=== PATIENT | male | born 1955 | race Caucasian/White ===

== ENCOUNTER → 2017-08-10 12:50 | Outpatient (CLI) | payer MEDICAID, SELFPAY ==
[2017-08-10 13:20] LABS: Basophils % 0.7 % (0.1-2.0); Eosinophils # 0.3 K/mm3 (0.0-0.4); Eosinophils % 3.9 % (0.1-12.0); Hematocrit 47.3 % (42.0-52.0); Hemoglobin 15.1 g/dL (14.1-18.0); Lymphocytes # 2.4 K/mm3 (0.7-4.5); Lymphocytes % 35.7 K/mm3 (10-50); Mean Corpuscular HGB Conc 31.9 g/dL (31.8-35.4); Mean Corpuscular Volume 84.5 fl (80-94); Mean Platelet Volume 8.6 fl (7.4-10.4); Monocytes # 0.4 K/mm3 (0.1-1.0); Monocytes % 5.3 % (1.7-9.3); Neutrophils # 3.6 K/mm3 (1.8-7.8); Neutrophils % 54.6 % (37.0-80.0); Platelet Count 122 K/mm3 (142-424); Red Cell Distribution Width 15.6 % (11.5-17.5); White Blood Count 6.6 K/mm3 (4.8-10.8)
[2017-08-10 13:24] LABS: INR 0.97 (0.9-1.1); Prothrombin Time 10.5 seconds (9.4-11.8)
[2017-08-10 13:58] LABS: Alanine Aminotransferase 33 U/L (12-78); Albumin Level 3.8 gm/dL (3.4-5.0); Albumin/Globulin Ratio 1.3 (1.1-1.8); Alkaline Phosphatase 86 U/L (46-116); Anion Gap 10.8 mEq/L (5-15); Aspartate Amino Transferase 32 U/L (15-37); Bilirubin,Total 0.4 mg/dL (0.2-1.0); Blood Urea Nitrogen 14 mg/dL (7-18); Calcium 9.4 mg/dL (8.5-10.1); Carbon Dioxide 31 mmol/L (21.0-32.0); Chloride 103 mmol/L (98-107); Creatinine,Serum 1.51 mg/dL (0.70-1.30); Estimated Glomerular Filt Rate 47 ml/min (>60); GFR (African American) 57 ML/MIN (>60); Glucose 159 mg/dL (74-106); Potassium 4.8 mmoL/L (3.5-5.1); Sodium 140 mmol/L (136-145); Total Protein,Serum 6.8 gm/dL (6.4-8.2)
== END ==
PROVIDERS: PCP Internal Medicine; Visit Provider Internal Medicine
DX: R07.9 Chest pain, unspecified (principal)
CPT/HCPCS: 36415; 80053; 85025; 85610

== ENCOUNTER → 2017-08-19 10:25 | Outpatient (CLI) | payer MEDICAID, SELFPAY ==
--- NOTE | 2017-08-19 10:34 | CA_ITS ---
PROCEDURE: 2-D M-mode and color Doppler study INDICATIONS FOR THE TEST: Chest pain+ COPD Heart Murmur Tobacco Smoking Palpitations+ Fatigue Syncope Edema+ Hypertension+Diabetes Mellitus+ Rheumatic Fever+ SOB+BAH+Obesity+Hyperlipidemia+ Family History HD Additional History CAD, near syncope PATIENT INFORMATION HEIGHT: 64 WEIGHT: 195 GENDER: Male B/P: 169/80 2-D/M-MODE INTERPRETATION: 2-D MEASUREMENTS OBSERVED VALUES IN CMS Right Ventricular Dimension (RVDd) 1.9 Interventricular Septum (Thickness)(IVsd) 1.0 Left Ventricular Internal Dimensions(LVIDd) 4.5 Left Ventricular Posterior Wall (Thickness)(LVPWd) 1.0 Aortic Root 3.3 Aortic Cusp Separation 2.3 Left Atrial Dimensions (LAD) 4.1 2D 1. Left atrium is mildly enlarged, left ventricle is normal size, there is mild qualitative concentric left ventricular hypertrophy, visually estimated ejection fraction 55% with no obvious regional wall motion abnormality. 2. The right atrium and right ventricle are normal size and contractility. 3. The aortic valve is minimally thickened and fibrosed. 4. The mitral and tricuspid valve are structurally normal. 5. The pulmonic valve is poorly visualized. 6. No significant pericardial effusion noted. DOPPLER INTERROGATION: Doppler interrogation of the aortic, mitral and tricuspid valvular presence of mild mitral and tricuspid regurgitation, tricuspid and jet velocity insufficient for calculation of the right ventricular systolic pressure, grade 1 diastolic dysfunction seen with tissue Doppler evidence of raised left atrial pressure. CONCLUSION: 1. Mildly enlarged left atrium, normal left ventricular size, mild qualitative concentric left ventricular hypertrophy, visually estimated ejection fraction 55% with no obvious abnormality, grade 1 diastolic dysfunction seen with tissue Doppler evidence of raised left atrial pressure. 2. Mild mitral and tricuspid regurgitation 3. No significant pericardial effusion noted.
== END ==
PROVIDERS: Family Provider Nurse Practitioner Family; PCP Emergency Medicine; Visit Provider Internal Medicine
DX: I25.10 Atherosclerotic heart disease of native coronary artery without angina pectoris (principal); R94.31 Abnormal electrocardiogram [ECG] [EKG]; E11.9 Type 2 diabetes mellitus without complications; I10 Essential (primary) hypertension; E78.5 Hyperlipidemia, unspecified; Z95.5 Presence of coronary angioplasty implant and graft
CPT/HCPCS: 93306

== ENCOUNTER → 2017-08-27 08:10 | Outpatient (CLI) | payer MEDICAID, SELFPAY ==
[2017-08-27 11:06] LABS: Albumin Level 3.6 gm/dL (3.4-5.0); Anion Gap 10.2 mEq/L (5-15); Blood Urea Nitrogen 15 mg/dL (7-18); Calcium 8.6 mg/dL (8.5-10.1); Carbon Dioxide 30 mmol/L (21.0-32.0); Chloride 104 mmol/L (98-107); Creatinine,Serum 1.46 mg/dL (0.70-1.30); Estimated Glomerular Filt Rate 49 ml/min (>60); GFR (African American) 59 ML/MIN (>60); Glucose 147 mg/dL (74-106); Phosphorous 3.2 mg/dL (2.4-4.9); Potassium 4.2 mmoL/L (3.5-5.1); Sodium 140 mmol/L (136-145)
== END ==
PROVIDERS: PCP Emergency Medicine; Visit Provider Internal Medicine Nephrology
DX: N18.3 Chronic kidney disease, stage 3 (moderate) (principal)
CPT/HCPCS: 36415; 80069

== ENCOUNTER → 2017-09-07 13:12 | Outpatient (POV) | payer MEDICAID, SELFPAY | PROVIDERS: Family Provider Nurse Practitioner Family; PCP Emergency Medicine; Visit Provider Internal Medicine Nephrology | DX: Z00.00 Encounter for general adult medical examination without abnormal findings (principal) ==

== ENCOUNTER → 2017-09-08 06:37 | Day surgery (SDC) | payer MEDICAID, SELFPAY ==
[2017-09-08] VITALS (13 sets, daily range): BP systolic 103–144; BP diastolic 64–107; PULSE 73–97; RESP 12–18; TEMP 36.8; O2SAT 91–96; BMI 34.9
--- NOTE | 2017-09-08 | IR_ITS ---
CARDIAC CATHETERIZATION DATE OF CATHETERIZATION:09/08/2017 12:53 PM PROCEDURES: 1. Left heart catheterization 2. Left ventriculogram 3. Selective coronary angiogram 4. Drug-eluting stent deployment to the ostial proximal mid distal left anterior descending artery INDICATION FOR TEST: 1. Angina pectoris class III and IV 2. Known coronary artery disease Informed consent was obtained prior to the procedure. COMPLICATIONS: None ESTIMATED BLOOD LOSS: Less than 10 ml. TECHNIQUE: One percent lidocaine used to anesthetize the right anterior aspect of the wrist. The right radial artery was accessed via the Seldinger technique. A 6 [place] sheath was placed in the right radial artery. 2.5 mg of verapamil, 800 mcg of nitroglycerin and 5000 U Heparin were given through the arterial sheath. The trap catheter was also used to perform left heart catheterization left ventriculogram and selective coronary angiogram. At the end of the diagnostic angiogram and additional 4000 units of heparin was administered intravenously giving an ACT out of range. An Ibotta[place] left guide catheter was used intubate the left main artery and a choice PT extra-support wire was placed distally. A 3 mm x 38 mm resolute Leobardo stent was placed ostially and proximally followed by a 2.75 mm x 30 mm resolute [place] stent placed in the mid segment overlapping the first stent followed by an additional 2.5 x 26 mm resolute Leobardo stent overlapping the second stent and placed distally. All stents were deployed at 22 lashay. 3 mm x 12 mm noncompliant balloon was deployed at 24 lashay throughout the mid proximal LAD. A 3.5 x 8 mm noncompliant balloon was then deployed in the proximal to mid segment and a focal area of under expansion. Excellent angiographic results were obtained. At the end the procedure the ACT remain out of range. The apparatus was removed good hemostasis was achieved using TR banding patient transferred to the postop holding area in stable condition ANGIOGRAPHIC RESULTS: 1. The left main artery normal 2. The left anterior descending artery has an ostial 80% stenosis followed by an additional proximal 90% stenosis followed by an additional 80% concentric stenosis followed by an additional 90% mid vessel stenosis followed by an additional 80% stenosis distal to the stents. 3. The circumflex artery is a dominant vessel and has a proximal 40% concentric stenosis followed by 20% mid vessel stenoses 4. The right coronary artery is a small nondominant vestigial vessel and normal 5. The FARLEY ventriculogram reveals normal 65-70% 6. The left ventricular end-diastolic pressure 20 mmHg IMPRESSION: 1. Severe to critical in-stent restenosis throughout the entire LAD as described above 2. Successful stenting of the ostial proximal mid distal LAD severe critical disease reduced to 10% with 3 drug-eluting stents 3. Normal slightly hyperdynamic left ventricle consistent with hypertensive heart disease 4. Mildly elevated LVEDP PLAN: 1. Dual antiplatelet therapy 2. LDL less than 55 3. Avoidance of tobacco products 4. Risk factor modification 5. Cardiac rehabilitation
[2017-09-08 07:15] LABS: Basophils % 0.7 % (0.1-2.0); Eosinophils # 0.5 K/mm3 (0.0-0.4); Eosinophils % 7.3 % (0.1-12.0); Hemoglobin 14.8 g/dL (14.1-18.0); Lymphocytes # 2.1 K/mm3 (0.7-4.5); Lymphocytes % 31.7 K/mm3 (10-50); Mean Corpuscular HGB Conc 32.9 g/dL (31.8-35.4); Mean Corpuscular Hemoglobin 27.2 pg (27.0-31.2); Mean Corpuscular Volume 82.7 fl (80-94); Mean Platelet Volume 9.2 fl (7.4-10.4); Monocytes # 0.5 K/mm3 (0.1-1.0); Monocytes % 8.2 % (1.7-9.3); Neutrophils # 3.4 K/mm3 (1.8-7.8); Neutrophils % 52.1 % (37.0-80.0); Platelet Count 131 K/mm3 (142-424); Red Blood Count 5.44 M/mm3 (4.60-6.20); Red Cell Distribution Width 15.4 % (11.5-17.5); White Blood Count 6.5 K/mm3 (4.8-10.8)
[2017-09-08 07:22] LABS: Anion Gap 10.8 mEq/L (5-15); Blood Urea Nitrogen 17 mg/dL (7-18); Carbon Dioxide 29 mmol/L (21.0-32.0); Chloride 104 mmol/L (98-107); Creatinine Clearance Estimated 60 mL/min (0-300); Creatinine,Serum 1.64 mg/dL (0.70-1.30); Estimated Glomerular Filt Rate 43 ml/min (>60); GFR (African American) 52 ML/MIN (>60); Glucose 146 mg/dL (74-106); Potassium 3.8 mmoL/L (3.5-5.1); Sodium 140 mmol/L (136-145)
[2017-09-08 13:23] LABS: CATHL Activated Clotting Time > 400 SEC (74-125)
[2017-09-08 13:24] LABS: CATHL Activated Clotting Time > 400 SEC (74-125)
== END ==
PROVIDERS: Family Provider Nurse Practitioner Family; PCP Emergency Medicine; Visit Provider Internal Medicine
DX: I25.119 Atherosclerotic heart disease of native coronary artery with unspecified angina pectoris (principal); R55 Syncope and collapse; I10 Essential (primary) hypertension; E11.9 Type 2 diabetes mellitus without complications; R06.09 Other forms of dyspnea; I48.2 Chronic atrial fibrillation
CPT/HCPCS: 80048; 85025; 85347; 92928; 93458; 99152; 99153; C1725; C1769; C1876; C1894; C9600; J1644; Q9967

== ENCOUNTER → 2017-09-09 09:08 | Outpatient (CLI) | payer MEDICAID, SELFPAY ==
[2017-09-09 10:29] LABS: Anion Gap 14.2 mEq/L (5-15); Blood Urea Nitrogen 17 mg/dL (7-18); Carbon Dioxide 26 mmol/L (21.0-32.0); Chloride 103 mmol/L (98-107); Creatinine,Serum 1.89 mg/dL (0.70-1.30); Estimated Glomerular Filt Rate 36 ml/min (>60); GFR (African American) 44 ML/MIN (>60); Glucose 245 mg/dL (74-106); Potassium 4.2 mmoL/L (3.5-5.1); Sodium 139 mmol/L (136-145)
== END ==
PROVIDERS: PCP Emergency Medicine; Visit Provider Internal Medicine
DX: Z95.5 Presence of coronary angioplasty implant and graft (principal)
CPT/HCPCS: 36415; 80048

== ENCOUNTER → 2017-10-14 11:40 | Outpatient (CLI) | payer MEDICAID, SELFPAY ==
[2017-10-14 12:08] LABS: Alanine Aminotransferase 36 U/L (12-78); Albumin Level 3.8 gm/dL (3.4-5.0); Alkaline Phosphatase 74 U/L (46-116); Aspartate Amino Transferase 29 U/L (15-37); Bilirubin,Direct 0.2 mg/dL (0.0-0.2); Bilirubin,Total 0.5 mg/dL (0.2-1.0); Blood Urea Nitrogen 17 mg/dL (7-18); Carbon Dioxide 29 mmol/L (21.0-32.0); Cholesterol 151 mg/dL (140-200); Creatinine,Serum 1.66 mg/dL (0.70-1.30); Estimated Glomerular Filt Rate 42 ml/min (>60); GFR (African American) 51 ML/MIN (>60); Glucose 125 mg/dL (74-106); HDL Cholesterol 30 mg/dL (27-67); LDL Cholesterol 63 mg/dL (0-130); Total Protein,Serum 7.4 gm/dL (6.4-8.2); Triglycerides 289 mg/dL (30-200); VLDL Cholesterol 58 mg/dL (0-40)
[2017-10-14 12:25] LABS: Anion Gap 9.4 mEq/L (5-15); Chloride 103 mmol/L (98-107); Potassium 4.4 mmoL/L (3.5-5.1); Sodium 137 mmol/L (136-145)
== END ==
PROVIDERS: Visit Provider Internal Medicine Cardiovascular Disease
DX: Z95.5 Presence of coronary angioplasty implant and graft (principal); I27.20 Pulmonary hypertension, unspecified; R94.31 Abnormal electrocardiogram [ECG] [EKG]; I48.91 Unspecified atrial fibrillation; I25.119 Atherosclerotic heart disease of native coronary artery with unspecified angina pectoris; I10 Essential (primary) hypertension; E78.4 Other hyperlipidemia; E11.9 Type 2 diabetes mellitus without complications; M79.601 Pain in right arm
CPT/HCPCS: 36415; 80048; 80061; 80076

== ENCOUNTER → 2017-11-11 10:49 | Outpatient (REF) | payer MEDICAID, SELFPAY ==
[2017-11-11 14:08] LABS: Basophils % 0.6 % (0.1-2.0); Eosinophils # 0.3 K/mm3 (0.0-0.4); Eosinophils % 3.4 % (0.1-12.0); Hematocrit 46.7 % (42.0-52.0); Lymphocytes # 2.4 K/mm3 (0.7-4.5); Mean Corpuscular Hemoglobin 28.5 pg (27.0-31.2); Mean Corpuscular Volume 89.1 fl (80-94); Mean Platelet Volume 8.4 fl (7.4-10.4); Monocytes # 0.5 K/mm3 (0.1-1.0); Monocytes % 6.7 % (1.7-9.3); Neutrophils # 4.3 K/mm3 (1.8-7.8); Neutrophils % 57.3 % (37.0-80.0); Platelet Count 149 K/mm3 (142-424); Red Blood Count 5.25 M/mm3 (4.60-6.20); White Blood Count 7.6 K/mm3 (4.8-10.8)
[2017-11-11 14:53] LABS: Anion Gap 12.8 mEq/L (5-15); Blood Urea Nitrogen 11 mg/dL (7-18); Carbon Dioxide 28 mmol/L (21.0-32.0); Chloride 107 mmol/L (98-107); Creatinine,Serum 1.51 mg/dL (0.70-1.30); Estimated Glomerular Filt Rate 47 ml/min (>60); GFR (African American) 57 ML/MIN (>60); Glucose 175 mg/dL (74-106); Potassium 4.8 mmoL/L (3.5-5.1); Sodium 143 mmol/L (136-145)
== END ==
LOC: LAB 10:49
PROVIDERS: Visit Provider Emergency Medicine
DX: E78.5 Hyperlipidemia, unspecified (principal)
CPT/HCPCS: 80048; 85025

== ENCOUNTER → 2018-02-22 12:58 | Outpatient (CLI) | payer MEDICAID, SELFPAY ==
[2018-02-22 13:06] LABS: Microscopic, Urine URINE MICROSCOPIC (MICROSCOPIC)
[2018-02-22 14:04] LABS: Basophils % 0.7 % (0.1-2.0); Eosinophils # 0.3 K/mm3 (0.0-0.4); Eosinophils % 4.2 % (0.1-12.0); Hematocrit 46.1 % (42.0-52.0); Lymphocytes # 2.4 K/mm3 (0.7-4.5); Lymphocytes % 40.7 K/mm3 (10-50); Mean Corpuscular HGB Conc 32.5 g/dL (31.8-35.4); Mean Corpuscular Hemoglobin 27.8 pg (27.0-31.2); Mean Corpuscular Volume 85.6 fl (80-94); Mean Platelet Volume 8.4 fl (7.4-10.4); Monocytes # 0.4 K/mm3 (0.1-1.0); Monocytes % 5.9 % (1.7-9.3); Neutrophils # 2.9 K/mm3 (1.8-7.8); Neutrophils % 48.5 % (37.0-80.0); Platelet Count 120 K/mm3 (142-424); Red Blood Count 5.39 M/mm3 (4.60-6.20); Red Cell Distribution Width 15.1 % (11.5-17.5); White Blood Count 5.9 K/mm3 (4.8-10.8)
[2018-02-22 14:48] LABS: Anion Gap 12.1 mEq/L (5-15); Blood Urea Nitrogen 15 mg/dL (7-18); Calcium 9.1 mg/dL (8.5-10.1); Carbon Dioxide 28 mmol/L (21.0-32.0); Chloride 107 mmol/L (98-107); Creatinine,Serum 1.75 mg/dL (0.70-1.30); Estimated Glomerular Filt Rate 39 ml/min (>60); GFR (African American) 48 ML/MIN (>60); Glucose 171 mg/dL (74-106); Potassium 4.1 mmoL/L (3.5-5.1); Sodium 143 mmol/L (136-145)
[2018-02-22 15:07] LABS: Appearance,Urine CLEAR (Clear); Bilirubin,Urine Negative (Negative); Blood, Urine 1+ (Negative); Color,Urine YELLOW (Yellow); Glucose,Urine (UA) Negative (Negative); Ketones,Urine Negative (Negative); Leukocyte Esterase,Urine Negative (Negative); Nitrate,Urine Negative (Negative); PH,Urine 5.5 (5.0-8.5); Protein,Urine 1+ (Negative); Specific Gravity, Urine >= 1.030 (1.005-1.030)
[2018-02-22 15:09] LABS: Creatinine,Urine Random 177 mg/dL (20-320)
[2018-02-22 15:23] LABS: Mucus,Urine 2+ /lpf
[2018-02-22 15:24] LABS: Bacteria,Urine 1+ /lpf; RBC,Urine Occasional #/hpf (0-3)
== END ==
PROVIDERS: Visit Provider Internal Medicine Nephrology
DX: N18.3 Chronic kidney disease, stage 3 (moderate) (principal)
CPT/HCPCS: 36415; 80069; 81001; 82570; 84155; 85025

== ENCOUNTER → 2018-03-13 13:46 | Outpatient (POV) | payer MEDICAID, SELFPAY | PROVIDERS: Family Provider Nurse Practitioner Family; PCP Emergency Medicine; Visit Provider Internal Medicine Nephrology | DX: Z00.00 Encounter for general adult medical examination without abnormal findings (principal) ==

== ENCOUNTER → 2018-06-27 18:18 | Outpatient (CLI) | payer MEDICAID, SELFPAY ==
[2018-06-27 18:32] LABS: Basophils # 0.1 K/mm3 (0-0.2); Basophils % 0.8 % (0.1-2.0); Eosinophils # 0.2 K/mm3 (0.0-0.4); Eosinophils % 2.8 % (0.1-12.0); Hematocrit 49.7 % (42.0-52.0); Hemoglobin 15.8 g/dL (14.1-18.0); Lymphocytes # 2.8 K/mm3 (0.7-4.5); Lymphocytes % 36.1 % (10-50); Mean Corpuscular HGB Conc 31.8 g/dL (31.8-35.4); Mean Corpuscular Hemoglobin 27.5 pg (27.0-31.2); Mean Corpuscular Volume 86.4 fl (80-94); Mean Platelet Volume 8.5 fl (7.4-10.4); Monocytes # 0.4 K/mm3 (0.1-1.0); Monocytes % 5.8 % (1.7-9.3); Neutrophils # 4.2 K/mm3 (1.8-7.8); Neutrophils % 54.6 % (37.0-80.0); Platelet Count 133 K/mm3 (142-424); Red Blood Count 5.75 M/mm3 (4.60-6.20); Red Cell Distribution Width 15.6 % (11.5-17.5); White Blood Count 7.6 K/mm3 (4.8-10.8)
[2018-06-27 19:15] LABS: Hemoglobin A1C 6.9 % (0.0-7.0)
[2018-06-27 19:29] LABS: Alanine Aminotransferase 28 U/L (12-78); Albumin/Globulin Ratio 1.4 (1.1-1.8); Alkaline Phosphatase 78 U/L (46-116); Anion Gap 12.9 mEq/L (5-15); Aspartate Amino Transferase 18 U/L (15-37); Bilirubin,Total 0.4 mg/dL (0.2-1.0); Blood Urea Nitrogen 11 mg/dL (7-18); Calcium 8.7 mg/dL (8.5-10.1); Carbon Dioxide 28 mmol/L (21.0-32.0); Chloride 104 mmol/L (98-107); Chol/HDL Ratio 6.6 (1-3.5); Cholesterol 172 mg/dL (140-200); Estimated Glomerular Filt Rate 51 ml/min (>60); Free T4 (Free Thyroxine) 0.97 ng/dl (0.76-1.46); GFR (African American) 62 ML/MIN (>60); Globulin 2.9 gm/dl (1.3-3.2); Glucose 138 mg/dL (74-106); HDL Cholesterol 26 mg/dL (27-67); Potassium 3.9 mmoL/L (3.5-5.1); Sodium 141 mmol/L (136-145); Thyroid Stimulating Hormone 9.52 uIU/ml (0.358-3.740); Total Protein,Serum 6.9 gm/dL (6.4-8.2)
[2018-06-27 19:30] LABS: Triglycerides 416 mg/dL (30-200)
== END ==
PROVIDERS: Visit Provider Emergency Medicine
DX: E11.9 Type 2 diabetes mellitus without complications (principal)
CPT/HCPCS: 80053; 80061; 83036; 84439; 84443; 85025

== ENCOUNTER → 2018-11-03 10:53 | Outpatient (CLI) | payer MEDICAID, SELFPAY ==
[2018-11-03 10:55] LABS: Microscopic, Urine URINE MICROSCOPIC (MICROSCOPIC)
[2018-11-03 11:09] LABS: Basophils % 0.6 % (0.1-2.0); Eosinophils # 0.3 K/mm3 (0.0-0.4); Eosinophils % 5.3 % (0.1-12.0); Hematocrit 42.9 % (42.0-52.0); Hemoglobin 14.2 g/dL (14.1-18.0); Lymphocytes # 2.3 K/mm3 (0.7-4.5); Lymphocytes % 43.9 % (10-50); Mean Corpuscular HGB Conc 33.2 g/dL (31.8-35.4); Mean Corpuscular Volume 87.3 fl (80-94); Mean Platelet Volume 8.4 fl (7.4-10.4); Monocytes # 0.3 K/mm3 (0.1-1.0); Monocytes % 5.5 % (1.7-9.3); Neutrophils # 2.3 K/mm3 (1.8-7.8); Neutrophils % 44.7 % (37.0-80.0); Platelet Count 131 K/mm3 (142-424); Red Blood Count 4.92 M/mm3 (4.60-6.20); Red Cell Distribution Width 15.7 % (11.5-17.5); White Blood Count 5.2 K/mm3 (4.8-10.8)
[2018-11-03 11:52] LABS: Appearance,Urine CLEAR (Clear); Bilirubin,Urine Negative (Negative); Blood, Urine 1+ (Negative); Color,Urine YELLOW (Yellow); Glucose,Urine (UA) 3+ (Negative); Ketones,Urine Negative (Negative); Leukocyte Esterase,Urine Negative (Negative); Nitrate,Urine Negative (Negative); PH,Urine 5.5 (5.0-8.5); Protein,Urine 1+ (Negative); Specific Gravity, Urine >= 1.030 (1.005-1.030); Urobilinogen,Urine 0.2 EU/dl (0.2)
[2018-11-03 12:02] LABS: Creatinine,Urine Random 129 mg/dL (20-320); Total Protein,Urine Random 86.9 mg/dL (0.0-11.9)
[2018-11-03 12:11] LABS: Albumin Level 3.5 gm/dL (3.4-5.0); Anion Gap 13.9 mEq/L (5-15); Blood Urea Nitrogen 11 mg/dL (7-18); Calcium 9.3 mg/dL (8.5-10.1); Carbon Dioxide 27 mmol/L (21.0-32.0); Chloride 106 mmol/L (98-107); Creatinine,Serum 1.61 mg/dL (0.70-1.30); Estimated Glomerular Filt Rate 43 ml/min (>60); GFR (African American) 53 ML/MIN (>60); Glucose 199 mg/dL (74-106); Phosphorous 3.2 mg/dL (2.4-4.9); Potassium 3.9 mmoL/L (3.5-5.1); Sodium 143 mmol/L (136-145)
[2018-11-03 12:20] LABS: Bacteria,Urine 1+ /lpf; Mucus,Urine Trace /lpf; Squamous Epithelial Cell,Urine Occasional #/hpf (0-5); WBC,Urine Occasional #/hpf (0-3)
== END ==
PROVIDERS: Visit Provider Internal Medicine Nephrology
DX: N18.3 Chronic kidney disease, stage 3 (moderate) (principal)
CPT/HCPCS: 36415; 80069; 81001; 82570; 84155; 85025

== ENCOUNTER → 2018-11-06 15:37 | Outpatient (POV) | payer MEDICAID, SELFPAY | PROVIDERS: Visit Provider Internal Medicine Nephrology | DX: Z00.00 Encounter for general adult medical examination without abnormal findings (principal) ==

== ENCOUNTER → 2019-02-02 07:35 | Outpatient (CLI) | payer MEDICARE, MEDICAID, SELFPAY ==
[2019-02-02 09:24] LABS: Anion Gap 12.8 mEq/L (5-15); Blood Urea Nitrogen 25 mg/dL (7-18); Calcium 9.1 mg/dL (8.5-10.1); Carbon Dioxide 25 mmol/L (21.0-32.0); Chloride 105 mmol/L (98-107); Creatinine,Serum 2.26 mg/dL (0.70-1.30); Estimated Glomerular Filt Rate 29 ml/min (>60); GFR (African American) 35 ML/MIN (>60); Glucose 161 mg/dL (74-106); Potassium 3.8 mmoL/L (3.5-5.1); Sodium 139 mmol/L (136-145)
== END ==
PROVIDERS: Visit Provider Internal Medicine Nephrology
DX: N18.3 Chronic kidney disease, stage 3 (moderate) (principal)
CPT/HCPCS: 36415; 80048

== ENCOUNTER → 2019-02-19 07:46 | Outpatient (CLI) | payer MEDICARE, MEDICAID, SELFPAY ==
[2019-02-19 09:18] LABS: Albumin Level 3.6 gm/dL (3.4-5.0); Blood Urea Nitrogen 27 mg/dL (7-18); Carbon Dioxide 25 mmol/L (21.0-32.0); Chloride 106 mmol/L (98-107); Creatinine,Serum 2.37 mg/dL (0.70-1.30); Estimated Glomerular Filt Rate 28 ml/min (>60); GFR (African American) 34 ML/MIN (>60); Glucose 189 mg/dL (74-106); Phosphorous 4.4 mg/dL (2.4-4.9); Sodium 141 mmol/L (136-145)
== END ==
PROVIDERS: Visit Provider Internal Medicine Nephrology
DX: N18.3 Chronic kidney disease, stage 3 (moderate) (principal)
CPT/HCPCS: 36415; 80069

== ENCOUNTER → 2019-03-23 08:19 | Outpatient (CLI) | payer MEDICARE, MEDICAID, SELFPAY ==
[2019-03-23 09:54] LABS: Albumin Level 3.9 gm/dL (3.4-5.0); Anion Gap 12.7 mEq/L (5-15); Blood Urea Nitrogen 20 mg/dL (7-18); Calcium 9.3 mg/dL (8.5-10.1); Carbon Dioxide 28 mmol/L (21.0-32.0); Chloride 104 mmol/L (98-107); Creatinine,Serum 1.82 mg/dL (0.70-1.30); Estimated Glomerular Filt Rate 38 ml/min (>60); GFR (African American) 45 ML/MIN (>60); Glucose 155 mg/dL (74-106); Phosphorous 3.5 mg/dL (2.4-4.9); Potassium 3.7 mmoL/L (3.5-5.1); Sodium 141 mmol/L (136-145)
== END ==
PROVIDERS: Visit Provider Internal Medicine Nephrology
DX: N18.3 Chronic kidney disease, stage 3 (moderate) (principal)
CPT/HCPCS: 36415; 80069

== ENCOUNTER → 2019-10-29 08:22 | Outpatient (CLI) | payer MEDICARE, MEDICAID, SELFPAY ==
[2019-10-29 09:31] LABS: Basophils % 0.7 % (0.1-2.0); Eosinophils # 0.2 K/mm3 (0.0-0.4); Eosinophils % 3.9 % (0.1-12.0); Hematocrit 44.7 % (42.0-52.0); Hemoglobin 15.2 g/dL (14.1-18.0); Lymphocytes # 2.4 K/mm3 (0.7-4.5); Mean Corpuscular HGB Conc 33.9 g/dL (31.8-35.4); Mean Corpuscular Hemoglobin 28.9 pg (27.0-31.2); Mean Corpuscular Volume 85.2 fl (80-94); Mean Platelet Volume 8.9 fl (7.4-10.4); Monocytes # 0.3 K/mm3 (0.1-1.0); Monocytes % 5.6 % (1.7-9.3); Neutrophils # 3.1 K/mm3 (1.8-7.8); Neutrophils % 50.8 % (37.0-80.0); Platelet Count 139 K/mm3 (142-424); Red Blood Count 5.25 M/mm3 (4.60-6.20); Red Cell Distribution Width 15.8 % (11.5-17.5); White Blood Count 6.1 K/mm3 (4.8-10.8)
[2019-10-29 10:23] LABS: Chloride 103 mmol/L (98-107)
[2019-10-29 10:24] LABS: Albumin Level 3.7 g/dl (3.5-5.0); Potassium 3.8 mmoL/L (3.5-5.1); Sodium 137 mmol/L (136-145)
[2019-10-29 10:26] LABS: Anion Gap 11.8 mEq/L (5-15); Blood Urea Nitrogen 13 mg/dl (9-20); Carbon Dioxide 26 mmol/L (22.0-30.0); Estimated Glomerular Filt Rate 47 ml/min (>60); GFR (African American) 57 ML/MIN (>60)
[2019-10-29 10:27] LABS: Calcium 9.5 mg/dl (8.4-10.2); Glucose 216 mg/dl (74-100); Phosphorous 3.5 mg/dl (2.5-4.5)
[2019-10-29 11:39] LABS: Creatinine,Urine Random 65 mg/dL (Not Estab.)
[2019-10-30 08:03] LABS: Vitamin D 25 Hydroxy 23.4 ng/mL (30.0-100.0)
== END ==
PROVIDERS: Visit Provider Internal Medicine Nephrology
DX: N18.3 Chronic kidney disease, stage 3 (moderate) (principal)
CPT/HCPCS: 36415; 80069; 82570; 82652; 84155; 85025

== ENCOUNTER → 2020-02-04 07:51 | Outpatient (CLI) | payer MEDICARE, MEDICAID, SELFPAY ==
--- NOTE | 2020-02-04 07:55 | US_ITS ---
PROCEDURE: US THYROID CLINICAL INDICATION: GOITER hypothyroidism, choking COMPARISON: No exams were available for comparison FINDINGS: Right lobe: Right lobe is 3.7 x 1.8 x 1.8 cm. There are 2 cyst in the lower pole at 2 mm each. Left lobe: 3.6 x 1.4 x 1.5 cm. Small area of calcification is present in the lower pole at 2 mm. Isthmus: 5 mm in thickness Additional findings: IMPRESSION: Two small cyst on the right and a small focus of calcification on the left. No dominant suspicious nodules evident Dictated by: Michael Burnett MD 02/04/2020 19:12 Electronically signed by Michael Burnett MD in [place] 02/04/2020 19:12
== END ==
PROVIDERS: PCP Emergency Medicine; Visit Provider Internal Medicine Cardiovascular Disease
DX: E03.9 Hypothyroidism, unspecified (principal); E04.9 Nontoxic goiter, unspecified
CPT/HCPCS: 76536

== ENCOUNTER → 2020-08-19 19:16 | Outpatient (CLI) | payer MEDICARE, MEDICAID, SELFPAY ==
[2020-08-19 19:42] LABS: Basophils # 0.1 K/mm3 (0-0.2); Basophils % 0.8 % (0.1-2.0); Eosinophils # 0.3 K/mm3 (0.0-0.4); Eosinophils % 3.7 % (0.1-12.0); Hematocrit 52.5 % (42.0-52.0); Hemoglobin 17.5 g/dL (14.1-18.0); Lymphocytes % 34.7 % (10-50); Mean Corpuscular HGB Conc 33.4 g/dL (31.8-35.4); Mean Corpuscular Hemoglobin 29.1 pg (27.0-31.2); Mean Corpuscular Volume 87.2 fl (80-94); Mean Platelet Volume 9.6 fl (7.4-10.4); Monocytes # 0.5 K/mm3 (0.1-1.0); Neutrophils # 4.7 K/mm3 (1.8-7.8); Neutrophils % 54.7 % (37.0-80.0); Platelet Count 150 K/mm3 (142-424); Red Blood Count 6.02 M/mm3 (4.60-6.20); Red Cell Distribution Width 14.9 % (11.5-17.5); White Blood Count 8.5 K/mm3 (4.8-10.8)
[2020-08-19 19:45] LABS: Alanine Aminotransferase 34 U/L (12-78); Albumin Level 4.6 g/dl (3.5-5.0); Albumin/Globulin Ratio 1.4 (1.1-1.8); Alkaline Phosphatase 110 U/L (38-126); Anion Gap 17.5 mEq/L (5-15); Aspartate Amino Transferase 44 U/L (17-59); Bilirubin,Total 0.9 mg/dl (0.2-1.3); Blood Urea Nitrogen 21 mg/dl (9-20); Calcium 10.3 mg/dl (8.4-10.2); Carbon Dioxide 26 mmol/L (22.0-30.0); Chloride 97 mmol/L (98-107); Chol/HDL Ratio 7.6 (1-3.5); Cholesterol 229 mg/dl (140-200); Estimated Glomerular Filt Rate 43 ml/min (>60); GFR (African American) 53 ML/MIN (>60); Globulin 3.2 g/dL (1.3-3.2); Glucose 233 mg/dl (74-100); HDL Cholesterol 30 mg/dl (40-60); Potassium 4.5 mmoL/L (3.5-5.1); Sodium 136 mmol/L (136-145); Total Protein,Serum 7.8 g/dl (6.3-8.2)
[2020-08-19 19:56] LABS: Triglycerides 693 mg/dl (30-150)
[2020-08-19 20:02] LABS: T4 (Thyroxine) 10.1 ug/dl (5.53-11.0)
[2020-08-19 20:13] LABS: Direct LDL Cholesterol 61.42 mg/dL (100-129)
[2020-08-19 20:16] LABS: Thyroid Stimulating Hormone 8.92 uIU/mL (0.465-4.68)
[2020-08-21 13:47] LABS: Prostate Specific Ag 0.4 ng/mL (0.0-4.0)
== END ==
PROVIDERS: Visit Provider Nurse Practitioner Family
DX: E55.9 Vitamin D deficiency, unspecified (principal); K85.90 Acute pancreatitis without necrosis or infection, unspecified; Z00.00 Encounter for general adult medical examination without abnormal findings; R20.2 Paresthesia of skin; R94.8 Abnormal results of function studies of other organs and systems
CPT/HCPCS: 80053; 80061; 82306; 84153; 84154; 84436; 84443; 85025

== ENCOUNTER → 2020-11-03 08:17 | Outpatient (CLI) | payer MEDICARE, MEDICAID, SELFPAY ==
[2020-11-03 09:08] LABS: Creatinine,Urine Random 72 mg/dL (Not Estab.)
[2020-11-03 09:21] LABS: Albumin Level 4.6 g/dl (3.5-5.0); Anion Gap 15.3 mEq/L (5-15); Blood Urea Nitrogen 20 mg/dl (9-20); Calcium 10.3 mg/dl (8.4-10.2); Carbon Dioxide 28 mmol/L (22.0-30.0); Chloride 100 mmol/L (98-107); Estimated Glomerular Filt Rate 36 ml/min (>60); GFR (African American) 43 ML/MIN (>60); Glucose 176 mg/dl (74-100); Phosphorous 3.8 mg/dl (2.5-4.5); Potassium 4.3 mmoL/L (3.5-5.1); Sodium 139 mmol/L (136-145); Uric Acid 5.3 mg/dl (3.5-8.5)
[2020-11-03 09:39] LABS: 25-OH Vitamin D, Total 34.4 ng/mL (30-100)
== END ==
PROVIDERS: Visit Provider Internal Medicine Nephrology
DX: N18.30 Chronic kidney disease, stage 3 unspecified (principal); Z68.32 Body mass index [BMI] 32.0-32.9, adult
CPT/HCPCS: 36415; 80069; 82043; 82306; 82570; 84550

== ENCOUNTER → 2020-11-10 09:40 | Outpatient (POV) | payer MEDICARE, MEDICAID, SELFPAY | PROVIDERS: Visit Provider Internal Medicine Nephrology | DX: Z00.00 Encounter for general adult medical examination without abnormal findings (principal) ==

== ENCOUNTER 2020-11-21 15:38 | Emergency (ER) | payer MEDICARE, MEDICAID, SELFPAY ==
[2020-11-21 15:41] VITALS: BP 146/94; PULSE 82; RESP 16; TEMP 36.8; O2SAT 100; BMI 32.3
--- NOTE | 2020-11-21 16:31 | HMH.EDUTC ---
[facility] [place] Clinical Impression: Herpes zoster Qualifiers: Herpes zoster complications: without complications Qualified Code(s): B02.9 - Zoster without complications Disposition: Home, Self-Care Condition on Discharge: Good Instructions: Shingles, DI for Shingles Additional Instructions: Follow up with your primary care doctor. Take the medications as directed. GO TO THE ER FOR ANY WORSENING SYMPTOMS OR CONCERNS Prescriptions: Acyclovir 400 mg PO BID 7 Days #14 tab Transmission Status: Received by [facility] predniSONE [Deltasone 10mg tablet] 10 mg PO DAILY 9 Days #21 tab Transmission Status: Received by [facility] Referrals: Don Pierson MD [Primary Care Provider] - Time of Disposition: 16:35 Medical Decision Making - Medical Records Medical records reviewed: No: I reviewed the patient's medical records. - Mando Inquiry Pt receiving controlled substance: No Vital Signs: 11/21/20 15:41 11/21/20 16:37 Temperature 98.2 F 98 F Temperature Source Tympanic Pulse Rate 86 Pulse Rate [Right] 82 Respiratory Rate 16 15 Blood Pressure 132/89 Blood Pressure [Right Arm] 146/94 H Blood Pressure Mean [Right Arm] 111 Blood Pressure Source [Right Arm] Automatic Cuff Blood Pressure Position [Right Arm] Sitting 02 Sat by Pulse Oximetry 100 Oxygen Delivery Method Room Air [facility] [place] HPI - General Stated complaint: sores on Left leg Time Seen by Provider: 11/21/20 16:31 Mode of Arrival: Ambulatory Source of Information: Patient Limitations: No Limitations Description of Symptoms (Recalled from Triage Doc. by RN): a few days ago pt devoped a rash from his knee up to his hip on his L leg. rash presents as small circles in clusters that are raised and fluid filled from a red to purple. pt complains they are itching and he has tried benedryl cream without any relief. HEENT Symptoms (Recalled from RN notes): No Resp Symptoms (Recalled from RN notes): No Skin Symptoms (Recalled from RN notes): Yes (rash on L leg from knee to hip.) MS Symptoms (Recalled from RN notes): No Functional Status (Recalled from RN notes): na - History of Present Illness Provider Complaint: He states that for the past 1 week he has had sores on his right buttock that stretch down the back of his right leg. He states that the places were painful and itchy at first, but now they feel some better. - Related Data Home Medications Medication Instructions Recorded Confirmed clonidine HCl 0.2 mg tablet 0.2 mg PO Q12H 08/10/17 10/14/20 amlodipine 5 mg tablet 5 mg PO BID tab 01/31/20 10/14/20 blood sugar diagnostic See Rx Instructions .ROUTE 01/31/20 10/14/20 .MEDSUPPLY #10 each chlorthalidone 25 mg tablet 12.5 mg PO DAILY tab 03/26/20 10/14/20 levothyroxine 75 mcg capsule 75 mcg PO DAILY 08/19/20 10/14/20 gabapentin 100 mg capsule 100 mg PO DAILY 08/22/20 10/14/20 metoprolol succinate 100 mg 100 mg PO DAILY 08/22/20 10/14/20 tablet,extended release 24 hr sitagliptin 50 mg tablet 50 mg PO DAILY 08/22/20 10/14/20 Previous Rx's Medication Instructions Recorded clopidogrel 75 mg tablet 75 mg PO DAILY #90 tab 10/19/18 cilostazol 100 mg tablet 100 mg PO BID #180 tab 12/31/19 aspirin 81 mg tablet,delayed See Rx Instructions .ROUTE 07/11/20 release .COMPLEX #90 tab polyethylene glycol 3350 17 See Rx Instructions .ROUTE 09/15/20 gram/dose oral powder .COMPLEX #510 g allopurinol 300 mg tablet See Rx Instructions .ROUTE 10/29/20 .COMPLEX #90 tab Acyclovir 400 mg PO BID 7 Days #14 tab 11/21/20 predniSONE [Deltasone 10mg tablet] 10 mg PO DAILY 9 Days #21 tab 11/21/20 Allergies Allergy/AdvReac Type Severity Reaction Status Date / Time atorvastatin [From Lipitor] Allergy Mild Hallucinati Verified 11/21/20 15:48 ng - Worker's Comp Is this a Worker's Comp case?: No [facility] History - Hepatitis A Screen Drug use history?: No High risk sexual behaviors?: No History of sexually transmi
[2020-11-21 16:37] VITALS: BP 132/89; PULSE 86; RESP 15; TEMP 36.6
== END 2020-11-21 16:42 | disposition home or self-care (01) ==
PROVIDERS: Emergency Provider Nurse Practitioner Family; PCP Emergency Medicine
DX: B02.9 Zoster without complications (principal); I25.10 Atherosclerotic heart disease of native coronary artery without angina pectoris; I25.2 Old myocardial infarction; Z79.899 Other long term (current) drug therapy
CPT/HCPCS: G0463; 99202

== ENCOUNTER → 2022-08-13 08:50 | Outpatient (CLI) | payer MEDICARE, MEDICAID, SELFPAY ==
[2022-08-13 09:22] LABS: Microscopic, Urine URINE MICROSCOPIC (MICROSCOPIC)
[2022-08-13 09:44] LABS: Appearance,Urine CLEAR (Clear); Bilirubin,Urine Negative (Negative); Blood, Urine 1+ (Negative); Color,Urine YELLOW (Yellow); Glucose,Urine (UA) 3+ (Negative); Ketones,Urine Negative (Negative); Leukocyte Esterase,Urine Negative (Negative); Nitrate,Urine Negative (Negative); PH,Urine 5.5 (5.0-8.5); Protein,Urine 1+ (Negative); Urobilinogen,Urine 0.2 EU/dl (0.2)
[2022-08-13 09:52] LABS: Creatinine,Urine Random 65 mg/dL (Not Estab.)
[2022-08-13 09:53] LABS: Basophils # 0.2 K/mm3 (0-0.2); Basophils % 1.6 % (0.1-2.0); Eosinophils # 0.3 K/mm3 (0.0-0.4); Eosinophils % 2.8 % (0.1-12.0); Hematocrit 55.5 % (42.0-52.0); Lymphocytes % 32.8 % (10-50); Mean Corpuscular HGB Conc 32.9 g/dL (31.8-35.4); Mean Corpuscular Hemoglobin 30.1 pg (27.0-31.2); Mean Corpuscular Volume 91.3 fl (80-94); Monocytes # 0.6 K/mm3 (0.1-1.0); Monocytes % 6.4 % (1.7-9.3); Neutrophils # 5.1 K/mm3 (1.8-7.8); Neutrophils % 56.3 % (37.0-80.0); Platelet Count 143 K/mm3 (142-424); Red Blood Count 6.08 M/mm3 (4.60-6.20)
[2022-08-13 10:04] LABS: Bacteria,Urine Trace /lpf; RBC,Urine Occasional #/hpf (0-3); Squamous Epithelial Cell,Urine Occasional #/hpf (0-5)
[2022-08-13 10:24] LABS: Anion Gap 7.5 mEq/L (5-15); Blood Urea Nitrogen 20 mg/dl (9-20); Calcium 9.3 mg/dl (8.4-10.2); Carbon Dioxide 28 mmol/L (22.0-30.0); Chloride 105 mmol/L (98-107); Estimated Glomerular Filt Rate 55 ml/min (>60); GFR (African American) 66 ML/MIN (>60); Glucose 164 mg/dl (74-100); Phosphorous 3.7 mg/dl (2.5-4.5); Potassium 4.5 mmoL/L (3.5-5.1); Sodium 136 mmol/L (136-145)
[2022-08-13 10:27] LABS: Hemoglobin 18.2 g/dL (14.1-18.0)
[2022-08-13 10:34] LABS: Intact Parathyroid Hormone 85.5 pg/mL (7.5-53.5)
[2022-08-13 11:18] LABS: 25-OH Vitamin D, Total 37.6 ng/mL (30-100)
== END ==
PROVIDERS: PCP Emergency Medicine; Visit Provider Internal Medicine Nephrology
DX: N18.30 Chronic kidney disease, stage 3 unspecified (principal); E55.9 Vitamin D deficiency, unspecified
CPT/HCPCS: 36415; 80069; 81001; 82306; 82570; 83970; 84155; 85025

== ENCOUNTER → 2023-03-14 09:36 | Outpatient (CLI) | payer MEDICARE, MEDICAID, SELFPAY ==
[2023-03-14 09:46] LABS: Microscopic, Urine URINE MICROSCOPIC (MICROSCOPIC)
[2023-03-14 10:13] LABS: Appearance,Urine CLEAR (Clear); Bilirubin,Urine Negative (Negative); Blood, Urine 1+ (Negative); Color,Urine YELLOW (Yellow); Glucose,Urine (UA) 3+ (Negative); Ketones,Urine Negative (Negative); Leukocyte Esterase,Urine Negative (Negative); Nitrate,Urine Negative (Negative); Protein,Urine 2+ (Negative); Specific Gravity, Urine 1.025 (1.005-1.030); Urobilinogen,Urine 0.2 EU/dl (0.2)
[2023-03-14 10:14] LABS: Hematocrit 56.8 % (42.0-52.0); Mean Corpuscular HGB Conc 32.5 g/dL (31.8-35.4); Mean Corpuscular Hemoglobin 29.7 pg (27.0-31.2); Mean Corpuscular Volume 91.3 fl (80-94); Platelet Count 121 K/mm3 (142-424); Red Blood Count 6.22 M/mm3 (4.60-6.20); Red Cell Distribution Width 14.9 % (11.5-17.5); White Blood Count 7.7 K/mm3 (4.8-10.8)
[2023-03-14 10:27] LABS: Bacteria,Urine Trace /lpf; RBC,Urine Occasional #/hpf (0-3); Squamous Epithelial Cell,Urine Occasional #/hpf (0-5)
[2023-03-14 10:49] LABS: Chloride 106 mmol/L (98-107); Sodium 141 mmol/L (136-145)
[2023-03-14 10:50] LABS: Albumin Level 3.6 g/dl (3.5-5.0); Potassium 4.1 mmoL/L (3.5-5.1)
[2023-03-14 10:52] LABS: Blood Urea Nitrogen 18 mg/dl (9-20); Estimated Glomerular Filt Rate 46 ml/min (>60); GFR (African American) 56 ML/MIN (>60)
[2023-03-14 10:53] LABS: Anion Gap 16.1 mEq/L (5-15); Calcium 9.4 mg/dl (8.4-10.2); Carbon Dioxide 23 mmol/L (22.0-30.0); Glucose 237 mg/dl (74-100); Phosphorous 3.9 mg/dl (2.5-4.5)
[2023-03-14 11:05] LABS: Creatinine,Urine Random 62 mg/dL (Not Estab.)
[2023-03-14 12:27] LABS: 25-OH Vitamin D, Total 36.9 ng/mL (30-100); Hemoglobin 18.5 g/dL (14.1-18.0)
[2023-03-14 13:12] LABS: Intact Parathyroid Hormone 108.2 pg/mL (7.5-53.5)
== END ==
PROVIDERS: PCP Emergency Medicine; Visit Provider Nurse Practitioner
DX: N18.30 Chronic kidney disease, stage 3 unspecified (principal); R79.1 Abnormal coagulation profile
CPT/HCPCS: 36415; 80069; 81001; 82043; 82306; 82570; 83970; 84155; 85014; 85018; 85048; 85049

== ENCOUNTER → 2023-03-14 11:33 | Outpatient (POV) | payer MEDICARE, MEDICAID, SELFPAY | PROVIDERS: Visit Provider Internal Medicine Nephrology | DX: Z00.00 Encounter for general adult medical examination without abnormal findings (principal) ==

== ENCOUNTER → 2023-07-01 10:52 | Outpatient (CLI) | payer MEDICARE, MEDICAID, SELFPAY ==
--- NOTE | 2023-07-01 11:02 | XR_ITS ---
FINAL REPORT CLINICAL HISTORY: pain in knee FINDINGS: 2 views of the left knee were obtained. There is no acute fracture or dislocation. The joint spaces are intact. There is no acute soft tissue abnormality. IMPRESSION: No acute process. Reviewed, Interpreted and Dictated by Vaibhav Raines MD Transcribed by Pedro Barcenas Authenticated and [facility]
[2023-07-01 19:08] LABS: Basophils # 0.1 K/mm3 (0-0.2); Basophils % 0.6 % (0.1-2.0); Eosinophils # 0.3 K/mm3 (0.0-0.4); Eosinophils % 2.9 % (0.1-12.0); Hematocrit 58.5 % (42.0-52.0); Lymphocytes % 31.3 % (10-50); Mean Corpuscular HGB Conc 32.4 g/dL (31.8-35.4); Mean Corpuscular Hemoglobin 30.2 pg (27.0-31.2); Mean Corpuscular Volume 93.2 fl (80-94); Mean Platelet Volume 10.4 fl (7.4-10.4); Monocytes # 0.5 K/mm3 (0.1-1.0); Monocytes % 5.6 % (1.7-9.3); Neutrophils # 5.7 K/mm3 (1.8-7.8); Neutrophils % 59.6 % (37.0-80.0); Platelet Count 111 K/mm3 (142-424); Red Blood Count 6.27 M/mm3 (4.60-6.20); Red Cell Distribution Width 14.7 % (11.5-17.5); White Blood Count 9.5 K/mm3 (4.8-10.8)
[2023-07-01 19:27] LABS: Hemoglobin 19.1 g/dL (14.1-18.0)
[2023-07-01 19:36] LABS: Alanine Aminotransferase 47 U/L (12-78); Albumin Level 4.1 g/dl (3.5-5.0); Albumin/Globulin Ratio 1.7 (1.1-1.8); Alkaline Phosphatase 72 U/L (38-126); Anion Gap 11.9 mEq/L (5-15); Aspartate Amino Transferase 52 U/L (17-59); Bilirubin,Total 0.7 mg/dl (0.2-1.3); Blood Urea Nitrogen 16 mg/dl (9-20); Carbon Dioxide 24 mmol/L (22.0-30.0); Chloride 105 mmol/L (98-107); Chol/HDL Ratio 5.9 (1-3.5); Cholesterol 136 mg/dl (140-200); Estimated Glomerular Filt Rate 60 ml/min (>60); GFR (African American) 73 ML/MIN (>60); Globulin 2.4 g/dL (1.3-3.2); Glucose 179 mg/dl (74-100); HDL Cholesterol 23 mg/dl (40-60); Potassium 3.9 mmoL/L (3.5-5.1); Sodium 137 mmol/L (136-145); Total Protein,Serum 6.5 g/dl (6.3-8.2); Triglycerides 331 mg/dl (30-150); VLDL Cholesterol 66 mg/dL (0-40)
[2023-07-01 19:48] LABS: Direct LDL Cholesterol 67.23 mg/dL (100-129)
[2023-07-01 20:08] LABS: Prostate Specific Ag Screen 0.4 ng/ml (0.0-4.0); Thyroid Stimulating Hormone 3.84 uIU/mL (0.465-4.68)
[2023-07-01 21:20] LABS: Creatinine,Urine Random 42 mg/dL (Not Estab.)
== END ==
PROVIDERS: PCP Internal Medicine; Visit Provider Internal Medicine
DX: M17.12 Unilateral primary osteoarthritis, left knee (principal); E78.5 Hyperlipidemia, unspecified; E11.42 Type 2 diabetes mellitus with diabetic polyneuropathy; Z79.84 Long term (current) use of oral hypoglycemic drugs; Z12.5 Encounter for screening for malignant neoplasm of prostate
CPT/HCPCS: 73560; 80053; 80061; 82043; 82570; 84443; 85025; G0103

== ENCOUNTER 2023-08-18 12:46 | Outpatient (CLI) | payer MEDICARE, MEDICAID, SELFPAY ==
--- NOTE | 2023-08-18 13:01 | US_ITS ---
FINAL REPORT CLINICAL HISTORY: Decreased petal pulses,CLAUDICATION,REST PAIN,HTN,DM,HLD,REDNESS BILATERAL FEET FINDINGS: LOWER EXTREMITY SEGMENTAL PRESSURE MEASUREMENTS FINDINGS: Pressure indices are as follows: RIGHT LOWER EXTREMITY: Upper thigh: 0.94 Calf: 1.23 Ankle, posterior tibial artery: 1.06 Ankle, dorsalis pedis: 0.96 Toe: 0.61 Comments: Right leg ankle-brachial index is 1.06, which is within normal limits. LEFT LOWER EXTREMITY: Upper thigh: 1.13 Calf: Not obtained Ankle, posterior tibial artery: 0.93 Ankle, dorsalis pedis: 1.13 Toe: 0.6 Comments: Left leg ankle-brachial index is 1.13, within normal limits. IMPRESSION: Unremarkable ankle-brachial indices bilateral lower extremities. Reviewed, Interpreted and Dictated by Vaibhav Raines MD Transcribed by Radha Merchant Authenticated and [facility]
== END 2023-08-18 23:59 ==
PROVIDERS: PCP Internal Medicine; Visit Provider Podiatrist
DX: R09.89 Other specified symptoms and signs involving the circulatory and respiratory systems (principal)
CPT/HCPCS: 93923

== ENCOUNTER 2023-09-26 11:04 | Outpatient (CLI) | payer MEDICARE, MEDICAID, SELFPAY ==
[2023-09-26 11:11] LABS: Microscopic, Urine URINE MICROSCOPIC (MICROSCOPIC)
[2023-09-26 11:42] LABS: Appearance,Urine CLEAR (Clear); Bilirubin,Urine Negative (Negative); Blood, Urine 1+ (Negative); Color,Urine YELLOW (Yellow); Glucose,Urine (UA) 3+ (Negative); Ketones,Urine Negative (Negative); Leukocyte Esterase,Urine Negative (Negative); Nitrate,Urine Negative (Negative); Protein,Urine 1+ (Negative); Urobilinogen,Urine 0.2 EU/dl (0.2)
[2023-09-26 11:43] LABS: Hematocrit 56.6 % (42.0-52.0); Mean Corpuscular HGB Conc 32.2 g/dL (31.8-35.4); Mean Corpuscular Hemoglobin 30.7 pg (27.0-31.2); Mean Corpuscular Volume 95.2 fl (80-94); Platelet Count 134 K/mm3 (142-424); Red Blood Count 5.95 M/mm3 (4.60-6.20); White Blood Count 8.7 K/mm3 (4.8-10.8)
[2023-09-26 11:58] LABS: Creatinine,Urine Random 66 mg/dL (Not Estab.)
[2023-09-26 12:08] LABS: Hemoglobin 18.4 g/dL (14.1-18.0)
[2023-09-26 12:09] LABS: Bacteria,Urine Trace /lpf; RBC,Urine Occasional #/hpf (0-3); Squamous Epithelial Cell,Urine Occasional #/hpf (0-5)
[2023-09-26 12:22] LABS: Albumin Level 3.8 g/dl (3.5-5.0); Anion Gap 8.4 mEq/L (5-15); Blood Urea Nitrogen 19 mg/dl (9-20); Calcium 9.2 mg/dl (8.4-10.2); Carbon Dioxide 31 mmol/L (22.0-30.0); Chloride 104 mmol/L (98-107); Estimated Glomerular Filt Rate 55 ml/min (>60); GFR (African American) 66 ML/MIN (>60); Glucose 181 mg/dl (74-100); Phosphorous 3.7 mg/dl (2.5-4.5); Potassium 4.4 mmoL/L (3.5-5.1); Sodium 139 mmol/L (136-145)
[2023-09-26 12:36] LABS: 25-OH Vitamin D, Total 27.8 ng/mL (30-100)
[2023-09-26 14:07] LABS: Microalbumin/Creatinine Ratio 769.3
== END 2023-09-26 23:59 ==
PROVIDERS: PCP Internal Medicine; Visit Provider Nurse Practitioner
DX: N18.30 Chronic kidney disease, stage 3 unspecified (principal); E55.9 Vitamin D deficiency, unspecified; R71.8 Other abnormality of red blood cells; R80.9 Proteinuria, unspecified
CPT/HCPCS: 36415; 80069; 81001; 82043; 82306; 82570; 84155; 85014; 85018; 85048; 85049

== ENCOUNTER 2023-10-06 20:19 | Outpatient (CLI) | payer MEDICARE, MEDICAID, SELFPAY ==
[2023-10-06 19:47] LABS: Basophils # 0.1 K/mm3 (0-0.2); Basophils % 1.1 % (0.1-2.0); Eosinophils # 0.3 K/mm3 (0.0-0.4); Eosinophils % 3.5 % (0.1-12.0); Lymphocytes # 3.2 K/mm3 (0.7-4.5); Lymphocytes % 37.7 % (10-50); Mean Corpuscular HGB Conc 31.7 g/dL (31.8-35.4); Mean Corpuscular Hemoglobin 30.9 pg (27.0-31.2); Mean Corpuscular Volume 97.5 fl (80-94); Mean Platelet Volume 10.6 fl (7.4-10.4); Monocytes # 0.5 K/mm3 (0.1-1.0); Monocytes % 6.1 % (1.7-9.3); Neutrophils # 4.4 K/mm3 (1.8-7.8); Neutrophils % 51.5 % (37.0-80.0); Platelet Count 115 K/mm3 (142-424); Red Blood Count 5.92 M/mm3 (4.60-6.20); Red Cell Distribution Width 14.9 % (11.5-17.5); White Blood Count 8.5 K/mm3 (4.8-10.8)
[2023-10-06 19:50] LABS: Hemoglobin A1C 7.3 % (4.0-6.0)
[2023-10-06 19:52] LABS: Hematocrit 57.8 % (42.0-52.0); Hemoglobin 18.3 g/dL (14.1-18.0)
[2023-10-06 20:49] LABS: Vitamin B12 297 pg/mL (239-931)
[2023-10-06 21:14] LABS: Ferritin 55.4 ng/ml (17.9-464)
== END 2023-10-06 23:59 | disposition home or self-care (01) ==
LOC: LAB.DROPOF 20:20
PROVIDERS: PCP Internal Medicine; Visit Provider Internal Medicine
DX: E11.42 Type 2 diabetes mellitus with diabetic polyneuropathy (principal); Z79.899 Other long term (current) drug therapy; I10 Essential (primary) hypertension; R53.83 Other fatigue; Z79.84 Long term (current) use of oral hypoglycemic drugs
CPT/HCPCS: 82607; 82728; 83036; 85025

== ENCOUNTER 2024-01-16 15:54 | Outpatient (CLI) | payer MEDICARE, SELFPAY ==
--- NOTE | 2024-01-16 16:04 | MR_ITS ---
FINAL REPORT TECHNIQUE: Multiplanar MR without contrast CLINICAL HISTORY: pain in left knee. KNEE DOESN'T BEND COMPARISON: None FINDINGS: Articular cartilage: Mild diffuse thinning. Marrow signal: Unremarkable Joint fluid: Physiologic Menisci: Normal morphology without tear Ligaments: Collateral and cruciate ligaments intact IMPRESSION: Mild degenerative changes without meniscal or ligamentous injury. Reviewed, Interpreted and Dictated by Shawn Garcia MD Transcribed by Marcy Bello Authenticated and [facility]
== END 2024-01-16 23:59 | disposition home or self-care (01) ==
LOC: RAD 15:56
PROVIDERS: PCP Internal Medicine; Visit Provider Internal Medicine
DX: M25.562 Pain in left knee (principal)
CPT/HCPCS: 73721

== ENCOUNTER 2024-02-01 18:54 | Outpatient (CLI) | payer MEDICARE, MEDICAID, SELFPAY ==
[2024-02-01 20:03] LABS: Basophils # 0.1 K/mm3 (0-0.2); Eosinophils # 0.3 K/mm3 (0.0-0.4); Eosinophils % 3.2 % (0.1-12.0); Hematocrit 54.9 % (42.0-52.0); Hemoglobin 17.8 g/dL (14.1-18.0); Lymphocytes # 3.4 K/mm3 (0.7-4.5); Lymphocytes % 38.1 % (10-50); Mean Corpuscular HGB Conc 32.3 g/dL (31.8-35.4); Mean Corpuscular Hemoglobin 30.9 pg (27.0-31.2); Mean Corpuscular Volume 95.5 fl (80-94); Mean Platelet Volume 10.7 fl (7.4-10.4); Monocytes # 0.4 K/mm3 (0.1-1.0); Monocytes % 4.4 % (1.7-9.3); Neutrophils # 4.8 K/mm3 (1.8-7.8); Neutrophils % 53.4 % (37.0-80.0); Platelet Count 126 K/mm3 (142-424); Red Blood Count 5.75 M/mm3 (4.60-6.20); Red Cell Distribution Width 16.1 % (11.5-17.5)
[2024-02-01 20:31] LABS: Alanine Aminotransferase 40 U/L (12-78); Albumin/Globulin Ratio 1.8 (1.1-1.8); Alkaline Phosphatase 69 U/L (38-126); Anion Gap 12.5 mEq/L (5-15); Aspartate Amino Transferase 43 U/L (17-59); Bilirubin,Total 0.9 mg/dl (0.2-1.3); Blood Urea Nitrogen 21 mg/dl (9-20); Calcium 9.7 mg/dl (8.4-10.2); Carbon Dioxide 24 mmol/L (22.0-30.0); Chloride 108 mmol/L (98-107); Chol/HDL Ratio 5.1 (1-3.5); Cholesterol 132 mg/dl (140-200); Estimated Glomerular Filt Rate 55 ml/min (>60); GFR (African American) 66 ML/MIN (>60); Globulin 2.2 g/dL (1.3-3.2); Glucose 159 mg/dl (74-100); HDL Cholesterol 26 mg/dl (40-60); Potassium 4.5 mmoL/L (3.5-5.1); Sodium 140 mmol/L (136-145); Total Protein,Serum 6.2 g/dl (6.3-8.2); Triglycerides 285 mg/dl (30-150); VLDL Cholesterol 57 mg/dL (0-40)
[2024-02-01 20:43] LABS: Direct LDL Cholesterol 59.64 mg/dL (100-129)
== END 2024-02-01 23:59 | disposition home or self-care (01) ==
LOC: LAB.DROPOF 18:56
PROVIDERS: PCP Internal Medicine; Visit Provider Internal Medicine
DX: I10 Essential (primary) hypertension (principal); E11.51 Type 2 diabetes mellitus with diabetic peripheral angiopathy without gangrene; D69.6 Thrombocytopenia, unspecified; E78.5 Hyperlipidemia, unspecified; Z79.84 Long term (current) use of oral hypoglycemic drugs
CPT/HCPCS: 80053; 80061; 85025

== ENCOUNTER 2024-02-28 12:42 | Outpatient (CLI) | payer MEDICARE, MEDICAID, SELFPAY ==
--- NOTE | 2024-02-28 12:43 | US_ITS ---
FINAL REPORT TECHNIQUE: Limited sonographic images of the thyroid were obtained. CLINICAL HISTORY: Hypothyroidism -- nodules COMPARISON: 02/04/2020 FINDINGS: The right lobe of the thyroid measures 4.5 cm. There are 2 small cystic nodules measuring 3 mm each consistent with TI-RADS category 2. The left lobe of the thyroid measures 3.9 cm. There is a solid, hypoechoic nodule with macro calcification measuring 5 x 3 x 3 mm consistent with TI-RADS category 4. The isthmus measures 5 mm. IMPRESSION: Thyroid nodules as above, similar to previous. No follow-up is recommended as per TI-RADS criteria. Reviewed, Interpreted and Dictated by Filemon May III, MD Transcribed by Otilia Shaw Authenticated and [facility]
== END 2024-02-28 23:59 | disposition home or self-care (01) ==
LOC: RAD 12:43
PROVIDERS: PCP Internal Medicine; Visit Provider Nurse Practitioner
DX: E03.9 Hypothyroidism, unspecified (principal)
CPT/HCPCS: 76536

== ENCOUNTER 2024-03-10 10:01 | Emergency (ER) | payer MEDICARE, SELFPAY ==
[2024-03-10 10:15] VITALS: BP 179/104; PULSE 83; RESP 21; TEMP 36.8; O2SAT 95; BMI 28.5
--- NOTE | 2024-03-10 10:46 | ED_ITS ---
Discharge Plan Disposition Patient Disposition: Home, Self-Care Condition: Good Prescriptions Prescriptions: New ondansetron 4 mg tablet,disintegrating 4 mg PO Q8H PRN (Reason: nausea and vomiting) 2 Days Qty: 7 0RF No Action (DME) blood-glucose meter [Blood Glucose Monitoring] Kit See Rx Instructions .ROUTE .MEDSUPPLY Qty: 1 0RF Rx Instructions: Twice Daily (DME) lancets [FreeStyle Lancets] 28 gauge misc See Rx Instructions .Route Qty: 100 0RF Rx Instructions: As directed or bid benzonatate 200 mg capsule 200 mg PO DAILY Patient Comments: TAKE 1 CAPSULE BY MOUTH THREE TIMES DAILY NEEDED FOR COUGH metoprolol succinate 100 mg tablet extended release 24 hr 100 mg PO DAILY Patient Comments: TAKE 2 TABLETS BY MOUTH DAILY (DME) FreeStyle Lite Strips Strip MISCELLANEOUS Patient Comments: USE DIRECTED THREE TIMES DAILY aspirin 81 mg tablet,delayed release (DR/EC) 81 mg PO DAILY Patient Comments: TAKE 1 TABLET BY MOUTH DAILY clonidine HCl 0.2 mg tablet 0.2 mg PO DAILY Patient Comments: TAKE 1 TABLET BY MOUTH TWICE DAILY glipizide 2.5 mg tablet extended release 24hr 2.5 mg PO DAILY Patient Comments: TAKE 3 TABLETS BY MOUTH 1 TIME DAILY levothyroxine 50 mcg tablet 50 mcg PO DAILY Patient Comments: TAKE 1 TABLET BY MOUTH DAILY simvastatin 20 mg tablet 20 mg PO DAILY Patient Comments: TAKE 1 TABLET BY MOUTH EVERY EVENING allopurinol 300 mg tablet 300 mg PO DAILY Patient Comments: TAKE 1 TABLET BY MOUTH EVERY DAY Januvia 100 mg tablet 100 mg PO DAILY Patient Comments: TAKE 1 TABLET BY MOUTH DAILY Invokana 100 mg tablet 100 mg PO DAILY Patient Comments: TAKE 1 TABLET BY MOUTH DAILY Invokana 300 mg tablet 300 mg PO DAILY Patient Comments: TAKE 1 TABLET BY MOUTH DAILY dapagliflozin propanediol [Farxiga] 10 mg tablet 10 mg PO DAILY Patient Comments: TAKE 1 TABLET BY MOUTH DAILY Referrals Follow up/Referrals: Adriel Brandt DO [Primary Care Provider] - See instructions Activity Restrictions/Add. Instructions Additional Instructions/Restrictions: Monitor temperature. Seek treatment if fever develops. Follow-up immediately if new or worse symptoms worsen or no noticeable improvement over 48 hours. Increase fluids such as water, Gatorade, Powerade, juice or Pedialyte No food is okay as long as you are drinking. Once ready to eat start bland such as bananas, rice, applesauce, toast. Contagious until no diarrhea, vomiting, fever times 48 hours without medication Avoid antidiarrheals unless told otherwise. Best to let the virus run its course. Follow-up immediately for new or worsening symptoms or no noticeable improvement over the next 48 hours. Clinical Impressions Clinical Impression: Upper respiratory infection, viral Instructions Patient Instructions: DI for Viral Upper Respiratory Infection -- Adult Print Language Print Language: Burmese Discharge ED Provider: Lizzy ([facility])Mackenzie [facility] [place] HPI General Stated complaint: cough, vomiting, diarrhea Mode of Arrival: Ambulatory Source of Information: Patient Limitations: No Limitations Time Seen by Provider: 03/10/24 10:46 Description of Symptoms (Recalled from Triage Doc. by RN): PATIENT C/O COUGH, VOMITING AND DIARRHEA X 2 DAYS HEENT Symptoms (Recalled from RN notes): No Resp Symptoms (Recalled from RN notes): Yes Skin Symptoms (Recalled from RN notes): No MS Symptoms (Recalled from RN notes): No Functional Status (Recalled from RN notes): WNL History of Present Illness Provider Complaint: 68 yr old male presents for c/o cough, congestion, vomiting, diarrhea for 2 days Related Data Home Medications ?Medication ?Instructions ?Recorded ?Confirmed allopurinol 300 mg tablet 300 mg PO DAILY 03/10/24 03/10/24 aspirin 81 mg tablet,delayed 81 mg PO DAILY 03/10/24 03/10/24 release benzonatate 200 mg capsule 200 mg PO DAILY 03/10/24 03/10/24 blood sugar diagnostic (FreeStyle 03/10/24 03/10/24 Lite Strips) canagliflozin 100 mg tablet 100 mg PO DAILY 03/10/24 03/10/24 (Invokana) canagliflozin 300 mg tablet 300 mg PO DAILY 03/10/24 03/10/24 (Invokana) clonidine HCl 0.2 mg tablet 0.2 mg PO DAILY 03/10/24 03/10/24 dapagliflozin propanediol 10 mg 10 mg PO DAILY 03/10/24 03/10/24 tablet (Farxiga) glipizide 2.5 mg tablet, extended 2.5 mg PO DAILY 03/10/24 03/10/24 release 24 hr levothyroxine 50 mcg tablet 50 mcg PO DAILY 03/10/24 03/10/24 metoprolol succinate 100 mg 100 mg PO DAILY 03/10/24 03/10/24 tablet,extended release 24 hr simvastatin 20 mg tablet 20 mg PO DAILY 03/10/24 03/10/24 sitagliptin phosphate 100 mg 100 mg PO DAILY 03/10/24 03/10/24 tablet (Januvia) Previous Rx's ?Medication ?Instructions ?Recorded blood-glucose meter (Blood Glucose #1 ea 05/21/22 Monitoring kit) lancets 28 gauge (FreeStyle #100 ea 02/21/24 Lancets) ondansetron 4 mg disintegrating 4 mg PO Q8H PRN nausea and 03/10/24 tablet vomiting 2 days #7 tabs Allergies Allergy/AdvReac Type Severity Reaction Status Date / Time atorvastatin [From Lipitor] Allergy Mild Hallucinati Verified 03/06/24 11:12 Worker's Comp Is this a Worker's Comp case?: No [facility] Disclaimer: The information contained in this section may have been updated after the patient was seen, as this information can be updated by other users. Medical History , [employer]) Multiple thyroid nodules Impacted cerumen of right ear Hypothyroidism Repeated falls Pulmonary HTN HLD (hyperlipidemia) HTN (hypertension) Surgical History , [employer]ARG[employer]) Stented coronary artery Social History , [employer]ARG[employer]) Smoking Status: Never smoker alcohol intake: never counseling provided: none substance use type: denies use current occupational status: unemployed Travel in the last 8 weeks: None household members: none housing: apartment current occupation: retired caffeine: No ROS Obtained: Yes All systems reviewed & no additional complaints except as documented Constitutional Constitutional: Reports system reviewed and no additional complaints, except as documented, Reports as per HPI and Reports body ache Eyes Eyes: Reports system reviewed and no additional complaints, except as documented ENT Ears, Nose, Mouth, and Throat: Reports system reviewed and no additional complaints, except as documented, Reports as per HPI, Reports nasal congestion, Reports nasal discharge and Reports sore throat Cardiovascular Cardiovascular: Reports system reviewed and no additional complaints, except as documented Respiratory Respiratory: Reports system reviewed and no additional complaints, except as documented, Reports as per HPI and Reports cough Gastrointestinal Gastrointestingal: Reports system reviewed and no additional complaints, except as documented, as per HPI, cramping, diarrhea, nausea and vomiting Integumentary/Breasts Skin/Breast: Reports system reviewed and no additional complaints, except as documented Neurologic Neurologic: Reports system reviewed and no additional complaints, except as documented Endocrine Endocrine: Reports system reviewed and no additional complaints, except as documented Allergic/Immunologic Allergic/Immunologic: Reports system reviewed and no additional complaints, except as documented Physical Exam General General appearance: alert and in no apparent distress Head Head exam: atraumatic Eye Eye exam: Present normal appearance and PERRL ENT ENT exam: Present mucous membranes moist and TM's normal bilaterally Expanded ENT Exam Throat exam: Present tonsillar erythema Respiratory Respiratory exam: Present normal lung sounds bilaterally Cardiovascular Cardiovascular exam: Present regular rate and normal rhythm Abdominal Exam Abdominal exam: Present soft and normal bowel sounds; Absent distention, tenderness, guarding or diminished bowel sounds Abdominal tenderness: Present epigastrium and mild Neurological Exam Neurological exam: Present alert and oriented X3 Skin Skin exam: Present warm and intact Medical Decision Making Medical Records Medical records reviewed: Yes I reviewed the patient's medical records. Mando Inquiry Pt receiving controlled substance: No Mando was queried for this patient: No Vital Signs: 03/10/24 10:15 Temperature 98.3 F Temperature Source Oral Pulse Rate [Left Brachial] 83 Respiratory Rate 21 Blood Pressure [Left Arm] 179/104 H Blood Pressure Mean [Left Arm] 129 Blood Pressure Source [Left Arm] Automatic Cuff Blood Pressure Position [Left Arm] Sitting 02 Sat by Pulse Oximetry 95 Oxygen Delivery Method Room Air Lab Data Lab results reviewed: Yes I reviewed the patient's lab results.
[2024-03-10 11:23] VITALS: BP 179/104; PULSE 83; RESP 21; TEMP 36.8; O2SAT 95
[2024-03-10 11:23] LABS: UTC Strep Screen (Rapid) Negative (Negative)
== END 2024-03-10 11:31 | disposition home or self-care (01) ==
PROVIDERS: Emergency Provider Nurse Practitioner Family; PCP Internal Medicine
DX: R05.9 Cough, unspecified (principal); R11.2 Nausea with vomiting, unspecified; R19.7 Diarrhea, unspecified; J06.9 Acute upper respiratory infection, unspecified; R09.81 Nasal congestion; B34.9 Viral infection, unspecified; E03.9 Hypothyroidism, unspecified; I10 Essential (primary) hypertension; E78.5 Hyperlipidemia, unspecified; I27.20 Pulmonary hypertension, unspecified
CPT/HCPCS: 87635; 87880; 99204; 99212; G0463

== ENCOUNTER 2024-03-19 10:00 | Outpatient (CLI) | payer MEDICARE, MEDICAID, SELFPAY ==
[2024-03-19 20:33] LABS: Chol/HDL Ratio 6.3 (1-3.5); Cholesterol 157 mg/dl (140-200); HDL Cholesterol 25 mg/dl (40-60)
[2024-03-19 20:44] LABS: Triglycerides 430 mg/dl (30-150)
== END 2024-03-19 23:59 | disposition home or self-care (01) ==
LOC: LAB.DROPOF 03-20 12:32
PROVIDERS: PCP Internal Medicine; Visit Provider Internal Medicine
DX: E78.5 Hyperlipidemia, unspecified (principal)
CPT/HCPCS: 80061

== ENCOUNTER 2024-04-16 14:36 | Outpatient (CLI) | payer MEDICARE, MEDICAID, SELFPAY ==
[2024-04-16 21:14] LABS: Thyroid Stimulating Hormone 1.05 uIU/mL (0.465-4.68)
[2024-04-16 22:54] LABS: Hemoglobin A1C 6.5 % (4.0-6.0)
== END 2024-04-16 23:59 | disposition home or self-care (01) ==
LOC: LAB.DROPOF 04-17 10:26
PROVIDERS: PCP Internal Medicine; Visit Provider Internal Medicine
DX: E03.9 Hypothyroidism, unspecified (principal); E11.9 Type 2 diabetes mellitus without complications
CPT/HCPCS: 83036; 84443

== ENCOUNTER 2024-06-27 07:45 | Outpatient (CLI) | payer MEDICARE, MEDICAID, SELFPAY ==
--- NOTE | 2024-06-27 07:49 | XR_ITS ---
FINAL REPORT CLINICAL HISTORY: Left hand injury. PATIENT WAS UNABLE TO STRAIGHTEN 5TH DIGIT FINDINGS: Left hand Four views were obtained. There is no fracture or dislocation. There is flexion deformity of the fifth digit. There are mild and moderate degenerative changes of the first carpometacarpal joint. No soft tissue abnormality is identified. IMPRESSION: Flexion deformity of the fifth digit. Reviewed, Interpreted and Dictated by Filemon May III, MD Transcribed by Otilia Shaw Authenticated and [facility]
== END 2024-06-27 23:59 | disposition home or self-care (01) ==
LOC: RAD 07:46
PROVIDERS: PCP Internal Medicine; Visit Provider Physician Assistant
DX: M79.642 Pain in left hand (principal)
CPT/HCPCS: 73130

== ENCOUNTER 2024-08-17 11:13 | Outpatient (CLI) | payer MEDICARE, MEDICAID, SELFPAY ==
--- NOTE | 2024-08-17 11:17 | US_ITS ---
FINAL REPORT CLINICAL HISTORY: Decreased Pedal Pulses, DM, cold feet COMPARISON: None FINDINGS: ANKLE-BRACHIAL PRESSURE INDICES Pressure indices are as follows: RIGHT LOWER EXTREMITY: Ankle-brachial pressure index: 1.04 Comments: Normal LEFT LOWER EXTREMITY: Ankle-brachial pressure index: Comments: 1.15 CONCLUSION: No evidence of significant obstructive peripheral vascular disease of the lower extremities Reviewed, Interpreted and Dictated by Vaibhav Raines MD Transcribed by Radha Merchant Authenticated and [facility]
== END 2024-08-17 23:59 | disposition home or self-care (01) ==
LOC: RT 11:14
PROVIDERS: PCP Internal Medicine; Visit Provider Nurse Practitioner
DX: R09.89 Other specified symptoms and signs involving the circulatory and respiratory systems (principal)
CPT/HCPCS: 93923

== ENCOUNTER 2024-09-06 11:01 | Outpatient (CLI) | payer MEDICARE, MEDICAID, SELFPAY ==
--- NOTE | 2024-09-06 11:10 | XR_ITS ---
FINAL REPORT CLINICAL HISTORY: trauma, fell on Tuesday (09/03) and has had right foot pain since fall COMPARISON: None FINDINGS: RIGHT FOOT: Three views show no evidence of acute displaced fracture or dislocation of the visualized bony architecture. Mild degenerative change is present at the first MTP joint. There are mild erosions along the first medial metatarsal head, that can be seen with gout. There is moderate degenerative change of the midfoot. IMPRESSION: Chronic appearing changes in the right foot without acute bony abnormality. If symptoms persist, consider CT or MRI for further evaluation. Reviewed, Interpreted and Dictated by Shawn Garcia MD Transcribed by Radha Merchant Authenticated and [facility]
[2024-09-06 18:55] LABS: Basophils % 0.4 % (0.1-2.0); Eosinophils # 0.3 K/mm3 (0.0-0.4); Eosinophils % 2.9 % (0.1-12.0); Hematocrit 56.6 % (42.0-52.0); Lymphocytes # 3.8 K/mm3 (0.7-4.5); Lymphocytes % 38.8 % (10-50); Mean Corpuscular HGB Conc 32.9 g/dL (31.8-35.4); Mean Corpuscular Hemoglobin 30.2 pg (27.0-31.2); Mean Corpuscular Volume 91.9 fl (80-94); Mean Platelet Volume 11.5 fl (7.4-10.4); Monocytes # 0.7 K/mm3 (0.1-1.0); Monocytes % 6.7 % (1.7-9.3); Neutrophils # 4.9 K/mm3 (1.8-7.8); Neutrophils % 50.6 % (37.0-80.0); Platelet Count 161 K/mm3 (142-424); Red Blood Count 6.16 M/mm3 (4.60-6.20); Red Cell Distribution Width 15.8 % (11.5-17.5); White Blood Count 9.7 K/mm3 (4.8-10.8)
[2024-09-06 19:04] LABS: Hemoglobin 18.3 g/dL (14.1-18.0)
[2024-09-06 20:01] LABS: Chol/HDL Ratio 5.7 (1-3.5); Cholesterol 153 mg/dl (140-200); HDL Cholesterol 27 mg/dl (40-60)
[2024-09-06 20:08] LABS: Triglycerides 436 mg/dl (30-150)
[2024-09-06 20:20] LABS: Direct LDL Cholesterol 67.44 mg/dL (100-129)
== END 2024-09-06 23:59 | disposition home or self-care (01) ==
LOC: RAD 11:05
PROVIDERS: PCP Family Medicine; Visit Provider Family Medicine
DX: M79.671 Pain in right foot (principal); E78.5 Hyperlipidemia, unspecified; D75.1 Secondary polycythemia
CPT/HCPCS: 73630; 80061; 85025

== ENCOUNTER 2024-10-11 14:07 | Outpatient (CLI) | payer MEDICARE, MEDICAID, SELFPAY ==
[2024-10-11 19:59] LABS: Basophils % 0.4 % (0.1-2.0); Eosinophils # 0.3 K/mm3 (0.0-0.4); Eosinophils % 3.5 % (0.1-12.0); Lymphocytes # 3.7 K/mm3 (0.7-4.5); Lymphocytes % 39.3 % (10-50); Mean Corpuscular HGB Conc 33.3 g/dL (31.8-35.4); Mean Corpuscular Hemoglobin 29.9 pg (27.0-31.2); Mean Corpuscular Volume 89.6 fl (80-94); Mean Platelet Volume 11.7 fl (7.4-10.4); Monocytes # 0.6 K/mm3 (0.1-1.0); Monocytes % 5.9 % (1.7-9.3); Neutrophils # 4.8 K/mm3 (1.8-7.8); Neutrophils % 50.5 % (37.0-80.0); Platelet Count 150 K/mm3 (142-424); Red Blood Count 6.23 M/mm3 (4.60-6.20); Red Cell Distribution Width 14.6 % (11.5-17.5); White Blood Count 9.5 K/mm3 (4.8-10.8)
[2024-10-11 20:02] LABS: Alanine Aminotransferase 49 U/L (12-78); Albumin Level 4.3 g/dl (3.5-5.0); Alkaline Phosphatase 72 U/L (38-126); Anion Gap 11.7 mEq/L (5-15); Aspartate Amino Transferase 51 U/L (17-59); Bilirubin,Total 0.7 mg/dl (0.2-1.3); Blood Urea Nitrogen 27 mg/dl (9-20); Calcium 9.5 mg/dl (8.4-10.2); Carbon Dioxide 24 mmol/L (22.0-30.0); Chloride 107 mmol/L (98-107); Estimated Glomerular Filt Rate 50 ml/min (>60); GFR (African American) 61 ML/MIN (>60); Globulin 2.1 g/dL (1.3-3.2); Glucose 139 mg/dl (74-100); Potassium 4.7 mmoL/L (3.5-5.1); Sodium 138 mmol/L (136-145); Total Protein,Serum 6.4 g/dl (6.3-8.2)
[2024-10-11 20:07] LABS: Hematocrit 55.8 % (42.0-52.0); Hemoglobin 18.6 g/dL (14.1-18.0)
[2024-10-11 20:16] LABS: Free T4 (Free Thyroxine) 2.08 ng/dl (0.78-2.19)
[2024-10-11 20:29] LABS: Thyroid Stimulating Hormone 4.43 uIU/mL (0.465-4.68)
[2024-10-11 21:15] LABS: Hemoglobin A1C 6.7 % (4.0-6.0)
== END 2024-10-11 23:59 | disposition home or self-care (01) ==
LOC: LAB.DROPOF 10-12 12:51
PROVIDERS: PCP Family Medicine; Visit Provider Family Medicine
DX: E03.9 Hypothyroidism, unspecified (principal); E11.9 Type 2 diabetes mellitus without complications
CPT/HCPCS: 80053; 83036; 84439; 84443; 85025

== ENCOUNTER 2024-11-02 10:19 | Outpatient (CLI) | payer MEDICARE, MEDICAID, SELFPAY ==
[2024-11-02 19:14] LABS: Free T4 (Free Thyroxine) 1.42 ng/dl (0.78-2.19)
[2024-11-02 19:29] LABS: Thyroid Stimulating Hormone 8.87 uIU/mL (0.465-4.68)
--- OUTSIDE RECORDS SUMMARY | 2024-11-05 10:21 | XMS_ITS ---
Care Plan - [facility] Created on: November 05, 2024 Kamara Jonelle : 1955 Sex: Male Author Organization [facility] Address [address] [place] [address] Phone Care Team Providers Care Cigarette Book Maker Name Role Phone Kevin APONTE, Bijan Pickard Unavailable [phone]
--- OUTSIDE RECORDS SUMMARY | 2024-11-05 10:21 | XMS_ITS ---
Author Organization [facility] Address [address] [place] [address] Phone Care Team Providers Care Manager Plumbing Name Role Phone Kevin APONTE, Bijan Pickard Unavailable [phone] Plan of Treatment No Plan of Treatment Recorded Assessments Includes: Assessments for all patient encounters No Assessments Recorded Medical Equipment - Implanted Devices Includes: Current and historical Devices No Medical Equipment Recorded Medications Administered Includes: Administered Medications in patient's chart No Administered Medications Recorded Results Includes: Results from 11/06/2023 through 11/05/2024 No Results Recorded For Specified Dates History of Present Illness History of Present Illness not supported for this document type No History of Present Illness Recorded Social History No Social History Recorded - Smoking Status Unknown Medical History Includes: Medical History in patient's chart No Medical History Recorded Family History Includes: Family History in patient's chart No Family History Recorded Review of Systems Review of Systems not supported for this document type No Review of Systems Recorded Mental Status No Mental Status Recorded Functional Status No Functional Status Recorded Physical Exam Physical Exam not supported for this document type No Physical Exam Recorded Insurance Includes: Active Insurance Policies Plan Name Member ID Group # Subscriber Relationship Effect verito Dates 1 - Medicare Part B [facility] [id number] Jonelle Kamara Self Clinical Notes Includes: Signed Clinical Notes starting from 07/08/2022 No Clinical Notes Recorded
== END 2024-11-02 23:59 | disposition home or self-care (01) ==
LOC: LAB.DROPOF 11-05 10:20
PROVIDERS: PCP Family Medicine; Visit Provider Family Medicine
DX: E03.9 Hypothyroidism, unspecified (principal)
CPT/HCPCS: 84439; 84443

== ENCOUNTER 2024-12-13 09:39 | Outpatient (CLI) | payer MEDICARE, MEDICAID, SELFPAY ==
[2024-12-13 19:35] LABS: Free T4 (Free Thyroxine) 1.22 ng/dl (0.78-2.19)
[2024-12-13 19:45] LABS: Thyroid Stimulating Hormone 7.55 uIU/mL (0.465-4.68)
== END 2024-12-13 23:59 | disposition home or self-care (01) ==
LOC: LAB.DROPOF 22:59
PROVIDERS: PCP Family Medicine; Visit Provider Family Medicine
DX: E03.9 Hypothyroidism, unspecified (principal)
CPT/HCPCS: 84439; 84443

== ENCOUNTER 2024-12-28 13:24 | Outpatient (CLI) | payer MEDICARE, MEDICAID, SELFPAY ==
--- OUTSIDE RECORDS SUMMARY | 2024-12-28 13:28 | XMS_ITS | Clinical Summary ---
Author Organization Healthcare Address [address] [place] [address] Care Team Providers Care Criminal Court Judge Name Role Phone Don Pierson MD Primary Care Provider [phone] Allergies Active Allergy Reactions Criticality Noted Date Comments Amlodipine Swelling High 12/22/2017 Atorvastatin Hallucinations Medium 05/21/2022 Levothyroxine Hallucinations Medium 12/22/2017 Only 75mcg Medications amLODIPine (Norvasc) 5 MG tablet TAKE ONE TABLET BY MOUTH TWICE A DAY 180 tablet 3 1 Active Additional Information Patient not taking.Reported on 03/14/2023 allopurinol (Zyloprim) 300 MG tablet Take 1 tablet (300 mg) by mouth 1 (one) time each day. 1 Active Aspirin Low Dose 81 MG EC tablet Take 1 tablet (81 mg) by mouth 1 (one) time each day. 1 Active cilostazol (Pletal) 100 MG tablet Take 100 mg by mouth 2 (two) times a day. 1 Active cloNIDine (Catapres) 0.2 MG tablet Take 1 tablet (0.2 mg) by mouth 2 (two) times a day. 1 Active clopidogrel (Plavix) 75 MG tablet Take 75 mg by mouth 1 (one) time each day. 1 Active furosemide (Lasix) 20 MG tablet 1 Active gabapentin (Neurontin) 100 MG capsule TAKE 1 CAPSULE BY MOUTH EVERY NIGHT 1 Active metoprolol succinate XL (Toprol-XL) 100 MG 24 hr tablet Take 2 tablets (200 mg) by mouth 1 (one) time each day. 1 Active polyethylene glycol (Miralax) 17 GM/SCOOP powder DISSOLVE 17GRAM IN WATER AND DRINK EVERY DAY 1 Active simvastatin (Zocor) 20 MG tablet Take 1 tablet (20 mg) by mouth 1 (one) time each day in the evening. 1 Active SITagliptin (Januvia) 50 MG tablet Take 1 tablet (50 mg) by mouth 1 (one) time each day. 1 Active chlorthalidone (Hygroton) 25 MG tablet Take 0.5 tablets (12.5 mg total) by mouth 1 (one) time each day. 15 tablet 2 3 Active Additional Information Patient not taking.Reported on 03/14/2023 canagliflozin (Invokana) 100 MG Take 1 tablet (100 mg) by mouth 1 (one) time each day before breakfast. Active glipiZIDE XL 5 MG 24 hr tablet Take 1 tablet (5 mg) by mouth 1 (one) time each day. Do not crush, chew, or split. Active rOPINIRole (Requip) 0.5 MG tablet Take 1 tablet (0.5 mg) by mouth every night. Active dapagliflozin (Farxiga) 10 MG tablet Take 1 tablet (10 mg) by mouth 1 (one) time each day. Active levothyroxine (Synthroid, Levoxyl) 50 MCG tablet Take 1 tablet (50 mcg) by mouth 1 (one) time each day. 4 Active omega-3 (Fish Oil) 1000 MG capsule Take 1 capsule (1,000 mg) by mouth 1 (one) time each day with breakfast. 4 Active Active Problems Problem Noted Date Diagnosed Date Microscopic hematuria 12/27/2016 Gout 02/28/2014 Hypertension 02/28/2014 Renal osteodystrophy 02/28/2014 Stage III chronic kidney disease 02/28/2014 Type 2 diabetes mellitus, uncontrolled 4 Immunizations Immunization Administration Dates Next Due Hep A, Adult 07/11/2018 Influenza Vaccine, Quadrivalent, Adjuvanted 02/23 Influenza, high-dose, quadrivalent 03/13/2021,,03/12/2020 Influenza, injectable, quadr ivalent, preservative free 04/16/2017,04/15/2016 Influenza, seasonal, injectable 04/24/2017 Influenza, seasonal, injecta ble, preservative free 04/03/2018 TD (adult), 2 Lf tetanus tox oid, preservative free, adsorbed 09/26/1996 Family History Medical History Relation Name Comments Diabetes Father Arthritis Other 1 Depression Other 2 Diabetes Other 3 Hyperlipidemia Other 4 Hypertension Other 5 Relation Name Status Comments Father Other 1 Other 2 Other 3 Other 4 Other 5 Social History Tobacco Use Types Packs/Day Years Used Date Smoking Tobacco: Never Passive Smoke Exposure: Never Smokeless Tobacco: Never Tobacco Cessation:Counseling Given: Not Answered Alcohol Use Standard Drinks/Week Comments Not Currently 0 (1 standard drink = 0.6 oz pure alcohol) Alcoholic Drinks/day: Remotely quit alcohol use PHQ-2 Answer Date Recorded Patient Health Questionnaire-2 Score 0 09/26/2023 Sex and Gender Information Value Date Recorded Sex Assigned at Not on file Legal Sex Male 6:13 PM EDT Gender Identity Not on file Sexual Orientation Not on file Last Filed Vital Signs Vital Sign Reading Time Taken Comments Blood Pressure 137/78 09/26/2023 10:41 AM EST Pulse 70 09/26/2023 10:41 AM EST Temperature - - Respiratory Rate 18 09/26/2023 10:18 AM EST Oxygen Saturation 97% 09/26/2023 10:18 AM EST Inhaled Oxygen Concentration - - Weight 84.6 kg (186 lb 8 oz) 09/26/2023 10:18 AM EST Height 162.6 cm (5' 4 ) 05/26/2016 12:51 PM EDT Body Mass Index 32.01 05/26/2016 12:51 PM EDT Plan of Treatment Health Maintenance Due Date Last Done Comments [facility]: Hemoglobin A1C 1955 [facility]Hepatitis C Screening 1955 [facility]ic[facility] Annual Wellness (AWV) 1955 [facility]-Infant/Child/Adol SDOH Screenings 1955 Diabetes: Dental Exam 12/21/1963 [facility]- SDOH Screenings 12/21/1971 [facility]Adult SDOH Screenings 12/21/1971 [facility]-Pneumococcal Vaccine: 50+ Years (1 of 2 - PCV) 1972 [facility]-DTaP,Tdap,and Td Vaccines (1 - Tdap) 09/27/1996 09/26/1996 CT Colonography 1998 Colonoscopy 1998 [facility]-DNA 1998 FIT 1998 FOBT 1998 Sigmoidoscopy 1998 [facility]-Colorectal Cancer Screening 1998 [facility]-Zoster Vaccines (1 of 2) 12/21/2003 [facility]-RSV Vaccine: 60+ Years or (1 - Risk 60-74 years 1-dose series) 2013 [id number] Vaccine ( season) 2024 05/20/2023, 03/11/2023, 02/10/2022, Additional history exists [facility]-Depression Screening 09/25/2024 09/26/2023 [facility]-Influenza Vaccine (Season Ended) 2025 03/29/2023, 03/15/2022, 03/13/2021, Additional history exists [facility]-Hepatitis A Vaccines Aged Out 07/11/2018 No longer eligible based on patient's age to complete this topic [facility]-Obesity Intervention Completed 09/26/2023 HPV Vaccines Aged Out No longer eligi ble based on patient's age to complete this topic [facility]-HIB Vaccines Aged Out No longer e ligible based on patient's age to complete this topic [facility]-IPV Vaccines Aged Out No longer e ligible based on patient's age to complete this topic [facility]-Rotavirus Vaccines Aged Out No lo nger eligible based on patient's age to complete this topic Insurance MEDICARE [employer] Care Teams Criminal Court Judge Relationship Specialty Start Date End Date Don Pierson MD [address] [place] [address] PCP - General 12/05/20
--- OUTSIDE RECORDS SUMMARY | 2024-12-28 13:28 | XMS_ITS | Data Portability ---
Author Organization [facility] Address [address] [place] [id number] Assessment No assessment recorded. Plan of Treatment Reminders Order Date Submit Date Provider Last Modified By Organization Details Last Modified Time Details Appointments FOLLOW UP 30 2024 03:00P Amadou Quinteros PA-C Not available Not available Not available Lab HbA1c (hemoglob in A1c), blood [address], [address] [place], [address], 12/27/2024 14:28:14 microalbu min/creat inine, mass ratio, urine [address], [address] [place], [address], 12/27/2024 14:28:15 Referral hand surgeon referral 2024 025 VICKI Morrow, [address], [address], [place], [address], 12/27/2024 16:50:35 Procedures None recorded. Surgeries None recorded. Imaging US, duplex, venous, lower extremity [address], [place], [address], 12/27/2024 16:26:10 Medication Orders pentoxify lline ER 400 mg tablet,ex tended release 2024 025 [facility] #[id number], [address], [id number], 12/27/2024 14:28:29 doxycycli ne hyclate 100 mg tablet 2024 025 [facility] #[id number], [address], [id number], 12/27/2024 14:28:33 glipizide ER 10 mg tablet, extended release 24 hr 2024 025 [facility] #[id number], [address], [id number], 12/27/2024 14:29:37 Patient TargetsNo targets recorded. Patient InstructionsNo instructions recorded. Reason for Referral Hand Surgeon Referral for Tr iggering of digit Referring Physician: Damaris Quinteros, Family Medicine, Encounter Date: 12/27/2024 Results Created Date Observation Date Name Description Value Unit Range Abnormal Flag Note LastModifiedBy Organization Detail LastModifiedTime 12/28/1912/27/2024 micro album in/cr eatin ine, mass ratio , urine Microalbumin 150 mg/L Not Available [address], [address], 12/27/2024 14:02:15 12/28/19 25 12/27/2024 micro album in/cr eatin ine, mass ratio , urine Creatinine 50 mg/dL Not Available [address], [address], 12/27/2024 14:02:15 12/28/19 25 12/27/2024 micro album in/cr eatin ine, mass ratio , urine Ratio >300 mg/g Not Available [facility] [address] [place] [address], [phone], 12/27/2024 14:02:15 12/28/19 25 12/27/2024 HbA1c (hemo globi n A1c), blood HbA1c 8.4 % Not Available [facility] [address] [facility], [place], [address], 12/27/2024 14:02:09 Result Notes None recorded. Problems Name Problem SNOMED Code Status Onset Date Resolution Date Notes Provider Name and Address Organization Details Recorded Time Edema of left lower limb 375594149 Active 2024 LIZBETH Camacho [address] [place] [address], [phone], [facility] [employer] 14:35:53 Hyperglycem ia due to type 2 diabetes mellitus 0611430933728 09 Active 2024 LIZBETH Camacho [address] [place] [address], [phone], [facility] [employer] 14:35:50 Triggering of digit 313831359 Active 2024 LIZBETH Camacho [address] [place] [address], [phone], [employer] 14:35:35 Problem Notes None recorded. Procedures Surgical History Date Name Laterality Status Provider Name and Address Organization Details Recorded Time Unna boot - LE [facility] 12/27/2024 14:35:21 [facility] on testis [facility] 12/27/2024 13:55:57 Stent completed [facility] [employer] 12/27/2024 13:56:05 Imaging Results None recorded. Procedure Notes None recorded. Medical Equipment None Reported. Medications Name Sig Start Date Stop Date Status Note LastModified by Organization Details LastModified Time benzonatate 200 mg capsule TAKE 1 CAPSULE BY MOUTH THREE TIMES DAILY NEEDED FOR COUGH 12/27 completed Not Available Not Available Not Available glipizide ER 10 mg tablet, extended release 24 hr Take 1 tablet every day by oral route for 90 days. 2024 active Not Available Not Available Not Avai lable metoprolol succinate ER 100 mg tablet,exte nded release 24 hr TAKE 2 TABLETS BY MOUTH DAILY active Not Available Not Available No t Available aspirin 81 mg tablet,kyleigh yed release TAKE 1 TABLET BY MOUTH DAILY active Not Available Not Available No t Available pentoxifyll ine ER 400 mg tablet,exte nded release TAKE 1 TABLET BY MOUTH TWICE DAILY 2024 active Not Available Not Available Not Avai lable levothyroxi ne 88 mcg tablet TAKE 1 TABLET BY MOUTH ONCE DAILY active Not Available Not Available No t Available clonidine HCl 0.2 mg tablet TAKE 1 TABLET BY MOUTH TWICE DAILY active Not Available Not Available No t Available glipizide ER 2.5 mg tablet, extended release 24 hr TAKE 3 TABLETS BY MOUTH 1 TIME DAILY 12/27 completed Not Available Not Available Not Available cephalexin 500 mg capsule TAKE 1 CAPSULE BY MOUTH TWICE DAILY FOR 7 DAYS 12/27 completed Not Available Not Available Not Available simvastatin 20 mg tablet TAKE 1 TABLET BY MOUTH DAILY active Not Available Not Available No t Available lisinopril 10 mg tablet TAKE 1 TABLET BY MOUTH DAILY 12/27 completed Not Available Not Available Not Available allopurinol 300 mg tablet TAKE 1 TABLET BY MOUTH DAILY active Not Available Not Available No t Available mupirocin 2 % topical ointment APPLY TOPICALLY TO THE AFFECTED AREA TWICE DAILY FOR 14 DAYS FOR INFECTION active Not Available Not Available No t Available ketoconazol e 2 % topical cream APPLY TOPICALLY TO THE AFFECTED AREA TWICE DAILY FOR FUNGAL INFECTION 2024 active Not Available Not Available Not Avai lable doxycycline hyclate 100 mg tablet Take 1 tablet twice a day by oral route for 10 days. 2024 active Not Available Not Available Not Avai lable Januvia 100 mg tablet TAKE 1 TABLET BY MOUTH DAILY active Not Available Not Available No t Available FreeStyle Lite Strips USE DIRECTED THREE TIMES DAILY active Not Available Not Available No t Available Invokana 100 mg tablet TAKE 1 TABLET BY MOUTH DAILY 12/27 completed Not Available Not Available Not Available Invokana 300 mg tablet TAKE 1 TABLET BY MOUTH DAILY active Not Available Not Available No t Available Farxiga 10 mg tablet TAKE 1 TABLET BY MOUTH DAILY 12/27 completed Not Available Not Available Not Available Vitals Date Recorded Body weight Body mass index (BMI) Body height Oxygen saturation Oxygen saturation in Arterial blood by Pulse oximetry Heart rate Body temperature Systolic blood pressure Diastolic blood pressure Provider Name and Address Organization Details Last Updated DateTime 15825.1 7 g 29.5 kg/m2 162.56 cm 96 % 96 % 72 /min 98 [degF] 116 mm[Hg] 76 mm[Hg] Colleen Gonzalez [employer] 13:58:10 Social History Question Answer Notes LastModified by Organizat ion Details LastModified Time Tobacco Smoking Status Never Smoker Colleen Gonzalez [employer] 12/27/2024 13:46:04 Do You Have An Advance Directive? No Information not available 12/27/2024 Is Your Home Air Conditioned? Yes Information not available 12/27/2024 Are You Blind Or Do You Have Difficulty Seeing? No Information not available 12/27/2024 What Is Your Level Of Caffeine Consumption? Occasional Information not available 12/27/2024 What Type Of Rural Electrification Engineer Do You Use? None Information not available 12/27/2024 Have You Been To An Area Known To Be High Risk For COVID-19? No Information not available 12/27/2024 Are You Deaf Or Do You Have Serious Difficulty Hearing? No Information not available 12/27/2024 What Type Of Diet Are You Following? DIABETIC Information not available 12/27/2024 What Is The Highest Grade Or Level Of School You Have Completed Or The Highest Degree You Have Received? [id number] Information not available 12/27/2024 How Many Days Of Moderate To Strenuous Exercise, Like A Brisk Walk, Did You Do In The Last 7 Days? 7 Information not available 12/27/2024 Have There Been Any Changes To Your Family Or Social Situation? No Information no t available 12/27/2024 Are There Any Guns Present In Your Home? No Information not available 12/27/2024 Which Of Your Hands Is Dominant? Right Information not available 12/27/2024 Do You Have A Medical Power Of Security Controls Assessor? No Information not available 12/27/2024 What Was The Date Of Your Most Recent Tobacco Screening? 12/27/2024 Information not available 12/27/2024 Do You Have Any Pets? No Information not available 12/27/2024 What Is Your Relationship Status? Single Information not available 12/27/2024 Have You Repeated Any Grades? No Information not available 12/27/2024 Do You Use Your Seat Belt Or Car Seat Routinely? Yes Information not available 12/27/2024 Are You Sexually Active? Yes Information not available 12/27/2024 Do You Have Any Siblings? Yes Information not available 12/27/2024 Do You Have Smoke And Carbon Monoxide Detectors In Your Home? Yes Information not available 12/27/2024 Are You Passively Exposed To Smoke? No Information no t available 12/27/2024 Are There Any Smokers In Your House? No Information not available 12/27/2024 Do You Participate In Social Media? No Information not available 12/27/2024 Do You Use Sunscreen Routinely? No Information not available 12/27/2024 Has Tobacco Cessation Counseling Been Provided? No Information not available 12/27/2024 Have You Recently Traveled Abroad? No Information not available 12/27/2024 Do You Have Difficulty Walking Or Climbing Stairs? Yes Information not available 12/27/2024 Are You Currently In School? No Information not available 12/27/2024 Do You Have Any Dietary Restrictions? Yes Information not available 12/27/2024 Sex: Unknown Functional Status Question Answer Note LastModified by [employer] ion Details LastModified Time Do you use any illicit or recreational drugs? No Information not available 12/27/2024 Do you or have you ever used any other forms of tobacco or nicotine? No Information not available 12/27/2024 What is your level of alcohol consumption? None Information not available 12/27/2024 Are you currently employed? No Information not available 12/27/2024 Do you have transportation difficulties? No Information not available 12/27/2024 Are you able to walk? YESLIMIT Information not available 12/27/2024 Do you have difficulty doing errands alone? No Information not available 12/27/2024 Are you able to care for yourself? Yes Information n ot available 12/27/2024 Do you have difficulty dressing or bathing? No Information not available 12/27/2024 What is your exercise level? Occasional Information not available 12/27/2024 Mental Status Question Answer Note LastModified by Organizat ion Details LastModified Time Do you feel stressed (tense, restless, nervous, or anxious, or unable to sleep at night)? [id number] Information not available 12/27/2024 Do you have difficulty concentrating, remembering or making decisions? No Information no t available 12/27/2024 Are you or have you been involved with bullying? No Information not available 12/27/2024 Family History Relationship Description Onset Age of this Age Resolved Age Notes LastModified by Organization Details LastModified Time Father Alzheimer's disease Not available 2024 13:54:20 Medical History Condition Response Coronary Artery Disease N Other N Gout N Kidney Stones N Blood Diseases N Hyperthyroidism N Blood Transfusion N Breast Cancer N Emergency room visit since last appointm ent. N COPD N Depression N Dermatologic Disorders N Hypothyroidism N Lung Disease N Developmental or Behavioral Disorders N Defects or Inherited Disease N Breast Problem N Difficulty Swallowing N Anesthesia Complications N History of STI N Meniere's disease N Anxiety Disorder N Muscle, Joint, or Bone Problems N Autoimmune disease N Vision or Eye Problems N Arthritis N Polyps N Infertility N Mental Disorder N Congenital Anomalies N Acid Reflux (GERD) N Cancer N Stroke N Neurologic/Epilepsy N Endometriosis N Bladder or Kidney Problems N High Cholesterol Y Liver Disease N Organ Transplant N Psychiatric/Mental Health Condition N Fibromyalgia N Dialysis N Schizophrenia N Headaches N Kidney Disease N Allergies/Hayfever N Heart Problems N Ear or Hearing Problems N Hospitalizations N Learning Disorder N Artificial Joints N Thyroid Problems N GI Problems N Acne N ADD/ADHD N Eating Disorder N Anemia N Constipation N Mental Illness N Ovarian Cancer N Diabetes Y Bedwetting N Hepatitis/Liver Disease N Tuberculosis N Eczema N Diverticulitis N Abuse/Domestic Violence N Asthma N Trauma/Violence N Substance Abuse N Reflux/GERD N Depression/ depression N Hepatitis N Heart Disease N Pulmonary Embolism N Tourette Syndrome N Chronic Ear Infections N Pre-Eclampsia N Hypertension Y Chicken Pox N Autism Spectrum Disorder (ASD) N Osteoporosis N Thrombophilias N Immunizations Vaccine Type Date Status Note Provider Nam e and Address Organization Details Recorded Time Td (adult), 2 Lf tetanus toxoid, preservative free, adsorbed 7 completed Not Available [facility] 12/27/2024 13:44:00 Influenza, split virus, quadrivalent, PF 6 completed Not Available [facility] 12/27/2024 13:44:00 Influenza, split virus, quadrivalent, PF 7 completed Not Available [facility] 12/27/2024 13:44:00 Influenza, split virus, quadrivalent, PF 8 completed Not Available [facility] 12/27/2024 13:44:00 Hep A, adult 8 completed Not Available [facility] 12/27/2024 13:44:00 Influenza, high-dose, quadrivalent, PF 0 completed Not Available [facility] 12/27/2024 13:44:00 COVID-19 vaccine, vector-nr, rS-Ad26, PF, 0.5 mL 1 completed Not Available [facility] 12/27/2024 13:44:00 Influenza, high-dose, quadrivalent, PF 1 completed Not Available [facility] 12/27/2024 13:44:00 COVID-19, mRNA, LNP-S, PF, 100 mcg/0.5mL dose or 50 mcg/0.25mL dose 1 completed Not Available [facility] 12/27/2024 13:44:00 COVID-19, mRNA, LNP-S, PF, 100 mcg/0.5mL dose or 50 mcg/0.25mL dose 2 completed Not Available [facility] 12/27/2024 13:44:00 Influenza, adjuvanted, quadrivalent, PF 2 completed Not Available [facility] 12/27/2024 13:44:00 COVID-19, mRNA, LNP-S, bivalent, PF, 50 mcg/0.5 mL or 25mcg/0.25 mL dose 3 completed Not Available [facility] 12/27/2024 13:44:00 Influenza, adjuvanted, quadrivalent, PF 3 completed Not Available [facility] 12/27/2024 13:44:00 COVID-19, mRNA, LNP-S, PF, 50 mcg/0.5 mL 3 completed Not Available [facility] 12/27/2024 13:44:00 Influenza, high-dose, trivalent, PF 4 completed Not Available [facility] 12/27/2024 13:44:00 COVID-19, mRNA, LNP-S, PF, tatyana-sucrose, 30 mcg/0.3 mL 4 completed Not Available [facility] 12/27/2024 13:44:00 zoster recombinant 5 completed Not Available [facility] 12/27/2024 13:44:00 Pneumococcal conjugate PCV20, polysaccharide [id number] conjugate, adjuvant, PF 5 completed Not Available [facility] 12/27/2024 13:44:00 RSV, bivalent, protein subunit RSVpreF, diluent reconstituted, 0.5 mL, PF 5 completed Not Available [facility] 12/27/2024 13:44:00 Past Encounters Encounter ID Performer Location Encounter Start Date Encounter Closed Date Diagnosis/Indication Diagnosis SNOMED-CT Code Diagnosis ICD10 Code Diagnosis Note [id number] LIZBETH Camacho [facility] [address] [place] [address] 12/27/2024 13:07:14 12/27/2024 14:42:37 Edema of left lower limb 620074671 R60.0 R/O DVTUnna boot to help with edemaDoxcy short for infectionP entoxifyll ine to improve blood flowMay need wound therapy Hyperglyce jovanny due to type 2 diabetes mellitus 0219235752 26422 E11.65 Increase Glipizide 10 mg ER daily for ease of taking meds Triggering of digit 7049 09002 M65.352 Health Concerns Section Related Observation LastModified by Organization Detai ls LastModified Time None Recorded Concern Status LastModified by Organization Details LastModified Time None Recorded Advance Directives Directive N: Payers Insurance Date Sequence Insurance Name Policy Number Policy [place] Covered Member ID Hatfield Member ID Guarantor Name 12/28/2024 [place] [id number] evidanza [facility] Jonelle Kamara [id number] Jonelle Kamara 12/27/2024 1 [place] Jonelle Kamara [id number] Jonelle Kamara 12/27/2024 2 [facility] [place] [facility] Jonelle Kamara [id number] Jonelle Kamara Notes Date Note Type Note Provider Name and Address Organization Details Recorded Time 12/27/2024 text/html Patient presents to establish care at [facility] has a history of DM, HTN, gout, hypothyroidism.[place] s an ulceration on his left anterior pabon. Has been there for several months. He does not recall any trauma to the leg. It will not heal. He has been on Keflex. Currently using mupirocin. No improvement. His leg is red, swollen. It is painful and sometimes feels like it will give out. LIZBETH Camacho [address] [place] [address], [place], [address], [employer] 12/27/2024 15:57:19
--- OUTSIDE RECORDS SUMMARY | 2024-12-28 13:28 | XMS_ITS | Continuity of Care Document ---
Author Organization [place] - [employer] [facility] Address [address] [place] [address] Assessment No assessment recorded. Plan of Treatment Reminders Order Date Submit Date Provider Last Modified By Organization Details Last Modified Time Details Appointments FOLLOW UP 30 2024 03:00P Amadou Quinteros PA-C Not available Not available Not available Lab HbA1c (hemoglob in A1c), blood [address], [address] [facility], [place], [address], 12/27/2024 14:28:14 microalbu min/creat inine, mass ratio, urine [address], [address] [facility], [place], [address], 12/27/2024 14:28:15 Referral hand surgeon referral 2024 025 VICKI Morrow, [address] [facility], [place], [address], 12/27/2024 16:50:35 Procedures None recorded. Surgeries None recorded. Imaging US, duplex, venous, lower extremity [address], [place], [address], 12/27/2024 16:26:10 Medication Orders pentoxify lline ER 400 mg tablet,ex tended release 2024 [facility] #[id number], [address], [phone], 12/27/2024 14:28:29 doxycycli ne hyclate 100 mg tablet 2024 025 [facility] #[id number], [address], [id number], 12/27/2024 14:28:33 glipizide ER 10 mg tablet, extended release 24 hr 2024 025 [facility] #[id number], [address], [phone], 12/27/2024 14:29:37 Patient TargetsNo targets recorded. Patient InstructionsNo instructions recorded. Reason for Referral Hand Surgeon Referral for Tr iggering of digit Referring Physician: Damaris Quinteros, Family Medicine, Encounter Date: 12/27/2024 Results Created Date Observation Date Name Description Value Unit Range Abnormal Flag Note LastModifiedBy Organization Detail LastModifiedTime 12/28/1912/27/2024 micro album in/cr eatin ine, mass ratio , urine Microalbumin 150 mg/L Not Available [facility] [address] [place] [address], [phone], 12/27/2024 14:02:15 12/28/19 25 12/27/2024 micro album in/cr eatin ine, mass ratio , urine Creatinine 50 mg/dL Not Available [facility] [address] [place] [address], [phone], 12/27/2024 14:02:15 12/28/19 25 12/27/2024 micro album in/cr eatin ine, mass ratio , urine Ratio >300 mg/g Not Available [facility] [address] [place] [address], [phone], 12/27/2024 14:02:15 12/28/19 25 12/27/2024 HbA1c (hemo globi n A1c), blood HbA1c 8.4 % Not Available [facility] [address] [facility], [place], [address], 12/27/2024 14:02:09 Result Notes None recorded. Problems Name Problem SNOMED Code Status Onset Date Resolution Date Notes Provider Name and Address Organization Details Recorded Time Edema of left lower limb 374035417 Active 2024 LIZBETH Camacho [address] [place] [address], [phone], [facility] [place] [employer] 14:35:53 Hyperglycem ia due to type 2 diabetes mellitus 6658322353417 09 Active 2024 LIZBETH Camacho [address] [place] [address], [phone], [employer] [facility] 14:35:50 Triggering of digit 102865242 Active 2024 LIZBETH Camacho [address] [place] [address], [phone], [facility] [place] [employer] 14:35:35 Problem Notes None recorded. Procedures Surgical History Date Name Laterality Status Provider Name and Address Organization Details Recorded Time Unna boot - LE edema [facility] 12/27/2024 14:35:21 operation on testis [facility] 12/27/2024 13:55:57 Stent completed [facility] [employer] 12/27/2024 13:56:05 Imaging Results None recorded. [...] and Address Organization Details Last Updated DateTime 05889.1 7 g 29.5 kg/m2 162.56 cm 96 % 96 % 72 /min 98 [degF] 116 mm[Hg] 76 mm[Hg] Colleen [employer] 13:58:10 Social History Question Answer Notes LastModified by [employer] Details LastModified Time Tobacco Smoking Status Never Smoker Colleen [employer] 12/27/2024 13:46:04 Do You Have An Advance Directive? No Information not available 12/27/2024 Is Your Home Air Conditioned? Yes Information not available 12/27/2024 Are You Blind Or Do You Have Difficulty Seeing? No Information not available 12/27/2024 What Is Your Level Of Caffeine Consumption? Occasional Information not available 12/27/2024 What Type Of Driver/Guide Do You Use? None Information not available [...] Or The Highest Degree You Have Received? [id number] Information not available 12/27/2024 How Many Days [...] Do You Have A Medical Power Of Truck Driver Heavy? No Information not available 12/27/2024 What Was [...] Functional Status Question Answer Note LastModified by Organizat ion Details LastModified Time Do you use [...] anxious, or unable to sleep at night)? [id number] Information not available 12/27/2024 Do you have [...] History Condition Response Coronary Artery Disease N Gout N Other N Kidney Stones N Blood Diseases N Hyperthyroidism N Breast Cancer N Blood Transfusion N Emergency room visit since last appointm ent. N Lung Disease N COPD N Depression N Hypothyroidism N Dermatologic Disorders N Defects or Inherited Disease N Developmental or Behavioral Disorders N Breast Problem N Difficulty Swallowing N Anesthesia Complications N History of STI N Anxiety Disorder N Meniere's disease N Autoimmune disease N Muscle, Joint, or Bone Problems N Vision or Eye Problems N Arthritis N Infertility N Polyps N Mental Disorder N Congenital Anomalies N Acid Reflux (GERD) N Cancer N Stroke N Neurologic/Epilepsy N Endometriosis N Bladder or Kidney Problems N High Cholesterol Y Liver Disease N Organ Transplant N Psychiatric/Mental Health Condition N Dialysis N Headaches N Fibromyalgia N Schizophrenia N Kidney Disease N Allergies/Hayfever N Heart Problems N Ear or Hearing Problems N Hospitalizations N Learning Disorder N Artificial Joints N Thyroid Problems N GI Problems N Acne N ADD/ADHD N Eating Disorder N Anemia N Constipation N Mental Illness N Diabetes Y Ovarian Cancer N Bedwetting N Hepatitis/Liver Disease N Tuberculosis N Eczema N Abuse/Domestic Violence N Diverticulitis N Asthma N Trauma/Violence N Substance Abuse [...] preservative free, adsorbed 7 completed Not Available [facility] 12/27/2024 13:44:00 Influenza, split virus, quadrivalent, PF 6 completed Not Available [facility] 12/27/2024 13:44:00 Influenza, split virus, quadrivalent, PF 7 completed Not Available [facility] 12/27/2024 13:44:00 Influenza, split virus, quadrivalent, PF 8 completed Not Available [facility] 12/27/2024 13:44:00 Hep A, adult 8 completed Not Available [facility] 12/27/2024 13:44:00 Influenza, high-dose, quadrivalent, PF 0 completed Not Available [facility] 12/27/2024 13:44:00 COVID-19 vaccine, vector-nr, rS-Ad26, PF, 0.5 mL 1 completed Not Available [facility] 12/27/2024 13:44:00 Influenza, high-dose, quadrivalent, PF 1 completed Not Available [facility] 12/27/2024 13:44:00 COVID-19, mRNA, LNP-S, PF, 100 mcg/0.5mL dose or 50 mcg/0.25mL dose 1 completed Not Available [facility] 12/27/2024 13:44:00 COVID-19, mRNA, LNP-S, PF, 100 mcg/0.5mL dose or 50 mcg/0.25mL dose 2 completed Not Available [facility] 12/27/2024 13:44:00 Influenza, adjuvanted, quadrivalent, PF 2 completed Not Available [facility] 12/27/2024 13:44:00 COVID-19, mRNA, LNP-S, bivalent, PF, 50 mcg/0.5 mL or 25mcg/0.25 mL dose 3 completed Not Available [facility] 12/27/2024 13:44:00 Influenza, adjuvanted, quadrivalent, PF 3 completed Not Available [facility] 12/27/2024 13:44:00 COVID-19, mRNA, LNP-S, PF, 50 mcg/0.5 mL 3 completed Not Available [facility] 12/27/2024 13:44:00 Influenza, high-dose, trivalent, PF 4 completed Not Available [facility] 12/27/2024 13:44:00 COVID-19, mRNA, LNP-S, PF, tatyana-sucrose, 30 mcg/0.3 mL 4 completed Not Available [facility] 12/27/2024 13:44:00 zoster recombinant 5 completed Not Available [facility] 12/27/2024 13:44:00 Pneumococcal conjugate PCV20, polysaccharide CFS330 conjugate, adjuvant, PF 5 completed Not Available [facility] 12/27/2024 13:44:00 RSV, bivalent, protein subunit RSVpreF, diluent reconstituted, 0.5 mL, PF 5 completed Not Available [facility] 12/27/2024 13:44:00 Past Encounters Encounter ID Performer Location Encounter Start Date Encounter Closed Date Diagnosis/Indication Diagnosis SNOMED-CT Code Diagnosis ICD10 Code Diagnosis Note [id number] LIZBETH Camacho [address] [address] 12/27/2024 13:07:14 12/27/2024 14:42:37 Edema of left lower limb 016646001 R60.0 R/O DVTUnna boot to help with edemaDoxcy short for infectionP entoxifyll ine to improve blood flowMay need wound therapy Hyperglyce jovanny due to type 2 diabetes mellitus 0621420641 20458 E11.65 Increase Glipizide 10 mg ER daily for ease of taking meds Triggering of digit 2099 90721 M65.352 Health Concerns Section Related Observation LastModified by Organization Carolee thorne LastModified Time None Recorded Concern Status LastModified by Organization Details LastModified Time None Recorded Payers Encounter Date Sequence Insurance Name Policy Number Policy [place] Covered Member ID [place] Member ID Guarantor Name 12/27/2024 1 [place] Jonelle Kamara [id number] Jonelle Kamara 12/27/2024 2 [employer] [place] ([place]ICA[place] HMO[place] Jonelle Kamara [id number] Jonelle Kamara Notes Date Note Type Note Provider Name and Address Organization Details Recorded Time 12/27/2024 text/html Patient presents to establish care at [facility] has a history of DM, HTN, gout, hypothyroidism.[place] s an ulceration on his left anterior pabon. Has been there for several months. He does not recall any trauma to the leg. It will not heal. He has been on Keflex. Currently using mupirocin. No improvement. His leg is red, swollen. It is painful and sometimes feels like it will give out. LIZBETH Camacho [address] [place] [address], [phone], [facility] [employer] 12/27/2024 15:57:19
--- NOTE | 2024-12-28 13:35 | CA_ITS ---
FINAL REPORT CLINICAL HISTORY: EDEMA LLE,WOUND MID LEFT RODRIGUEZ X SEVERAL MONTHS COMPARISON: None FINDINGS: DUPLEX VENOUS SONOGRAPHY OF THE LEFT LOWER EXTREMITY Multiple transverse and longitudinal scans were performed of the femoropopliteal deep venous system, with augmentation and compression maneuvers. HISTORY: Pain edema FINDINGS: Normal phasic flow was noted in the visualized deep venous system. No intraluminal increased echogenicity is noted to suggest thrombus. There is normal compression and augmentation of the venous structures. No abnormal venous collaterals are seen. IMPRESSION: No evidence of deep venous thrombosis of the left lower extremity. Reviewed, Interpreted and Dictated by Layne Hedrick MD Transcribed by Radha Merchant Authenticated and [facility]
== END 2024-12-28 23:59 | disposition home or self-care (01) ==
LOC: RT 13:25
PROVIDERS: PCP Physician Assistant; Visit Provider Physician Assistant
DX: R60.1 Generalized edema (principal); R60.0 Localized edema
CPT/HCPCS: 93971

== ENCOUNTER 2025-01-31 10:31 | Outpatient (CLI) | payer MEDICARE, MEDICAID, SELFPAY ==
--- NOTE | 2025-01-31 10:35 | XR_ITS ---
FINAL REPORT CLINICAL HISTORY: knee pain COMPARISON: None FINDINGS: Three views of the right knee were obtained. There is no acute fracture or dislocation. The joint spaces are well preserved. There is no acute soft tissue abnormality. IMPRESSION: No acute abnormality identified. Reviewed, Interpreted and Dictated by Vaibhav Raines MD Transcribed by Marcy Bello Authenticated and . [facility]
--- NOTE | 2025-01-31 10:35 | XR_ITS ---
FINAL REPORT CLINICAL HISTORY: knee pain COMPARISON: None FINDINGS: LEFT KNEE 3 views of the left knee were obtained. There is no acute fracture or dislocation. There is sharpening of the tibial spines. Mild vascular calcifications are noted in the distal SFA. Soft tissues are otherwise unremarkable. IMPRESSION: Degenerative changes without acute bony abnormality. Reviewed, Interpreted and Dictated by Vaibhav Raines MD Transcribed by Marcy Bello Authenticated and [facility]
--- OUTSIDE RECORDS SUMMARY | 2025-01-31 10:35 | XMS_ITS | Clinical Summary ---
Author Organization Healthcare Address [address] [place] [address] Care Team Providers Care [employer] Name Role Phone Don Pierson MD Primary Care Provider [phone] Allergies Active Allergy Reactions Criticality Noted Date [...] Health Maintenance Due Date Last Done Comments [facility]-Diabetes: Hemoglobin A1C 1955 [facility]-Hepatitis C Screening 1955 [facility]-Medicare Annual Wellness (AWV) 1955 [facility]/Child/Adol SDOH Screenings 1955 Diabetes: Dental Exam 12/21/1963 [facility]- SDOH Screenings 12/21/1971 [facility]-Adult SDOH Screenings 12/21/1971 [facility]-Pneumococcal Vaccine: 50+ Years (1 of 2 - PCV) 1972 [facility]-DTaP,Tdap,and Td Vaccines (1 - Tdap) 09/27/1996 09/26/1996 CT Colonography 1998 Colonoscopy 1998 [facility]-DNA 1998 FIT 1998 FOBT 1998 Sigmoidoscopy 1998 [facility]-Colorectal Cancer Screening 1998 [facility]-Zoster Vaccines (1 of 2) 12/21/2003 [facility]-RSV Vaccine: 60+ Years or (1 - Risk 60-74 years 1-dose series) 2013 [facility]-[id number]-70 Vaccine (2023- season) 2024 05/20/2023, 03/11/2023, 02/10/2022, Additional history exists [facility]-Depression Screening 09/25/2024 09/26/2023 [facility]-Influenza Vaccine (#1) 03/25/202503/29, 03/15/2022, 03/13/2021, Additional history exists [facility]-Hepatitis A [...] topic Insurance MEDICARE [employer]ICAID Care Teams [employer] Relationship Specialty Start Date End Date Don Pierson MD [address] [place] [address] PCP - General 12/05/20
--- OUTSIDE RECORDS SUMMARY | 2025-01-31 10:35 | XMS_ITS | Continuity of Care Document ---
Author Organization [facility] Address [address] [place] [address] Assessment No assessment recorded. Plan of Treatment Reminders Order Date Submit Date Provider Last Modified By Organization Details Last Modified Time Details Appointments FOLLOW UP 2024 03:00P Amadou Quinteros PA-C Not available Not available Not available Lab HbA1c (hemoglob in A1c), blood [address], [address] [facility], [place], [address], 12/27/2024 14:28:14 microalbu min/creat inine, mass ratio, urine [address], [address] [facility], [place], [address], 12/27/2024 14:28:15 Referral hand surgeon referral 2024 025 yovana Morrow, [address], [address], [place], [address], 01/30/2025 07:45:41 Procedures None recorded. Surgeries None recorded. Imaging US, duplex, venous, lower extremity 2024 025 [place] [address], [place], [address], 12/31/2024 14:26:06 Medication Orders pentoxify lline ER 400 mg tablet,ex tended release 2024 025 [facility][id number], [address], [id number], 12/27/2024 14:28:29 doxycycli ne hyclate 100 mg tablet 2024 025 [facility] #[id number], [address], [id number], 01/10/2025 15:00:49 glipizide ER 10 mg tablet, extended release 24 hr 2024 025 [facility] #[id number], [address], [id number], 12/27/2024 14:29:37 Patient TargetsNo targets recorded. Patient InstructionsNo instructions recorded. Reason for Referral Hand Surgeon Referral for Tr iggering of digit Referring Physician: Damaris Quinteros, Family Medicine, Encounter Date: 12/27/2024 Results Created Date Observation Date Name Description Value Unit Range Abnormal Flag Note LastModifiedBy Organization Detail LastModifiedTime 12/28/1912/27/2024 micro album in/cr eatin ine, mass ratio , urine Microalbumin 150 mg/L Not Available [facility] [address] [place] [address], [address], 12/27/2024 14:02:15 12/28/19 25 12/27/2024 micro album in/cr eatin ine, mass ratio , urine Creatinine 50 mg/dL Not Available [facility] [address] [place], [address], 12/27/2024 14:02:15 12/28/19 25 12/27/2024 micro album in/cr eatin ine, mass ratio , urine Ratio >300 mg/g Not Available [facility] [address] [facility], [place], [address], 12/27/2024 14:02:15 12/28/19 25 12/27/2024 HbA1c (hemo globi n A1c), blood HbA1c 8.4 % Not Available [facility] [address] [facility], [place], [address], 12/27/2024 14:02:09 01/01/20 25 12/28/2024 US, honey x, tiffanie s, lower extre mity No observ ation record ed. [facility] (Med Record) [address], [place], [place], [address], 12/31/2024 14:53:28 Result Notes None recorded. Problems Name Problem SNOMED Code Status Onset Date Resolution Date Notes Provider Name and Address Organization Details Recorded Time Edema of left lower limb 921735766 Active 2024 LIZBETH Camacho [address] [place] [address], [address], [employer] 14:35:53 Hyperglycem ia due to type 2 diabetes mellitus 4510530236013 09 Active 2024 LIZBETH Camacho [address] [place] [address], [address], [place] [employer] 14:35:50 Triggering of digit 063512880 Active 2024 LIZBETH Camacho [address] [place] [address], [address] 8, [place] [employer] 14:35:35 Ulcer of skin of lower extremity 957444389 Active 2024 LIZBETH Camacho [address] [place] [address], [address]67[address] 8, [employer] 15:55:57 Candidiasis of skin 44077555 Active 2024 LIZBETH Camacho [address] [place] [address], [address] 8, [employer] 5 10:19:18 Essential hypertensio n 45812408 Active 2024 LIZBETH Camacho [address] [place] [address], [address]162 8, [employer] 5 15:12:27 Gouty arthritis of multiple sites 941264220 Active 2024 LIZBETH Camacho [address] [place] [address], 218[address] 8, [employer] 5 11:31:33 Edema of lower extremity 892946462 Active 2024 LIZBETH Camacho [address] [place] [address], [address]78[address] 8, [employer] 14:19:20 Problem Notes None recorded. Procedures Surgical History Date Name Laterality Status Provider Name and Address Organization Details Recorded Time Unna boot - LE edema completed [employer] 01/03/2025 13:37:46 Unna boot - LE edema completed [employer] 12/27/2024 14:35:21 operation on testis completed [employer] 12/27/2024 13:55:57 Stent completed [employer] 12/27/2024 13:56:05 Imaging Results None recorded. Procedure Notes None recorded. Medical Equipment None Reported. Allergies Allergen ID Allergen Name Allergen Category Reaction Reaction Severity Criticality Documentation Date Start Date Code Code System Note Provider Name and Address Organization Details Recorded Time 80788 diltiazem medicatio n Not available Not available Not available 12/28/2024 3443 RxNorm HAUL, [employer] 17:28:41 21416 Product containin g 3-hydroxy -3-methyl glutaryl- coenzyme A reductase inhibitor (product) medicatio n Not available Not available Not available 12/28/2024 00317 009 SNOMED ColleenChewse, [employer] 17:28:49 10583 parathyro id hormone medicatio n Not available Not available Not available 12/28/2024 70649 22 RxNorm Colleen Vice duran, [facility]. 17:29:03 Medications Name Sig Start Date Stop Date Status Note LastModified by Organization Details LastModified Time clonidine HCl 0.1 mg tablet Take 2 tablets by oral route. 2024 active Not Available Not Available Not Avai lable fluconazole 150 mg tablet TAKE 1 TABLET BY MOUTH ONCE DAILY FOR 7 DAYS 01/10 completed Not Available Not Available Not Available benzonatate 200 mg capsule TAKE 1 CAPSULE BY MOUTH THREE TIMES DAILY NEEDED FOR COUGH 12/27 completed Not Available Not Available Not Available glipizide ER 10 mg tablet, extended release 24 hr TAKE 1 TABLET BY MOUTH EVERY DAY active Not Available Not Available No t Available metoprolol succinate ER 100 mg tablet,exte nded release 24 hr TAKE 2 TABLETS BY MOUTH DAILY active Not Available Not Available No t Available aspirin 81 mg tablet,kyleigh yed release TAKE 1 TABLET BY MOUTH DAILY active Not Available Not Available No t Available doxycycline monohydrate 100 mg tablet TAKE 1 TABLET BY MOUTH TWICE DAILY FOR 10 DAYS 01/10 completed Not Available Not Available Not Available pentoxifyll ine ER 400 mg tablet,exte nded release TAKE 1 TABLET BY MOUTH TWICE DAILY active Not Available Not Available No t Available levothyroxi ne 25 mcg tablet Take 1 tablet every day by oral route. active Not Available Not Available No t Available levothyroxi ne 88 mcg tablet TAKE 1 TABLET BY MOUTH ONCE DAILY 01/10 completed Not Available Not Available Not Available clonidine HCl 0.2 mg tablet TAKE 1 TABLET BY MOUTH TWICE DAILY 01/24 completed Not Available Not Available Not Available glipizide ER 2.5 mg tablet, extended [...] mg tablet TAKE 1 TABLET BY MOUTH EVERY DAY active Not Available Not Available No t Available hydrochloro thiazide 25 mg tablet TAKE 1 TABLET BY MOUTH EVERY DAY active Not Available Not Available No t [...] day by oral route for 10 days. 01/10 completed Not Available Not Available Not Available Januvia 100 mg tablet TAKE 1 TABLET [...] Pulse oximetry Heart rate Body temperature Systolic And Diastolic Provider Name and Address Organization Details Last Updated DateTime 5 74517.1 7 g 29.5 kg/m2 162.56 cm 96 % 96 % 72 /min 98 [degF] 116/76 mm[Hg] Colleen Gonzalez [email or web address] 13:58:10 Social History Question Answer Notes LastModified by Organizat ion Details LastModified Time Tobacco Smoking Status Never Smoker Colleen Gonzalez [facility] [employer] 12/27/2024 13:46:04 Do You Have An Advance Directive? No Information not available 12/27/2024 Is Your Home Air Conditioned? Yes Information not available 12/27/2024 Are You Blind Or Do You Have Difficulty Seeing? No Information not available 12/27/2024 What Is Your Level Of Caffeine Consumption? Occasional Information not available 12/27/2024 What Type Of Can Reconditioner Do You Use? None Information not available [...] Or The Highest Degree You Have Received? [id number] Information not available 12/27/2024 How Many Days [...] Do You Have A Medical Power Of [employer] Machine [employer]? No Information not available 12/27/2024 What Was The Date Of Your Most Recent Tobacco Screening? 01/24/2025 Information not available 01/24/2025 Do You Have Any Pets? No Information [...] anxious, or unable to sleep at night)? [id number] Information not available 12/27/2024 Do you have [...] COPD N Depression N Dermatologic Disorders N Lung Disease N Hypothyroidism N Developmental or Behavioral Disorders N Defects [...] N High Cholesterol Y Liver Disease N Psychiatric/Mental Health Condition N Organ Transplant N Fibromyalgia N Headaches N Schizophrenia N Dialysis N Kidney Disease N Allergies/Hayfever N Heart [...] preservative free, adsorbed 7 completed Not Available [facility] 01/24/2025 13:55:38 Influenza, split virus, quadrivalent, PF 6 completed Not Available [facility] 01/24/2025 13:55:38 Influenza, split virus, quadrivalent, PF 7 completed Not Available [facility] 01/24/2025 13:55:38 Influenza, split virus, quadrivalent, PF 8 completed Not Available [facility] 01/24/2025 13:55:38 Hep A, adult 8 completed Not Available [facility] 01/24/2025 13:55:38 Influenza, high-dose, quadrivalent, PF 0 completed Not Available [facility] 01/24/2025 13:55:38 COVID-19 vaccine, vector-nr, rS-Ad26, PF, 0.5 mL 1 completed Not Available [facility] 01/24/2025 13:55:38 Influenza, high-dose, quadrivalent, PF 1 completed Not Available [facility] 01/24/2025 13:55:38 COVID-19, mRNA, LNP-S, PF, 100 mcg/0.5mL dose or 50 mcg/0.25mL dose 1 completed Not Available [facility] 01/24/2025 13:55:38 COVID-19, mRNA, LNP-S, PF, 100 mcg/0.5mL dose or 50 mcg/0.25mL dose 2 completed Not Available [facility] 01/24/2025 13:55:38 Influenza, adjuvanted, quadrivalent, PF 2 completed Not Available [facility] 01/24/2025 13:55:38 COVID-19, mRNA, LNP-S, bivalent, PF, 50 mcg/0.5 mL or 25mcg/0.25 mL dose 3 completed Not Available [facility] 01/24/2025 13:55:38 Influenza, adjuvanted, quadrivalent, PF 3 completed Not Available [facility] 01/24/2025 13:55:38 COVID-19, mRNA, LNP-S, PF, 50 mcg/0.5 mL 3 completed Not Available [facility] 01/24/2025 13:55:38 Influenza, high-dose, trivalent, PF 4 completed Not Available [facility] 01/24/2025 13:55:38 COVID-19, mRNA, LNP-S, PF, tatyana-sucrose, 30 mcg/0.3 mL 4 completed Not Available [facility] 01/24/2025 13:55:38 zoster recombinant 5 completed Not Available [facility] 01/24/2025 13:55:38 Pneumococcal conjugate PCV20, polysaccharide [id number] conjugate, adjuvant, PF 5 completed Not Available [facility] 01/24/2025 13:55:38 RSV, bivalent, protein subunit RSVpreF, diluent reconstituted, 0.5 mL, PF completed Not Available [facility] 01/24/2025 13:55:38 Past Encounters Encounter ID Performer Location Encounter Start Date Encounter Closed Date Diagnosis/Indication Diagnosis SNOMED-CT Code Diagnosis ICD10 Code Diagnosis Note [id number] LIZBETH Camacho [facility] [address] [place] [address] 12/27/2024 13:07:14 12/27/2024 14:42:37 Edema of left lower limb 662992500 R60.0 R/O DVTUnna boot to help with edemaDoxcy short for infectionP entoxifyll ine to improve blood flowMay need wound therapy Hyperglyce jovanny due to type 2 diabetes mellitus 4970567836 46643 E11.65 Increase Glipizide 10 mg ER daily for ease of taking meds Triggering of digit 2399 38845 M65.352 Health Concerns Section Related Observation LastModified by Organization Detai ls LastModified Time None Recorded Concern Status LastModified by Organization Details LastModified Time None Recorded Payers Encounter Date Sequence Insurance Name Policy Number Policy [place] Covered Member ID [place] Member ID Guarantor Name 12/27/2024 1 [place] Jonelle Asad [id number] Jonellelisseth Kamara 12/27/2024 2 [facility] (MEDICAID HMO) Jonelle Asad [id number] Jonelle Asad Notes Date Note Type Note Provider Name and Address Organization Details Recorded Time 12/27/2024 text/html Patient presents to establish care at [facility] has a history of DM, HTN, gout, hypothyroidism.[place] s an ulceration on his left anterior paobn. Has been there for several months. He does not recall any trauma to the leg. It will not heal. He has been on Keflex. Currently using mupirocin. No improvement. His leg is red, swollen. It is painful and sometimes feels like it will give out. LIZBETH Camacho [address] [place] [address], [address], [place] [facility] [employer] 12/27/2024 15:57:19
== END 2025-01-31 23:59 | disposition home or self-care (01) ==
LOC: RAD 10:32
PROVIDERS: PCP Physician Assistant; Visit Provider Physician Assistant Surgical
DX: M17.12 Unilateral primary osteoarthritis, left knee (principal); M25.561 Pain in right knee
CPT/HCPCS: 73562

== ENCOUNTER 2025-05-22 11:02 | Inpatient (IN) | payer MEDICARE, MEDICAID, SELFPAY ==
--- OUTSIDE RECORDS SUMMARY | 2025-04-05 10:45 | XMS_ITS | Encounter Summary ---
Author Organization [facility] Address [address] [place] [id number] Care Team Providers Care Transport Driver Name Role Phone Damaris Quinteros Primary Care Provider [phone] Reason for Visit * Reason Comments Diabetes 3 sores on left pabon Encounter Details Date Type Department Care Team (Late st Contact Info) Description 04/05/2025 10:45 AM EDT Office Visit [facility] ENDOCRINOLOGY [address] [place] [phone] Helena Feliz MD [address] [place], [place] [id number] Type 2 diabetes mellitus with hyperglycemia, without long-term current use of insulin (Primary Dx); Acquired hypothyroidism; CKD stage 3 due to type 2 diabetes mellitus Social History Tobacco Use Types Packs/Day Years Used Date Smoking Tobacco: Never Passive Smoke Exposure: Past Smokeless Tobacco: Current Chew Alcohol Use Standard Drinks/Week Comments No 0 (1 standard drink = 0.6 oz pur e alcohol) PHQ-2 Answer Date Recorded PHQ-2 Score 0 05/30/2019 Sex and Gender Information Value Date Recorded Sex Assigned at Not on file Legal Sex Male 12:28 PM EDT Gender Identity Not on file Sexual Orientation Not on file documented as of this encounter Last Filed Vital Signs Vital Sign Reading Time Taken Comments Blood Pressure 132/66 04/05/2025 10:41 AM EDT Pulse 70 04/05/2025 10:41 AM EDT Temperature - - Respiratory Rate - - Oxygen Saturation 96% 04/05/2025 10:41 AM EDT Inhaled Oxygen Concentration - - Weight 74.4 kg (164 lb) 04/05/2025 10:41 AM EDT Height 165.1 cm (5' 5 ) 04/05/2025 10:41 AM EDT Body Mass Index 27.29 04/05/2025 10:41 AM EDT documented in this encounter Progress Notes * Helena Feliz MD - 04/05/2025 10:45 AM EDT Chief complaint Diabetes (3 sores on left pabon) Subjective Jonelle Kamara is a 69 y.o. male is here today for follow-up. Follow-up for type 2 diabetes mellitus diagnosed December 2012 He has a symptoms of peripheral neuropathy with bilateral burning and numbness of the feet, has a known coronary artery disease and hyperlipidemia. CKD Stage 3 He reported no hypoglycemia. C/o numbness and pain in the feet. Eye care: no retinopathy. Meds Invokana. Glipizide 5 mg He stopped Januvia and not taking it. Hypothyroidism on levothyroxine 50 mcg. He is compliant with his medication. Reported having left pabon ulcer, slowly healing, he thinks it is related to the spider bite. Medications Current Outpatient Medications: allopurinol (ZYLOPRIM) 300 MG tablet, Take 1 tablet by mouth Daily., Disp: , Rfl: aspirin 81 MG EC tablet, Take 1 tablet by mouth Daily., Disp: , Rfl: benzonatate (TESSALON) 200 MG capsule, Take 1 capsule by mouth 3 (Three) Times a Day As Needed for Cough., Disp: , Rfl: Canagliflozin (Invokana) 300 MG tablet tablet, Take 1 tablet by mouth Daily., Disp: 30 tablet, Rfl:11 chlorthalidone (HYGROTON) 25 MG tablet, Take 0.5 tablets by mouth Daily., Disp: , Rfl: cloNIDine (CATAPRES) 0.2 MG tablet, Take 1 tablet by mouth 2 (Two) Times a Day., Disp: 180 tablet, Rfl: 0 doxazosin (CARDURA) 4 MG tablet, Take 1 tablet by mouth Daily., Disp: , Rfl: 1 glipizide (GLUCOTROL XL) 2.5 MG 24 hr tablet, TAKE 3 TABLETS BY MOUTH 1 TIME DAILY, Disp: 270 tablet, Rfl: 1 glucose blood (FREESTYLE LITE) test strip, Test three times daily, Disp: 100 each, Rfl: 12 levothyroxine (SYNTHROID, LEVOTHROID) 50 MCG tablet, Take 1 tablet by mouth Daily., Disp: 90 tablet, Rfl: 3 metoprolol succinate XL (TOPROL-XL) 100 MG 24 hr tablet, Take 2 tablets by mouth Daily., Disp: 180 tablet, Rfl: 0 [place]-3 Fatty Acids (fish oil) 1000 MG capsule capsule, Take 1 capsule by mouth Daily With Breakfast., Disp: , Rfl: ondansetron ODT (ZOFRAN-ODT) 4 MG disintegrating tablet, , Disp: , Rfl: pentoxifylline (TRENtal) 400 MG CR tablet, Take 1 tablet by mouth 2 (Two) Times a Day., Disp: , Rfl: raNITIdine (ZANTAC) 150 MG tablet, Take 1 tablet by mouth 2 (Two) Times a Day., Disp: , Rfl: rOPINIRole (REQUIP) 0.5 MG tablet, Take 1 tablet by mouth Every Evening., Disp: , Rfl: simvastatin (ZOCOR) 20 MG tablet, TAKE 1 TABLET BY MOUTH EVERY EVENING, Disp: 90 tablet, Rfl: 1 SITagliptin (Januvia) 100 MG tablet, Take 1 tablet by mouth Daily., Disp: 90 tablet, Rfl: 0 SITagliptin (Januvia) 50 MG tablet, Take 1 tablet by mouth Daily., Disp: 30 tablet, Rfl: 11 Current Facility-Administered Medications: meclizine (ANTIVERT) tablet 25 mg, 25 mg, Oral, TID PRN, Vitaliy Perez MD Review of systems Review of Systems Constitutional: Positive for fatigue and unexpected weight change (weight gain). HENT: Negative for trouble swallowing. Cardiovascular: Positive for leg swelling. Neurological: Positive for numbness. Physical exam Objective Blood pressure 132/66, pulse 70, height 165.1 cm (65 ), weight 74.4 kg (164 lb), SpO2 96%. Body mass index is 27.29 kg/m??. Physical Exam Vitals reviewed. Constitutional: Appearance: Normal appearance. Cardiovascular: Rate and Rhythm: Normal rate and regular rhythm. Pulses: Normal pulses. Heart sounds: Normal heart sounds. Pulmonary: Effort: Pulmonary effort is normal. Breath sounds: Normal breath sounds. Musculoskeletal: General: No swelling. Neurological: Mental Status: He is alert and oriented to person, place, and time. Psychiatric: Mood and Affect: Mood normal. Thought Content: Thought content normal. LABS AND IMAGING Office Visit on 04/05/2025 Component Date Value Ref Range Status Hemoglobin A1C 04/05/2025 7.4 (A) 4.5 - 5.7 % Final Lot Number 04/05/2025 [id number] Final Expiration Date 04/05/2025 10/25/26 Final Glucose 04/05/2025 150 (A) 70 - 130 mg/dL Final Lot Number 04/05/2025 [id number] Final Expiration Date 04/05/2025 09/14/25 Final Assessment Assessment & Plan Problems Addressed this Visit Endocrine and Metabolic Diabetes - Primary Relevant Orders POC Glycosylated Hemoglobin (Hb A1C) (Completed) POC Glucose, Blood (Completed) Hypothyroidism Genitourinary and Reproductive CKD stage 3 due to type 2 diabetes mellitus Diagnoses Codes Comments Type 2 diabetes mellitus with hyperglycemia, without long-term current use of insulin - Primary ICD-10-CM: E11.65 ICD-9-CM: 250.00, 790.29 Acquired hypothyroidism ICD-10-CM: E03.9 ICD-9-CM: 244.9 CKD stage 3 due to type 2 diabetes mellitus ICD-10-CM: E11.22, N18.30 ICD-9-CM: 250.40, 585.3 Plan 1 - Invokana 300 mg daily. Januvia - glipizide 2.5 mg 2 tabs daily. He has CKD stage 2. Last labs done in 11/2023. Retinopathy screen was negative Glucose improved and no hypoglycemia is seen. Logbook reviewed and glucose is 90-120 most of the time. 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 2 - levothyroxine 50 mcg. Recheck the levels. Follow-up in 6-8 months. documented in this encounter Plan of Treatment Upcoming Encounters Date Type Department Care Team (Late st Contact Info) Description 12/11/2025 1:00 PM EDT Office Visit [facility] END[facility]CRINOLOGY [address] [facility] [address] [place] [address] Helena Feliz MD [address] [facility] [address] [place] [address] 07/03/2026 1:45 PM EST Office Visit [facility] CARDIOLOGY [address] [place] [address] [address] Vitaliy Perez MD [address] [place] [address] documented as of this encounter Procedures Procedure Name Priority Date/Time Associated Diagnosis Comments MICROALBUMIN / CREATININE URINE RATIO Routine 04/05/2025 11:48 AM EDT Type 2 diabetes mellitus with hyperglycemia, without long-term current use of insulin TSH Routine 04/05/2025 11:48 AM EDT Acquired hypothyroidism T4, FREE Routine 04/05/2025 11:48 AM EDT Acquired hypothyroidism LIPID PANEL Routine 04/05/2025 11:48 AM EDT Type 2 diabetes mellitus with hyperglycemia, without long-term current use of insulin COMPREHENSIVE METABOLIC PANEL Routine 04/05/2025 11:48 AM EDT Type 2 diabetes mellitus with hyperglycemia, without long-term current use of insulin POCT GLUCOSE, BLD (NON STRIP) Routine 04/05/2025 10:56 AM EDT Type 2 diabetes mellitus with hyperglycemia, without long-term current use of insulin POCT GLYCOSYLATED HEMOGLOBIN (HGB A1C) Routine 04/05/2025 10:56 AM EDT Type 2 diabetes mellitus with hyperglycemia, without long-term current use of insulin documented in this encounter Results * (ABNORMAL) Microalbumin / Creatinine Urine Ratio - Urine, Clean Catch (04/05/2025 11:48 AM EDT) Microalbumin/C reatinine Ratio 477.1(H) 0.0 - 29.0 mg/g 04/06/2025 1:55 AM EDT [facility] Creatinine, Urine 61.2 mg/dL 04/06/2025 1:55 AM EDT [facility] Microalbumin, Urine 29.2 mg/dL 04/06/2025 1:55 AM EDT [facility] Urine Urine specimen obtained by clean catch procedure / Unknown Collection / Unknown 04/05/2025 11:48 AM EDT 04/05/2025 11:48 AM EDT Helena Rojo MD URINE ORDERABLES Final Result Performing Organization Address City/[facility]/ZIP Co de Phone Number [facility]
[address] [place] [address], * T4, Free (04/05/2025 11:48 AM EDT) Free T4 1.28 0.92 - 1.68 ng/dL 04/06/2025 1:59 AM EDT [facility] Blood Structure of left upper limb / Unknown Venipuncture / Unknown 04/05/2025 11:48 AM EDT 04/05/2025 11:48 AM EDT Helena Rojo MD LAB BLOOD ORDERABLES Final Res ult Performing Organization Address City/[facility]/ZIP Co de Phone Number [facility]
[address] [place] [address], * (ABNORMAL) TSH (04/05/2025 11:48 AM EDT) TSH 7.300(H) 0.270 - 4.200 uIU/mL 04/06/2025 1:59 AM EDT [facility] Blood Structure of left upper limb / Unknown Venipuncture / Unknown 04/05/2025 11:48 AM EDT 04/05/2025 11:48 AM EDT us Helena Rojo MD LAB BLOOD ORDERABLES Final Res ult [facility]
[address] [place] [address], * (ABNORMAL) Lipid Panel (04/05/2025 11:48 AM EDT) Total Cholesterol 130 0 - 200 mg/dL 04/06/2025 1:53 AM EDT [facility] Triglycerides 215(H) 0 - 150 mg/dL 04/06/2025 1:53 AM EDT [facility] HDL Cholesterol 31(L) 40 - 60 mg/dL 04/06/2025 1:53 AM EDT [facility] LDL Cholesterol 64 0 - 100 mg/dL 04/06/2025 1:53 AM EDT [facility] VLDL Cholesterol 35 5 - 40 mg/dL 04/06/2025 1:53 AM EDT [facility] LDL/HDL Ratio 1.81 04/06/2025 1:53 AM EDT [facility] Blood Structure of left upper limb / Unknown Venipuncture / Unknown 04/05/2025 11:48 AM EDT 04/05/2025 11:48 AM EDT Narrative [facility] - 04/06/2025 1:53 AM EDT Cholesterol Reference Ranges (U.S. Department of Health and Human Services ATP III Classifications) Desirable <200 mg/dL Borderline High 200-239 mg/dL High Risk >240 mg/dL Triglyceride Reference Ranges (U.S. Department of Health and Human Services ATP III Classifications) Normal <150 mg/dL Borderline High 150-199 mg/dL High 200-499 mg/dL Very High >500 mg/dL HDL Reference Ranges (U.S. Department of Health and Human Services ATP III Classifications) Low <40 mg/dl (major risk factor for CHD) High >60 mg/dl ('negative' risk factor for CHD) LDL Reference Ranges (U.S. Department of Health and Human Services ATP III Classifications) Optimal <100 mg/dL Near Optimal 100-129 mg/dL Borderline High 130-159 mg/dL High 160-189 mg/dL Very High >189 mg/dL LDL is calculated using the NIH LDL-C calculation. us Helena Rojo MD LAB BLOOD ORDERABLES Final Res ult [facility]
[address] [place] [address], * (ABNORMAL) Comprehensive Metabolic Panel (04/05/2025 11:48 AM EDT) [facility] Glucose 128(H) 65 - 99 mg/dL 04/06/2025 1:53 AM EDT [facility] BUN 48.0(H) 8.0 - 23.0 mg/dL 04/06/2025 1:53 AM EDT [facility] Creatinine 1.63(H) 0.76 - 1.27 mg/dL 04/06/2025 1:53 AM EDT [facility] Sodium 139 136 - 145 mmol/L 04/06/2025 1:53 AM EDT [facility] Potassium 4.6 3.5 - 5.2 mmol/L 04/06/2025 1:53 AM EDT [facility] Chloride 103 98 - 107 mmol/L 04/06/2025 1:53 AM EDT [facility] CO2 22.7 22.0 - 29.0 mmol/L 04/06/2025 1:53 AM EDT [facility] Calcium 10.2 8.6 - 10.5 mg/dL 04/06/2025 1:53 AM EDT [facility] Total Protein 6.7 6.0 - 8.5 g/dL 04/06/2025 1:53 AM EDT [facility] Albumin 4.0 3.5 - 5.2 g/dL 04/06/2025 1:53 AM EDT [facility] ALT (SGPT) 41 1 - 41 U/L 04/06/2025 1:53 AM EDT [facility] AST (SGOT) 37 1 - 40 U/L 04/06/2025 1:53 AM EDT [facility] Alkaline Phosphatase 62 39 - 117 U/L 04/06/2025 1:53 AM EDT [facility] Total Bilirubin 0.6 0.0 - 1.2 mg/dL 04/06/2025 1:53 AM EDT [facility] Globulin 2.7 gm/dL 04/06/2025 1:53 AM T [facility] A/G Ratio 1.5 g/dL 04/06/2025 1:53 AM EDT [facility] BUN/Creatinine Ratio 29.4(H) 7.0 - 25.0 04/06/2025 1:53 AM EDT [facility] Anion Gap 13.3 5.0 - 15.0 mmol/L 04/06/2025 1:53 AM [facility] eGFR 44.8(L) >60.0 mL/min/1.7 3 04/06/2025 1:53 AM [facility] Blood Structure of left upper limb / Unknown Venipuncture / Unknown 04/05/2025 11:48 AM EDT 04/05/2025 11:48 AM EDT [facility] - 04/06/2025 1:53 AM EDT GFR Categories in Chronic Kidney Disease (CKD) GFR Category GFR (mL/min/1.73) Interpretation G1 90 or greater Normal or high (1) G2 60-89 Mild decrease (1) G3a 45-59 Mild to moderate decrease G3b 30-44 Moderate to severe decrease G4 15-29 Severe decrease G5 14 or less Kidney failure (1)In the absence of evidence of kidney disease, neither GFR category G1 or G2 fulfill the criteria for CKD. eGFR calculation 2020 CKD-EPI creatinine equation, which does not include race as a factor us Helena Rojo MD LAB BLOOD ORDERABLES Final Res ult [facility]
[address] [place] [address], * (ABNORMAL) POC Glucose, Blood (04/05/2025 10:56 AM EDT) Glucose 150(A) 70 - 130 mg/dL Lot Number [id number] Expiration Date 09/14/25 Blood 04/05/2025 10:5 6 AM EDT Helena Rojo MD POINT OF CARE TEST ORDERABLES Final Result * (ABNORMAL) POC Glycosylated Hemoglobin (Hb A1C) (04/05/2025 10:56 AM EDT) Hemoglobin A1C 7.4(A) 4.5 - 5.7 % [facility] Lot Number [id number] [facility] Expiration Date 10/25/26 [facility] Blood 04/05/2025 10:5 6 AM EDT Helena Rojo MD POINT OF CARE TEST ORDERABLES Final Result [facility]
[address] [place] [address], documented in this encounter Visit Diagnoses Diagnosis Type 2 diabetes mellitus with hyperglycemia, without long-term current use of insulin- Primary Acquired hypothyroidism Unspecified hypothyroidism CKD stage 3 due to type 2 diabetes mellitus documented in this encounter Care Teams Transport Driver Relationship Specialty Start Date End Date Damaris Quinteros PA [address] [place] [address] PCP - General Physician Airborne Operations Manager 02/14/25 documented as of this encounter
--- OUTSIDE RECORDS SUMMARY | 2025-04-05 10:45 | XMS_ITS | Encounter Summary ---
Author Organization [facility] [place] [facility] Address [address] [place] [id number] Care Team Providers Care Band Aid Machine Operator Name Role Phone Damaris Quinteros Primary Care Provider [phone] Reason for Visit * Reason Comments Diabetes 3 sores on left pabon Encounter Details Date Type Department Care Team (Late st Contact Info) Description 04/05/2025 10:45 AM EDT Office Visit [facility] ENDOCRINOLOGY [address] [place] [phone] Helena Feliz MD [address] [place], [place] [id number] Type 2 diabetes mellitus with hyperglycemia, without [...] mouth Daily., Disp: 180 tablet, Rfl: 0 [place]-3 Fatty Acids (fish oil) 1000 MG capsule [...] time. 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 Recheck the levels. Follow-up in 6-8 months. documented in this encounter Plan of Treatment Upcoming Encounters Date Type Department Care Team (Late st Contact Info) Description 12/11/2025 1:00 PM EDT Office Visit [facility] [address] [facility] [address] [place] [address] Helena Feliz MD [address] [facility] [address] [place] [address] 07/03/2026 1:45 PM EST Office Visit [facility] CARDIOLOGY [address] [place] [address] [place] [address] Vitaliy Perez MD [address] [place] [address] documented as of this encounter [...] - 29.0 mg/g 04/06/2025 1:55 AM EDT [facility] Creatinine, Urine 61.2 mg/dL 04/06/2025 1:55 AM EDT [facility] Microalbumin, Urine 29.2 mg/dL 04/06/2025 1:55 AM EDT [facility] Urine Urine specimen obtained by clean catch procedure / Unknown Collection / Unknown 04/05/2025 11:48 AM EDT 04/05/2025 11:48 AM EDT Helena Rojo MD URINE ORDERABLES Final Result Performing Organization Address City/[facility]/ZIP Co de Phone Number [facility]
[address] [place] [address], * T4, Free (04/05/2025 11:48 AM EDT) Free T4 1.28 0.92 - 1.68 ng/dL 04/06/2025 1:59 AM EDT [facility] Blood Structure of left upper limb / Unknown Venipuncture / Unknown 04/05/2025 11:48 AM EDT 04/05/2025 11:48 AM EDT Helena Rojo MD LAB BLOOD ORDERABLES Final Res ult Performing Organization Address City/[facility]/ZIP Co de Phone Number [facility]
[address] [place] [address], * (ABNORMAL) TSH (04/05/2025 11:48 AM EDT) TSH 7.300(H) 0.270 - 4.200 uIU/mL 04/06/2025 1:59 AM EDT [facility] Blood Structure of left upper limb / Unknown Venipuncture / Unknown 04/05/2025 11:48 AM EDT 04/05/2025 11:48 AM EDT us Helena Rojo MD LAB BLOOD ORDERABLES Final Res ult [facility]
[address] [place] [address], * (ABNORMAL) Lipid Panel (04/05/2025 11:48 AM EDT) Total Cholesterol 130 0 - 200 mg/dL 04/06/2025 1:53 AM EDT [facility] Triglycerides 215(H) 0 - 150 mg/dL 04/06/2025 1:53 AM EDT [facility] HDL Cholesterol 31(L) 40 - 60 mg/dL 04/06/2025 1:53 AM EDT [facility] LDL Cholesterol 64 0 - 100 mg/dL 04/06/2025 1:53 AM EDT [facility] VLDL Cholesterol 35 5 - 40 mg/dL 04/06/2025 1:53 AM EDT [facility] LDL/HDL Ratio 1.81 04/06/2025 1:53 AM EDT [facility] Blood Structure of left upper limb / Unknown Venipuncture / Unknown 04/05/2025 11:48 AM EDT 04/05/2025 11:48 AM EDT Narrative [facility] - 04/06/2025 1:53 AM [...] MD LAB BLOOD ORDERABLES Final Res ult [facility]
[address] [place] [address], * (ABNORMAL) Comprehensive Metabolic Panel (04/05/2025 11:48 AM EDT) [facility] Glucose 128(H) 65 - 99 mg/dL 04/06/2025 1:53 AM EDT [facility] BUN 48.0(H) 8.0 - 23.0 mg/dL 04/06/2025 1:53 AM EDT [facility] Creatinine 1.63(H) 0.76 - 1.27 mg/dL 04/06/2025 1:53 AM EDT [facility] Sodium 139 136 - 145 mmol/L 04/06/2025 1:53 AM EDT [facility] Potassium 4.6 3.5 - 5.2 mmol/L 04/06/2025 1:53 AM EDT [facility] Chloride 103 98 - 107 mmol/L 04/06/2025 1:53 AM EDT [facility] CO2 22.7 22.0 - 29.0 mmol/L 04/06/2025 1:53 AM EDT [facility] Calcium 10.2 8.6 - 10.5 mg/dL 04/06/2025 1:53 AM EDT [facility] Total Protein 6.7 6.0 - 8.5 g/dL 04/06/2025 1:53 AM EDT [facility] Albumin 4.0 3.5 - 5.2 g/dL 04/06/2025 1:53 AM EDT [facility] ALT (SGPT) 41 1 - 41 U/L 04/06/2025 1:53 AM EDT [facility] AST (SGOT) 37 1 - 40 U/L 04/06/2025 1:53 AM EDT [facility] Alkaline Phosphatase 62 39 - 117 U/L 04/06/2025 1:53 AM EDT [facility] Total Bilirubin 0.6 0.0 - 1.2 mg/dL 04/06/2025 1:53 AM EDT [facility] Globulin 2.7 gm/dL 04/06/2025 1:53 AM T [facility] A/G Ratio 1.5 g/dL 04/06/2025 1:53 AM EDT [facility] BUN/Creatinine Ratio 29.4(H) 7.0 - 25.0 04/06/2025 1:53 AM EDT [facility] Anion Gap 13.3 5.0 - 15.0 mmol/L 04/06/2025 1:53 AM [facility] eGFR 44.8(L) >60.0 mL/min/1.7 3 04/06/2025 1:53 AM [facility] Blood Structure of left upper limb / Unknown Venipuncture / Unknown 04/05/2025 11:48 AM EDT 04/05/2025 11:48 AM EDT [facility] - 04/06/2025 1:53 AM EDT GFR [...] MD LAB BLOOD ORDERABLES Final Res ult [facility]
[address] [place] [address], * (ABNORMAL) POC Glucose, Blood (04/05/2025 10:56 AM EDT) Glucose 150(A) 70 - 130 mg/dL Lot Number [id number] Expiration Date 09/14/25 Blood 04/05/2025 10:5 6 AM EDT Helena Rojo MD POINT OF CARE TEST ORDERABLES Final Result * (ABNORMAL) POC Glycosylated Hemoglobin (Hb A1C) (04/05/2025 10:56 AM EDT) Hemoglobin A1C 7.4(A) 4.5 - 5.7 % [facility] Lot Number [id number] [facility] Expiration Date 10/25/26 [facility] Blood 04/05/2025 10:5 6 AM EDT Helena Rojo MD POINT OF CARE TEST ORDERABLES Final Result [facility]
[address] [place] [address], documented in this encounter Visit Diagnoses Diagnosis Type 2 diabetes mellitus with hyperglycemia, without long-term current use of insulin- Primary Acquired hypothyroidism Unspecified hypothyroidism CKD stage 3 due to type 2 diabetes mellitus documented in this encounter Care Teams Band Aid Machine Operator Relationship Specialty Start Date End Date Damaris Quinteros PA [address] [place] [address] PCP - General Physician Soil Specialist 02/14/25 documented as of this encounter
[2025-05-22] VITALS (19 sets, daily range): BP systolic 103–192; BP diastolic 58–121; PULSE 55–114; RESP 16–29; TEMP 36.6; O2SAT 80–98; BMI 25.8
--- NOTE | 2025-05-22 11:07 | CT_ITS ---
FINAL REPORT TECHNIQUE: Post contrast axial imaging of the aorta and bilateral lower extremity was obtained and reviewed. This study was performed with techniques to keep radiation doses as low as reasonably achievable (ALARA). Individualized dose reduction techniques using automated exposure control or adjustment of mA and/or kV according to the patient''s size were employed. CLINICAL HISTORY: AMS, LLE cool blue FINDINGS: There is a noncalcified nodule at the right base measuring 6 mm. Finding is best seen on image 4 of series 10. There is bibasilar atelectasis. There is moderate fatty infiltration of the liver. The gallbladder is present. There are calcified granulomas in the spleen. There is a small sliding-type hiatal hernia. There is mild mucosal thickening of the distal esophagus. The pancreas and adrenals are unremarkable. Benign-appearing cysts are seen in both kidneys. Cyst measures up to 5.7 cm in the left kidney. The appendix is normal. The celiac axis, SMA, and MONIQUE are patent. There is dense vascular calcification of the proximal right renal artery. Stenosis measures about 90%. There is 50% stenosis at the origin of the left renal artery. The common iliac and external iliac arteries are patent. Right: There are scattered vascular calcifications throughout. There is poor opacification of the right lower extremity vasculature from the level of the tibial plateau distally. Left: There appears to be an abrupt occlusion of the distal left SFA. The occlusion appears to extend through the popliteal artery. Occluded segment measures about 20 cm in length. There is poor opacification of the tibial vessels. IMPRESSION: Abrupt occlusion of the distal left SFA and popliteal, may be due to an embolic event. Vascular surgical evaluation is recommended. Significant right renal artery stenosis. 50% stenosis of the left renal artery. Reviewed, Interpreted and Dictated by Vaibhav Raines MD Transcribed by Otilia Shaw Authenticated and [facility]
--- NOTE | 2025-05-22 11:07 | CT_ITS ---
FINAL REPORT TECHNIQUE: The patient was injected with IV contrast. Axial images were obtained through the chest in a PE protocol. 3-D reconstruction images were also performed. Individualized dose reduction techniques using automated exposure control or adjustment of the MA and/or KV according to patient's size were employed. CLINICAL HISTORY: AMS, HTN COMPARISON: None FINDINGS: Mediastinal vasculature is adequately opacified. No pulmonary artery filling defects are identified to suggest PE. There is no aortic dissection. There is no mediastinal mass or adenopathy. A coronary stent is present. The heart size is normal. There is no pericardial or pleural effusion. There is a 6 mm nodule along the right major fissure well seen on image 43 of series 8. There is a 5 mm nodule in the left upper lobe on image 41 of series 8. Scattered calcified granulomas are present. IMPRESSION: No pulmonary embolus or dissection. Bilateral noncalcified nodules are indeterminate. Follow-up in 1 year per Fleischner criteria. Reviewed, Interpreted and Dictated by Vaibhav Raines MD Transcribed by Marcy Bello Authenticated and [facility]
--- NOTE | 2025-05-22 11:07 | CT_ITS ---
FINAL REPORT TECHNIQUE: Axial CT images were performed through the head. Coronal reformatted images were submitted. This study was performed with techniques to keep radiation doses as low as reasonably achievable (ALARA). Individualized dose reduction techniques using automated exposure control or adjustment of mA and/or kV according to the patient's size were employed. CLINICAL HISTORY: AMS, hypertensive COMPARISON: 05/18/2019 FINDINGS: There are mild scattered foci of abnormal signal in the white matter, probably due to chronic microvascular ischemia. The ventricles are normal in size. There is no evidence of hemorrhage. There is no mass or edema identified. There is no abnormal extra-axial fluid seen. There is dense vascular calcification throughout the basilar artery. There are no air-fluid levels in the paranasal sinuses. IMPRESSION: Mild chronic changes of microvascular ischemia. Reviewed, Interpreted and Dictated by Vaibhav Raines MD Transcribed by Otilia Shaw Authenticated and [facility]
--- NOTE | 2025-05-22 11:07 | CT_ITS ---
FINAL REPORT TECHNIQUE: NASCET technique utilized for stenosis evaluation. This study was performed with techniques to keep radiation doses as low as reasonably achievable, (ALARA). Individualized dose reduction techniques using automated exposure control or adjustment of mA and/or kV according to the patient's size were employed. CLINICAL HISTORY: AMS, hypertensive FINDINGS: RIGHT CAROTID: There is moderate vascular calcification at the carotid bifurcation. Stenosis measures less than 50%. LEFT CAROTID: There is mild vascular calcification at the carotid bifurcation. Stenosis measures less than 50%. VERTEBRALS: There is a dominant right vertebral artery. No significant stenosis is present. IMPRESSION: Less than 50% stenosis bilaterally. Reviewed, Interpreted and Dictated by Vaibhav Raines MD Transcribed by Otilia Shaw Authenticated and . [facility]
--- NOTE | 2025-05-22 11:07 | CT_ITS ---
FINAL REPORT TECHNIQUE: thin section axial CT with and without IV contrast supplemented with multiplanar 3-D reconstruction of the head. This study was performed with techniques to keep radiation doses as low as reasonably achievable, (ALARA)individualized dose reduction techniques using automated exposure control or adjustment of mA and/or kV according to the patient's size were employed. CLINICAL HISTORY: AMS, hypertensive FINDINGS: There is dense vascular calcification in the distal right vertebral artery and in the basilar artery. Stenosis in the distal right vertebral artery measures 50%. Stenosis in the mid basilar artery measures 70%. The middle cerebral arteries are patent without significant stenosis. There is no evidence of aneurysm or occlusion. IMPRESSION: No evidence of aneurysm or major branch occlusion. Reviewed, Interpreted and Dictated by Vaibhav Raines MD Transcribed by Otilia Shaw Authenticated and [facility]
--- NOTE | 2025-05-22 11:12 | ECG_ITS ---
APPROVED REPORT Exam: Resting ECG HR:90 bpm ECG Measurements Heart Rate 90 AXES VA 124 P 40 QRSd 90 QRS 32 QT 365 T 75 QTc 412 Conclusion SINUS RHYTHM WITH OCCASIONAL SUPRAVENTRICULAR PREMATURE COMPLEXES MODERATE ST DEPRESSION [0.05+ mV ST DEPRESSION] ABNORMAL ECG UNCONFIRMED REPORT Normal sinus rhythm. Mild ST depression in aVL, V3 and V4. No reciprocal changes. No STEMI Electronically signed by : DAVE JIMÉNEZ, 05/23/2025 07:43:44
--- NOTE | 2025-05-22 11:12 | HMH.EDGENADL ---
Discharge Plan Disposition Patient Disposition: Admitted Prescriptions Prescriptions: No Action ketoconazole 2 % cream 1 applic topical BID 30 Days Qty: 30 2RF mupirocin 2 % ointment 1 applic topical BID 14 Days Qty: 22 1RF mupirocin 2 % ointment 1 applic topical BID 14 Days Qty: 22 1RF (DME) blood-glucose meter [Blood Glucose Monitoring] Kit See Rx Instructions .ROUTE .MEDSUPPLY Qty: 1 0RF Rx Instructions: Twice Daily metoprolol succinate 100 mg tablet extended release 24 hr 100 mg PO DAILY Qty: 90 4RF aspirin 81 mg tablet,delayed release (DR/EC) 81 mg PO DAILY Qty: 90 4RF Januvia 100 mg tablet 100 mg PO DAILY glipizide 10 mg tablet extended release 24hr 10 mg PO Patient Comments: TAKE 1 TABLET BY MOUTH EVERY DAY pentoxifylline 400 mg tablet extended release PO Patient Comments: TAKE 1 TABLET BY MOUTH TWICE DAILY levothyroxine 88 mcg tablet 88 mcg PO Patient Comments: TAKE 1 TABLET BY MOUTH ONCE DAILY hydrochlorothiazide 25 mg tablet 25 mg PO Patient Comments: TAKE 1 TABLET BY MOUTH EVERY DAY (DME) lancets [FreeStyle Lancets] 28 gauge misc See Rx Instructions .Route Qty: 100 0RF Rx Instructions: As directed or bid allopurinol 300 mg tablet 300 mg PO DAILY Qty: 60 1RF simvastatin 20 mg tablet 20 mg PO DAILY Qty: 90 0RF (DME) FreeStyle Lite Strips Strip MISCELLANEOUS Patient Comments: USE DIRECTED THREE TIMES DAILY clonidine HCl 0.2 mg tablet 0.2 mg PO DAILY Patient Comments: TAKE 1 TABLET BY MOUTH TWICE DAILY glipizide 2.5 mg tablet extended release 24hr 2.5 mg PO DAILY Patient Comments: TAKE 3 TABLETS BY MOUTH 1 TIME DAILY Invokana 300 mg tablet 300 mg PO DAILY Patient Comments: TAKE 1 TABLET BY MOUTH DAILY Clinical Impressions Clinical Impression: Occlusion of left popliteal artery, Superficial femoral artery occlusion, DAYSI (acute kidney injury), Non-ST elevation [place] (NSTEMI), Acute pancreatitis Print Language Print Language: Italian Discharge ED Provider: Benny Trujillo General Adult HPI General Chief complaint: Weakness Stated complaint: Nausea and Vomiting Time Seen by Provider: 05/22/25 11:04 Mode of Arrival: EMS Source of Information: Patient and EMS History of Present Illness HPI narrative: Jonelle Kamara is a 69-year-old male with past medical history of (obtained via chart review) hypertension, hyperlipidemia, coronary artery disease, pancreatitis, CKD, diabetes, osteoarthritis who presents to the emergency department via EMS for complaints of altered mental status and vomiting. Per EMS, family stated that patient had been vomiting over the last several days and vomited this morning. They noted that today he was extremely weak and unable to even lift a glass of water. They said that he is confused but is not sure if that is his baseline. Patient complains of pain all over but denies any specific abdominal pain, chest pain, shortness of breath, dysuria or hematuria. He is alert and oriented to self, place, current president but does not know the month or the year. Stroke scale and route was negative. Patient's fingerstick blood glucose on arrival is 190. Related Data Home Medications ?Medication ?Instructions ?Recorded ?Confirmed blood sugar diagnostic (FreeStyle 03/10/24 02/11/25 Lite Strips) canagliflozin 300 mg tablet 300 mg PO DAILY 03/10/24 02/11/25 (Invokana) clonidine HCl 0.2 mg tablet 0.2 mg PO DAILY 03/10/24 02/11/25 glipizide 2.5 mg tablet, extended 2.5 mg PO DAILY 03/10/24 02/11/25 release 24 hr sitagliptin phosphate 100 mg 100 mg PO DAILY 11/02/24 02/11/25 tablet (Januvia) glipizide 10 mg tablet, extended 10 mg PO 01/31/25 02/11/25 release 24 hr hydrochlorothiazide 25 mg tablet 25 mg PO 01/31/25 02/11/25 levothyroxine 88 mcg tablet 88 mcg PO 01/31/25 02/11/25 pentoxifylline 400 mg mg PO 01/31/25 02/11/25 tablet,extended release Previous Rx's ?Medication ?Instructions ?Recorded blood-glucose meter (Blood Glucose #1 ea 05/21/22 Monitoring kit) lancets 28 gauge (FreeStyle #100 ea 02/21/24 Lancets) metoprolol succinate 100 mg 100 mg PO DAILY #90 tabs 03/19/24 tablet,extended release 24 hr ketoconazole 2 % topical cream 1 applic topical BID fungal 08/13/24 infection 30 days #30 grams allopurinol 300 mg tablet 300 mg PO DAILY #60 tabs 09/17/24 aspirin 81 mg tablet,delayed 81 mg PO DAILY #90 tabs 11/02/24 release mupirocin 2 % topical ointment 1 applic topical BID infection 14 11/12/24 days #22 grams simvastatin 20 mg tablet 20 mg PO DAILY #90 tabs 11/29/24 mupirocin 2 % topical ointment 1 applic topical BID infection 14 02/11/25 days #22 grams Allergies Allergy/AdvReac Type Severity Reaction Status Date / Time atorvastatin (From Lipitor) Allergy Mild Hallucinati Verified 05/22/25 15:39 [facility] Disclaimer: The information contained in this section may have been updated after the patient was seen, as this information can be updated by other users. Medical History Skin lesion of left leg Psychosis Diabetes Traumatic injury of foot Multiple thyroid nodules Impacted cerumen of right ear Hypothyroidism Repeated falls Pulmonary HTN HLD (hyperlipidemia) HTN (hypertension) Surgical History Stented coronary artery Social History Smoking Status: Never smoker alcohol intake: never counseling provided: none substance use type: denies use current occupational status: unemployed Travel in the last 8 weeks?: None household members: none housing: apartment current occupation: retired caffeine: No Have you lived/traveled outside [place] in past 30 days?: No Contact w/someone who lives/traveled outside US past 30 days?: No Exposure to someone with infectious disease in past 14 days?: No Do you have a fever (greater than 100.4 F or 38 C)?: No Have you tested positive for COVID-19?: No Exposed to someone with COVID-19 in past 14 days?: No Do you have a sore throat?: No Do you have a cough?: No Do you have any weakness?: No Do you have any diarrhea?: No Are you experiencing any unusual bleeding?: No Do you have any muscle aches/pain?: No Do you have any abdominal pain?: No Are you experiencing loss of taste or smell?: No Other Medical History Have you received the Flu Vaccine for this season: Yes Have you received the Pneumonia Vaccine: No ROS Obtained: Yes Systems reviewed as appropriate & no additional complaints except as documented Physical Exam General General appearance: alert and in no apparent distress Comment: Alert, confused to year but otherwise oriented Head Head exam: atraumatic Eye Eye exam: Present normal appearance ENT ENT exam: Present normal external ear exam Neck Neck exam: Present full ROM Chest Chest inspection: Present symmetric chest wall rise Respiratory Respiratory exam: Present normal lung sounds bilaterally; Absent respiratory distress, wheezes or stridor Cardiovascular Cardiovascular exam: Present regular rate and normal rhythm Abdominal Exam Abdominal exam: Present soft, tenderness (Generalized) and guarding (Generalized ); Absent distention or rigidity exam: Present deferred Extremities Exam Extremities exam: Present normal inspection Expanded Lower Extremity Exam Left: Comment: Left lower extremity: Chronic appearing ulcers to the anterior pabon. There is purple discoloration to the anterior pabon extending distally to the foot. Patient's foot is cool to the touch with delayed capillary refill. Faint DP pulse is appreciated. Patient does report decrease sensation to the left foot as well. Back Exam Back exam: Present normal inspection Neurological Exam Neurological exam: Present alert; Absent oriented X3 (Oriented to self and place but not month or year.) Psychiatric Psychiatric exam: Present other (Unable to assess secondary to AMS) Skin Skin exam: Present warm and dry Medical Decision Making Medical Records Screening: Per USPSTF and CDC recommendations, given the prevalence of disease in our region, it is our hospital?s policy to screen for HIV and viral Hepatitis for all patients aged 18 and over and those with ongoing risk factors. Mando Inquiry Pt receiving controlled substance: No Vital Signs: 05/22/25 11:13 05/22/25 11:24 05/22/25 12:00 Temperature 97.8 F Temperature Source Oral Pulse Rate 90 68 Pulse Rate [Right Radial] 96 H Respiratory Rate 18 23 22 Blood Pressure 191/116 H 187/112 H Blood Pressure [Right Arm] 189/121 H Blood Pressure Mean [Right Arm] 143 Blood Pressure Source [Right Arm] Automatic Cuff Blood Pressure Position [Right Arm] Supine 02 Sat by Pulse Oximetry 98 96 93 L Oxygen Delivery Method Room Air Room Air 05/22/25 12:11 05/22/25 13:00 05/22/25 14:00 Temperature Temperature Source Pulse Rate 90 83 100 H Pulse Rate [Right Radial] Respiratory Rate 18 21 21 Blood Pressure 187/112 H 184/116 H 171/97 H Blood Pressure [Right Arm] Blood Pressure Mean [Right Arm] Blood Pressure Source [Right Arm] Blood Pressure Position [Right Arm] 02 Sat by Pulse Oximetry 97 97 97 Oxygen Delivery Method Room Air Room Air 05/22/25 14:30 05/22/25 15:00 Temperature Temperature Source Pulse Rate 91 H 92 H Pulse Rate [Right Radial] Respiratory Rate 16 19 Blood Pressure 176/102 H 192/105 H Blood Pressure [Right Arm] Blood Pressure Mean [Right Arm] Blood Pressure Source [Right Arm] Blood Pressure Position [Right Arm] 02 Sat by Pulse Oximetry 98 98 Oxygen Delivery Method Room Air Room Air Lab Data Lab Results 05/22/25 11:05: WBC 24.3 H*, RBC 6.79 H, Hgb 20.3 H, Hct 61.0 H*, MCV 89.8, MCH 29.9, MCHC 33.3, RDW 16.1, Plt Count 191, MPV 11.7 H, Neut % (Auto) 60.2, Lymph % (Auto) 33.6, [place] % (Auto) 5.0, Eos % (Auto) 0.0 L, Baso % (Auto) 0.5, Neut # (Auto) 14.6 H, Lymph # (Auto) 8.2 H, [place] # (Auto) 1.2 H, Eos # (Auto) 0.0, Baso # (Auto) 0.1, Total Counted 100, Neutrophils % (Manual) 62, Lymphocytes % (Manual) 29, Monocytes % (Manual) 9, Platelet Estimate Normal, RBC Morphology Normal, VBG pH 7.31, VBG pCO2 41.8, VBG pO2 44.8 H, VBG HCO3 20.3 L, VBG Total CO2 21.6 L, VBG O2 Saturation 79.3 H, VBG Base Excess -6.0 L, VBG Lactic Acid 2.3 H, Sodium 136, Potassium 4.5, Chloride 98, Carbon Dioxide 22, Anion Gap 20.5 H, BUN 72 H, Creatinine 1.80 H, Estimated Creat Clear 39, Estimated GFR 37 L, Est GFR ( Amer) 45 L, Glucose 224 H, Calcium 11.1 H, Phosphorus 4.8 H, Magnesium 2.4 H, Total Bilirubin 2.1 H, AST 46, ALT 37, Alkaline Phosphatase 90, Total Creatine Kinase 107, Troponin I 1.50 H, C-Reactive Protein 8.3 H, NT-Pro-B Natriuret Pep 9420 H, Total Protein 8.0, Albumin 3.9, Globulin 4.1 H, Albumin/Globulin Ratio 1.0 L, Lipase 469 H, Acetone Level None detected, HCV Ab JAIRO w/Rflx PCR Qn Negative, HIV Ag/Ab Combo Qual Negative 05/22/25 11:17: SARS-CoV-2 (PCR) Not detected, Influenza A Untype (PCR) Not detected, Influenza Type B (PCR) Not detected 05/22/25 13:54: Urine Color Yellow, Urine Appearance Clear, Urine pH 5.5, Ur Specific [place] 1.015, Urine Protein 2+ A, Urine Glucose (UA) 3+, Urine Ketones Trace, Urine Blood Trace-i, Urine Nitrate Negative, Urine Bilirubin Negative, Urine Urobilinogen 0.2, Ur Leukocyte Esterase Negative, Urine RBC Occasional, Urine WBC Occasional, Ur Squamous Epith Cells Occasional, Urine Bacteria Trace, Urine Opiates Screen Negative, Urine Methadone Screen Negative, Ur Barbituates Screen Negative, Ur Phencyclidine Scrn Negative, Ur Amphetamines Screen Negative, U Benzodiazepines Scrn Negative, Urine Cocaine Screen Negative, U Marijuana (THC) Screen Negative 05/22/25 14:00: Troponin I 1.47 H 05/22/25 11:05 05/22/25 11:05 Orders (Tests/Meds): ED MEDICATIONS Generic Name Dose Route Start Last Admin Trade Name Freq PRN Reason Stop Dose Admin Heparin Sodium/Dextrose 500 mls @ 26 mls/hr 05/22/25 15:30 Heparin 25,000 Units In D5w 500ml Premix IV 06/21/25 15:29 .[id number] VENITA 1,300 UNITS/HR Discontinued Medications Generic Name Dose Route Start Last Admin Trade Name Freq PRN Reason Stop Dose Admin Aspirin 325 mg 05/22/25 12:18 05/22/25 12:22 Aspirin 325mg Tablet PO 05/22/25 12:19 325 mg ONCE ONE Administration Heparin Sodium (Porcine) 5,800 unit 05/22/25 15:30 05/22/25 15:35 Heparin Sodium 5,000 Unit/Ml Vial IV 05/22/25 15:31 5,800 unit ONCE ONE Administration Hydralazine HCl 10 mg 05/22/25 13:13 05/22/25 13:30 Hydralazine 20mg/Ml Vial IV 05/22/25 13:14 10 mg ONCE ONE Administration Hydralazine HCl 10 mg 05/22/25 15:25 05/22/25 15:27 Hydralazine 20mg/Ml Vial IV 05/22/25 15:26 10 mg ONCE ONE Administration Lactated Ringer's 1,000 mls @ 999 mls/hr 05/22/25 11:07 05/22/25 13:36 Lactated Ringer's 1000 Ml Bag IV 05/22/25 12:07 Infused .Q1H1M ONE Infusion Piperacillin Sod/Tazobactam 100 mls @ 200 mls/hr 05/22/25 11:49 05/22/25 13:36 Sod 4.5 gm/ Sodium Chloride IV 05/22/25 12:18 Infused ONCE ONE Infusion Lactated Ringer's 1,910 mls @ 955 mls/hr 05/22/25 11:49 05/22/25 13:52 Lactated Ringer's 1000 Ml Bag 30 ml/kg infuse over 2 hr (1910 ml) 05/22/25 13:48 955 mls/hr IV Administration .Q2H ONE Vancomycin/PEG/NADA/Lysine/Water 1.25 gm in 250 mls @ 125 mls/hr 05/22/25 12:00 05/22/25 14:39 Vancomycin 1.25gm/250ml (Peg) Premix IV 05/22/25 13:59 Infused ONCE ONE Infusion Iopamidol 200 ml 05/22/25 12:53 05/22/25 12:55 Iopamidol-370 (76%);100ml Bottle IV 05/22/25 12:54 200 ml ONCE ONE Administration Miscellaneous 1 each 05/22/25 12:00 Vancomycin Consult Request NOTAPPLIC 06/21/25 11:59 [facility] Miscellaneous 1 each 05/22/25 15:15 Heparin Drip Consult NOTAPPLIC 06/21/25 15:14 [facility] Sodium Chloride 100 ml 05/22/25 12:53 05/22/25 12:54 0.9 % Sodium Chloride 50 Ml Vial IV 05/22/25 12:54 100 ml ONCE ONE Administration Sodium Chloride 10 ml 05/22/25 12:53 10/29/25 12:55 Sodium Chloride 0.9% 10ml Syr (Rad Only) IV 05/22/25 12:54 10 ml ONCE ONE Administration ORDERS Category Date Time Status CT angio abdomen/femoral Stat Cat Scan 05/22/25 11:[address] angio chest - dissection Stat Cat Scan 05/22/25 11:[address] angio head Stat Cat Scan 05/22/25 11:[address] angio neck Stat Cat Scan 05/22/25 11:[address] head/brain wo con Stat Cat Scan 05/22/25 11:07 Completed US RUQ [US abdomen limited] Stat Exams 05/22/25 15:30 Ordered Acetone, Serum (Rapid) Stat Lab 05/22/25 11:05 Completed BNP [NT Pro Brain Natriuretic Pep.] Stat Lab 05/22/25 11:05 Completed CBC w/Auto Diff [Complete Blood Count Auto Diff] Stat Lab 05/22/25 11:05 Completed CBC w/Auto Diff [Complete Blood Count Auto Diff] Stat Lab 05/22/25 17:00 Ordered CK [Creatine Kinase] Stat Lab 05/22/25 11:05 Completed CMP [Comprehensive Metabolic Panel] Stat Lab 05/22/25 11:05 Completed CMP [Comprehensive Metabolic Panel] Stat Lab 05/22/25 17:00 Ordered CRP [C-Reactive Protein] Stat Lab 05/22/25 11:05 Completed HIV Combo Stat Lab 05/22/25 11:05 Completed Hepatitis C Ab Qual. W/ RFX Stat Lab 05/22/25 11:05 Completed Lactic Acid Follow Up (RFLX 1) Stat Lab 05/22/25 15:23 Ordered Lipase Stat Lab 05/22/25 11:05 Completed Magnesium Stat Lab 05/22/25 11:05 Completed PHOS [Phosphorous] Stat Lab 05/22/25 11:05 Completed PTT Heparin (inpatient only) Stat Lab 05/22/25 11:05 Received Rapid PCR Covid and Flu A/B Stat Lab 05/22/25 11:17 Completed Troponin I Q3H Lab 05/22/25 14:00 Completed Troponin I Q3H Lab 05/22/25 17:15 Ordered Troponin I Stat Lab 05/22/25 11:05 Completed UA [Urinalysis and Microscopic] Stat Lab 05/22/25 13:54 Completed UDS [Drug Screen,Urine] Stat Lab 05/22/25 13:54 Completed Blood Culture Stat Micro 05/22/25 11:30 Received VBG [Venous Blood Gas] Stat RT 05/22/25 11:05 Completed ECG Data Tracing #1: I reviewed this ECG and interpreted as documented below: Normal sinus rhythm. No ST elevation or depression. QTc normal at 412 Medical Decision Narrative: Jonelle Kamara is a 69-year-old male with past medical history of (obtained via chart review) hypertension, hyperlipidemia, coronary artery disease, pancreatitis, CKD, diabetes, osteoarthritis who presents to the emergency department via EMS for complaints of altered mental status and vomiting. Per EMS, family stated that patient had been vomiting over the last several days and vomited this morning. They noted that today he was extremely weak and unable to even lift a glass of water. They said that he is confused but is not sure if that is his baseline. Patient complains of pain all over but denies any specific abdominal pain, chest pain, shortness of breath, dysuria or hematuria. He is alert and oriented to self, place, current president but does not know the month or the year. Stroke scale and route was negative. Patient's fingerstick blood glucose on arrival is 190. On arrival, patient is hypertensive, heart rate borderline tachycardic, oxygen saturation borderline low. Afebrile. Physical exam, stated above, revealed ill male who is alert and answering most questions appropriately following commands. He has no wheezing, rales or rhonchi. No cardiac murmurs are appreciated. Abdomen is diffusely tender without peritonitis. NIH of 0. Pupils equal round and reactive to light. He is moving all extremities and following commands. He has purple discoloration to the distal left lower extremity and 1+ DP pulses. He does have what appear to be chronic ulcerations to the anterior pabon. He appears very dry with dry mucous membranes. Patient's son arrived and I spoke with him at approximately 12:15 PM. He states that he does not stay with him and that his stepmom lives with him but he knows that over the past 3 days he has had nausea, vomiting and diarrhea. He states that he does not feel that he is more confused than normal at this time. He does state that he was weak this morning and that is when he convinced them to call 911. He does state the patient has had multiple cardiac stents in the past. He does not know what his blood pressure normally runs. He send states that ever since he developed these ulcers to his left lower extremity he appears weaker than normal and nobody knows what is going on with the leg. Per family, he has also not taken his medications in 2 days. Differential diagnosis includes, but is not limited to: Sepsis, stroke, metabolic encephalopathy, electrolyte derangement, dehydration, DKA/HHS, acute pancreatitis, hypertensive emergency, intra-abdominal infection, viral gastroenteritis, acute cholecystitis, among others. The most morbid conditions were considered and workup was based on these. Patient's lab work shows elevated white blood cell count of 24.3 On arrival, and hemoconcentration with hematocrit of 61.0, hemoglobin of 20.3. Platelets normal at 191. ABG showed a normal pH of 7.31, pCO2 normal at 41.8, lactate elevated at 2.3. Bicarb mildly low at 21.6. DAYSI with creatinine of 1.8, BUN of 72 but electrolytes otherwise within normal limits. Patient does have an elevated anion gap 20.5, likely related to his lactic acid level. Magnesium mildly elevated at 2.4. Phosphorus mildly elevated at 4.8. Patient's bilirubin is elevated at 2.1 but liver enzymes within normal limits. Initial troponin is elevated at 1.5, will give 325 mg of aspirin, however I do suspect that this is a type II NSTEMI given patient's EKG that does not demonstrate any ischemic changes and he is severely volume depleted. CRP is elevated at 8.3. NT proBNP elevated 9420. Lipase is mildly elevated at 469. Patient is receiving sepsis bolus fluids as well as IV vancomycin and Zosyn for empiric sepsis coverage as he appears very volume down in the setting of N/V/D for 3 days. Repeat troponin is improved slightly to 1.47. Urine shows 2+ protein, 3+ glucose, trace ketones, likely secondary to starvation ketosis. No evidence of UTI. CT imaging was interpreted by me personally. There is an abrupt occlusion to the distal left SFA and popliteal. Per radiology, this could be due to an embolic event. Significant right renal artery stenosis. 50% stenosis of the left renal artery. No pulmonary embolism or aortic dissection. Patient has pulmonary nodules. No intracranial hemorrhage, mass or midline shift. No large vessel occlusion, aneurysm or severe stenosis. See radiology reports for details. I discussed patient's case with Dr. Davis for his NSTEMI as well as occlusion of the left lower extremity. Dr. Davis would like patient admitted for echocardiogram in the morning, heparin and possible intervention of the left lower extremity tomorrow. I do feel that patient's DAYSI, NSTEMI and hemoconcentration are likely secondary to dehydration. There is possibly a small element of acute pancreatitis given mildly elevated lipase. I discussed patient's case with Dr. Anderosn for admission and he agreed to admit the patient and recommended right upper quadrant ultrasound for possible gallbladder etiology. Right upper quadrant ultrasound ordered and patient was subsequently admitted for further management. Critical Care Critical Care Time Critical Care Time: Yes Attestation: On 05/22/25, the high probability of a clinically significant, sudden or life threatening deterioration of the following system(s) required my full and direct attention, intervention and personal management. The time I documented below is in addition to time spent performing reported procedures but includes the following listed in this critical care notation. Total Time Total Critical Care Time: 35
[2025-05-22 11:19] LABS: VBG HCO3 20.3 mmol/L (23-30); VBG PCO2 41.8 mmol/L (35-51); VBG PH 7.31 mmol/L (7.31-7.41); VBG PO2 44.8 mmol/L (28-40)
[2025-05-22 11:23] LABS: Immature Granulocytes % 0.7 %; Lactate Venous 2.3 mmol/L (0.4-2.0); Mean Corpuscular HGB Conc 33.3 g/dL (31.8-35.4); Mean Corpuscular Hemoglobin 29.9 pg (27.0-31.2); Mean Corpuscular Volume 89.8 fl (80-94); Nucleated Red Blood Cells % 0 %; Platelet Count 191 K/mm3 (142-424); Red Blood Count 6.79 M/mm3 (4.60-6.20); Red Cell Distribution Width-SD 47.3 fL; White Blood Count 24.3 K/mm3 (4.8-10.8)
[2025-05-22] MEDS: LACTATED RINGERS 1000ML 1,000 ML 999 ML IV (11:28)
--- OUTSIDE RECORDS SUMMARY | 2025-05-22 11:29 | XMS_ITS | Clinical Summary ---
Author Organization [facility] Address [address] [place] [address] Care Team Providers Care Radio Equipment Installer Name Role Phone Damaris Quinteros Primary Care Provider [phone] Allergies Active Allergy Reactions Criticality Noted Date Comments Amlodipine Swelling 12/22/2017 Atorvastatin Hallucinations Low 05/21/2022 Diltiazem Other (See Comments) 04/05/2025 Other Other (See Comments) 04/05/2025 Parathyroid Hormone (Recomb) Other (See Comments) 04/05/2025 Levothyroxine Sodium Hallucinations 12/22/2017 Only 75mcg Medications allopurinol (ZYLOPRIM) 300 MG tablet Take 1 tablet by mouth Daily. 4 Active doxazosin (CARDURA) 4 MG tablet Take 1 tablet by mouth Daily. 1 7 Active raNITIdine (ZANTAC) 150 MG tablet Take 1 tablet by mouth 2 (Two) Times a Day. Active chlorthalidone (HYGROTON) 25 MG tablet Take 0.5 tablets by mouth Daily. 1 Active simvastatin (ZOCOR) 20 MG tablet TAKE 1 TABLET BY MOUTH EVERY EVENING 90 tablet 1 4 Active Nineveh-3 Fatty Acids (fish oil) 1000 MG capsule capsule Take 1 capsule by mouth Daily With Breakfast. 4 Active rOPINIRole (REQUIP) 0.5 MG tablet Take 1 tablet by mouth Every Evening. Active glucose blood (FREESTYLE LITE) test strip Test three times daily 100 each 12 4 Active benzonatate (TESSALON) 200 MG capsule Take 1 capsule by mouth 3 (Three) Times a Day As Needed for Cough. 4 Active ondansetron ODT (ZOFRAN-ODT) 4 MG disintegrating tablet 4 Active cloNIDine (CATAPRES) 0.2 MG tabletIndications:H ealth care maintenance Take 1 tablet by mouth 2 (Two) Times a Day. 180 tablet 5 Active metoprolol succinate XL (TOPROL-XL) 100 MG 24 hr tablet Take 2 tablets by mouth Daily. 180 tablet 5 Active pentoxifylline (TRENtal) 400 MG CR tablet Take 1 tablet by mouth 2 (Two) Times a Day. Active aspirin 81 MG EC tablet Take 1 tablet by mouth Daily. 90 tablet 3 5 Active Canagliflozin (Invokana) 300 MG tablet tablet Take 1 tablet by mouth Daily. 90 tablet 3 5 Active glipizide (GLUCOTROL XL) 2.5 MG 24 hr tablet Take 2 tablets by mouth Daily. 180 tablet 3 5 Active SITagliptin (Januvia) 100 MG tablet Take 1 tablet by mouth Daily. 90 tablet 3 5 Active Lancets (freestyle) lancets PRN 60 each 5 5 Active levothyroxine (SYNTHROID, LEVOTHROID) 75 MCG tabletIndications:A cquired hypothyroidism Take 1 tablet by mouth Daily. 90 tablet 3 5 Active levothyroxine (Synthroid) 50 MCG tablet Take 1 tablet by mouth Daily. 90 tablet 1 5 05/09/20 26 Active Hospital, Clinic, or Other Facility Administered Medication Ordered Dose Route Frequency Start Date End Date Status meclizine (ANTIVERT) tablet 25 mgIndications:Dizzine ss 25 mg PO 3 Times Daily PRN 12/15/2023 Active Active Problems Problem Noted Date Diagnosed Date Dyslipidemia 02/14/2017 Overview (02/14/2017): in statin therapy-eptember 2014, Total cholesterol 194, triglycerides 638, HDL 31, LDL 105. CKD stage 3 due to type 2 diabetes mellitus 02/23 Carpal tunnel syndrome 03/22/2016 Diabetes 03/22/2016 Hypothyroidism 03/22/2016 Peripheral neuropathy 03/22/2016 Coronary artery disease Overview (12/23/2015): October 2005 3.5 and overlapping stents to prox LAD,Ef 40%, Cath December 2005- patent stents, LVEF 60%- MPS November 2012 no rev defects, EF 40% Hypertension Hyperlipidemia Encounters Date Type Department Care Team Description 04/30/2025 Refill [facility] [address] [place] [address] Helena Feliz MD 04/09/2025 Results Follow-Up [facility] [address] [place] [address] Helena Feliz MD 04/05/2025 10:45 AM EDT Office Visit [facility] [address] [place] [address] Helena Feliz MD Type 2 diabetes mellitus with hyperglycemia, without long-term current use of insulin (Primary Dx); Acquired hypothyroidism; CKD stage 3 due to type 2 diabetes mellitus 04/05/2025 Travel 03/07/2025 9:30 AM EDT Office Visit [facility] [address] [place] [address] [place] [address] Vitaliy Perez MD Coronary artery disease involving three affiliated coronary artery of three affiliated heart without angina pectoris (Primary Dx); Mixed hyperlipidemia; Type 2 diabetes mellitus without complication, without long-term current use of insulin; Primary hypertension 03/07/2025 Travel from Last 3 Months Family History Medical History Relation Name Comments Diabetes Father No Known Problems Mother Arthritis Other Depression Other Diabetes Other MELLITUS Hyperlipidemia Other Hypertension Other Relation Name Status Comments Father Mother Other Social History Tobacco Use Types Packs/Day Years [...] Pulse 70 04/05/2025 10:41 AM EDT Temperature 36.4 C (97.5 F) 11/06/2020 10:26 AM EDT Respiratory Rate 16 11/18/2022 11:13 AM EDT Oxygen Saturation 96% 04/05/2025 10:41 AM EDT Inhaled Oxygen Concentration - - Weight 74.4 kg (164 lb) 04/05/2025 10:41 AM EDT Height 165.1 cm (5' 5 ) 04/05/2025 10:41 AM EDT Body Mass Index 27.29 04/05/2025 10:41 AM EDT Plan of Treatment Upcoming Encounters Date Type Department Care Team (Late st Contact Info) Description 12/11/2025 1:00 PM EDT Office Visit [facility] [address] [place] [address] Helena Feliz MD [address] [place] [address] 07/03/2026 1:45 PM EST Office Visit [facility] [address] [place] [address] [place] [address] Vitaliy Perez MD [address] [address] [place] [address] Health Maintenance Due Date Last Done Comments DIABETIC FOOT EXAM 12/21/1963 COLOGUARD 1998 COLON CANCER SCREENING 5 YEA R SIGMOIDOSCOPY 1998 COLONOSCOPY 1998 COLORECTAL CANCER SCREENING 1998 CT COLONOGRAPHY 1998 FECAL OCCULT BLOOD TEST 1998 FIT Testing (1 year) 1998 TDAP/TD VACCINES (2 - Tdap) 09/26/2006 09/26/1996 ANNUAL WELLNESS VISIT 04/05/2016 HEPATITIS C SCREENING 04/05/2016 DIABETIC EYE EXAM 05/21/2023 05/21/2022 ZOSTER VACCINE (2 of 2) 12/18/2024 10/23/2024 INFLUENZA VACCINE 02/22/2025 03/28/2024, , 03/29/2023, Additional history exists COVID-19 Vaccine (5 - 2023-2 5 season) 2025 04/12/2024, 05/20/2023, 03/11/2023, Additional history exists HEMOGLOBIN A1C 10/03/2025 04/05/2025, 02/23, 11/25/2023, Additional history exists LIPID PANEL 04/05/2026 04/05/2025, 12/02/2023, 05/25/2023, Additional history exists URINE MICROALBUMIN-CREATININ E RATIO (uACR) 04/05/2026 04/05/2025, 04/03/2015 Pneumococcal Vaccine 50+ Completed 10/23/2024 Procedures Procedure Name Priority Date/Time Associated Diagnosis Comments MICROALBUMIN / CREATININE URINE RATIO Routine 04/05/2025 11:48 AM EDT Type 2 diabetes mellitus with hyperglycemia, without long-term current use of insulin T4, FREE Routine 04/05/2025 11:48 AM EDT Acquired hypothyroidism TSH Routine 04/05/2025 11:48 AM EDT Acquired [...] hyperglycemia, without long-term current use of insulin SCANNED - EYE EXAM 05/21/2022 from Last 3 Months or Most Recently Relevant to Health Maintenance Results * (ABNORMAL) Microalbumin / Creatinine Urine Ratio - Urine, Clean Catch (04/05/2025 11:48 AM EDT) [facility] Microalbumin/C reatinine Ratio 477.1(H) 0.0 - 29.0 mg/g 04/06/2025 1:55 AM EDT [facility] Creatinine, Urine 61.2 mg/dL 04/06/2025 1:55 AM EDT [facility] Microalbumin, Urine 29.2 mg/dL 04/06/2025 1:55 AM EDT [facility] Urine Urine specimen obtained by clean catch procedure / Unknown Collection / Unknown 04/05/2025 11:48 AM EDT 04/05/2025 11:48 AM EDT Helena Rojo MD URINE ORDERABLES Final Result Performing Organization Address City/[facility]/ZIP Co de Phone Number [facility]
[address] [place] [address], * (ABNORMAL) TSH (04/05/2025 11:48 AM EDT) [facility] TSH 7.300(H) 0.270 - 4.200 uIU/mL 04/06/2025 1:59 AM EDT [facility] Blood Structure of left upper limb / Unknown Venipuncture / Unknown 04/05/2025 11:48 AM EDT 04/05/2025 11:48 AM EDT Helena Rojo MD LAB BLOOD ORDERABLES Final Res ult Performing Organization Address City/[facility]/ZIP Co de Phone Number [facility]
[address] [place] [address], [place] [phone] * T4, Free (04/05/2025 11:48 AM EDT) Free T4 1.28 0.92 - 1.68 ng/dL 04/06/2025 1:59 AM EDT [facility] Blood Structure of left upper limb / Unknown Venipuncture / Unknown 04/05/2025 11:48 AM EDT 04/05/2025 11:48 AM EDT us Helena Rojo MD LAB BLOOD ORDERABLES Final Res ult [facility]
[address] [place] [address], * (ABNORMAL) Lipid Panel (04/05/2025 11:48 AM EDT) Total Cholesterol 130 0 - 200 mg/dL 04/06/2025 1:53 AM EDT [facility] Triglycerides 215(H) 0 - 150 mg/dL 04/06/2025 1:53 AM EDT [facility] HDL Cholesterol 31(L) 40 - 60 mg/dL 04/06/2025 1:53 AM EDT [facility] LDL Cholesterol 64 0 - 100 mg/dL 04/06/2025 1:53 AM EDT [facility] VLDL Cholesterol 35 5 - 40 mg/dL 04/06/2025 1:53 AM EDT [facility] LDL/HDL Ratio 1.81 04/06/2025 1:53 AM EDT [facility] Blood Structure of left upper limb / Unknown Venipuncture / Unknown 04/05/2025 11:48 AM EDT 04/05/2025 11:48 AM EDT Narrative [facility] - 04/06/2025 1:53 AM EDT Cholesterol [...] MD LAB BLOOD ORDERABLES Final Res ult [facility]
[address] [place] [address], * (ABNORMAL) Comprehensive Metabolic Panel (04/05/2025 11:48 AM EDT) Glucose 128(H) 65 - 99 mg/dL 04/06/2025 1:53 AM EDT [facility] BUN 48.0(H) 8.0 - 23.0 mg/dL 04/06/2025 1:53 AM EDT [facility] Creatinine 1.63(H) 0.76 - 1.27 mg/dL 04/06/2025 1:53 AM EDT [facility] Sodium 139 136 - 145 mmol/L 04/06/2025 1:53 AM EDT [facility] Potassium 4.6 3.5 - 5.2 mmol/L 04/06/2025 1:53 AM EDT [facility] Chloride 103 98 - 107 mmol/L 04/06/2025 1:53 AM EDT [facility] CO2 22.7 22.0 - 29.0 mmol/L 04/06/2025 1:53 AM EDT [facility] Calcium 10.2 8.6 - 10.5 mg/dL 04/06/2025 1:53 AM EDT [facility] Total Protein 6.7 6.0 - 8.5 g/dL 04/06/2025 1:53 AM [facility] Albumin 4.0 3.5 - 5.2 g/dL 04/06/2025 1:53 AM [facility] ALT (SGPT) 41 1 - 41 U/L 04/06/2025 1:53 AM [facility] AST (SGOT) 37 1 - 40 U/L 04/06/2025 1:53 AM [facility] Alkaline Phosphatase 62 39 - 117 U/L 04/06/2025 1:53 AM [facility] Total Bilirubin 0.6 0.0 - 1.2 mg/dL 04/06/2025 1:53 AM [facility] Globulin 2.7 gm/dL 04/06/2025 1:53 AM [facility] A/G Ratio 1.5 g/dL 04/06/2025 1:53 AM [facility] BUN/Creatinine Ratio 29.4(H) 7.0 - 25.0 04/06/2025 1:53 AM [facility] Anion Gap 13.3 5.0 - 15.0 mmol/L 04/06/2025 1:53 AM [facility] eGFR 44.8(L) >60.0 mL/min/1.7 3 04/06/2025 1:53 AM [facility] Blood Structure of left upper limb / Unknown Venipuncture / Unknown 04/05/2025 11:48 AM EDT 04/05/2025 11:48 AM [facility] - 04/06/2025 1:53 AM T GFR Categories in Chronic Kidney Disease (CKD) [...] does not include race as a factor Helena Rojo MD LAB BLOOD ORDERABLES Final Res ult [facility]
[address] [place] [address], [place] [phone] * (ABNORMAL) POC Glucose, Blood (04/05/2025 10:56 AM EDT) Glucose 150(A) 70 - 130 mg/dL Lot Number [id number] Expiration Date 09/14/25 Blood 04/05/2025 10:5 6 AM EDT Helena Rojo MD POINT OF CARE TEST ORDERABLES Final Result * (ABNORMAL) POC Glycosylated Hemoglobin (Hb A1C) (04/05/2025 10:56 AM EDT) Hemoglobin A1C 7.4(A) 4.5 - 5.7 % [facility] Lot Number [id number] [facility] Expiration Date 10/25/26 [facility] Blood 04/05/2025 10:5 6 AM EDT Helena Rojo MD POINT OF CARE TEST ORDERABLES Final Result Performing Organization Address City/[facility]/ZIP Co de Phone Number [facility]
[address] [place] [address], [place] [phone] * SCANNED - EYE EXAM (05/21/2022) Anatomical Region Laterality Modality Other us Helena Rojo MD CHART REVIEW TABS Final Res ult from Last 3 Months or Most Recently Relevant to Health Maintenance Insurance [facility] MEDICAID MEDICARE B ONLY Care Teams Radio Equipment Installer Relationship Specialty Start Date End Date Damaris Quinteros PA [address] [place] [address] PCP - General Physician Sensitometrist 02/14/25
--- OUTSIDE RECORDS SUMMARY | 2025-05-22 11:29 | XMS_ITS | Data Portability ---
Author Organization [facility] [email or web address] [place] - MSE Address [address] [place] [address] Assessment No assessment recorded. Plan of Treatment Reminders Order Date Submit Date Provider Last Modified By Organization Details Last Modified Time Details Appointments FOLLOW UP 15 2024 10:45A Amadou Quinteros PA-C Not available Not available Not available Lab HbA1c (hemoglob in A1c), blood [address], [facility] [place], [address], 04/12/2025 13:46:57 microalbu min/creat inine, mass ratio, urine [address], [address] [place], [address], 04/12/2025 13:46:57 glucose, fingersti ck, blood [address], [facility]8 [place], [address], 01/10/2025 15:35:13 Referral certified nursing assistant referral 2024 025 [facility], [address] [place] [address], [facility] [address], [place], [address], 01/31/2025 15:32:48 Procedures None recorded. Surgeries None recorded. Imaging None recorded. Medication Orders allopurin ol 300 mg tablet 2024 025 [facility][id number], [address], [place], [place], [id number], 04/12/2025 13:34:24 Kerendia 20 mg tablet 2024 025 [facility] #[id number], [address], [id number], 04/12/2025 13:40:37 Januvia 100 mg tablet 2024 025 [facility] #[id number], [address] [facility] [address] , [place], [place], [id number], 03/08/2025 15:05:09 hydrochlo rothiazid e 25 mg tablet 2024 025 [facility] #[id number], [address], [id number], 01/24/2025 14:19:54 clonidine HCl 0.1 mg tablet [address] [facility] #[id number], 6[address] [facility] 27 [place], [place], [phone], 03/08/2025 15:04:28 Patient TargetsNo targets recorded. Patient Instructions Encounter Date Encounter Id Patient Instructions Last Modified By Organization Details Last Modified Time 01/10/2025 [id number] high blood pressure: care instructions Not available 01/10/2025 15:12:34 learning about high blood pressure [email or web address] Not available 01/10/2025 15:12:34 01/24/2025 [id number] leg and ankle edema: care instructions Not available 01/24/2025 14:19:40 high blood pressure: care instructions [email or web address] Not available 01/24/2025 16:46:55 learning about high blood pressure [email or web address] Not available 01/24/2025 16:46:55 03/08/2025 [id number] high blood pressure: care instructions [email or web address] Not available 03/08/2025 16:31:46 learning about high blood pressure Not available 03/08/2025 16:31:46 04/12/2025 [id number] gout: care instructions [email or web address] Not available 04/12/2025 13:34:06 medicines to avoid with kidney disease: care instructions [email or web address] Not available 04/12/2025 13:39:46 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 Left foot drop Referring Physician: Damaris Quinteros, Family Medicine, Encounter Date: 01/10/2025 Results Created Date Observation Date Name Description Value Unit Range Abnormal Flag Note LastModifiedBy Organization Detail LastModifiedTime 12/28/1912/27/2024 micro album in/cr eatin ine, mass ratio , urine Microalbumin 150 mg/L Not Available [facility] [address] [place] [address], [address], 12/27/2024 14:02:15 12/28/19 25 12/27/2024 micro album in/cr eatin ine, mass ratio , urine Creatinine 50 mg/dL Not Available [address], [address], 12/27/2024 14:02:15 12/28/19 25 12/27/2024 micro album in/cr eatin ine, mass ratio , urine Ratio >300 mg/g Not Available [address], [address], 12/27/2024 14:02:15 12/28/19 25 12/27/2024 HbA1c (hemo globi n A1c), blood HbA1c 8.4 Not Available [address], [address], 12/27/2024 14:02:09 01/04/20 25 01/07/2025 AEROB IC BACTE RIAL CULTU RE aerobic bacterial culture Final report abnormal Not Available [facility] ([facility]) [address] [facility], [place], [address], 01/07/2025 08:07:04 01/04/20 25 01/07/2025 AEROB IC BACTE RIAL CULTU RE result 1 Candid a paraps ilosis abnormal Light growt h Not Available [facility] ([facility]) [address] [facility], [place], [address], 01/07/2025 08:07:04 01/04/20 25 01/07/2025 AEROB IC BACTE RIAL CULTU RE result 2 Mixed skin riaz Moder ate growt h Not Available [facility] ([facility]) [address] [facility], [place], [address], 01/07/2025 08:07:04 01/11/20 25 01/10/2025 gluco se, finge rstic k, blood Blood Glucose: mg/dl 157 Not Available [facility] [place] [address] [place], [address], 01/10/2025 15:32:32 04/12/20 25 04/12/2025 micro album in/cr eatin ine, mass ratio , urine Microalbumin 150 mg/L Not Available [facility] [address] [place] [address], [address], 04/12/2025 13:17:49 04/12/20 25 04/12/2025 micro album in/cr eatin ine, mass ratio , urine Creatinine 50 mg/dL Not Available [facility] [address] [place], [address], 04/12/2025 13:17:49 04/12/20 25 04/12/2025 micro album in/cr eatin ine, mass ratio , urine Ratio >300 mg/g Not Available [facility] [address] [place] [address], [place], [address], 04/12/2025 13:17:49 04/12/20 25 04/12/2025 HbA1c (hemo globi n A1c), blood HbA1c 7.3 % Not Available [facility] [address] [facility], [place], [address], 04/12/2025 13:14:27 01/01/20 25 12/28/2024 US, honey x, tiffanie s, lower extre mity No observ ation record ed. [facility] (Med Record) [address], [place], [place], [address], 12/31/2024 14:53:28 Result Notes None recorded. Problems Name Problem SNOMED Code Status Onset Date Resolution Date Notes Provider Name and Address Organization Details Recorded Time Edema of left lower limb 347345079 Active 2024 LIZBETH Camacho [address] [place] [address], [address], [employer] 11:52:09 Hyperglyc emia due to type 2 diabetes mellitus 858217189867 109 Active 2024 LIZBETH Camacho [address] [place] [address], [address], [place] [employer] 14:35:50 Triggerin g of digit 179813314 Active 2024 LIZBETH Camacho [address] [place] [address], [address], [place] [employer] 14:35:35 Ulcer of skin of lower extremity 645833451 Active 2024 LIZBETH Camacho [address] [place] [address], [address], [employer] 15:55:57 Candidias is of skin 62903959 Completed 202404/12/2025 LIZBETH Camacho [address] [place] [address], [address], [employer] 13:40:06 Essential hypertens ion 50210607 Active 2024 LIZBETH Camacho [address] [place] [address], [address], [employer] 5 15:12:27 Gouty arthritis of multiple sites 629233918 Active 2024 LIZBETH Camacho [address] [place] [address], [address], [employer] 5 11:31:33 Edema of lower extremity 305834582 Active 2024 LIZBETH Camacho [address] [place] [address], [address], [employer] 14:19:20 Gouty arthritis 10147620 Active 2024 LIZBETH Camacho [address] [place] [address], [address], [employer] 13:33:31 Chronic kidney disease stage 3B 641538227 Active 2024 LIZBETH Camacho [address] [place] [address], [address], [employer] 13:39:16 Chronic kidney disease stage 3 145933900 Active 2024 LIZBETH Camacho [address] [place] [address], [address], [employer] 5 13:39:38 Well controlle d type 2 diabetes mellitus 655238665 Active 2024 LIZBETH Camacho [address] [place] [address], [address], [employer] 5 11:52:04 Periphera l vascular disease 241130782 Active 2024 LIZBETH Camacho [address] [place] [address], [address], [employer] 5 11:52:17 Hyperlipi demia 14896657 Active 2024 LIZBETH Camacho [address] [place] [address], [address], [employer] 10:15:01 Problem Notes None recorded. Procedures Surgical History Date Name Laterality Status Provider Name and Address Organization Details Recorded Time 5 Unna boot - LE edema completed [employer] 01/03/2025 13:37:46 5 Unna boot - LE edema completed [employer] 12/27/2024 14:35:21 operation on testis completed [employer] 12/27/2024 13:55:57 Stent completed [employer] 12/27/2024 13:56:05 Imaging Results None recorded. Procedure Notes None recorded. Medical Equipment None Reported. Allergies Allergen ID Allergen Name Allergen Category Reaction Reaction Severity Criticality Documentation Date Start Date Code Code System Note Provider Name and Address Organization Details Recorded Time 91737 diltiazem medicatio n Not available Not available Not available 12/28/2024 3443 RxNorm Drimmi, [employer] 17:28:41 90291 parathyro id hormone medicatio n Not available Not available Not available 12/28/2024 87162 22 RxNorm Drimmi, [employer] 17:29:03 Medications Name Sig Start Date Stop Date Status Note LastModified by Organization Details LastModified Time clonidine HCl 0.1 mg tablet Take 2 tablets by oral route. 03/08 completed Not Available Not Available Not Available fluconazole 150 mg tablet TAKE 1 TABLET BY MOUTH ONCE DAILY FOR 7 DAYS 01/10 completed Not Available Not Available Not Available benzonatate 200 mg capsule TAKE 1 CAPSULE BY MOUTH THREE TIMES DAILY NEEDED FOR COUGH 12/27 completed Not Available Not Available Not Available glipizide ER 10 mg tablet, extended release 24 hr TAKE 1 TABLET BY MOUTH EVERY DAY 03/08 completed Not Available Not Available Not Available [employer] Lancets 28 gauge CHECK BLOOD SUGAR DIRECTED active Not Available Not Available No t [...] nded release TAKE 1 TABLET BY MOUTH EVERY 8 HOURS active Not Available Not Available No t Available levothyroxi ne 25 mcg tablet Take 1 tablet every day by oral route. 04/12 completed Not Available Not Available Not Available levothyroxi ne 75 mcg tablet TAKE 1 TABLET BY MOUTH DAILY 04/12 completed Not Available Not Available Not Available levothyroxi ne 88 mcg tablet TAKE 1 TABLET BY MOUTH ONCE DAILY 01/10 completed Not Available Not Available Not Available clonidine HCl 0.2 mg tablet TAKE 1 TABLET BY MOUTH TWICE DAILY active Not Available Not Available No t Available glipizide ER 2.5 mg tablet, extended release 24 hr TAKE 3 TABLETS BY MOUTH 1 TIME DAILY active Not Available Not Available No t Available levothyroxi ne 50 mcg tablet TAKE 1 TABLET BY MOUTH DAILY active Not Available Not Available No t Available cephalexin 500 mg capsule TAKE 1 CAPSULE BY MOUTH TWICE DAILY FOR 7 DAYS 12/27 completed Not Available Not Available Not Available simvastatin 20 mg tablet TAKE 1 TABLET BY MOUTH EVERY DAY AT BEDTIME active Not Available Not Available No t [...] Not Available Not Available Not Available Januvia 50 mg tablet TAKE 1 TABLET BY MOUTH EVERY DAY active Not Available Not Available No t Available Januvia 100 mg tablet TAKE 1 TABLET BY MOUTH DAILY 03/08 completed Not Available Not Available Not Available Free[employer] Lite Strips USE DIRECTED THREE [...] completed Not Available Not Available Not Available Kerendia 20 mg tablet TAKE 1 TABLET BY MOUTH EVERY DAY active Not Available Not Available No t Available Vitals Date Recorded Body height Body mass index (BMI) Body weight Heart rate Oxygen saturation Oxygen saturation in Arterial blood by Pulse oximetry Systolic And Diastolic Systolic And Diastolic Provider Name and Address Organization Details Last Updated DateTime 5 162.56 cm 29 kg/m2 42111.8 1 g 62 /min 96 % 96 % 199/80 mm[Hg] 200/92 mm[Hg] [facility] [email or web address] 5 14:58:48 Date Recorded Systolic And Diastolic Systolic And Diastolic Provider Name and Address Organization Details Last Updated DateTime 01/10/2025 188/90 mm[Hg] 184/86 mm[Hg] [facility] [employer] 01/10/2025 15:31:46 Date Recorded Body height Body mass index (BMI) Body weight Heart rate Oxygen saturation Oxygen saturation in Arterial blood by Pulse oximetry Body temperature Systolic And Diastolic Systolic And Diastolic Provider Name and Address Organization Details Last Updated DateTime 5 162.56 cm 30 kg/m2 82182.9 5 g 72 /min 98 % 98 % 98.2 [degF] 160/98 mm[Hg] 150/88 mm[Hg] Gewara [employer] 5 14:03:52 Date Recorded Body height Body mass index (BMI) Body weight Heart rate Oxygen saturation Oxygen saturation in Arterial blood by Pulse oximetry Systolic And Diastolic Systolic And Diastolic Provider Name and Address Organization Details Last Updated DateTime 5 162.56 cm 27.9 kg/m2 55878.0 6 g 68 /min 98 % 98 % 182/105 mm[Hg] 150/94 mm[Hg] Taniya [employer] 5 15:02:21 Date Recorded Body height Body mass index (BMI) Body weight Oxygen saturation Oxygen saturation in Arterial blood by Pulse oximetry Heart rate Body temperature Systolic And Diastolic Systolic And Diastolic Provider Name and Address Organization Details Last Updated DateTime 5 162.56 cm 28.7 kg/m2 62611.9 3 g 97 % 97 % 72 /min 98.2 [degF] 148/88 mm[Hg] 122/86 mm[Hg] [employer] 15:04:04 Date Recorded Body height Body mass index (BMI) Body weight Oxygen saturation Oxygen saturation in Arterial blood by Pulse oximetry Heart rate Body temperature Systolic And Diastolic Provider Name and Address Organization Details Last Updated DateTime 5 162.56 cm 29.5 kg/m2 54018.4 5 g 98 % 98 % 72 /min 98 [degF] 136/84 mm[Hg] [employer] 13:09:29 Social History Question Answer Notes LastModified by Organizat ion Details LastModified Time Tobacco Smoking Status Never Smoker [employer] 12/27/2024 13:46:04 Do You Have An Advance Directive? No Information not available 12/27/2024 Is Your Home Air Conditioned? Yes Information not available 12/27/2024 Are You Blind Or Do You Have Difficulty Seeing? No Information not available 12/27/2024 What Is Your Level Of Caffeine Consumption? Occasional Information not available 12/27/2024 What Type Of Exhibitions And Collections Manager Do You Use? None Information not available [...] Or The Highest Degree You Have Received? [id number] Information not available 12/27/2024 How Many Days [...] Do You Have A Medical Power Of Correctional Supervisor Lieutenant? No Information not available 12/27/2024 What Was The Date Of Your Most Recent Tobacco Screening? 04/12/2025 Information not available 04/12/2025 Do You Have Any Pets? No Information [...] Status Question Answer Note LastModified by Organizat [employer] Details LastModified Time Do you use any [...] not available 12/27/2024 Are you able to walk independently without assistance or assistive devices? YESLIMIT Information not available 12/27/2024 Do you have difficulty doing errands alone? No Information not available 12/27/2024 Are you able to care for yourself independently? Yes Information not available 12/27/2024 Do you have difficulty dressing, bathing, grooming, or toileting? No Information not available 12/27/2024 What is your exercise level? Occasional Information not available 12/27/2024 Mental Status Question Answer Note LastModified by [employer] Details LastModified Time Do you feel stressed (tense, restless, nervous, or anxious, or unable to sleep at night)? [id number] Information not available 12/27/2024 Do you have [...] room visit since last appointm ent. N Hypothyroidism N Lung Disease N Dermatologic Disorders N COPD N Depression N Developmental or Behavioral Disorders N Defects [...] Condition N Organ Transplant N Fibromyalgia N Dialysis N Schizophrenia N [...] N Pulmonary Embolism N Tourette Syndrome N Pre-Eclampsia N Hypertension Y Chronic Ear Infections N Osteoporosis N Chicken Pox N Autism Spectrum Disorder (ASD) N Thrombophilias N Immunizations Vaccine Type Date Status Note Provider Nam e and Address Organization Details Recorded Time Td (adult), 2 Lf tetanus toxoid, preservative free, adsorbed 7 completed Not Available [facility] 04/12/2025 13:04:09 Influenza, split virus, quadrivalent, PF 6 completed Not Available [facility] 04/12/2025 13:04:09 Influenza, split virus, quadrivalent, PF 7 completed Not Available [facility] 04/12/2025 13:04:09 Influenza, split virus, quadrivalent, PF 8 completed Not Available [facility] 04/12/2025 13:04:09 Hep A, adult 8 completed Not Available [facility] 04/12/2025 13:04:09 Influenza, high-dose, quadrivalent, PF 0 completed Not Available [facility] 04/12/2025 13:04:09 COVID-19 vaccine, vector-nr, rS-Ad26, PF, 0.5 mL 1 completed Not Available [facility] 04/12/2025 13:04:09 Influenza, high-dose, quadrivalent, PF 1 completed Not Available [facility] 04/12/2025 13:04:09 COVID-19, mRNA, LNP-S, PF, 100 mcg/0.5mL dose or 50 mcg/0.25mL dose 1 completed Not Available [facility] 04/12/2025 13:04:09 COVID-19, mRNA, LNP-S, PF, 100 mcg/0.5mL dose or 50 mcg/0.25mL dose 2 completed Not Available [facility] 04/12/2025 13:04:09 Influenza, adjuvanted, quadrivalent, PF 2 completed Not Available [facility] 04/12/2025 13:04:09 COVID-19, mRNA, LNP-S, bivalent, PF, 50 mcg/0.5 mL or 25mcg/0.25 mL dose 3 completed Not Available [facility] 04/12/2025 13:04:09 Influenza, adjuvanted, quadrivalent, PF 3 completed Not Available [facility] 04/12/2025 13:04:09 COVID-19, mRNA, LNP-S, PF, 50 mcg/0.5 mL 3 completed Not Available [facility] 04/12/2025 13:04:09 Influenza, high-dose, trivalent, PF 4 completed Not Available [facility] 04/12/2025 13:04:09 COVID-19, mRNA, LNP-S, PF, tatyana-sucrose, 30 mcg/0.3 mL 4 completed Not Available [facility] 04/12/2025 13:04:09 zoster recombinant 5 completed Not Available [facility] 04/12/2025 13:04:09 Pneumococcal conjugate PCV20, polysaccharide PDN256 conjugate, adjuvant, PF 5 completed Not Available [facility] 04/12/2025 13:04:09 RSV, bivalent, protein subunit RSVpreF, diluent reconstituted, 0.5 mL, PF 5 completed Not Available [facility] 04/12/2025 13:04:09 Influenza, high-dose, trivalent, PF 5 completed Not Available [facility] 04/12/2025 13:04:09 Past Encounters Encounter ID Performer Location Encounter Start Date Encounter Closed Date Diagnosis/Indication Diagnosis SNOMED-CT Code Diagnosis ICD10 Code Diagnosis IMO Codes Diagnosis Note [id number] LIZBETH Camacho [address] [address] 12/27/2024 13:07:14 12/27/2024 14:42:37 Edema of left lower limb 252035204 R60.0 34690169 R/O DVTUnna boot to help with edemaDoxcy short for infectionP entoxifyll ine to improve blood flowMay need wound therapy Hyperglyce jovanny due to type 2 diabetes mellitus 0023390076 31160 E11.65 24979362 Increase Glipizide 10 mg ER daily for ease of taking meds Triggering of digit 2399 16169 M65.283 2562110 [id number] LIZBETH Camacho [address] [address] 01/03/2025 12:50:33 01/03/2025 14:26:59 Ulcer of skin of lower extremity 719258627 E11.622 L97.909 202987 Left lower extremityI mprovingUn na boot appliedWou nd culture taken today [id number] LIZBETH Camacho [address] [address] 01/10/2025 14:29:45 01/10/2025 15:20:10 Hyperglycemia due to type 2 diabetes mellitus 8206329371 99143 E11.65 84217399 Left foot drop 891882508 1 97294 M21.372 1516853138 Essential hypertension 08317721 I10 13924 Overweight in adulthood with body mass index of 25 or more but less than 30 951982618 Z68.29 104589 [id number] LIZBETH Camacho [address] [address] 01/24/2025 13:52:29 01/24/2025 14:29:21 Edema of lower extremity 866816798 R60.0 05100 Ulcer of s kin of lower extremity 652281355 E11.622 L97.909 927394 Essential hypertension 79026593 I10 59218 [id number] LIZBETH Camacho [facility] [address] [place], [place] [address] [place] [address] 02/08/2025 14:36:38 02/08/2025 15:14:35 Hyperglycemia due to type 2 diabetes mellitus 5779050800 30535 E11.65 32185516 Edema of l eft lower limb 930306104 R60.0 34044538 REsolved Ulcer of s kin of lower extremity 433190767 E11.622 L97.909 852949 improving greatly [id number] LIZBETH Camacho [address] [address] 03/08/2025 14:31:56 03/08/2025 15:16:20 Essential hypertension 83417560 I10 10047 Hyperglyce jovanny due to type 2 diabetes mellitus 7691680846 53919 E11.65 22925414 Ulcer of s kin of lower extremity 937591891 E11.622 L97.909 253593 improving greatly [id number] LIZBETH Camacho [facility] [address] [place], [place] [address] [place] [address] 04/12/2025 13:01:18 04/12/2025 13:33:21 Hyperglycemia due to type 2 diabetes mellitus 8253792833 71160 E11.65 48079461 Gouty arthritis 83315952 M10.9 16617 Chronic ki dney disease stage 3 861320725 E11.22 N18.30 89263880 Health Concerns Section Related Observation LastModified by Organization Detai ls LastModified Time None Recorded Concern Status LastModified by Organization Details LastModified Time None Recorded Advance Directives Directive N: Payers Insurance Date Sequence Insurance Name Policy Number Policy Hatfield Covered Member ID Hatfield Member ID Guarantor Name 04/10/2025 [place]ACOB [employer] [facility] Jonelle Kamara [id number] Jonelle Kamara 04/10/2025 1 [place] Jonelle Kamara [id number] Jonelle Kamara 04/18/2025 2 [facility] [place] (MEDICA[place]MO[place] Jonelle Kamara [id number] Jonelle Kamara Notes Date Note Type Note Provider Name and Address Organization Details Recorded Time 01/10/2025 text/html ROS as noted in the [facility] Patient presents for followup. Wound on left leg is improving. He does complain of foot drop on that side.His blood sugar was around 100.His blood pressure is elevated today. States he has taken his medicine as directed. Denies headache, chest pain, vertigo, dyspnea. LIZBETH Camacho [address] [place], [address], [employer] 01/10/2025 15:42:45 01/24/2025 text/html ROS as noted in the [facility] Patient presents to follow up on wound on left lower leg. It is slowly improving.His legs are swelling. DOes not have a fluid pill.Blood pressure a little elevated today. Denies headache, chest pain, vertigo, dyspnea. LIZBETH Camacho [address] [place], [address], [employer] 01/24/2025 16:46:58 02/08/2025 text/html ROS as noted in the [facility] Patient presents for followup.Left lower leg ulcer is nearly goneHe got LLE PFO - has started wearing it a little at a time at homeSwelling is goneHe has been out of [facility] - sees [facility]ocrinology in [facility] but missed his appointment due to illnessGot steroid injection in left knee a few weeks ago LIZBETH Camacho [address] [place], [address], [employer] 02/08/2025 16:27:37 03/08/2025 text/html ROS as noted in the [facility] Patient presents for followup.Left lower leg ulcer is nearly goneHe got LLE PFO - has started wearing it a little at a time at homeSwelling is gone LIZBETH Camacho [address] [place], [address], [employer] 03/08/2025 16:36:22 04/12/2025 text/html ROS as noted in the [facility] Patient presents for followup.States he is doing well.Still has a scabbed lesion on left anterior pabon but it is much much better. Swelling down. He has gotten a PFO and is able to walk with just a cane now.Diabetes well controlled. LIZBETH Camacho [address] [place] [address], [address], [facility] [employer] 04/12/2025 13:42:29
[2025-05-22 11:30] LABS: Hematocrit 61.0 % (42.0-52.0)
--- NOTE | 2025-05-22 11:30 | PC.NURSE ---
would like to defer blood cultures at this time.
--- OUTSIDE RECORDS SUMMARY | 2025-05-22 11:30 | XMS_ITS | Encounter Summary ---
[facility] Address [address] [place] [id number] Care Team Providers Care Solar Energy Systems Designer Name Role Phone Damaris Quinteros Primary Care Provider [phone] Encounter Details Date Type Department Care Team (Late st Contact Info) Description 04/30/2025 Refill [facility] [address] [place] [id number] Helena Feliz MD [address] [place] [address] Social History Tobacco Use Types Packs/Day Years [...] on file documented as of this encounter Miscellaneous Notes * Telephone Encounter - Taniya Brown MA - 05/09/2025 3:09 PM EDT Called the pt and he is needing refills sent to [facility]. Script is pending. Last office visit with prescribing clinician: 04/05/2025 Next office visit with prescribing clinician: 12/11/2025 { * Telephone Encounter - Taniya Brown MA - 05/09/2025 11:52 AM EDT Not able to leave message has calling restrictions. * Telephone Encounter - Helena Feliz MD - 05/09/2025 11:05 AM EDT He can return to 50 mcg daily and reassess the symptoms. Does he need a new script for 50 mcg dailysent? * Telephone Encounter - Caroline Shukla (Radha) - 05/06/2025 9:53 AM EDT Called again today - still has restrictions. Will mail him the message from Dr Stewart * Telephone Encounter - Caroline Shukla) - 05/03/2025 1:21 PM EDT Called pt -his phone has restrictions that wont allow the call * Telephone Encounter - Pilar Stewart MD - 05/03/2025 12:23 PM EDT I have tried calling the patient multiple time but his phone does not allow me to leave a voice mail. * Telephone Encounter - Caroline Shukla (Radha) - 04/30/2025 11:16 AM EDT Patient call stating he is hallucinating (seeing all kinds of things - cats etc) since his levothyroxine change to 75mcg. Also kerendia has been added by his heart doctor. Those are the only changes.Please advise documented in this encounter Plan of Treatment Upcoming Encounters Date Type Department Care Team (Late st Contact Info) Description 12/11/2025 1:00 PM EDT Office Visit [facility] [address] [facility] [address] [place] [address] Helena Feliz MD [address] [facility] [address] [address] [place], [place] [id number] 07/03/2026 1:45 PM EST Office Visit [facility] C[facility] [address] [place] [address] [place] [address] Vitaliy Perez MD [address] [facility] [address] [place] [address] documented as of this encounter Visit Diagnoses Not on filedocumented in this encounter Care Teams Solar Energy Systems Designer Relationship Specialty Start Date End Date Damaris Quinteros PA [address] [place] [address] PCP - General Physician Automotive Window Tinter 02/14/25 documented as of this encounter
--- OUTSIDE RECORDS SUMMARY | 2025-05-22 11:30 | XMS_ITS | Continuity of Care Document ---
Author Organization [place] - [employer] [facility] Address [address] [place] [address] Assessment No assessment recorded. Plan of Treatment Reminders Order Date Submit Date Provider Last Modified By Organization Details Last Modified Time Details Appointments FOLLOW UP 15 2024 10:45A Amadou Quinteros PA-C Not available Not available Not available Lab HbA1c (hemoglob in A1c), blood [address], [facility] [place], [address], 04/12/2025 13:46:57 microalbu min/creat inine, mass ratio, urine [address], [address] [facility] [place], [address], 04/12/2025 13:46:57 Referral None recorded. Procedures None recorded. Surgeries None recorded. Imaging None recorded. Medication Orders allopurin ol 300 mg tablet 2024 025 [id number], [address], [id number], 04/12/2025 13:34:24 Kerendia 20 mg tablet 2024 025 [place] [id number], [address], [id number], 04/12/2025 13:40:37 Patient TargetsNo targets recorded. Patient Instructions Encounter Date Encounter Id Patient Instructions Last Modified By Organization Details Last Modified Time 04/12/2025 [id number] gout: care instructions [email or web address] Not available 04/12/2025 13:34:06 medicines to avoid with kidney disease: care instructions Not available 04/12/2025 13:39:46 Reason for Referral None Reported. Results Created Date Observation Date Name Description Value Unit Range Abnormal Flag Note LastModifiedBy Organization Detail LastModifiedTime 04/12/2004/12/2025 micro album in/cr eatin ine, mass ratio , urine Microalbumin 150 mg/L Not Available [address], [address], 04/12/2025 13:17:49 04/12/20 25 04/12/2025 micro album in/cr eatin ine, mass ratio , urine Creatinine 50 mg/dL Not Available [address], [address], 04/12/2025 13:17:49 04/12/20 25 04/12/2025 micro album in/cr eatin ine, mass ratio , urine Ratio >300 mg/g Not Available [address], [address], 04/12/2025 13:17:49 04/12/20 25 04/12/2025 HbA1c (hemo globi n A1c), blood HbA1c 7.3 % Not Available [address], [address], 04/12/2025 13:14:27 Result Notes None recorded. Problems Name Problem SNOMED Code Status Onset Date Resolution Date Notes Provider Name and Address Organization Details Recorded Time Edema of left lower limb 019678207 Active 20[address] Camacho [address] [place] [address], [address], [employer] 5 11:52:09 Hyperglyc emia due to type 2 diabetes mellitus 204079218032 109 Active 2024 LIZBETH Camacho [address] [place] [address], [address] 8, [employer] 5 14:35:50 Triggerin g of digit 863444117 Active 2024 LIZBETH Camacho [address] [place] [address], [address] 8, [employer] 5 14:35:35 Ulcer of skin of lower extremity 923951408 Active 2024 LIZBETH Camacho [address] [place] [address], [address] 8, [employer] 15:55:57 Candidias is of skin 94520553 Completed 202404/12/2025 LIZBETH Camacho [address] [place] [address], [address] 8, [employer] 5 13:40:06 Essential hypertens ion 51073941 Active 2024 LIZBETH Camacho [address] [place] [address], [address] 8, [employer] 5 15:12:27 Gouty arthritis of multiple sites 889482390 Active 2024 LIZBETH Camacho [address] [place] [address], [address] 8, [employer] 5 11:31:33 Edema of lower extremity 106645238 Active 2024 LIZBETH Camacho [address] [place] [address], [address] 8, [employer] 5 14:19:20 Gouty arthritis 98875170 Active 2024 LIZBETH Camacho [address] [place] [address], [address] 8, [employer] 5 13:33:31 Chronic kidney disease stage 3B 240197555 Active 2024 LIZBETH Camacho [address] [place] [address], [address] 8, [employer] 13:39:16 Chronic kidney disease stage 3 323454269 Active 2024 LIZBETH Camacho [address] [place] [address], [address] 8, [employer] 13:39:38 Well controlle d type 2 diabetes mellitus 942715973 Active 2024 LIZBETH Camacho [address] [place] [address], [address] 8, [employer] 11:52:04 Periphera l vascular disease 252699508 Active 2024 LIZBETH Camacho [address] [place] [address], [address] 8, [employer] 11:52:17 Hyperlipi demia 86073301 Active 2024 LIZBETH Camacho [address] [place] [address], [address] 8, [employer] 10:15:01 Problem Notes None recorded. Procedures Surgical History Date Name Laterality Status Provider Name and Address Organization Details Recorded Time 5 Unna boot - LE edema completed [employer] 01/03/2025 13:37:46 5 Unna boot - LE edema completed [employer] 12/27/2024 14:35:21 operation on testis completed [employer] 12/27/2024 13:55:57 Stent completed [employer] 12/27/2024 13:56:05 Imaging Results None recorded. Procedure Notes None recorded. Medical Equipment None Reported. Allergies Allergen ID Allergen Name Allergen Category Reaction Reaction Severity Criticality Documentation Date Start Date Code Code System Note Provider Name and Address Organization Details Recorded Time 60499 diltiazem medicatio n Not available Not available Not available 12/28/2024 3443 RxNorm Colleen Vice null, [employer] 17:28:41 17497 parathyro id hormone medicatio n Not available Not available Not available 12/28/2024 83364 22 RxNorm Colleen Vice null, [employer] 17:29:03 Medications Name Sig Start Date [...] Updated DateTime 5 162.56 cm 29.5 kg/m2 01590.4 5 g 98 % 98 % 72 /min 98 [degF] 136/84 mm[Hg] Colleen Vice [employer] 13:09:29 Social History Question Answer Notes LastModified by Organizat ion Details LastModified Time Tobacco Smoking Status Never Smoker Colleen duran, [employer] 12/27/2024 13:46:04 Do You Have An Advance Directive? No Information not available 12/27/2024 Is Your Home Air Conditioned? Yes Information not available 12/27/2024 Are You Blind Or Do You Have Difficulty Seeing? No Information not available 12/27/2024 What Is Your Level Of Caffeine Consumption? Occasional Information not available 12/27/2024 What Type Of Campaign Marketing Manager Do You Use? None Information not [...] Or The Highest Degree You Have Received? [id number] Information not available 12/27/2024 How Many Days [...] Do You Have A Medical Power Of Licensed Marine Engineer? No Information not available 12/27/2024 What Was [...] anxious, or unable to sleep at night)? [id number] Information not available 12/27/2024 Do you have [...] ent. N Hypothyroidism N Lung Disease N COPD N Dermatologic Disorders N Depression N Defects or Inherited Disease N Developmental [...] Psychiatric/Mental Health Condition N Organ Transplant N Dialysis N Fibromyalgia N Schizophrenia N Headaches N Kidney Disease [...] adsorbed 7 completed Not Available [facility] 04/12/2025 13:04:09 Influenza, split virus, quadrivalent, PF 6 completed Not Available [facility] 04/12/2025 13:04:09 Influenza, split virus, quadrivalent, PF 7 completed Not Available [facility] 04/12/2025 13:04:09 Influenza, split virus, quadrivalent, PF 8 completed Not Available [facility] 04/12/2025 13:04:09 Hep A, adult 8 completed Not Available [facility] 04/12/2025 13:04:09 Influenza, high-dose, quadrivalent, PF 0 completed Not Available [facility] 04/12/2025 13:04:09 COVID-19 vaccine, vector-nr, rS-Ad26, PF, 0.5 mL 1 completed Not Available [facility] 04/12/2025 13:04:09 Influenza, high-dose, quadrivalent, PF 1 completed Not Available [facility] 04/12/2025 13:04:09 COVID-19, mRNA, LNP-S, PF, 100 mcg/0.5mL dose or 50 mcg/0.25mL dose 1 completed Not Available [facility] 04/12/2025 13:04:09 COVID-19, mRNA, LNP-S, PF, 100 mcg/0.5mL dose or 50 mcg/0.25mL dose 2 completed Not Available [facility] 04/12/2025 13:04:09 Influenza, adjuvanted, quadrivalent, PF 2 completed Not Available [facility] 04/12/2025 13:04:09 COVID-19, mRNA, LNP-S, bivalent, PF, 50 mcg/0.5 mL or 25mcg/0.25 mL dose 3 completed Not Available [facility] 04/12/2025 13:04:09 Influenza, adjuvanted, quadrivalent, PF 3 completed Not Available [facility] 04/12/2025 13:04:09 COVID-19, mRNA, LNP-S, PF, 50 mcg/0.5 mL 3 completed Not Available [facility] 04/12/2025 13:04:09 Influenza, high-dose, trivalent, PF 4 completed Not Available [facility] 04/12/2025 13:04:09 COVID-19, mRNA, LNP-S, PF, tatyana-sucrose, 30 mcg/0.3 mL 4 completed Not Available [facility] 04/12/2025 13:04:09 zoster recombinant 5 completed Not Available [facility] 04/12/2025 13:04:09 Pneumococcal conjugate PCV20, polysaccharide [id number] conjugate, adjuvant, PF 5 completed Not Available [facility] 04/12/2025 13:04:09 RSV, bivalent, protein subunit RSVpreF, diluent reconstituted, 0.5 mL, PF 5 completed Not Available [facility] 04/12/2025 13:04:09 Influenza, high-dose, trivalent, PF 5 completed Not Available [facility] 04/12/2025 13:04:09 Past Encounters Encounter ID Performer Location Encounter Start Date Encounter Closed Date Diagnosis/Indication Diagnosis SNOMED-CT Code Diagnosis ICD10 Code Diagnosis IMO Codes Diagnosis Note [id number] LIZBETH Camacho [address] [address] 04/12/2025 13:01:18 04/12/2025 13:33:21 Hyperglycemia due to type 2 diabetes mellitus 1192764266 41469 E11.65 64714800 Gouty arthritis 15344825 M10.9 16093 Chronic ki dney disease stage 3 243998153 E11.22 N18.30 20472589 Health Concerns Section Related Observation LastModified by Organization Detai ls LastModified Time None Recorded Concern Status LastModified by Organization Details LastModified Time None Recorded Payers Encounter Date Sequence Insurance Name Policy Number Policy Hat[place] Covered Member ID Hatfield Member ID Guarantor Name 04/12/2025 1 [place] Jonelle Kamara [id number] Jonelle Kamara 04/12/2025 2 [facility] [place] (MEDICA[place] HMO) Jonelle Kamara [id number] Jonelle Kamara Notes Date Note Type Note Provider Name and Address Organization Details Recorded Time 04/12/2025 text/html ROS as noted in the HPI Patient presents for followup.States he is doing well.Still has a scabbed lesion on left anterior pabon but it is much much better. Swelling down. He has gotten a PFO and is able to walk with just a cane now.Diabetes well controlled. LIZBETH Camacho [address] [place] [address], [id number], [facility] [employer] 04/12/2025 13:42:29
--- OUTSIDE RECORDS SUMMARY | 2025-05-22 11:30 | XMS_ITS | Encounter Summary ---
Author Organization [facility] Address [address] [place] [address] Care Team Providers Care Gear Tooth Lapping Machine Operator Name Role Phone Damaris Quinteros Primary Care Provider [phone] Encounter Details Date Type Department Care Team (Late Contact Info) Description 04/09/2025 Results Follow-Up [facility] [address] [place] [address] Helena Feliz MD [address] [place] [address] Social History Tobacco Use Types Packs/Day Years [...] on file documented as of this encounter Plan of Treatment Upcoming Encounters Date Type Department Care Team (Late Contact Info) Description 12/11/2025 1:00 PM EDT Office Visit [facility] [address] [place] [address] Helena Feliz MD [address] [place] [address] 07/03/2026 1:45 PM EST Office Visit [facility] [address] [place] [address] Vitaliy Perez MD [address] [place] [address] Scheduled Orders Name Type Priority Associated Diagnoses Orde r Schedule Basic Metabolic Panel Lab Routine Acquired hypothyroidism Expected: 07/08/2025 (Approximate), Expires: 04/10/2026 T4, Free Lab Routine Acquired hypothyroidism Expected: 07/08/2025 (Approximate), Expires: 04/09/2026 TSH Lab Routine Acquired hypothyroidism Expected: 07/08/2025 (Approximate), Expires: 04/09/2026 documented as of this encounter Visit Diagnoses Diagnosis Acquired hypothyroidism- Primary Unspecified hypothyroidism documented in this encounter Care Teams Gear Tooth Lapping Machine Operator Relationship Specialty Start Date End Date Damaris Quinteros PA [address] [place] [address] PCP - General Physician Dragger 02/14/25 documented as of this encounter
--- OUTSIDE RECORDS SUMMARY | 2025-05-22 11:30 | XMS_ITS | Clinical Summary ---
Author Organization Healthcare Address [address] [place] [address] Care Team Providers Care Cylinder Worker Name Role Phone Don Pierson MD Primary Care Provider [phone] Allergies Active Allergy Reactions Criticality Noted Date [...] Health Maintenance Due Date Last Done Comments [facility]-Hepatitis C Screening 1955 [facility]ic[facility] Annual Wellness (AWV) 1955 [facility]-/Child/Adol SDOH Screenings 1955 Diabetes: Dental Exam 12/21/1963 [facility]- SDOH Screenings 12/21/1971 [facility]-Adult SDOH Screenings 12/21/1971 [facility]-Pneumococcal Vaccine: 50+ Years (1 of 2 - PCV) 1972 [facility]-DTaP,Tdap,and Td Vaccines (1 - Tdap) 09/27/1996 09/26/1996 CT Colonography 1998 Colonoscopy 1998 [facility]-DNA 1998 FIT 1998 FOBT 1998 Sigmoidoscopy 1998 [facility]-Colorectal Cancer Screening 1998 [facility]-Zoster Vaccines (1 of 2) 12/21/2003 [facility]-RSV Vaccine: 60+ Years or (1 - Risk 60-74 years 1-dose series) 2013 [facility]-Diabetes: Hemoglobin A1C 11/22/2023 05/25/2023 [facility]-Depression Screening 09/25/2024 09/26/2023 [id number] Vaccine ( season) 2025 05/20/2023, 03/11/2023, 02/10/2022, Additional history exists [facility]-Influenza Vaccine (#1) 03/25/202503/29, 03/15/2022, 03/13/2021, Additional [...] topic Insurance MEDICARE [employer] Care Teams Cylinder Worker Relationship Specialty Start Date End Date Don Pierson MD [address] [place] [address] PCP - General 12/05/20
--- OUTSIDE RECORDS SUMMARY | 2025-05-22 11:30 | XMS_ITS ---
Author Organization [facility] Address [address] [place] [address] Care Team Providers Care Tamper Operator Name Role Phone Damaris Quinteros Primary Care Provider [phone] Lite Endocrine Disorders Status:Eligible (Enrolling) Start date:05/24/2023 Current support & services provided:Benefits Investigation Linked medications:Canagliflozin (Active), SITagliptin Phosphate (Active) Linked problems:CKD stage 3 due to type 2 diabetes mellitus (Active) Overview [facility] [place] Medicaid Invokana 30/90 Days, $0 Januvia 30/90 Days, $0 Continued Care and Services Coordination
--- OUTSIDE RECORDS SUMMARY | 2025-05-22 11:30 | XMS_ITS | Encounter Summary ---
Author Organization [facility] Address [address] [place] [address] Care Team Providers Care Sole Tier Name Role Phone Damaris Quinteors Primary Care Provider [phone] Reason for Visit * Reason Comments Med Refill Encounter Details Date Type Department Care Team (Late st Contact Info) Description 05/17/2023 Refill [facility] ENDOCR[facility] [address] [place] [address] Helena Feliz MD [address] [place] [address] Social History Tobacco Use Types Packs/Day [...] Description 12/11/2025 1:00 PM EDT Office Visit [facility] [address] [place] [address] Helena Feliz MD [address] [place] [address] 07/03/2026 1:45 PM EST Office Visit [facility] CARDI[facility] [address] [place] [address] [address] [place] [address] Vitaliy Perez MD [address] [facility] [address] [place] [address] documented as of this encounter Visit Diagnoses Not on filedocumented in this encounter Care Teams Sole Tier Relationship Specialty Start Date End Date Damaris Quinteros PA [address] [place] [address] PCP - General Physician Greenhouse Worker 02/14/25 documented as of this encounter
--- OUTSIDE RECORDS SUMMARY | 2025-05-22 11:30 | XMS_ITS | Encounter Summary ---
Author Organization [facility] Address [address] [place] [id number] Care Team Providers Care Stable Attendant Name Role Phone Damaris Quinteros Primary Care Provider [phone] Encounter Details Date Type Department Care Team (Latest Contact Info) Description 04/05/2025 Travel Social History Tobacco Use Types Packs/Day Years [...] Description 12/11/2025 1:00 PM EDT Office Visit [facility] ENDOCRINOLOGY [address] [place] [address] Helena Feliz MD [address] [place] [address] 07/03/2026 1:45 PM EST Office Visit [facility] CARD[facility] [address] [place] [address] [place] [address] Vitaliy Perez MD [address] [facility] [address] [place] [address] documented as of this encounter Visit Diagnoses Not on filedocumented in this encounter Care Teams Stable Attendant Relationship Specialty Start Date End Date Damaris Quinteros PA [address] [place] [address] PCP - General Physician Clerical Secretary 02/14/25 documented as of this encounter
[2025-05-22 11:33] LABS: Coronavirus 19, PCR Not Detected (NotDetected); Influenza A, PCR Not Detected (NotDetected); Influenza B, PCR Not Detected (NotDetected)
[2025-05-22 11:40] LABS: Acetone, Serum (Rapid) None Detected (None Detect)
[2025-05-22 11:45] LABS: Alanine Aminotransferase 37 U/L (12-78); Albumin Level 3.9 g/dl (3.5-5.0); Albumin/Globulin Ratio 1.0 (1.1-1.8); Alkaline Phosphatase 90 U/L (38-126); Anion Gap 20.5 mEq/L (5-15); Aspartate Amino Transferase 46 U/L (17-59); Bilirubin,Total 2.1 mg/dl (0.2-1.3); Blood Urea Nitrogen 72 mg/dl (9-20); Calcium 11.1 mg/dl (8.4-10.2); Carbon Dioxide 22 mmol/L (22.0-30.0); Chloride 98 mmol/L (98-107); Creatine Kinase 107 U/L (55-170); Creatinine Clearance Estimated 39 mL/min (50-200); Creatinine,Serum 1.80 mg/dl (0.66-1.25); Estimated Glomerular Filt Rate 37 ml/min (>60); GFR (African American) 45 ML/MIN (>60); Globulin 4.1 g/dL (1.3-3.2); Glucose 224 mg/dl (74-100); Magnesium 2.4 mg/dl (1.6-2.3); Phosphorous 4.8 mg/dl (2.5-4.5); Potassium 4.5 mmoL/L (3.5-5.1); Sodium 136 mmol/L (136-145); Total Protein,Serum 8.0 g/dl (6.3-8.2)
[2025-05-22 11:46] LABS: Lipase 469 U/L (23-300)
[2025-05-22 11:50] LABS: C-Reactive Protein 8.3 mg/L (0-4)
[2025-05-22 11:56] LABS: NT Pro Brain Natriuretic Pep. 9420 pg/mL (0-125)
[2025-05-22] MEDS: VANCOMYCIN/WATER FOR INJ (PEG) 1.25 GM/250 ML PIGGYBACK IV (12:02)
[2025-05-22] MEDS: PIPERACILLIN/TAZO 4.5 GM in 0.9 % SODIUM CHLORIDE 100 ML IV (12:05)
[2025-05-22 12:06] LABS: Troponin I 1.50 ng/ml (0.00-0.034)
[2025-05-22] MEDS: ASPIRIN 325MG TABLET 325 MG PO (12:22)
[2025-05-22 12:29] LABS: RBC Morphology Normal; Total Cells Counted 100
[2025-05-22 12:40] LABS: Hemoglobin 20.3 g/dL (14.1-18.0)
[2025-05-22] MEDS: 0.9 % SODIUM CHLORIDE 50 ML VIAL 100 ML IV (12:54)
[2025-05-22] MEDS: SODIUM CHLORIDE 0.9% 10ML SYR (RAD ONLY) 10 ML IV (12:55)
[2025-05-22] MEDS: IOPAMIDOL-370 (76%);100ML BOTTLE 200 ML IV (12:55)
[2025-05-22] MEDS: HYDRALAZINE 20MG/ML VIAL 10 MG IV ×2 (13:30→15:27)
[2025-05-22] MEDS: LACTATED RINGERS 1000ML 1,910 ML 955 ML IV (13:52)
[2025-05-22 14:03] LABS: Microscopic, Urine URINE MICROSCOPIC (MICROSCOPIC)
[2025-05-22 14:11] LABS: Bilirubin,Urine Negative (Negative); Color,Urine YELLOW (Yellow); Glucose,Urine (UA) 3+ (Negative); Ketones,Urine TRACE (Negative); Leukocyte Esterase,Urine Negative (Negative); PH,Urine 5.5 (5.0-8.5); Protein,Urine 2+ (Negative); Specific Gravity, Urine 1.015 (1.005-1.030); Urobilinogen,Urine 0.2 EU/dl (0.2)
[2025-05-22 14:31] LABS: Amphetamine/Metha Screen,Urine Negative ng/ml (<1000); Barbiturates Screen,Urine Negative ng/ml (<200); Benzodiazepines Screen,Urine Negative ng/ml (<200); Methadone Screen,Urine Negative ng/ml (<300); Opiate Screen,Urine Negative ng/ml (<300); Phencyclidine Screen,Urine Negative ng/ml (<25)
[2025-05-22 14:50] LABS: Troponin I 1.47 ng/ml (0.00-0.034)
--- NOTE | 2025-05-22 14:58 | PC.NURSE ---
Dr. Trujillo notified of Troponin of 1.47.
[2025-05-22 15:16] LABS: Bacteria,Urine Trace /lpf; RBC,Urine Occasional #/hpf (0-3); Squamous Epithelial Cell,Urine Occasional #/hpf (0-5); WBC,Urine Occasional #/hpf (0-3)
[2025-05-22 15:23] LABS: Reflex Lactic Add Lactic Reflex
[2025-05-22 15:24] LABS: Hepatitis C Ab Qual. W/ RFX NEGATIVE (Negative)
--- NOTE | 2025-05-22 15:30 | US_ITS ---
FINAL REPORT CLINICAL HISTORY: ABdominal pain, elevated lipase FINDINGS: RIGHT UPPER QUADRANT ULTRASOUND Technique: Ultrasound images of the right upper quadrant were obtained. The pancreas is obscured. Limited images of the liver parenchyma is normal in echogenicity. There are tiny echogenic foci in the lumen of the gallbladder, probably cholesterol stones. No gallbladder wall thickening is identified. Common duct is normal. There is a benign-appearing cyst in the right kidney measuring 2.2 cm. IMPRESSION: Right renal cyst. Cholesterol stones in the gallbladder. Reviewed, Interpreted and Dictated by Vaibhav Raines MD Transcribed by Otilia Shaw Authenticated and [facility]
[2025-05-22] MEDS: HEPARIN SODIUM 5,000 UNIT/ML VIAL 5800 UNIT IV (15:35)
[2025-05-22] MEDS: HEPARIN 25,000 UNITS/D5W 500 ML 26 UNIT IV (15:38)
--- NOTE | 2025-05-22 15:38 | P.CONPHA_ITS ---
[facility] Pharmacy Heparin Dosing Demographic Data Admission date:: 05/22/25 Date: 05/22/25 Time: 15:39 Allergies Allergy/AdvReac Type Severity Reaction Status Date / Time atorvastatin (From Lipitor) Allergy Mild Hallucinati Verified 05/22/25 15:39 ng Height: 1.68 m Weight: 72.575 kg Indication Medication therapy:: Heparin Current Indications:: MULTIPLE CLOTS Current Active Problems (Updated 05/23/25 @ 14:29 by Nani Michael APRN) Acute gastroenteritis (Acute) Nausea vomiting and diarrhea (Acute) Hemoptysis (Acute) Acute pancreatitis (Acute) Non-ST elevation LA (NSTEMI) (Acute) DAYSI (acute kidney injury) (Acute) Superficial femoral artery occlusion (Acute) Occlusion of left popliteal artery (Acute) CVA?: No Bleeding problem?: No Kidney disease?: No LA?: No Desired PTT range:: 50-75 seconds Labs Anticoagulation Lab Results:: 05/22/25 11:05 Hgb 20.3 H Hct 61.0 H* Plt Count 191 Monitoring Dose Monitor 1: Date: 05/22/25 Time: 15:40 PTT Result:: Baseline PTT 28.2 Infusion Rate:: START HEPARIN INFUSION AT 1300 UNITS/HR (26 ML/HR), BOLUS WITH HEPARIN 5800 UNITS. Dose Monitor 2: Date: 05/22/25 Time: 19:42 PTT Result:: PTT >200.0 Infusion Rate:: 22 ml/hr (1100 units/hr) Dose Monitor 3: Date: 05/22/25 Time: 01:12 PTT Result:: PTT 172.5 Infusion Rate:: 18 ML/HR (900 UNITS/HR) Dose Monitor 4: Date: 05/23/25 Time: 04:05 PTT Result:: PTT 134.1 Infusion Rate:: 14 ML/HR (700 UNITS/HR) Comment:: COUGHING UP BLOOD. WAS NOTIFIED BY NURSING. Dose Monitor 5: Date: 05/23/25 Time: 07:06 PTT Result:: 82.8 Infusion Rate:: 13 ML/HR (650 ML/HR) Comment:: HEPARIN DRIP STOPPED AT [address] MIDDLETON Dose Monitor 6: Date: 05/23/25 Time: 10:00 PTT Result:: PTT 43.6 Infusion Rate:: 15 ML/HR (750 UNITS/HR) Comment:: DOSE WAS HELD FOR SEVERAL HOURS THIS AM Dose Monitor 7: Date: 05/23/25 Time: 16:40 PTT Result:: PTT 120.2 Infusion Rate:: HEPARIN-- MD HOLDING DUE TO HEMOPTYSIS. Comment:: DISCUSSED WITH DR. LEAHY ON 05/24/25 AM. STOPPING HEPARIN AT THIS TIME PER MD. Core Measures Is INR > or = 2 at discharge?: No Most Recent Labs:: Laboratory Results - last 24 hr 05/22/25 11:05: WBC 24.3 H*, RBC 6.79 H, Hgb 20.3 H, Hct 61.0 H*, MCV 89.8, MCH 29.9, MCHC 33.3, RDW 16.1, Plt Count 191, MPV 11.7 H, Neut % (Auto) 60.2, Lymph % (Auto) 33.6, [place] % (Auto) 5.0, Eos % (Auto) 0.0 L, Baso % (Auto) 0.5, Neut # (Auto) 14.6 H, Lymph # (Auto) 8.2 H, [place] # (Auto) 1.2 H, Eos # (Auto) 0.0, Baso # (Auto) 0.1, Total Counted 100, Neutrophils % (Manual) 62, Lymphocytes % (Manual) 29, Monocytes % (Manual) 9, Platelet Estimate Normal, RBC Morphology Normal, VBG pH 7.31, VBG pCO2 41.8, VBG pO2 44.8 H, VBG HCO3 20.3 L, VBG Total CO2 21.6 L, VBG O2 Saturation 79.3 H, VBG Base Excess -6.0 L, VBG Lactic Acid 2.3 H, Sodium 136, Potassium 4.5, Chloride 98, Carbon Dioxide 22, Anion Gap 20.5 H, BUN 72 H, Creatinine 1.80 H, Estimated Creat Clear 39, Estimated GFR 37 L, Est GFR ( Amer) 45 L, Glucose 224 H, Calcium 11.1 H, Phosphorus 4.8 H, Magnesium 2.4 H, Total Bilirubin 2.1 H, AST 46, ALT 37, Alkaline Phosphatase 90, Total Creatine Kinase 107, Troponin I 1.50 H, C-Reactive Protein 8.3 H, NT-Pro-B Natriuret Pep 9420 H, Total Protein 8.0, Albumin 3.9, Globulin 4.1 H, Albumin/Globulin Ratio 1.0 L, Lipase 469 H, Acetone Level None detected, HCV Ab JAIRO w/Rflx PCR Qn Negative, HIV Ag/Ab Combo Qual Negative 05/22/25 11:17: SARS-CoV-2 (PCR) Not detected, Influenza A Untype (PCR) Not detected, Influenza Type B (PCR) Not detected 05/22/25 13:54: Urine Color Yellow, Urine Appearance Clear, Urine pH 5.5, Ur Specific [place] 1.015, Urine Protein 2+ A, Urine Glucose (UA) 3+, Urine Ketones Trace, Urine Blood Trace-i, Urine Nitrate Negative, Urine Bilirubin Negative, Urine Urobilinogen 0.2, Ur Leukocyte Esterase Negative, Urine RBC Occasional, Urine WBC Occasional, Ur Squamous Epith Cells Occasional, Urine Bacteria Trace, Urine Opiates Screen Negative, Urine Methadone Screen Negative, Ur Barbituates Screen Negative, Ur Phencyclidine Scrn Negative, Ur Amphetamines Screen Negative, U Benzodiazepines Scrn Negative, Urine Cocaine Screen Negative, U Marijuana (THC) Screen Negative 05/22/25 14:00: Troponin I 1.47 H If INR was < than 2.0 why was therapy stopped?: HEPARIN STOPPED. Were Heparin and Warfarin started on the same day?: No
--- NOTE | 2025-05-22 15:54 | PC.NURSE ---
report given to roslyn ibanez
--- NOTE | 2025-05-22 15:55 | PC.NURSE ---
ultrasound at bedside
[2025-05-22 16:02] LABS: PTT Heparin (inpatient only) 28.8 Seconds (50-75)
[2025-05-22 16:07] LABS: Lactic Acid Follow Up (RFLX 1) 1.8 mmol/L (0.7-2.1)
--- NOTE | 2025-05-22 16:39 | PC.NURSE ---
patient arrived to icu via stretcher with ER staff @[id number]
--- NOTE | 2025-05-22 16:55 | EXP.HP ---
History of Present Illness *Admission Date: 05/22/25 *Reason for visit:: Nausea/vomiting *History of present illness: Jonelle Kamara is a 69-year-old male with a medical history significant for CAD, type 2 diabetes, hypertension who presents to the ED with intractable nausea/vomiting for the past 3 days. Patient states he cannot think of any triggers that could have started it, denies focal abdominal pain, fever/chills, chest pain, shortness of breath, urinary symptoms and endorses regular bowel movements. He states he has not changed his diet, medications, or otherwise been sick or had sick contacts. Workup in the ED significant for WBC 24.3, hemoglobin 20.3, AGAP 21.3, creatinine 1.8,, troponin 1.5, unremarkable UA, UDS, and negative for COVID-19, influenza. CTA abdomen did note abrupt occlusion of the distal left SFA and popliteal artery, possibly from embolic event and significant renal artery stenosis. Right upper quadrant ultrasound also unremarkable. Patient was given 3 L LR, vancomycin and Zosyn, aspirin. Dr. Davis was contacted for SFA occlusion who recommended heparin bolus and peripheral intervention in the morning. Given these findings, ED provider discussed case with me and I decided to admit patient for DAYSI on CKD, dehydration, and meeting SIRS criteria. [facility] Disclaimer: The information contained in this section may have been updated after the patient was seen, as this information can be updated by other users. Medical History (Updated 05/22/25 @ 17:12 by Karen Bertrand RN) Myocardial infarct Skin lesion of left leg Psychosis Diabetes Traumatic injury of foot Multiple thyroid nodules Impacted cerumen of right ear Hypothyroidism Repeated falls Pulmonary HTN HLD (hyperlipidemia) HTN (hypertension) Surgical History Stented coronary artery Social History Smoking Status: Never smoker alcohol intake: never counseling provided: none substance use type: denies use current occupational status: unemployed Travel in the last 8 weeks?: None household members: none housing: apartment current occupation: retired caffeine: No Have you lived/traveled outside [place] in past 30 days?: No Contact w/someone who lives/traveled outside US past 30 days?: No Exposure to someone with infectious disease in past 14 days?: No Do you have a fever (greater than 100.4 F or 38 C)?: No Have you tested positive for COVID-19?: No Exposed to someone with COVID-19 in past 14 days?: No Do you have a sore throat?: No Do you have a cough?: No Do you have any weakness?: No Do you have any diarrhea?: No Are you experiencing any unusual bleeding?: No Do you have any muscle aches/pain?: No Do you have any abdominal pain?: No Are you experiencing loss of taste or smell?: No Other Medical History Have you received the Flu Vaccine for this season: Yes Have you received the Pneumonia Vaccine: No Meds Home Medications and Allergies Home Medications ?Medication ?Instructions ?Recorded ?Confirmed ?Type blood-glucose meter (Blood Glucose #1 ea 05/21/22 02/11/25 Rx Monitoring kit) lancets 28 gauge (FreeStyle #100 ea 02/21/24 02/11/25 Rx Lancets) blood sugar diagnostic (FreeStyle 03/10/24 02/11/25 History Lite Strips) canagliflozin 300 mg tablet 300 mg PO DAILY 03/10/24 02/11/25 History (Invokana) clonidine HCl 0.2 mg tablet 0.2 mg PO DAILY 03/10/24 02/11/25 History glipizide 2.5 mg tablet, extended 2.5 mg PO DAILY 03/10/24 02/11/25 History release 24 hr metoprolol succinate 100 mg 100 mg PO DAILY #90 tabs 03/19/24 02/11/25 Rx tablet,extended release 24 hr allopurinol 300 mg tablet 300 mg PO DAILY #60 tabs 09/17/24 02/11/25 Rx aspirin 81 mg tablet,delayed 81 mg PO DAILY #90 tabs 11/02/24 02/11/25 Rx release hydrochlorothiazide 25 mg tablet 25 mg PO 01/31/25 02/11/25 History levothyroxine 88 mcg tablet 88 mcg PO 01/31/25 02/11/25 History pentoxifylline 400 mg mg PO 01/31/25 02/11/25 History tablet,extended release finerenone 20 mg tablet (Kerendia) 20 mg PO DAILY 05/22/25 05/22/25 History simvastatin 20 mg tablet 20 mg PO HS 05/22/25 05/22/25 History sitagliptin phosphate 50 mg tablet 50 mg PO DAILY 05/22/25 05/22/25 History (Darrius) New Prescriptions to Start Prescriptions: Allergies Allergy/AdvReac Type Severity Reaction Status Date / Time atorvastatin (From Lipitor) Allergy Mild Hallucinati Verified 05/22/25 15:39 ng Exam Data for Last 24 hours Vital signs and Labs for Last 24 Hours: Temp Pulse Resp BP Pulse Ox O2 Del Method 97.9 F 96 H 16 103/58 L 98 Room Air 05/22/25 16:46 05/22/25 16:46 05/22/25 16:46 05/22/25 16:46 05/22/25 15:00 05/22/25 16:46 Laboratory Results - last 24 hr 05/22/25 11:05: WBC 24.3 H*, RBC 6.79 H, Hgb 20.3 H, Hct 61.0 H*, MCV 89.8, MCH 29.9, MCHC 33.3, RDW 16.1, Plt Count 191, MPV 11.7 H, Neut % (Auto) 60.2, Lymph % (Auto) 33.6, [place] % (Auto) 5.0, Eos % (Auto) 0.0 L, Baso % (Auto) 0.5, Neut # (Auto) 14.6 H, Lymph # (Auto) 8.2 H, [place] # (Auto) 1.2 H, Eos # (Auto) 0.0, Baso # (Auto) 0.1, Total Counted 100, Neutrophils % (Manual) 62, Lymphocytes % (Manual) 29, Monocytes % (Manual) 9, Platelet Estimate Normal, RBC Morphology Normal, APTT 28.8 L, VBG pH 7.31, VBG pCO2 41.8, VBG pO2 44.8 H, VBG HCO3 20.3 L, VBG Total CO2 21.6 L, VBG O2 Saturation 79.3 H, VBG Base Excess -6.0 L, VBG Lactic Acid 2.3 H, Sodium 136, Potassium 4.5, Chloride 98, Carbon Dioxide 22, Anion Gap 20.5 H, BUN 72 H, Creatinine 1.80 H, Estimated Creat Clear 39, Estimated GFR 37 L, Est GFR ( Amer) 45 L, Glucose 224 H, Calcium 11.1 H, Phosphorus 4.8 H, Magnesium 2.4 H, Total Bilirubin 2.1 H, AST 46, ALT 37, Alkaline Phosphatase 90, Total Creatine Kinase 107, Troponin I 1.50 H, C-Reactive Protein 8.3 H, NT-Pro-B Natriuret Pep 9420 H, Total Protein 8.0, Albumin 3.9, Globulin 4.1 H, Albumin/Globulin Ratio 1.0 L, Lipase 469 H, Acetone Level None detected, HCV Ab JAIRO w/Rflx PCR Qn Negative, HIV Ag/Ab Combo Qual Negative 05/22/25 11:17: SARS-CoV-2 (PCR) Not detected, Influenza A Untype (PCR) Not detected, Influenza Type B (PCR) Not detected 05/22/25 13:54: Urine Color Yellow, Urine Appearance Clear, Urine pH 5.5, Ur Specific [place] 1.015, Urine Protein 2+ A, Urine Glucose (UA) 3+, Urine Ketones Trace, Urine Blood Trace-i, Urine Nitrate Negative, Urine Bilirubin Negative, Urine Urobilinogen 0.2, Ur Leukocyte Esterase Negative, Urine RBC Occasional, Urine WBC Occasional, Ur Squamous Epith Cells Occasional, Urine Bacteria Trace, Urine Opiates Screen Negative, Urine Methadone Screen Negative, Ur Barbituates Screen Negative, Ur Phencyclidine Scrn Negative, Ur Amphetamines Screen Negative, U Benzodiazepines Scrn Negative, Urine Cocaine Screen Negative, U Marijuana (THC) Screen Negative 05/22/25 14:00: Troponin I 1.47 H 05/22/25 15:40: Lactate 1.8 I & O for Last 24 hours: Intake & Output 05/19/25 05/20/25 05/21/25 05/22/25 23:59 23:59 23:59 23:59 Intake Total 3260 / 3260 Balance 3260 / 3260 Weight 72.575 kg Constitutional Constitutional: no acute distress and chronically ill appearing *Routine HEENT Exam Head: Present normocephalic Eye: Present EOMI and PERRL ENT: Present mucous membranes moist *Routine Neck Exam Neck: Present supple; Absent lymphadenopathy *Routine Respiratory Exam Respiratory: Present CTA bilaterally *Routine Cardiovascular Exam Cardiovascular: Present RRR *Routine Abdominal Exam Abdominal: Present soft, normoactive bowel sounds and tenderness Comments: Generalized mild abdominal tenderness. *Routine Rectal Exam Rectal:: deferred *Routine Genitalia Exam Genitalia:: deferred *Routine Extremities Exam Extremities: Absent cyanosis, clubbing or edema Comments: Venous stasis ulcers left lower extremity. *Routine Skin Exam Skin: Present warm; Absent rash *Routine Neurological Exam Neurological: Present alert and oriented X3 Assessment and Plan *Assessment and plan (1) Non-ST elevation PR (NSTEMI): Status: Acute Category: Medical Code(s): I21.4 - Non-ST elevation (NSTEMI) myocardial infarction (2) DAYSI (acute kidney injury): Status: Acute Category: Medical Code(s): N17.9 - Acute kidney failure, unspecified (3) Superficial femoral artery occlusion: Status: Acute Category: Medical Code(s): I70.209 - Unspecified atherosclerosis of [place] arteries of extremities, unspecified extremity Plan Jonelle Kamara is a 69-year-old male with a medical history significant for CAD, type 2 diabetes, hypertension who presents to the ED with intractable nausea/vomiting for the past 3 days. Patient states he cannot think of any triggers that could have started it, denies focal abdominal pain, fever/chills, chest pain, shortness of breath, urinary symptoms and endorses regular bowel movements. He states he has not changed his diet, medications, or otherwise been sick or had sick contacts. Workup in the ED significant for WBC 24.3, hemoglobin 20.3, AGAP 21.3, creatinine 1.8, troponin 1.5, unremarkable UA, UDS, and negative for COVID-19, influenza. CTA abdomen did note abrupt occlusion of the distal left SFA and popliteal artery, possibly from embolic event and significant renal artery stenosis. Right upper quadrant ultrasound also unremarkable. Patient was given 3 L LR, vancomycin and Zosyn, aspirin. Dr. Davis was contacted for SFA occlusion who recommended heparin bolus and peripheral intervention in the morning. Given these findings, ED provider discussed case with me and I decided to admit patient for DAYSI on CKD, dehydration, and meeting SIRS criteria. #Intractable nausea/vomiting #Severe dehydration #DAYSI on CKD #SIRS #Leukocytosis #High anion metabolic acidosis #Elevated lipase ? Presented with intractable nausea/vomiting for the past 3 days of undefined etiology at this time. Could be gastroenteritis. ? Imaging and workup largely unremarkable for relevant findings. Does have hemoconcentration with WBC 24.3, hemoglobin, 20.8, AGAP 21.3. ? Initial creatinine 1.8, improved to 1.6 after IV fluid resuscitation. GFR 43. ? Lipase is elevated to 400s, not 3 times upper limit. No focal epigastric pain. If there was pancreatitis, it seems to be improving at this time. RUQ ultrasound unremarkable for acute findings. ? Follow-up full respiratory panel, blood cultures, A1c, TSH. ? Continue Zosyn 3.375 g every 8 hours pending cultures. ? Continue LR at 100 mL/h. ? If no improvement, plan for GI consultation. Given acuity, low concern for gastroparesis at this time. #PAD #SFA, popliteal artery stenosis #History of CAD #NSTEMI ? PAD noted on CTA abdomen. Possible embolic source. ? Initial troponin 1.5, improved to 1.3. EKG without acute ischemic changes. ? Heparin bolus given in the ED. ? Follow-up ECHO. ? Cardiology consulted, pending further recommendations. #Type 2 diabetes ? Follow-up hemoglobin A1c. ? LDSSI, ACHS glucose checks. #Hypertension ? Hold home medications pending improvement of blood pressures. Full code DVT prophylaxis: Lovenox 40 mg
[2025-05-22 17:36] LABS: Hematocrit 59.9 % (42.0-52.0); Immature Granulocytes % 1.1 %; Mean Corpuscular HGB Conc 33.2 g/dL (31.8-35.4); Mean Corpuscular Hemoglobin 29.8 pg (27.0-31.2); Mean Corpuscular Volume 89.8 fl (80-94); Nucleated Red Blood Cells % 0 %; Platelet Count 169 K/mm3 (142-424); Red Blood Count 6.67 M/mm3 (4.60-6.20); Red Cell Distribution Width-SD 47.8 fL; White Blood Count 21.1 K/mm3 (4.8-10.8)
[2025-05-22 17:47] LABS: Alanine Aminotransferase 29 U/L (12-78); Albumin Level 3.4 g/dl (3.5-5.0); Albumin/Globulin Ratio 0.9 (1.1-1.8); Alkaline Phosphatase 103 U/L (38-126); Anion Gap 21.3 mEq/L (5-15); Aspartate Amino Transferase 52 U/L (17-59); Bilirubin,Total 1.9 mg/dl (0.2-1.3); Blood Urea Nitrogen 63 mg/dl (9-20); Calcium 10.2 mg/dl (8.4-10.2); Carbon Dioxide 17 mmol/L (22.0-30.0); Chloride 97 mmol/L (98-107); Creatinine Clearance Estimated 43 mL/min (50-200); Creatinine,Serum 1.60 mg/dl (0.66-1.25); Estimated Glomerular Filt Rate 43 ml/min (>60); GFR (African American) 52 ML/MIN (>60); Globulin 3.7 g/dL (1.3-3.2); Glucose 159 mg/dl (74-100); Potassium 4.3 mmoL/L (3.5-5.1); Sodium 131 mmol/L (136-145); Total Protein,Serum 7.1 g/dl (6.3-8.2)
[2025-05-22 17:56] LABS: Hemoglobin 19.7 g/dL (14.1-18.0)
[2025-05-22 18:02] LABS: Troponin I 1.30 ng/ml (0.00-0.034)
[2025-05-22 18:22] LABS: POC Glucose,Bedside 150 gm/dL (70-110)
--- NOTE | 2025-05-22 18:33 | PC.NURSE ---
MED REC COMPLETES OTHER THAN LEVOTHYROXINE DOSE DUE TO SCRIPS BEING UNCLEAR ON DOSE
[2025-05-22 19:09] LABS: Adenovirus,PCR Not Detected (NotDetected); Chlamydophila Pneumoniae, PCR Not Detected (NotDetected); Coronavirus 19, PCR Not Detected (NotDetected); Coronovirus HKU1,PCR Not Detected (NotDetected); Influenza A, PCR Not Detected (NotDetected); Influenza AH1, 2009 Not Detected (NotDetected); Influenza AH1, PCR Not Detected (NotDetected); Influenza AH3,PCR Not Detected (NotDetected); Influenza B, PCR Not Detected (NotDetected); Mycoplasma Pneumoniae, PCR Not Detected (NotDetected); Parainfluenza 1, PCR Not Detected (NotDetected); Parainfluenza 2, PCR Not Detected (NotDetected); Parainfluenza 3, PCR Not Detected (NotDetected); Parainfluenza 4, PCR Not Detected (NotDetected)
--- NOTE | 2025-05-22 19:34 | PC.WOUNDNOTE ---
LOWER LEFT RODRIGUEZ
[2025-05-22] MEDS: PIPERCILLIN/TAZO 3.375 GM in 0.9 % SODIUM CHLORIDE 50 ML IV (20:17)
[2025-05-22] MEDS: humaLOG 100 UNITS/ML 10ML VIAL (SSI) SUBCUT (20:18)
[2025-05-22] MEDS: 0.9 % SODIUM CHLORIDE 1000ML 1,000 ML 100 ML IV (20:18)
[2025-05-22 20:20] LABS: POC Glucose,Bedside 211 gm/dL (70-110)
[2025-05-22 20:36] LABS: PTT Heparin (inpatient only) > 200.0 Seconds (50-75)
--- NOTE | 2025-05-22 21:00 | PC.NURSE ---
Addendum entered by Rina Adler, RNA 05/22/25 21:22: Used the doppler for pulse, Bianka RN and Veronika RN, both tried several times for several minutes to use the doppler and no success on Left lower left extremity. Right lower extremity is palpable. Original Note: Called physician because bilateral lower extremities are: delayed capillary refill, no palpable pulse, ecchymosis bilaterally. Physician is coming to assess patient
--- NOTE | 2025-05-22 21:17 | PC.NURSE ---
[facility] pharmacy called for a critical PTT on patient. Sherrie ([facility]) stated that the PTT was greater than 200, and that she had made the orders in the system for titration of heparin to 1100units or 22ml/hr. She also stated that the order was put in for a repeat PTT in 4 hours. Provider was notified. Titrated the drip at 2111 to 22ml/hr.
--- NOTE | 2025-05-22 21:26 | PC.NURSE ---
Provier came to follow up about a lack of doppler pulse. After several minutes the provider was able to find it. The site was marked with a sharpie. The pulse is very faint on the doppler.
[2025-05-22] MEDS: HEPARIN 25,000 UNITS/D5W 500 ML 22 UNIT IV (21:31)
[2025-05-22] MEDS: AMLODIPINE 5MG TABLET 5 MG PO (22:23)
[2025-05-23] VITALS (22 sets, daily range): BP systolic 133–182; BP diastolic 82–109; PULSE 67–117; RESP 11–27; TEMP 37.1–37.2; O2SAT 92–97
[2025-05-23 01:49] LABS: PTT Heparin (inpatient only) 172.5 Seconds (50-75)
[2025-05-23] MEDS: PIPERCILLIN/TAZO 3.375 GM in 0.9 % SODIUM CHLORIDE 50 ML IV ×3 (02:25→18:46)
[2025-05-23] MEDS: HEPARIN 25,000 UNITS/D5W 500 ML 18 UNIT IV (02:27)
--- NOTE | 2025-05-23 04:03 | PC.NURSE ---
0200 - Went into room to check Doppler pulses on left lower extremity. Doppler site is marked with a Sharpie, and is very light to sound. While in the room, pt stated that he was thirsty, but that as soon as he drinks water he coughs up brown stuff. Then proceeded to hand me a cup that had blood and water mixed together. I asked for another nurse to come into the room, Veronika RN and Bianka RN. I tried calling the provider for this new acute episode, provider came to assess pt. Provider stated that we are going to continue to monitor, that it could have been something that was loosened up by blood being thinner than usual. Patient has an emesis bag to monitor the amount of hematemesis. 0210 - [facility] pharmacy (DOMINIC) called stated that the PTT is 172.5 and he had put in orders for titration of heparin to be 900 units \ 18 ml/hr. Dominic also stated that he had put in for a repeat PTT to be completed at 0300. Pt is resting comfortably, call light in reach, bed to lowest position with bed alarm on.
[2025-05-23 04:21] LABS: Hematocrit 53.1 % (42.0-52.0); Immature Granulocytes % 0.9 %; Mean Corpuscular HGB Conc 32.8 g/dL (31.8-35.4); Mean Corpuscular Hemoglobin 29.7 pg (27.0-31.2); Mean Corpuscular Volume 90.6 fl (80-94); Nucleated Red Blood Cells % 0 %; Platelet Count 163 K/mm3 (142-424); Red Blood Count 5.86 M/mm3 (4.60-6.20); Red Cell Distribution Width-SD 48.7 fL; White Blood Count 19.9 K/mm3 (4.8-10.8)
[2025-05-23 04:24] LABS: Albumin Level 2.9 g/dl (3.5-5.0); Chloride 98 mmol/L (98-107); Potassium 4.9 mmoL/L (3.5-5.1); Sodium 130 mmol/L (136-145)
[2025-05-23 04:27] LABS: Alanine Aminotransferase 25 U/L (12-78); Albumin/Globulin Ratio 0.8 (1.1-1.8); Alkaline Phosphatase 47 U/L (38-126); Anion Gap 17.9 mEq/L (5-15); Aspartate Amino Transferase 54 U/L (17-59); Bilirubin,Total 2.0 mg/dl (0.2-1.3); Blood Urea Nitrogen 70 mg/dl (9-20); Carbon Dioxide 19 mmol/L (22.0-30.0); Creatinine Clearance Estimated 46 mL/min (50-200); Creatinine,Serum 1.50 mg/dl (0.66-1.25); Estimated Glomerular Filt Rate 46 ml/min (>60); GFR (African American) 56 ML/MIN (>60); Globulin 3.5 g/dL (1.3-3.2); Total Protein,Serum 6.4 g/dl (6.3-8.2)
[2025-05-23 04:28] LABS: Calcium 9.2 mg/dl (8.4-10.2); Glucose 194 mg/dl (74-100); Magnesium 2.1 mg/dl (1.6-2.3)
[2025-05-23 04:29] LABS: Hemoglobin 17.5 g/dL (14.1-18.0)
[2025-05-23 04:45] LABS: Hemoglobin A1C 7.0 % (4.0-6.0)
[2025-05-23 04:55] LABS: PTT Heparin (inpatient only) 134.1 Seconds (50-75)
[2025-05-23] MEDS: 0.9 % SODIUM CHLORIDE 1000ML 1,000 ML 100 ML IV ×2 (05:04→21:08)
[2025-05-23] MEDS: HEPARIN 25,000 UNITS/D5W 500 ML 14 UNIT IV (05:07)
[2025-05-23 05:23] LABS: Total Cells Counted 100
[2025-05-23 05:33] LABS: POC Glucose,Bedside 200 gm/dL (70-110)
[2025-05-23] MEDS: humaLOG 100 UNITS/ML 10ML VIAL (SSI) SUBCUT (06:26)
--- NOTE | 2025-05-23 06:47 | PC.NURSE ---
Addendum entered by Bianka Mora RN 05/23/25 07:06: CBC, PT/INR, PTT, and chest CT w/o ordered per Dr Marlow. PE protocol cancelled. Heparin gtt now on hold per [place]. Addendum entered by Bianka Mora RN 05/23/25 06:54: heparin re-started per Dr Marlow Original Note: @0615 pt noted to have moderate amount hemoptysis. Shruthi MCKEON notified and to bedside. Order received to stop heparin gtt at this time and call Dr Davis. Cyndi PERAZA paged and spoke with Dr Davis who gave verbal orders to DC Heparin as well, and to call Dr Marlow. Cyndi PERAZA called and spoke with Dr Marlow who gave verbal orders to leave Heparin gtt running, order PE protocol CTA and states he will round after morning labs result.
--- NOTE | 2025-05-23 06:58 | CT_ITS ---
FINAL REPORT TECHNIQUE: Axial images were obtained through the chest without contrast. Reconstructed images were obtained and reviewed. This study was performed with techniques to keep radiation doses as low as reasonably achievable, (ALARA). Individualized dose reduction techniques using automated exposure control or adjustment of mA and/or kV according to the patient's size were employed. CLINICAL HISTORY: hemoptysis COMPARISON: 05/22/2025 FINDINGS: There is dense coronary artery calcification. Calcified hilar and subcarinal lymph nodes are identified. There is elevation of the left hemidiaphragm. There is linear density at the left base consistent with scar or atelectasis, similar to prior. There is no pleural or pericardial effusion. Small scattered noncalcified nodules are seen, unchanged from prior. Limited images of the upper abdomen reveal a left renal cyst measuring 5 cm. There are calcified granulomas in the spleen. There is a small sliding-type hiatal hernia. IMPRESSION: No change from chest CT performed yesterday. Reviewed, Interpreted and Dictated by Vaibhav Raines MD Transcribed by Otilia Shaw Authenticated and . [facility]
[2025-05-23 07:18] LABS: Hematocrit 54.4 % (42.0-52.0); Immature Granulocytes % 0.8 %; Mean Corpuscular HGB Conc 33.3 g/dL (31.8-35.4); Mean Corpuscular Hemoglobin 30.0 pg (27.0-31.2); Mean Corpuscular Volume 90.1 fl (80-94); Nucleated Red Blood Cells % 0 %; Platelet Count 148 K/mm3 (142-424); Red Blood Count 6.04 M/mm3 (4.60-6.20); Red Cell Distribution Width-SD 48.0 fL; White Blood Count 18.2 K/mm3 (4.8-10.8)
--- NOTE | 2025-05-23 07:18 | PC.NURSE ---
Carroll Fraga RN went down with patient to CT scan
--- NOTE | 2025-05-23 07:28 | PC.NURSE ---
Arrived back to the unit from CT scan
[2025-05-23 07:30] LABS: Hemoglobin 18.0 g/dL (14.1-18.0)
[2025-05-23 07:42] LABS: INR 1.13 (0.9-1.1); Prothrombin Time 12.4 seconds (10.1-12.5)
[2025-05-23 07:52] LABS: PTT Heparin (inpatient only) 82.8 Seconds (50-75)
--- NOTE | 2025-05-23 08:02 | PC.NURSE ---
Mariano with pharmacy called to lower the heparin drip to 13 ml/hr. Dr. Marlow wanted the heparin drip on hold at this time. Advised Mariano that if the drip starts back that I will lower it.
[2025-05-23 08:33] LABS: Procalcitonin 0.301 ng/mL (0.0-2.0)
--- NOTE | 2025-05-23 08:44 | PC.NURSE ---
Dr. Anderson wants a bedside swallow eval done on patient by the nurse
[2025-05-23] MEDS: PANTOPRAZOLE SODIUM 80 MG in 0.9 % SODIUM CHLORIDE 100 ML 100 MG IV (08:46)
--- NOTE | 2025-05-23 09:08 | PC.NURSE ---
Bedside swallow done on patient. When patient took a sip from the cup patient stated it was hard to swallow and that it hurt his neck. Patient stated I have had trouble for a long time Shawn Anderson aware. He wants a strep test done on patient and also give a gi cocktail.
--- NOTE | 2025-05-23 09:13 | PC.NURSE ---
Dr. Jauregui called. He wants to start the heparin drip back. It will be started at 13 ml/hr
--- NOTE | 2025-05-23 09:17 | EXP.PULM.CON ---
History of Present Illness History of present illness: Mr. Kamara is a 69-year-old male never smoker no prior respiratory complaints presented to the ER with intractable nausea vomiting found to be having arterial thrombosis and renal artery stenosis initiate heparin drip for DuoNebs with hemoptysis this morning and pulmonary was called for further evaluation and management [facility] Disclaimer: The information contained in this section may have been updated after the patient was seen, as this information can be updated by other users. Medical History (Updated 05/23/25 @ 10:55 by Pranav Marlow MD) Hemoptysis Myocardial infarct Skin lesion of left leg Psychosis Diabetes Traumatic injury of foot Multiple thyroid nodules Impacted cerumen of right ear Hypothyroidism Repeated falls Pulmonary HTN HLD (hyperlipidemia) HTN (hypertension) Surgical History Stented coronary artery Social History Smoking Status: Never smoker alcohol intake: never counseling provided: none substance use type: denies use current occupational status: unemployed Travel in the last 8 weeks?: None household members: none housing: apartment current occupation: retired caffeine: No Have you lived/traveled outside US in past 30 days?: No Contact w/someone who lives/traveled outside US past 30 days?: No Exposure to someone with infectious disease in past 14 days?: No Do you have a fever (greater than 100.4 F or 38 C)?: No Have you tested positive for COVID-19?: No Exposed to someone with COVID-19 in past 14 days?: No Do you have a sore throat?: No Do you have a cough?: No Do you have any weakness?: No Do you have any diarrhea?: No Are you experiencing any unusual bleeding?: No Do you have any muscle aches/pain?: No Do you have any abdominal pain?: No Are you experiencing loss of taste or smell?: No Review of Systems Constitutional Constitutional: Reports anorexia and Reports fatigue Eyes Eyes: Denies eye discharge, Denies dry eyes, Denies irritation and Denies itchy eyes ENT Ears, Nose, Mouth, and Throat: Denies epistaxis, Denies facial pain, Denies lip swelling and Denies throat swelling *Cardiovascular Cardiovascular: Denies dyspnea and Reports dyspnea on exertion *Respiratory Respiratory: Denies change in phlegm color, Reports chest congestion, Reports cough, Denies dyspnea, Reports dyspnea on exertion, Denies excessive phlegm production, Reports hemoptysis, Denies pain on inspiration, Denies pain with cough and Reports wheezing *Gastrointestinal Gastrointestinal: Denies abdominal pain, Reports belching, Reports bloating, Denies cramping, Reports nausea and Reports vomiting *Musculoskeletal Musculoskeletal: Reports back pain, Reports myalgias and Reports other (No small joint swelling or Pain) Psychiatric Psychiatric: Denies homicidal ideation and Denies suicidal ideation Endocrine Endocrine: Reports fatigue and Denies heat intolerance Hematologic/Lymphatic Hematologic/Lymphatic: Denies easy bleeding and Denies lymphadenopathy Allergic/Immunologic Allergic/Immunologic: Denies itchy eyes, Denies lip swelling, Denies throat swelling and Reports wheezing Pulmonology Exam Inpatient Vital signs and Labs for Last 24 Hours: Temp Pulse Resp BP Pulse Ox O2 Del Method O2 Flow Rate 98.9 F 114 H 11 L 181/98 H 97 Room Air 96 05/23/25 08:00 05/23/25 08:12 05/23/25 08:00 05/23/25 08:00 05/23/25 08:00 05/23/25 08:00 05/23/25 06:51 Laboratory Results - last 24 hr 05/22/25 11:05: WBC 24.3 H*, RBC 6.79 H, Hgb 20.3 H, Hct 61.0 H*, MCV 89.8, MCH 29.9, MCHC 33.3, RDW 16.1, Plt Count 191, MPV 11.7 H, Neut % (Auto) 60.2, Lymph % (Auto) 33.6, Mcnairy % (Auto) 5.0, Eos % (Auto) 0.0 L, Baso % (Auto) 0.5, Neut # (Auto) 14.6 H, Lymph # (Auto) 8.2 H, Mcnairy # (Auto) 1.2 H, Eos # (Auto) 0.0, Baso # (Auto) 0.1, Total Counted 100, Neutrophils % (Manual) 62, Lymphocytes % (Manual) 29, Monocytes % (Manual) 9, Platelet Estimate Normal, RBC Morphology Normal, APTT 28.8 L, VBG pH 7.31, VBG pCO2 41.8, VBG pO2 44.8 H, VBG HCO3 20.3 L, VBG Total CO2 21.6 L, VBG O2 Saturation 79.3 H, VBG Base Excess -6.0 L, VBG Lactic Acid 2.3 H, Sodium 136, Potassium 4.5, Chloride 98, Carbon Dioxide 22, Anion Gap 20.5 H, BUN 72 H, Creatinine 1.80 H, Estimated Creat Clear 39, Estimated GFR 37 L, Est GFR ( Amer) 45 L, Glucose 224 H, Calcium 11.1 H, Phosphorus 4.8 H, Magnesium 2.4 H, Total Bilirubin 2.1 H, AST 46, ALT 37, Alkaline Phosphatase 90, Total Creatine Kinase 107, Troponin I 1.50 H, C-Reactive Protein 8.3 H, NT-Pro-B Natriuret Pep 9420 H, Total Protein 8.0, Albumin 3.9, Globulin 4.1 H, Albumin/Globulin Ratio 1.0 L, Lipase 469 H, Acetone Level None detected, HCV Ab JAIRO w/Rflx PCR Qn Negative, HIV Ag/Ab Combo Qual Negative 05/22/25 11:17: SARS-CoV-2 (PCR) Not detected, Influenza A Untype (PCR) Not detected, Influenza Type B (PCR) Not detected 05/22/25 13:54: Urine Color Yellow, Urine Appearance Clear, Urine pH 5.5, Ur Specific [place] 1.015, Urine Protein 2+ A, Urine Glucose (UA) 3+, Urine Ketones Trace, Urine Blood Trace-i, Urine Nitrate Negative, Urine Bilirubin Negative, Urine Urobilinogen 0.2, Ur Leukocyte Esterase Negative, Urine RBC Occasional, Urine WBC Occasional, Ur Squamous Epith Cells Occasional, Urine Bacteria Trace, Urine Opiates Screen Negative, Urine Methadone Screen Negative, Ur Barbituates Screen Negative, Ur Phencyclidine Scrn Negative, Ur Amphetamines Screen Negative, U Benzodiazepines Scrn Negative, Urine Cocaine Screen Negative, U Marijuana (THC) Screen Negative 05/22/25 14:00: Troponin I 1.47 H 05/22/25 15:40: Lactate 1.8 05/22/25 17:09: POC Glucose 150 H 05/22/25 17:15: WBC 21.1 H*, RBC 6.67 H, Hgb 19.7 H, Hct 59.9 H, MCV 89.8, MCH 29.8, MCHC 33.2, RDW 15.9, Plt Count 169, MPV 12.0 H, Neut % (Auto) 57.6, Lymph % (Auto) 36.1, Mcnairy % (Auto) 4.8, Eos % (Auto) 0.0 L, Baso % (Auto) 0.4, Neut # (Auto) 12.1 H, Lymph # (Auto) 7.6 H, Mcnairy # (Auto) 1.0, Eos # (Auto) 0.0, Baso # (Auto) 0.1, Sodium 131 L, Potassium 4.3, Chloride 97 L, Carbon Dioxide 17 L, Anion Gap 21.3 H, BUN 63 H, Creatinine 1.60 H, Estimated Creat Clear 43, Estimated GFR 43 L, Est GFR ( Amer) 52 L, Glucose 159 H D, Calcium 10.2, Total Bilirubin 1.9 H, AST 52, ALT 29, Alkaline Phosphatase 103, Troponin I 1.30 H, Total Protein 7.1, Albumin 3.4 L D, Globulin 3.7 H, Albumin/Globulin Ratio 0.9 L 05/22/25 18:22: Chlamy pneumoniae PCR Not detected, Adenovirus (PCR) Not detected, B. pertussis DNA (PCR) Not detected, Coronavirus OC43 (PCR) Not detected, Coronavirus HKU1 (PCR) Not detected, Coronavirus 229E (PCR) Not detected, SARS-CoV-2 (PCR) Not detected, Coronavirus NL63 (PCR) Not detected, Human Metapneumovir PCR Not detected, Influenza A (H1) PCR Not detected, Influ A (H1N1/09) PCR Not detected, Influenza A (H3) PCR Not detected, Influenza Type A (PCR) Not detected, Influenza Type B (PCR) Not detected, M. pneumoniae (PCR) Not detected, Parainfluenza 1 (PCR) Not detected, Parainfluenza 2 (PCR) Not detected, Parainfluenza 3 (PCR) Not detected, Parainfluenza 4 (PCR) Not detected, RSV (PCR) Not detected, Entero/Rhino (PCR) Not detected 05/22/25 19:42: APTT > 200.0 H* 05/22/25 20:02: POC Glucose 211 H 05/23/25 01:12: APTT 172.5 H* 05/23/25 04:05: WBC 19.9 H, RBC 5.86, Hgb 17.5 D, Hct 53.1 H, MCV 90.6, MCH 29.7, MCHC 32.8, RDW 15.0, Plt Count 163, MPV 12.5 H, Neut % (Auto) 58.8, Lymph % (Auto) 33.2, Mcnairy % (Auto) 6.6, Eos % (Auto) 0.1, Baso % (Auto) 0.4, Neut # (Auto) 11.7 H, Lymph # (Auto) 6.6 H, Mcnairy # (Auto) 1.3 H, Eos # (Auto) 0.0, Baso # (Auto) 0.1, Total Counted 100, Neutrophils % (Manual) 63, Lymphocytes % (Manual) 33, Atypical Lymphs % 4, Platelet Estimate Not Reportable, RBC Morphology Not Reportable, APTT 134.1 H*, Sodium 130 L, Potassium 4.9, Chloride 98, Carbon Dioxide 19 L, Anion Gap 17.9 H, BUN 70 H, Creatinine 1.50 H, Estimated Creat Clear 46, Estimated GFR 46 L, Est GFR ( Amer) 56 L, Glucose 194 H D, Hemoglobin A1c 7.0 H, Calcium 9.2, Magnesium 2.1 D, Total Bilirubin 2.0 H, AST 54, ALT 25, Alkaline Phosphatase 47, Total Protein 6.4, Albumin 2.9 L D, Globulin 3.5 H, Albumin/Globulin Ratio 0.8 L, Procalcitonin 0.301 05/23/25 05:23: POC Glucose 200 H 05/23/25 07:06: WBC 18.2 H, RBC 6.04, Hgb 18.0, Hct 54.4 H, MCV 90.1, MCH 30.0, MCHC 33.3, RDW 14.8, Plt Count 148, MPV 11.9 H, Neut % (Auto) 57.9, Lymph % (Auto) 35.1, Mcnairy % (Auto) 5.8, Eos % (Auto) 0.0 L, Baso % (Auto) 0.4, Neut # (Auto) 10.5 H, Lymph # (Auto) 6.4 H, Mcnairy # (Auto) 1.1 H, Eos # (Auto) 0.0, Baso # (Auto) 0.1, PT 12.4, INR 1.13 H, APTT 82.8 H* I & O for Labs for Last 24 Hours: Intake & Output 05/20/25 05/21/25 05/22/25 05/23/25 23:59 23:59 23:59 23:59 Intake Total 3454.3 / 3454.3 1111.167 / 1111.167 Output Total 500 / 500 300 / 300 Balance 2954.3 / 2954.3 811.167 / 811.167 Weight 160 lb 0.008 oz 159 lb 6.669 oz Constitutional: Present moderate distress Head: Present normocephalic and atraumatic ENT: Present normal exam, normal oropharynx and mucous membranes moist Neck: Present normal inspection and full ROM Respiratory: Present normal respiratory effort and able to speak in complete sentences; Absent respiratory distress, wheezes, crackles or diminished air movement Cardiac: Present S1/S2, Tachycardia and radial pulses present GI: Present soft and distention; Absent tenderness or guarding Skin: Present intact and lesions; Absent cyanosis or jaundice Neuro: Present alert, awake and oriented x 3 Extremities: Present normal inspection; Absent clubbing or cyanosis Psychiatric: Present normal affect and cooperative Meds Home Medications and Allergies Home Medications ?Medication ?Instructions ?Recorded ?Confirmed ?Type blood-glucose meter (Blood Glucose #1 ea 05/21/22 05/22/25 Rx Monitoring kit) lancets 28 gauge (FreeStyle #100 ea 02/21/24 05/22/25 Rx Lancets) blood sugar diagnostic (FreeStyle 03/10/24 05/22/25 History Lite Strips) canagliflozin 300 mg tablet 300 mg PO DAILY 03/10/24 05/22/25 History (Invokana) clonidine HCl 0.2 mg tablet 0.2 mg PO DAILY 03/10/24 05/22/25 History glipizide 2.5 mg tablet, extended 7.5 mg PO DAILY 03/10/24 05/22/25 History release 24 hr metoprolol succinate 100 mg 100 mg PO DAILY #90 tabs 03/19/24 05/22/25 Rx tablet,extended release 24 hr allopurinol 300 mg tablet 300 mg PO DAILY #60 tabs 09/17/24 05/22/25 Rx aspirin 81 mg tablet,delayed 81 mg PO DAILY #90 tabs 11/02/24 05/22/25 Rx release hydrochlorothiazide 25 mg tablet 25 mg PO DAILY 01/31/25 05/22/25 History levothyroxine 88 mcg tablet 88 mcg PO 01/31/25 02/11/25 History pentoxifylline 400 mg 400 mg PO Q8 01/31/25 05/22/25 History tablet,extended release finerenone 20 mg tablet (Kerendia) 20 mg PO DAILY 05/22/25 05/22/25 History simvastatin 20 mg tablet 20 mg PO HS 05/22/25 05/22/25 History sitagliptin phosphate 50 mg tablet 50 mg PO DAILY 05/22/25 05/22/25 History (Januvia) New Prescriptions to Start Prescriptions: Allergies Allergy/AdvReac Type Severity Reaction Status Date / Time atorvastatin (From Lipitor) Allergy Mild Hallucinati Verified 05/22/25 15:39 ng Results Laboratory Findings 05/23/25 07:06 05/23/25 04:05 PT/INR, D-dimer PT 12.4 seconds (10.1-12.5) 05/23/25 07:06 INR 1.13 (0.9-1.1) H 05/23/25 07:06 Abnormal lab findings: Abnormal Labs 05/22/25 05/22/25 05/22/25 11:05 13:54 14:00 WBC 24.3 H* RBC 6.79 H Hgb 20.3 H Hct 61.0 H* MPV 11.7 H Eos % (Auto) 0.0 L Neut # (Auto) 14.6 H Lymph # (Auto) 8.2 H Mcnairy # (Auto) 1.2 H INR APTT 28.8 L VBG pO2 44.8 H VBG HCO3 20.3 L VBG Total CO2 21.6 L VBG O2 Saturation 79.3 H VBG Base Excess -6.0 L VBG Lactic Acid 2.3 H Sodium Chloride Carbon Dioxide Anion Gap 20.5 H BUN 72 H Creatinine 1.80 H Estimated GFR 37 L Est GFR ( Amer) 45 L Glucose 224 H POC Glucose Hemoglobin A1c Calcium 11.1 H Phosphorus 4.8 H Magnesium 2.4 H Total Bilirubin 2.1 H Troponin I 1.50 H 1.47 H C-Reactive Protein 8.3 H NT-Pro-B Natriuret Pep 9420 H Albumin Globulin 4.1 H Albumin/Globulin Ratio 1.0 L Lipase 469 H Urine Protein 2+ A 05/22/25 05/22/25 05/22/25 17:09 17:15 19:42 WBC 21.1 H* RBC 6.67 H Hgb 19.7 H Hct 59.9 H MPV 12.0 H Eos % (Auto) 0.0 L Neut # (Auto) 12.1 H Lymph # (Auto) 7.6 H Mcnairy # (Auto) INR APTT > 200.0 H* VBG pO2 VBG HCO3 VBG Total CO2 VBG O2 Saturation VBG Base Excess VBG Lactic Acid Sodium 131 L Chloride 97 L Carbon Dioxide 17 L Anion Gap 21.3 H BUN 63 H Creatinine 1.60 H Estimated GFR 43 L Est GFR ( Amer) 52 L Glucose 159 H D POC Glucose 150 H Hemoglobin A1c Calcium Phosphorus Magnesium Total Bilirubin 1.9 H Troponin I 1.30 H C-Reactive Protein NT-Pro-B Natriuret Pep Albumin 3.4 L D Globulin 3.7 H Albumin/Globulin Ratio 0.9 L Lipase Urine Protein 05/22/25 05/23/25 05/23/25 20:02 01:12 04:05 WBC 19.9 H RBC Hgb Hct 53.1 H MPV 12.5 H Eos % (Auto) Neut # (Auto) 11.7 H Lymph # (Auto) 6.6 H Mcnairy # (Auto) 1.3 H INR APTT 172.5 H* 134.1 H* VBG pO2 VBG HCO3 VBG Total CO2 VBG O2 Saturation VBG Base Excess VBG Lactic Acid Sodium 130 L Chloride Carbon Dioxide 19 L Anion Gap 17.9 H BUN 70 H Creatinine 1.50 H Estimated GFR 46 L Est GFR ( Amer) 56 L Glucose 194 H D POC Glucose 211 H Hemoglobin A1c 7.0 H Calcium Phosphorus Magnesium Total Bilirubin 2.0 H Troponin I C-Reactive Protein NT-Pro-B Natriuret Pep Albumin 2.9 L D Globulin 3.5 H Albumin/Globulin Ratio 0.8 L Lipase Urine Protein 05/23/25 05/23/25 05:23 07:06 WBC 18.2 H RBC Hgb Hct 54.4 H MPV 11.9 H Eos % (Auto) 0.0 L Neut # (Auto) 10.5 H Lymph # (Auto) 6.4 H Mcnairy # (Auto) 1.1 H INR 1.13 H APTT 82.8 H* VBG pO2 VBG HCO3 VBG Total CO2 VBG O2 Saturation VBG Base Excess VBG Lactic Acid Sodium Chloride Carbon Dioxide Anion Gap BUN Creatinine Estimated GFR Est GFR ( Amer) Glucose POC Glucose 200 H Hemoglobin A1c Calcium Phosphorus Magnesium Total Bilirubin Troponin I C-Reactive Protein NT-Pro-B Natriuret Pep Albumin Globulin Albumin/Globulin Ratio Lipase Urine Protein Assessment and Plan *Assessment and plan (1) Hemoptysis: Status: Acute Category: Medical Code(s): R04.2 - Hemoptysis Plan Mr. Kamara is a 69-year-old male never smoker no prior respiratory complaints presented to the ER with intractable nausea vomiting found to be having arterial thrombosis and renal artery stenosis initiate heparin drip for DuoNebs with hemoptysis this morning and pulmonary was called for further evaluation and management Afebrile. Hemodynamically stable. Neutrophilic predominant leukocytosis. Blood gas upon admission hypoxic respiratory failure. No hypercarbia. Comprehensive respiratory viral PCR panel negative. CTA chest upon admission no pulmonary embolism. Traction bronchiectasis. Bilateral calcified pulmonary nodules and lymphadenopathy. Subsequent CT scans and the concern for hemoptysis did not show any acute changes CT abdomen occlusion of distal left superficial femoral and popliteal artery likely from concerning embolic event. No other suspicious pulmonary nodules warranting close follow-up. Prolex-D venous Doppler December 2024 no evidence of DVT. On examination no respiratory distress. On room air. Chest clear to auscultate. Left lower extremity ulcers noted. Plan: Continue heparin drip for the noted arterial thrombosis. Closely monitor for any further episodes of hemoptysis. 2 episodes this morning. Follow with cardiology recommendations for possible vascular intervention for the noted arterial thrombosis Continue to receive broad-spectrum antibiotics pending blood culture results
[2025-05-23] MEDS: ASPIRIN EC 81MG TABLET 81 MG PO (09:31)
[2025-05-23] MEDS: METOPROLOL SUCCINATE XL 100MG TABLET 100 MG PO ×2 (09:31→16:03)
[2025-05-23] MEDS: BELLADONNA ALKALOIDS 60 ML ML PO (09:31)
[2025-05-23] MEDS: ONDANSETRON 4MG/2ML VIAL 4 MG IV (09:40)
[2025-05-23 10:06] LABS: Strep Scrn Group A (Rapid) Negative (Negative)
[2025-05-23 10:49] LABS: POC Glucose,Bedside 203 gm/dL (70-110)
--- NOTE | 2025-05-23 12:29 | XR_ITS ---
FINAL REPORT CLINICAL HISTORY: Increased productive cough,elevated BNP, hemoptysi COMPARISON: 07/27/2016 FINDINGS: SINGLE VIEW CHEST The heart is normal in size. The mediastinum is unremarkable. The lungs are underinflated with linear density at the left base consistent with atelectasis. There is no pneumothorax. IMPRESSION: Left base atelectasis. Reviewed, Interpreted and Dictated by Vaibhav Raines MD Transcribed by Otilia Shaw Authenticated and [facility]
--- NOTE | 2025-05-23 12:29 | HMH.PHAINT1 ---
Pharmacy Intervention Comments: MEDICATION RECONCILIATION COMPLETED ON PATIENT USING EXTERNAL FILL HISTORY FROM PHARMACY. -JESÚS SALCIDO, ZORAIDAD
[2025-05-23 12:30] LABS: PTT Heparin (inpatient only) 43.6 Seconds (50-75)
--- NOTE | 2025-05-23 12:39 | PC.NURSE ---
Heparin drip increased to 15ml/750units per J Curtis 1237
[2025-05-23] MEDS: HEPARIN SODIUM 5,000 UNIT/ML VIAL 3000 UNIT IV (13:07)
--- OUTSIDE RECORDS SUMMARY | 2025-05-23 13:20 | XMS_ITS | Encounter Summary ---
Author Organization [facility] Address [address] [place] [address] Care Team Providers Care Clinical Trials Manager Name Role Phone Damaris Quinteros Primary Care Provider [phone] Reason for Visit * Reason Comments Med Refill Encounter Details Date Type Department Care Team (Late st Contact Info) Description 05/17/2023 Refill [facility] [address] [place] [address] Helena Feliz MD [address] [place] [id number] Social History Tobacco Use Types Packs/Day [...] Description 12/11/2025 1:00 PM EDT Office Visit [facility] [address] [place] [address] Helena Feliz MD [address] [place] [address] 07/03/2026 1:45 PM EST Office Visit [facility] [address] [place] [address] [address] [place] [address] Vitaliy Perez MD [address] [facility] [address] [place] [address] documented as of this encounter Visit Diagnoses Not on filedocumented in this encounter Care Teams Clinical Trials Manager Relationship Specialty Start Date End Date Damaris Quinteros PA [address] [place] [address] PCP - General Physician Batter Scaler 02/14/25 documented as of this encounter
--- OUTSIDE RECORDS SUMMARY | 2025-05-23 13:20 | XMS_ITS | Clinical Summary ---
Author Organization [facility] Address [address] [place] [address] Care Team Providers Care Chain Mortiser Operator Name Role Phone Don Pierson MD Primary Care Provider [phone] Allergies Active Allergy Reactions Criticality Noted Date [...] Due Date Last Done Comments [facility]-Hepatitis C Screening 1955 [facility]ic[facility] Annual Wellness (AWV) [...] A1C 11/22/2023 05/25/2023 [facility]-Depression Screening 09/25/2024 09/26/2023 [id number] Vaccine ( season) 2025 05/20/2023, 03/11/2023, 02/10/2022, [...] topic Insurance MEDICARE [employer] Care Teams Chain Mortiser Operator Relationship Specialty Start Date End Date Don Pierson MD [address] [place] [address] PCP - General 12/05/20
--- OUTSIDE RECORDS SUMMARY | 2025-05-23 13:20 | XMS_ITS | Clinical Summary ---
Author Organization [facility] Address [address] [place] [address] Care Team Providers Care Horseradish Maker Name Role Phone Damaris Quinteros Primary Care Provider [phone] Allergies Active Allergy Reactions Criticality Noted Date [...] EVERY EVENING 90 tablet 1 4 Active [place]-3 Fatty Acids (fish oil) 1000 MG capsule [...] Type Department Care Team Description 04/30/2025 Refill [facility] ENDOCR[facility] [address] [place] [address] Helena Feliz MD 04/09/2025 Results Follow-Up [facility] END[facility] [address] [place] [address] Helena Feliz MD 04/05/2025 10:45 AM EDT Office Visit [facility] ENDOCR[facility] [address] [place] [address] Helena Feliz MD Type 2 diabetes mellitus with hyperglycemia, without long-term current use of insulin (Primary Dx); Acquired hypothyroidism; CKD stage 3 due to type 2 diabetes mellitus 04/05/2025 Travel 03/07/2025 9:30 AM EDT Office Visit [facility] CARDIOLOGY [address] [place] [address] [place] [address] Vitaliy Perez MD Coronary artery disease involving [place] coronary artery of [place] heart without angina pectoris (Primary Dx); Mixed [...] Description 12/11/2025 1:00 PM EDT Office Visit [facility] END[facility] [address] [place] [address] Helena Feliz MD [address] [place] [address] 07/03/2026 1:45 PM EST Office Visit [facility] CARDI[facility] [address] [place] [address] [place] [address] Vitaliy Perez MD [address] [facility] [address] [place] [address] Health Maintenance Due Date Last [...] Urine, Clean Catch (04/05/2025 11:48 AM EDT) [facility] Microalbumin/C reatinine Ratio 477.1(H) 0.0 - 29.0 mg/g 04/06/2025 1:55 AM EDT [facility] Creatinine, Urine 61.2 mg/dL 04/06/2025 1:55 AM EDT [facility] Microalbumin, Urine 29.2 mg/dL 04/06/2025 1:55 AM EDT [facility] Urine Urine specimen obtained by clean catch procedure / Unknown Collection / Unknown 04/05/2025 11:48 AM EDT 04/05/2025 11:48 AM EDT Helena Rojo MD URINE ORDERABLES Final Result Performing Organization Address City/[facility]/ZIP Co de Phone Number [facility]
[address] [place] [address], * (ABNORMAL) TSH (04/05/2025 11:48 AM EDT) [facility] TSH 7.300(H) 0.270 - 4.200 uIU/mL 04/06/2025 1:59 AM EDT [facility] Blood Structure of left upper limb / Unknown Venipuncture / Unknown 04/05/2025 11:48 AM EDT 04/05/2025 11:48 AM EDT Helena Rojo MD LAB BLOOD ORDERABLES Final Res ult Performing Organization Address City/[facility]/ZIP Co de Phone Number [facility]
[address] [place] [address], [place] [phone] * T4, Free (04/05/2025 11:48 AM EDT) Free T4 1.28 0.92 - 1.68 ng/dL 04/06/2025 1:59 AM EDT [facility] Blood Structure of left upper limb / Unknown Venipuncture / Unknown 04/05/2025 11:48 AM EDT 04/05/2025 11:48 AM EDT us Helena Rojo MD LAB BLOOD ORDERABLES Final Res ult [facility]
[address] [place] [address], * (ABNORMAL) Lipid Panel (04/05/2025 11:48 AM EDT) Total Cholesterol 130 0 - 200 mg/dL 04/06/2025 1:53 AM EDT [facility] Triglycerides 215(H) 0 - 150 mg/dL 04/06/2025 1:53 AM EDT [facility] HDL Cholesterol 31(L) 40 - 60 mg/dL 04/06/2025 1:53 AM EDT [facility] LDL Cholesterol 64 0 - 100 mg/dL 04/06/2025 1:53 AM EDT [facility] VLDL Cholesterol 35 5 - 40 mg/dL 04/06/2025 1:53 AM EDT [facility] LDL/HDL Ratio 1.81 04/06/2025 1:53 AM EDT [facility] Blood Structure of left upper limb / Unknown Venipuncture / Unknown 04/05/2025 11:48 AM EDT 04/05/2025 11:48 AM EDT Narrative [facility] - 04/06/2025 1:53 AM [...] MD LAB BLOOD ORDERABLES Final Res ult [facility]
[address] [place] [address], * (ABNORMAL) Comprehensive Metabolic Panel (04/05/2025 11:48 AM EDT) Glucose 128(H) 65 - 99 mg/dL 04/06/2025 1:53 AM EDT [facility] BUN 48.0(H) 8.0 - 23.0 mg/dL 04/06/2025 1:53 AM EDT [facility] Creatinine 1.63(H) 0.76 - 1.27 mg/dL 04/06/2025 1:53 AM EDT [facility] Sodium 139 136 - 145 mmol/L 04/06/2025 1:53 AM EDT [facility] Potassium 4.6 3.5 - 5.2 mmol/L 04/06/2025 1:53 AM EDT [facility] Chloride 103 98 - 107 mmol/L 04/06/2025 1:53 AM EDT [facility] CO2 22.7 22.0 - 29.0 mmol/L 04/06/2025 1:53 AM EDT [facility] Calcium 10.2 8.6 - 10.5 mg/dL 04/06/2025 1:53 AM EDT [facility] Total Protein 6.7 6.0 - 8.5 g/dL 04/06/2025 1:53 AM [facility] Albumin 4.0 3.5 - 5.2 g/dL 04/06/2025 1:53 AM [facility] ALT (SGPT) 41 1 - 41 U/L 04/06/2025 1:53 AM [facility] AST (SGOT) 37 1 - 40 U/L 04/06/2025 1:53 AM [facility] Alkaline Phosphatase 62 39 - 117 U/L 04/06/2025 1:53 AM [facility] Total Bilirubin 0.6 0.0 - 1.2 mg/dL 04/06/2025 1:53 AM [facility] Globulin 2.7 gm/dL 04/06/2025 1:53 AM [facility] A/G Ratio 1.5 g/dL 04/06/2025 1:53 AM [facility] BUN/Creatinine Ratio 29.4(H) 7.0 - 25.0 04/06/2025 1:53 AM [facility] Anion Gap 13.3 5.0 - 15.0 mmol/L 04/06/2025 1:53 AM [facility] eGFR 44.8(L) >60.0 mL/min/1.7 3 04/06/2025 1:53 AM [facility] Blood Structure of left upper limb / Unknown Venipuncture / Unknown 04/05/2025 11:48 AM EDT 04/05/2025 11:48 AM [facility] - 04/06/2025 1:53 AM T [...] MD LAB BLOOD ORDERABLES Final Res ult [facility]
[address] [place] [address], [place] [phone] * (ABNORMAL) POC Glucose, Blood (04/05/2025 10:56 AM EDT) Glucose 150(A) 70 - 130 mg/dL Lot Number [id number] Expiration Date 09/14/25 Blood 04/05/2025 10:5 6 AM EDT Helena Rojo MD POINT OF CARE TEST ORDERABLES Final Result * (ABNORMAL) POC Glycosylated Hemoglobin (Hb A1C) (04/05/2025 10:56 AM EDT) Hemoglobin A1C 7.4(A) 4.5 - 5.7 % [facility] Lot Number [id number] [facility] Expiration Date 10/25/26 [facility] Blood 04/05/2025 10:5 6 AM EDT Helena Rojo MD POINT OF CARE TEST ORDERABLES Final Result Performing Organization Address City/[facility]/ZIP Co de Phone Number [facility]
[address] [place] [address], [place] [phone] * SCANNED - EYE EXAM (05/21/2022) Anatomical Region Laterality Modality Other us Helena Rojo MD CHART REVIEW TABS Final Res ult from Last 3 Months or Most Recently Relevant to Health Maintenance Insurance [facility] MEDICAID MEDICARE B ONLY Care Teams Horseradish Maker Relationship Specialty Start Date End Date Damaris Quinteros PA [address] [place] [address] PCP - General Physician Patient Access Associate 02/14/25
--- OUTSIDE RECORDS SUMMARY | 2025-05-23 13:21 | XMS_ITS | Encounter Summary ---
Author Organization [facility] Address [address] [place] [address] Care Team Providers Care Senior Program Manager Name Role Phone Damaris Quinteros Primary Care Provider [phone] Encounter Details Date Type Department Care Team (Late Contact Info) Description 04/09/2025 Results Follow-Up [facility] ENDOCRINOLOGY [address] [place] [address] Helena Feliz MD [address] [place] [address] Social History Tobacco Use Types Packs/Day [...] Description 12/11/2025 1:00 PM EDT Office Visit [facility] ENDOCR[facility] [address] [place] [address] Helena Feliz MD [address] [place] [address] 07/03/2026 1:45 PM EST Office Visit [facility] CARDIOLOGY [address] [place] [address] [address] [place] [address] Vitaliy Perez MD [address] [place] [address] [place] [address] Scheduled Orders Name Type Priority Associated Diagnoses Orde r Schedule Basic Metabolic Panel Lab Routine Acquired hypothyroidism Expected: 07/08/2025 (Approximate), Expires: 04/10/2026 T4, Free Lab Routine Acquired hypothyroidism Expected: 07/08/2025 (Approximate), Expires: 04/09/2026 TSH Lab Routine Acquired hypothyroidism Expected: 07/08/2025 (Approximate), Expires: 04/09/2026 documented as of this encounter Visit Diagnoses Diagnosis Acquired hypothyroidism- Primary Unspecified hypothyroidism documented in this encounter Care Teams Senior Program Manager Relationship Specialty Start Date End Date Damaris Quinteros PA [address] [place] [address] PCP - General Physician [employer] 02/14/25 documented as of this encounter
--- OUTSIDE RECORDS SUMMARY | 2025-05-23 13:21 | XMS_ITS | Encounter Summary ---
Author Organization [facility] Address [address] [place] [id number] Care Team Providers Care Fire Prevention Research Engineer Name Role Phone Damaris Quinteros Primary Care Provider [phone] Encounter Details Date Type Department Care Team [...] Description 12/11/2025 1:00 PM EDT Office Visit [facility] ENDOCRINOLOGY [address] [place] [address] Helena Feliz MD [address] [place] [address] 07/03/2026 1:45 PM EST Office Visit [facility] CARD[facility] [address] [place] [address] Vitaliy Perez MD [address] [facility] [address] [place] [address] documented as of this encounter Visit Diagnoses Not on filedocumented in this encounter Care Teams Fire Prevention Research Engineer Relationship Specialty Start Date End Date Damaris Quinteros PA [address] [place] [address] PCP - General Physician Partition Notcher 02/14/25 documented as of this encounter
--- OUTSIDE RECORDS SUMMARY | 2025-05-23 13:21 | XMS_ITS ---
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
--- OUTSIDE RECORDS SUMMARY | 2025-05-23 13:21 | XMS_ITS | Encounter Summary ---
Author Organization [facility] Address [address] [place] [id number] Care Team Providers Care Commissary Clerk Name Role Phone Damaris Quinteros Primary Care Provider [phone] Encounter Details Date Type Department Care Team (Late st Contact Info) Description 04/30/[address] [facility] ENDOCRINOLOGY [address] [place] [id number] Helena Feliz MD [address] [place], [place] [id number] Social History Tobacco Use Types Packs/Day Years [...] and he is needing refills sent to [email or web address]. Script is pending. Last office visit with [...] Description 12/11/2025 1:00 PM EDT Office Visit [facility] ENDOCR[facility] [address] [facility] [address] [place] [address] Helena Feliz MD [address] [facility] [address] [place], [place] [id number] 07/03/2026 1:45 PM EST Office Visit [facility] CARDIOLOG[facility] [address] [place] [address] [place] [address] Vitaliy Perez MD [address] [facility] [address] [place] [address] documented as of this encounter Visit Diagnoses Not on filedocumented in this encounter Care Teams Commissary Clerk Relationship Specialty Start Date End Date Damaris Quinteros PA [address] [place] [address] PCP - General Physician Brick Kiln Burner 02/14/25 documented as of this encounter
[2025-05-23 13:27] LABS: Thyroid Stimulating Hormone 2.10 uIU/mL (0.465-4.68)
--- NOTE | 2025-05-23 14:28 | EXP.GE.CONS ---
History of Present Illness *Admission Date: 05/22/25 *History of present illness: Jonelle Kamara is a 69-year-old male with a medical history significant for CAD, type 2 diabetes, hypertension who presents to the ED with intractable nausea/vomiting for the past 3 days. Patient states he cannot think of any triggers that could have started it, denies focal abdominal pain, fever/chills, chest pain, shortness of breath, urinary symptoms and endorses regular bowel movements. He states he has not changed his diet, medications, or otherwise been sick or had sick contacts. Workup in the ED significant for WBC 24.3, hemoglobin 20.3, AGAP 21.3, creatinine 1.8,, troponin 1.5, unremarkable UA, UDS, and negative for COVID-19, influenza. CTA abdomen did note abrupt occlusion of the distal left SFA and popliteal artery, possibly from embolic event and significant renal artery stenosis. Right upper quadrant ultrasound also unremarkable. Patient was given 3 L LR, vancomycin and Zosyn, aspirin. Dr. Davis was contacted for SFA occlusion who recommended heparin bolus and peripheral intervention in the morning. Given these findings, ED provider discussed case with me and I decided to admit patient for DAYSI on CKD, dehydration, and meeting SIRS criteria. Per H&P This is a 69-year-old male who reports 4 to 5 days of acute onset nausea vomiting and diarrhea at home. Patient normally has chronic constipation and will skip multiple days between bowel movements. This was a change for him. Both patient and girlfriend deny any melena hematochezia or hemoptysis. It appears that patient became acutely dehydrated and developed an DAYSI and AMS. Upon arrival to the ER white blood cell count elevated at 24.3 with an elevated H&H as well. Bilirubin was slightly elevated at 2.1 with a normal AST at 46, ALT at 37 and alk phos at 90. He did had an elevated lipase at 469 but not 3 times the upper limit of normal and no signs of acute pancreatitis on imaging. Patient has no abdominal pain today. He is nontender to palpation across his abdomen. Glucose slightly elevated at 190. Hemoglobin A1c 7%. Imaging did show mild mucosal thickening of the distal esophagus and a small sliding hiatal hernia. Right upper quadrant ultrasound did not show cholesterol stones in the gallbladder. Patient has not had any diarrhea episodes since arrival in the ER yesterday. He has not had a bowel movement at all. He is currently having hemoptysis since initiation of heparin last night. No further vomiting. He has been NPO. He does not know when his last colonoscopy was. The girlfriend reports that she has been with him for 15 years and does not think he has had 1 in that time at all. He denies any family history of colon cancer, IBD or celiac disease. He does take 2 Aleve at home and aspirin at home. He is not sure if he has ever had an EGD. [facility] Disclaimer: The information contained in this section may have been updated after the patient was seen, as this information can be updated by other users. Medical History (Updated 05/23/25 @ 14:29 by Nani Michael APRN) Hemoptysis Myocardial infarct Skin lesion of left leg Psychosis Diabetes Traumatic injury of foot Multiple thyroid nodules Impacted cerumen of right ear Hypothyroidism Repeated falls Pulmonary HTN HLD (hyperlipidemia) HTN (hypertension) Surgical History Stented coronary artery Social History Smoking Status: Never smoker alcohol intake: never counseling provided: none substance use type: denies use current occupational status: unemployed Travel in the last 8 weeks?: None household members: none housing: apartment current occupation: retired caffeine: No Have you lived/traveled outside [place] in past 30 days?: No Contact w/someone who lives/traveled outside [place] past 30 days?: No Exposure to someone with infectious disease in past 14 days?: No Do you have a fever (greater than 100.4 F or 38 C)?: No Have you tested positive for COVID-19?: No Exposed to someone with COVID-19 in past 14 days?: No Do you have a sore throat?: No Do you have a cough?: No Do you have any weakness?: No Do you have any diarrhea?: No Are you experiencing any unusual bleeding?: No Do you have any muscle aches/pain?: No Do you have any abdominal pain?: No Are you experiencing loss of taste or smell?: No Review of Systems Review of Systems Review of systems:: other (Patient can answer some question but is somewhat confused. Girlfriend will correct his incorrect answers and assists with ROS) Constitutional Constitutional: Reports system reviewed and no additional complaints, except as documented, Reports poor appetite and Reports weakness Eyes Eyes: Reports system reviewed and no additional complaints, except as documented ENT Ears, Nose, Mouth, and Throat: Reports system reviewed and no additional complaints, except as documented and Reports dysphagia *Cardiovascular Cardiovascular: Reports system reviewed and no additional complaints, except as documented and Reports leg ulcers *Respiratory Respiratory: Reports system reviewed and no additional complaints, except as documented Comments: Hemoptysis *Gastrointestinal Gastrointestinal: Reports system reviewed and no additional complaints, except as documented, Reports change in bowel habits, Reports diarrhea, Reports dysphagia, Reports nausea and Reports vomiting *Genitourinary Genitourinary: Reports system reviewed and no additional complaints, except as documented *Musculoskeletal Musculoskeletal: Reports muscle weakness *Neurologic Neurologic: Reports confusion and Reports weakness Psychiatric Psychiatric: Reports confusion Meds Home Medications and Allergies Home Medications ?Medication ?Instructions ?Recorded ?Confirmed ?Type blood-glucose meter (Blood Glucose #1 ea 05/21/22 05/22/25 Rx Monitoring kit) lancets 28 gauge (FreeStyle #100 ea 02/21/24 05/22/25 Rx Lancets) blood sugar diagnostic (FreeStyle 03/10/24 05/22/25 History Lite Strips) canagliflozin 300 mg tablet 300 mg PO DAILY 03/10/24 05/22/25 History (Invokana) clonidine HCl 0.2 mg tablet 0.2 mg PO BID 03/10/24 05/23/25 History glipizide 2.5 mg tablet, extended 7.5 mg PO DAILY 03/10/24 05/22/25 History release 24 hr allopurinol 300 mg tablet 300 mg PO DAILY #60 tabs 09/17/24 05/22/25 Rx aspirin 81 mg tablet,delayed 81 mg PO DAILY #90 tabs 11/02/24 05/22/25 Rx release hydrochlorothiazide 25 mg tablet 25 mg PO DAILY 01/31/25 05/22/25 History pentoxifylline 400 mg 400 mg PO TID 01/31/25 05/23/25 History tablet,extended release finerenone 20 mg tablet (Kerendia) 20 mg PO DAILY 05/22/25 05/22/25 History simvastatin 20 mg tablet 20 mg PO HS 05/22/25 05/22/25 History sitagliptin phosphate 50 mg tablet 50 mg PO DAILY 05/22/25 05/22/25 History (Januvia) levothyroxine 75 mcg tablet 75 mcg PO DAILY 05/23/25 05/23/25 History metoprolol succinate 100 mg 200 mg PO DAILY 05/23/25 05/23/25 History tablet,extended release 24 hr New Prescriptions to Start Prescriptions: Allergies Allergy/AdvReac Type Severity Reaction Status Date / Time atorvastatin (From Lipitor) Allergy Mild Hallucinati Verified 05/22/25 15:39 ng Exam (Inpt) Vital signs and Labs for Last 24 Hours: Temp Pulse Resp BP Pulse Ox O2 Del Method O2 Flow Rate 98.8 F 102 H 24 140/93 H 92 L Room Air 96 05/23/25 12:01 05/23/25 14:00 05/23/25 12:01 05/23/25 12:01 05/23/25 14:00 05/23/25 14:00 05/23/25 06:51 Laboratory Results - last 24 hr 05/22/25 11:05: APTT 28.8 L, HCV Ab JAIRO w/Rflx PCR Qn Negative, HIV Ag/Ab Combo Qual Negative 05/22/25 13:54: Urine Color Yellow, Urine Appearance Clear, Urine pH 5.5, Ur Specific [place] 1.015, Urine Protein 2+ A, Urine Glucose (UA) 3+, Urine Ketones Trace, Urine Blood Trace-i, Urine Nitrate Negative, Urine Bilirubin Negative, Urine Urobilinogen 0.2, Ur Leukocyte Esterase Negative, Urine RBC Occasional, Urine WBC Occasional, Ur Squamous Epith Cells Occasional, Urine Bacteria Trace, Urine Opiates Screen Negative, Urine Methadone Screen Negative, Ur Barbituates Screen Negative, Ur Phencyclidine Scrn Negative, Ur Amphetamines Screen Negative, U Benzodiazepines Scrn Negative, Urine Cocaine Screen Negative, U Marijuana (THC) Screen Negative 05/22/25 14:00: Troponin I 1.47 H 05/22/25 15:40: Lactate 1.8 05/22/25 17:09: POC Glucose 150 H 05/22/25 17:15: WBC 21.1 H*, RBC 6.67 H, Hgb 19.7 H, Hct 59.9 H, MCV 89.8, MCH 29.8, MCHC 33.2, RDW 15.9, Plt Count 169, MPV 12.0 H, Neut % (Auto) 57.6, Lymph % (Auto) 36.1, [place] % (Auto) 4.8, Eos % (Auto) 0.0 L, Baso % (Auto) 0.4, Neut # (Auto) 12.1 H, Lymph # (Auto) 7.6 H, [place] # (Auto) 1.0, Eos # (Auto) 0.0, Baso # (Auto) 0.1, Sodium 131 L, Potassium 4.3, Chloride 97 L, Carbon Dioxide 17 L, Anion Gap 21.3 H, BUN 63 H, Creatinine 1.60 H, Estimated Creat Clear 43, Estimated GFR 43 L, Est GFR ( Amer) 52 L, Glucose 159 H D, Calcium 10.2, Total Bilirubin 1.9 H, AST 52, ALT 29, Alkaline Phosphatase 103, Troponin I 1.30 H, Total Protein 7.1, Albumin 3.4 L D, Globulin 3.7 H, Albumin/Globulin Ratio 0.9 L 05/22/25 18:22: Chlamy pneumoniae PCR Not detected, Adenovirus (PCR) Not detected, B. pertussis DNA (PCR) Not detected, Coronavirus OC43 (PCR) Not detected, Coronavirus HKU1 (PCR) Not detected, Coronavirus 229E (PCR) Not detected, SARS-CoV-2 (PCR) Not detected, Coronavirus NL63 (PCR) Not detected, Human Metapneumovir PCR Not detected, Influenza A (H1) PCR Not detected, Influ A (H1N1/09) PCR Not detected, Influenza A (H3) PCR Not detected, Influenza Type A (PCR) Not detected, Influenza Type B (PCR) Not detected, M. pneumoniae (PCR) Not detected, Parainfluenza 1 (PCR) Not detected, Parainfluenza 2 (PCR) Not detected, Parainfluenza 3 (PCR) Not detected, Parainfluenza 4 (PCR) Not detected, RSV (PCR) Not detected, Entero/Rhino (PCR) Not detected 05/22/25 19:42: APTT > 200.0 H* 05/22/25 20:02: POC Glucose 211 H 05/23/25 01:12: APTT 172.5 H* 05/23/25 04:05: WBC 19.9 H, RBC 5.86, Hgb 17.5 D, Hct 53.1 H, MCV 90.6, MCH 29.7, MCHC 32.8, RDW 15.0, Plt Count 163, MPV 12.5 H, Neut % (Auto) 58.8, Lymph % (Auto) 33.2, [place] % (Auto) 6.6, Eos % (Auto) 0.1, Baso % (Auto) 0.4, Neut # (Auto) 11.7 H, Lymph # (Auto) 6.6 H, [place] # (Auto) 1.3 H, Eos # (Auto) 0.0, Baso # (Auto) 0.1, Total Counted 100, Neutrophils % (Manual) 63, Lymphocytes % (Manual) 33, Atypical Lymphs % 4, Platelet Estimate Not Reportable, RBC Morphology Not Reportable, APTT 134.1 H*, Sodium 130 L, Potassium 4.9, Chloride 98, Carbon Dioxide 19 L, Anion Gap 17.9 H, BUN 70 H, Creatinine 1.50 H, Estimated Creat Clear 46, Estimated GFR 46 L, Est GFR ( Amer) 56 L, Glucose 194 H D, Hemoglobin A1c 7.0 H, Calcium 9.2, Magnesium 2.1 D, Total Bilirubin 2.0 H, AST 54, ALT 25, Alkaline Phosphatase 47, Total Protein 6.4, Albumin 2.9 L D, Globulin 3.5 H, Albumin/Globulin Ratio 0.8 L, Procalcitonin 0.301, TSH 2.10 05/23/25 05:23: POC Glucose 200 H 05/23/25 07:06: WBC 18.2 H, RBC 6.04, Hgb 18.0, Hct 54.4 H, MCV 90.1, MCH 30.0, MCHC 33.3, RDW 14.8, Plt Count 148, MPV 11.9 H, Neut % (Auto) 57.9, Lymph % (Auto) 35.1, [place] % (Auto) 5.8, Eos % (Auto) 0.0 L, Baso % (Auto) 0.4, Neut # (Auto) 10.5 H, Lymph # (Auto) 6.4 H, [place] # (Auto) 1.1 H, Eos # (Auto) 0.0, Baso # (Auto) 0.1, PT 12.4, INR 1.13 H, APTT 82.8 H* 05/23/25 09:18: Group A Strep Rapid Negative 05/23/25 10:41: POC Glucose 203 H 05/23/25 12:05: APTT 43.6 L I & O for Labs for Last 24 Hours: Intake & Output 05/21/25 05/22/25 05/23/25 05/24/25 11:59 11:59 11:59 11:59 Intake Total 4775.467 896.667 Output Total 800 700 Balance 3975.467 196.667 Weight 72.575 kg 72.31 kg Microbiology Reports for the Last 24 Hours: Microbiology 05/22/25 11:30 Blood Blood Culture - Preliminary NO GROWTH AFTER 24 HOURS 05/22/25 11:35 Blood Blood Culture - Preliminary NO GROWTH AFTER 24 HOURS Constitutional: no acute distress and disheveled Head: Present normocephalic and atraumatic Respiratory: Present CTA bilaterally Cardiac: Present Reg Rate and Rhythm GI: Present soft, distention (Moderate distention) and normal bowel sounds; Absent tenderness Results Labs 05/23/25 07:06 05/23/25 04:05 Labs: Laboratory Results - last 24 hr 05/22/25 11:05: APTT 28.8 L, HCV Ab JAIRO w/Rflx PCR Qn Negative, HIV Ag/Ab Combo Qual Negative 05/22/25 13:54: Urine Color Yellow, Urine Appearance Clear, Urine pH 5.5, Ur Specific [place] 1.015, Urine Protein 2+ A, Urine Glucose (UA) 3+, Urine Ketones Trace, Urine Blood Trace-i, Urine Nitrate Negative, Urine Bilirubin Negative, Urine Urobilinogen 0.2, Ur Leukocyte Esterase Negative, Urine RBC Occasional, Urine WBC Occasional, Ur Squamous Epith Cells Occasional, Urine Bacteria Trace, Urine Opiates Screen Negative, Urine Methadone Screen Negative, Ur Barbituates Screen Negative, Ur Phencyclidine Scrn Negative, Ur Amphetamines Screen Negative, U Benzodiazepines Scrn Negative, Urine Cocaine Screen Negative, U Marijuana (THC) Screen Negative 05/22/25 14:00: Troponin I 1.47 H 05/22/25 15:40: Lactate 1.8 05/22/25 17:09: POC Glucose 150 H 05/22/25 17:15: WBC 21.1 H*, RBC 6.67 H, Hgb 19.7 H, Hct 59.9 H, MCV 89.8, MCH 29.8, MCHC 33.2, RDW 15.9, Plt Count 169, MPV 12.0 H, Neut % (Auto) 57.6, Lymph % (Auto) 36.1, [place] % (Auto) 4.8, Eos % (Auto) 0.0 L, Baso % (Auto) 0.4, Neut # (Auto) 12.1 H, Lymph # (Auto) 7.6 H, [place] # (Auto) 1.0, Eos # (Auto) 0.0, Baso # (Auto) 0.1, Sodium 131 L, Potassium 4.3, Chloride 97 L, Carbon Dioxide 17 L, Anion Gap 21.3 H, BUN 63 H, Creatinine 1.60 H, Estimated Creat Clear 43, Estimated GFR 43 L, Est GFR ( Amer) 52 L, Glucose 159 H D, Calcium 10.2, Total Bilirubin 1.9 H, AST 52, ALT 29, Alkaline Phosphatase 103, Troponin I 1.30 H, Total Protein 7.1, Albumin 3.4 L D, Globulin 3.7 H, Albumin/Globulin Ratio 0.9 L 05/22/25 18:22: Chlamy pneumoniae PCR Not detected, Adenovirus (PCR) Not detected, B. pertussis DNA (PCR) Not detected, Coronavirus OC43 (PCR) Not detected, Coronavirus HKU1 (PCR) Not detected, Coronavirus 229E (PCR) Not detected, SARS-CoV-2 (PCR) Not detected, Coronavirus NL63 (PCR) Not detected, Human Metapneumovir PCR Not detected, Influenza A (H1) PCR Not detected, Influ A (H1N1/09) PCR Not detected, Influenza A (H3) PCR Not detected, Influenza Type A (PCR) Not detected, Influenza Type B (PCR) Not detected, M. pneumoniae (PCR) Not detected, Parainfluenza 1 (PCR) Not detected, Parainfluenza 2 (PCR) Not detected, Parainfluenza 3 (PCR) Not detected, Parainfluenza 4 (PCR) Not detected, RSV (PCR) Not detected, Entero/Rhino (PCR) Not detected 05/22/25 19:42: APTT > 200.0 H* 05/22/25 20:02: POC Glucose 211 H 05/23/25 01:12: APTT 172.5 H* 05/23/25 04:05: WBC 19.9 H, RBC 5.86, Hgb 17.5 D, Hct 53.1 H, MCV 90.6, MCH 29.7, MCHC 32.8, RDW 15.0, Plt Count 163, MPV 12.5 H, Neut % (Auto) 58.8, Lymph % (Auto) 33.2, [place] % (Auto) 6.6, Eos % (Auto) 0.1, Baso % (Auto) 0.4, Neut # (Auto) 11.7 H, Lymph # (Auto) 6.6 H, [place] # (Auto) 1.3 H, Eos # (Auto) 0.0, Baso # (Auto) 0.1, Total Counted 100, Neutrophils % (Manual) 63, Lymphocytes % (Manual) 33, Atypical Lymphs % 4, Platelet Estimate Not Reportable, RBC Morphology Not Reportable, APTT 134.1 H*, Sodium 130 L, Potassium 4.9, Chloride 98, Carbon Dioxide 19 L, Anion Gap 17.9 H, BUN 70 H, Creatinine 1.50 H, Estimated Creat Clear 46, Estimated GFR 46 L, Est GFR ( Amer) 56 L, Glucose 194 H D, Hemoglobin A1c 7.0 H, Calcium 9.2, Magnesium 2.1 D, Total Bilirubin 2.0 H, AST 54, ALT 25, Alkaline Phosphatase 47, Total Protein 6.4, Albumin 2.9 L D, Globulin 3.5 H, Albumin/Globulin Ratio 0.8 L, Procalcitonin 0.301, TSH 2.10 05/23/25 05:23: POC Glucose 200 H 05/23/25 07:06: WBC 18.2 H, RBC 6.04, Hgb 18.0, Hct 54.4 H, MCV 90.1, MCH 30.0, MCHC 33.3, RDW 14.8, Plt Count 148, MPV 11.9 H, Neut % (Auto) 57.9, Lymph % (Auto) 35.1, [place] % (Auto) 5.8, Eos % (Auto) 0.0 L, Baso % (Auto) 0.4, Neut # (Auto) 10.5 H, Lymph # (Auto) 6.4 H, [place] # (Auto) 1.1 H, Eos # (Auto) 0.0, Baso # (Auto) 0.1, PT 12.4, INR 1.13 H, APTT 82.8 H* 05/23/25 09:18: Group A Strep Rapid Negative 05/23/25 10:41: POC Glucose 203 H 05/23/25 12:05: APTT 43.6 L Assessment and Plan *Assessment and plan (1) Nausea vomiting and diarrhea: Status: Acute Category: Medical Code(s): R11.2 - Nausea with vomiting, unspecified; R19.7 - Diarrhea, unspecified (2) Acute gastroenteritis: Status: Acute Category: Medical Code(s): K52.9 - Noninfective gastroenteritis and colitis, unspecified (3) Acute pancreatitis: Status: Acute Category: Medical Code(s): K85.90 - Acute pancreatitis without necrosis or infection, unspecified Plan 1. Nausea/vomiting/diarrhea/gastroenteritis/concern for pancreatitis 4- 5 days of nausea vomiting and diarrhea was an abrupt change for this patient. White blood cell count up to 24.3. Both patient and his girlfriend at bedside deny any melena hematochezia or hemoptysis. Patient unable to eat and drink appropriately became acutely dehydrated and developed acute AMS. Lipase slightly elevated at 469 in the ER. No tenderness palpation across the upper abdomen or right upper quadrant. No mid back pain. No evidence of pancreatitis on imaging. Lipase not 3 times the upper limit of normal and inconsistent with an acute pancreatitis episode. Bilirubin slightly elevated at 2.1 but with normal AST, ALT, and alk phos. Would repeat liver enzymes with bilirubin breakdown. Patient has not had a bowel movement since arrival through the ER. Concern for an acute gastroenteritis episode. I recommend stool panel to see if there is a treatable infectious process contributing to symptoms. Patient is nontender throughout his abdomen and no right upper quadrant pain. Did have mild thickening of the lower esophagus seen on imaging, possibly inflammatory related to acute nausea and vomiting but girlfriend reports patient complains of some dysphagia a couple of times a month. Further depending on GI panel. Patient will likely need outpatient colonoscopy as it has been many years.
--- NOTE | 2025-05-23 14:53 | EXP.CARD.CON ---
History of Present Illness History of Present Illness Consult date: 05/23/25 Chief complaint: N/V History of present illness: 69-year-old white male with history of CAD and paroxysmal atrial fibrillation last seen by cardiology here in 2019, states he has been following with another post doctoral researcher in [place]. Presented to the emergency room last night with complaints of nausea and vomiting worsening for 1 month. Patient found to have leukocytosis, elevated troponin, uncontrolled hypertension, elevated amylase, critical left lower extremity PAD. He was admitted overnight. I am seeing patient in the ICU the next morning. Reports ongoing mild nausea vomiting but states he has no pain in his lower extremity. States has had several wounds on that leg for the past several months and PCP has been prescribing antibiotics. Patient states circulation has never been checked. He denies anginal chest pain. Troponin 1.5, 1.4, 1.3. EKG sinus rhythm with nonspecific ST changes. CTA abdomen and bilateral extremity shows right renal artery with dense calcification of proximal right renal artery and stenosis of 90%, left renal artery 50%, right lower extremity shows poor opacification of vasculature from tibial plateau down, left lower extremity shows abrupt occlusion of left SFA extending to the popliteal-20 cm in length. Patient has 2 large necrotic lesions on anterior left lower extremity. The foot is mottled and cold to touch but there are dopplerable pulses and he is neurovascular intact. BUN 70 and pt appears dehydrated. [facility] Disclaimer: The information contained in this section may have been updated after the patient was seen, as this information can be updated by other users. Medical History Hemoptysis Myocardial infarct Skin lesion of left leg Psychosis Diabetes Traumatic injury of foot Multiple thyroid nodules Impacted cerumen of right ear Hypothyroidism Repeated falls Pulmonary HTN HLD (hyperlipidemia) HTN (hypertension) Surgical History Stented coronary artery Social History Smoking Status: Never smoker alcohol intake: never counseling provided: none substance use type: denies use current occupational status: unemployed Travel in the last 8 weeks?: None household members: none housing: apartment current occupation: retired caffeine: No Have you lived/traveled outside US in past 30 days?: No Contact w/someone who lives/traveled outside US past 30 days?: No Exposure to someone with infectious disease in past 14 days?: No Do you have a fever (greater than 100.4 F or 38 C)?: No Have you tested positive for COVID-19?: No Exposed to someone with COVID-19 in past 14 days?: No Do you have a sore throat?: No Do you have a cough?: No Do you have any weakness?: No Do you have any diarrhea?: No Are you experiencing any unusual bleeding?: No Do you have any muscle aches/pain?: No Do you have any abdominal pain?: No Are you experiencing loss of taste or smell?: No Review of Systems Constitutional Constitutional: Reports weakness Eyes Eyes: Denies loss of vision ENT Ears, Nose, Mouth, and Throat: Denies hearing loss *Cardiovascular Cardiovascular: Denies chest pain and Reports dyspnea *Respiratory Respiratory: Denies cough and Reports dyspnea *Gastrointestinal Gastrointestinal: Denies change in stool character, Reports nausea and Reports vomiting *Genitourinary Genitourinary: Denies difficulty urinating *Musculoskeletal Musculoskeletal: Denies muscle weakness Integumentary/Breasts Skin/Breast: Denies changing lesions *Neurologic Neurologic: Reports confusion, Denies loss of vision and Reports weakness Psychiatric Psychiatric: Reports confusion Exam Data for Last 24 hours Vital signs and Labs for Last 24 Hours: Temp Pulse Resp BP Pulse Ox O2 Del Method O2 Flow Rate 98.8 F 102 H 22 162/93 H 94 L Room Air 96 05/23/25 12:01 05/23/25 14:00 05/23/25 14:00 05/23/25 14:00 05/23/25 14:00 05/23/25 14:00 05/23/25 06:51 Laboratory Results - last 24 hr 05/22/25 11:05: APTT 28.8 L, HCV Ab JAIRO w/Rflx PCR Qn Negative, HIV Ag/Ab Combo Qual Negative 05/22/25 13:54: Urine RBC Occasional, Urine WBC Occasional, Ur Squamous Epith Cells Occasional, Urine Bacteria Trace 05/22/25 15:40: Lactate 1.8 05/22/25 17:09: POC Glucose 150 H 05/22/25 17:15: WBC 21.1 H*, RBC 6.67 H, Hgb 19.7 H, Hct 59.9 H, MCV 89.8, MCH 29.8, MCHC 33.2, RDW 15.9, Plt Count 169, MPV 12.0 H, Neut % (Auto) 57.6, Lymph % (Auto) 36.1, [place] % (Auto) 4.8, Eos % (Auto) 0.0 L, Baso % (Auto) 0.4, Neut # (Auto) 12.1 H, Lymph # (Auto) 7.6 H, [place] # (Auto) 1.0, Eos # (Auto) 0.0, Baso # (Auto) 0.1, Sodium 131 L, Potassium 4.3, Chloride 97 L, Carbon Dioxide 17 L, Anion Gap 21.3 H, BUN 63 H, Creatinine 1.60 H, Estimated Creat Clear 43, Estimated GFR 43 L, Est GFR ( Amer) 52 L, Glucose 159 H D, Calcium 10.2, Total Bilirubin 1.9 H, AST 52, ALT 29, Alkaline Phosphatase 103, Troponin I 1.30 H, Total Protein 7.1, Albumin 3.4 L D, Globulin 3.7 H, Albumin/Globulin Ratio 0.9 L 05/22/25 18:22: Chlamy pneumoniae PCR Not detected, Adenovirus (PCR) Not detected, B. pertussis DNA (PCR) Not detected, Coronavirus OC43 (PCR) Not detected, Coronavirus HKU1 (PCR) Not detected, Coronavirus 229E (PCR) Not detected, SARS-CoV-2 (PCR) Not detected, Coronavirus NL63 (PCR) Not detected, Human Metapneumovir PCR Not detected, Influenza A (H1) PCR Not detected, Influ A (H1N1/09) PCR Not detected, Influenza A (H3) PCR Not detected, Influenza Type A (PCR) Not detected, Influenza Type B (PCR) Not detected, M. pneumoniae (PCR) Not detected, Parainfluenza 1 (PCR) Not detected, Parainfluenza 2 (PCR) Not detected, Parainfluenza 3 (PCR) Not detected, Parainfluenza 4 (PCR) Not detected, RSV (PCR) Not detected, Entero/Rhino (PCR) Not detected 05/22/25 19:42: APTT > 200.0 H* 05/22/25 20:02: POC Glucose 211 H 05/23/25 01:12: APTT 172.5 H* 05/23/25 04:05: WBC 19.9 H, RBC 5.86, Hgb 17.5 D, Hct 53.1 H, MCV 90.6, MCH 29.7, MCHC 32.8, RDW 15.0, Plt Count 163, MPV 12.5 H, Neut % (Auto) 58.8, Lymph % (Auto) 33.2, [place] % (Auto) 6.6, Eos % (Auto) 0.1, Baso % (Auto) 0.4, Neut # (Auto) 11.7 H, Lymph # (Auto) 6.6 H, [place] # (Auto) 1.3 H, Eos # (Auto) 0.0, Baso # (Auto) 0.1, Total Counted 100, Neutrophils % (Manual) 63, Lymphocytes % (Manual) 33, Atypical Lymphs % 4, Platelet Estimate Not Reportable, RBC Morphology Not Reportable, APTT 134.1 H*, Sodium 130 L, Potassium 4.9, Chloride 98, Carbon Dioxide 19 L, Anion Gap 17.9 H, BUN 70 H, Creatinine 1.50 H, Estimated Creat Clear 46, Estimated GFR 46 L, Est GFR ( Amer) 56 L, Glucose 194 H D, Hemoglobin A1c 7.0 H, Calcium 9.2, Magnesium 2.1 D, Total Bilirubin 2.0 H, AST 54, ALT 25, Alkaline Phosphatase 47, Total Protein 6.4, Albumin 2.9 L D, Globulin 3.5 H, Albumin/Globulin Ratio 0.8 L, Procalcitonin 0.301, TSH 2.10 05/23/25 05:23: POC Glucose 200 H 05/23/25 07:06: WBC 18.2 H, RBC 6.04, Hgb 18.0, Hct 54.4 H, MCV 90.1, MCH 30.0, MCHC 33.3, RDW 14.8, Plt Count 148, MPV 11.9 H, Neut % (Auto) 57.9, Lymph % (Auto) 35.1, [place] % (Auto) 5.8, Eos % (Auto) 0.0 L, Baso % (Auto) 0.4, Neut # (Auto) 10.5 H, Lymph # (Auto) 6.4 H, [place] # (Auto) 1.1 H, Eos # (Auto) 0.0, Baso # (Auto) 0.1, PT 12.4, INR 1.13 H, APTT 82.8 H* 05/23/25 09:18: Group A Strep Rapid Negative 05/23/25 10:41: POC Glucose 203 H 05/23/25 12:05: APTT 43.6 L I & O for Last 24 hours: Intake & Output 05/20/25 05/21/25 05/22/25 05/23/25 23:59 23:59 23:59 23:59 Intake Total 3454.3 / 3454.3 2259.217 / 2259.217 Output Total 500 / 500 1000 / 1000 Balance 2954.3 / 2954.3 1259.217 / 1259.217 Weight 160 lb 0.008 oz 159 lb 6.669 oz Microbiology Reports for the Last 24 Hours: Microbiology 05/22/25 11:30 Blood Blood Culture - Preliminary NO GROWTH AFTER 24 HOURS 05/22/25 11:35 Blood Blood Culture - Preliminary NO GROWTH AFTER 24 HOURS Constitutional Constitutional: no acute distress and cooperative *Routine HEENT Exam Eye: Present PERRL *Routine Respiratory Exam Respiratory: Present CTA bilaterally; Absent accessory muscle use, wheezes or crackles *Routine Cardiovascular Exam Cardiovascular: Present RRR, Normal S1 and Normal S2; Absent murmur, gallop or rubs *Routine Abdominal Exam Abdominal: Present soft; Absent tenderness *Routine Extremities Exam Extremities: Present pulses intact; Absent cyanosis or edema Comments: Patient has 2 large necrotic lesions on anterior left lower extremity. The foot is mottled and cold to touch from mid-tibia and down but there are dopplerable pulses and he is neurovascular intact. *Routine Skin Exam Skin: Present intact; Absent erythema or wounds *Routine Neurological Exam Neurological: Present alert and oriented X3 Routine Psychiatric Exam Psychiatric: Present cooperative Meds Home Medications and Allergies Home Medications ?Medication ?Instructions ?Recorded ?Confirmed ?Type blood-glucose meter (Blood Glucose #1 ea 05/21/22 05/22/25 Rx Monitoring kit) lancets 28 gauge (FreeStyle #100 ea 02/21/24 05/22/25 Rx Lancets) blood sugar diagnostic (FreeStyle 03/10/24 05/22/25 History Lite Strips) canagliflozin 300 mg tablet 300 mg PO DAILY 03/10/24 05/22/25 History (Invokana) clonidine HCl 0.2 mg tablet 0.2 mg PO BID 03/10/24 05/23/25 History glipizide 2.5 mg tablet, extended 7.5 mg PO DAILY 03/10/24 05/22/25 History release 24 hr allopurinol 300 mg tablet 300 mg PO DAILY #60 tabs 09/17/24 05/22/25 Rx aspirin 81 mg tablet,delayed 81 mg PO DAILY #90 tabs 11/02/24 05/22/25 Rx release hydrochlorothiazide 25 mg tablet 25 mg PO DAILY 01/31/25 05/22/25 History pentoxifylline 400 mg 400 mg PO TID 01/31/25 05/23/25 History tablet,extended release finerenone 20 mg tablet (Kerendia) 20 mg PO DAILY 05/22/25 05/22/25 History simvastatin 20 mg tablet 20 mg PO HS 05/22/25 05/22/25 History sitagliptin phosphate 50 mg tablet 50 mg PO DAILY 05/22/25 05/22/25 History (Januvia) levothyroxine 75 mcg tablet 75 mcg PO DAILY 05/23/25 05/23/25 History metoprolol succinate 100 mg 200 mg PO DAILY 05/23/25 05/23/25 History tablet,extended release 24 hr New Prescriptions to Start Prescriptions: Allergies Allergy/AdvReac Type Severity Reaction Status Date / Time atorvastatin (From Lipitor) Allergy Mild Hallucinati Verified 05/22/25 15:39 ng Assessment and Plan *Assessment and plan (1) Non-ST elevation IN (NSTEMI): Status: Acute Category: Medical Code(s): I21.4 - Non-ST elevation (NSTEMI) myocardial infarction (2) Superficial femoral artery occlusion: Status: Acute Category: Medical Code(s): I70.209 - Unspecified atherosclerosis of [place] arteries of extremities, unspecified extremity (3) Occlusion of left popliteal artery: Status: Acute Category: Medical Code(s): I70.202 - Unspecified atherosclerosis of [place] arteries of extremities, left leg (4) Nausea vomiting and diarrhea: Status: Acute Category: Medical Code(s): R11.2 - Nausea with vomiting, unspecified; R19.7 - Diarrhea, unspecified (5) DAYSI (acute kidney injury): Status: Acute Category: Medical Code(s): N17.9 - Acute kidney failure, unspecified Plan Critical LLE PAD with limb threatening ischemia - occluded L-SFA and L-Pop with non healing wounds and cold extremity - pt N/V in tact - cont ASA, Heparin - no statin due to intolerance (hallucinations) - peripheral angiogram tomorrow - pt may eventually require amputation NSTEMI - known CAD with prior stenting but details unclear - Trop peak 1.5 then down here, non-specific changes on EKG, ECHO - nml bi-v function - LHC tomorrow LEIDA - 90% RRA 50% LRA - cont Plavix, Heparin, Statin - renal angiogram/stenting tomorrow PAF - known paroxysmal - SR here - cont Toprol 100 and Heparin N/V - x1 mo - per primary service Dehydration - BUN 70, give additional 1L NS
--- NOTE | 2025-05-23 15:09 | P.PN_ITS ---
Subjective *Date: 05/23/25 *Time: 15:09 Interval history: Patient feels slightly better today, no significant nausea/vomiting. But does continue to have poor oral tolerance. Also having hemoptysis, likely from possible esophagitis from nausea/vomiting. Will follow-up at bedside swallow assessment this afternoon and advance diet as tolerated. LHC, peripheral angiogram in the morning. Exam Data for Last 24 hours Vital signs and Labs for Last 24 Hours: Temp Pulse Resp BP Pulse Ox O2 Del Method O2 Flow Rate 98.8 F 102 H 22 162/93 H 94 L Room Air 96 05/23/25 12:01 05/23/25 14:00 05/23/25 14:00 05/23/25 14:00 05/23/25 14:00 05/23/25 14:00 05/23/25 06:51 Laboratory Results - last 24 hr 05/22/25 11:05: APTT 28.8 L, HCV Ab JAIRO w/Rflx PCR Qn Negative, HIV Ag/Ab Combo Qual Negative 05/22/25 13:54: Urine RBC Occasional, Urine WBC Occasional, Ur Squamous Epith Cells Occasional, Urine Bacteria Trace 05/22/25 15:40: Lactate 1.8 05/22/25 17:09: POC Glucose 150 H 05/22/25 17:15: WBC 21.1 H*, RBC 6.67 H, Hgb 19.7 H, Hct 59.9 H, MCV 89.8, MCH 29.8, MCHC 33.2, RDW 15.9, Plt Count 169, MPV 12.0 H, Neut % (Auto) 57.6, Lymph % (Auto) 36.1, [place] % (Auto) 4.8, Eos % (Auto) 0.0 L, Baso % (Auto) 0.4, Neut # (Auto) 12.1 H, Lymph # (Auto) 7.6 H, [place] # (Auto) 1.0, Eos # (Auto) 0.0, Baso # (Auto) 0.1, Sodium 131 L, Potassium 4.3, Chloride 97 L, Carbon Dioxide 17 L, Anion Gap 21.3 H, BUN 63 H, Creatinine 1.60 H, Estimated Creat Clear 43, Es timated GFR 43 L, Est GFR ( Amer) 52 L, Glucose 159 H D, Calcium 10.2, Total Bilirubin 1.9 H, AST 52, ALT 29, Alkaline Phosphatase 103, Troponin I 1.30 H, Total Protein 7.1, Albumin 3.4 L D, Globulin 3.7 H, Albumin/Globulin Ratio 0. 9 L 05/22/25 18:22: Chlamy pneumoniae PCR Not detected, Adenovirus (PCR) Not detected, B. pertussis DNA (PCR) Not detected, Coronavirus OC43 (PCR) Not detected, Coronavirus HKU1 (PCR) Not detected, Coronavirus 229E (PCR) Not detected, SARS-CoV-2 (PCR) Not detected, Coronavirus NL63 (PCR) Not detected, Human Metapneumovir PCR Not detected, Influenza A (H1) PCR Not detected, Influ A (H1N1/09) PCR Not detected, Influenza A (H3) PCR Not detected, Influenza Type A (PCR) Not detected, Influenza Type B (PCR) Not detected, M. pneumoniae (PCR) Not detected, Parainfluenza 1 (PCR) Not detected, Parainfluenza 2 (PCR) Not detected, Parainfluenza 3 (PCR) Not detected, Parainfluenza 4 (PCR) Not detected, RSV (PCR) Not detected, Entero/Rhino (PCR) Not detected 05/22/25 19:42: APTT > 200.0 H* 05/22/25 20:02: POC Glucose 211 H 05/23/25 01:12: APTT 172.5 H* 05/23/25 04:05: WBC 19.9 H, RBC 5.86, Hgb 17.5 D, Hct 53.1 H, MCV 90.6, MCH 29.7, MCHC 32.8, RDW 15.0, Plt Count 163, MPV 12.5 H, Neut % (Auto) 58.8, Lymph % (Auto) 33.2, [place] % (Auto) 6.6, Eos % (Auto) 0.1, Baso % (Auto) 0.4, Neut # (Auto) 11.7 H, Lymph # (Auto) 6.6 H, [place] # (Auto) 1.3 H, Eos # (Auto) 0.0, Baso # (Auto) 0.1, Total Counted 100, Neutrophils % (Manual) 63, Lymphocytes % ([place]) 33, Atypical Lymphs % 4, Platelet Estimate Not Reportable, RBC Morphology Not Reportable, APTT 134.1 H*, Sodium 130 L, Potassium 4.9, Chloride 98, Carbon Dioxide 19 L, Anion Gap 17.9 H, BUN 70 H, Creatinine 1.50 H, Estimated Creat Clear 46, Estimated GFR 46 L, Est GFR ( Amer) 56 L, Glucose 194 H D, Hemoglobin A1c 7.0 H, Calcium 9.2, Magnesium 2.1 D, Total Bilirubin 2.0 H, AST 54, ALT 25, Alkaline Phosphatase 47, Total Protein 6.4, Albumin 2.9 L D, Globulin 3.5 H, Albumin/Globulin Ratio 0.8 L, Procalcitonin 0.301, TSH 2.10 05/23/25 05:23: POC Glucose 200 H 05/23/25 07:06: WBC 18.2 H, RBC 6.04, Hgb 18.0, Hct 54.4 H, MCV 90.1, MCH 30.0, MCHC 33.3, RDW 14.8, Plt Count 148, MPV 11.9 H, Neut % (Auto) 57.9, Lymph % (Auto) 35.1, [place] % (Auto) 5.8, Eos % (Auto) 0.0 L, Baso % (Auto) 0.4, Neut # (Auto) 10.5 H, Lymph # (Auto) 6.4 H, [place] # (Auto) 1.1 H, Eos # (Auto) 0.0, Baso # (Auto) 0.1, PT 12.4, INR 1.13 H, APTT 82.8 H* 05/23/25 09:18: Group A Strep Rapid Negative 05/23/25 10:41: POC Glucose 203 H 05/23/25 12:05: APTT 43.6 L I & O for Last 24 hours: Intake & Output 05/20/25 05/21/25 05/22/25 05/23/25 23:59 23:59 23:59 23:59 Intake Total 3454.3 / 3454.3 2259.217 / 2259.217 Output Total 500 / 500 1000 / 1000 Balance 2954.3 / 2954.3 1259.217 / 1259.217 Weight 72.575 kg 72.31 kg Microbiology Reports for the Last 24 Hours: Microbiology 05/22/25 11:30 Blood Blood Culture - Preliminary NO GROWTH AFTER 24 HOURS 05/22/25 11:35 Blood Blood Culture - Preliminary NO GROWTH AFTER 24 HOURS Constitutional Constitutional: mild distress *Routine HEENT Exam Head: Present normocephalic Eye: Present EOMI and PERRL ENT: Present mucous membranes moist *Routine Neck Exam Neck: Present supple; Absent lymphadenopathy *Routine Respiratory Exam Respiratory: Present CTA bilaterally *Routine Cardiovascular Exam Cardiovascular: Present RRR *Routine Abdominal Exam Abdominal: Present soft and normoactive bowel sounds; Absent tenderness *Routine Extremities Exam Extremities: Absent cyanosis, clubbing or edema Comments: Left lower extremity arterial insufficiency ulcers. Over pabon *Routine Skin Exam Skin: Present warm; Absent rash *Routine Neurological Exam Neurological: Present alert and oriented X3 Assessment and Plan *Assessment and plan (1) Non-ST elevation VT (NSTEMI): Status: Acute Category: Medical Code(s): I21.4 - Non-ST elevation (NSTEMI) myocardial infarction (2) DAYSI (acute kidney injury): Status: Acute Category: Medical Code(s): N17.9 - Acute kidney failure, unspecified (3) Superficial femoral artery occlusion: Status: Acute Category: Medical Code(s): I70.209 - Unspecified atherosclerosis of [place] arteries of extremities, unsp ecified extremity Plan Jonelle Kamara is a 69-year-old male with a medical history significant for CAD, type 2 diabetes, hypertension who presents to the ED with intractable nausea/vomiting for the past 3 days. Patient states he cannot think of any triggers that could have started it, denies focal abdominal pain, fever/chills, chest pain, shortness of breath, urinary symptoms and endorses regular bowel movements. He states he has not changed his diet, medications, or otherwise been sick or had sick contacts. Workup in the ED significant for WBC 24.3, hem oglobin 20.3, AGAP 21.3, creatinine 1.8, troponin 1.5, unremarkable UA, UDS, and negative for COVID-19, influenza. CTA abdomen did note abrupt occlusion of the distal left SFA and popliteal artery, possibly from embolic event and significant renal artery stenosis. Right upper quadrant ultrasound also unremarkable. Patient was given 3 L LR, vancomycin and Zosyn, aspirin. Dr. Davis was contacted for SFA occlusion who recommended heparin bolus and peripheral intervention in the morning. Given these findings, ED provider discussed case with me and I decided to admit patient for DAYSI on CKD, dehydration, and meeting SIRS criteria. #Intractable nausea/vomiting, resolving #Severe dehydration, resolving #DAYSI on CKD #SIRS #Leukocytosis #High anion metabolic acidosis #Elevated lipase ? Presented with intractable nausea/vomiting for the past 3 days of undefined etiology at this time. Could be gastroenteritis. ? Imaging and workup largely unremarkable for significant findings. Did have hemoconcentration with WBC 24.3, hemoglobin, 20.8, AGAP 21.3. Improving to WBC 18.2, AGAP 17.9, hemoglobin 18. ? Lipase was elevated to 400s, not 3 times upper limit. No focal epigastric pain. If there was pancreatitis, it seems to be improving at this time. RUQ ultrasound unremarkable for acute findings. ? Initial creatinine 1.8, improved to 1.5 after IV fluid resuscitation. Holding fluids this afternoon as patient is having a wet productive cough, BNP in the 9000's. ? Patient does feel slightly better today, but still having poor tolerance to oral intake. Also having slight hemoptysis, possibly from esophagitis/Kesli- Donaldson tear from nausea/vomiting/retching. ? Will retry bedside swallow evaluation this afternoon, and advance diet as tolerated. ? Started IV Protonix 40 mg twice daily. ? Normal respiratory panel, blood cultures, TSH. ? Continue Zosyn 3.375 g every 8 hours pending cultures. ? GI consulted, advised to follow-up on stool PCR to evaluate for gastroenteritis. Recommend outpatient colonoscopy. #PAD #SFA, popliteal artery thrombosis #History of CAD #NSTEMI type I ? PAD noted on CTA abdomen. Possible embolic source. ? Initial troponin 1.5, improved to 1.3. EKG without acute ischemic changes. No chest pain, shortness of breath. ? ECHO 05/22/2025 revealed normal biventricular systolic function. But does have marked increased LV wall thickness suggesting hypertensive cardiomyopathy. ? Cardiology consulted, continue heparin drip until [facility], peripheral angiogram tomorrow. ? Continue aspirin 81 mg. #Type 2 diabetes ? Hemoglobin A1c 7.0%. LDSSI, ACHS glucose checks. #Hypertension ? Continue home metoprolol 200 mg, clonidine 0.2 mg twice daily. Hold home hydrochlorothiazide, Kerendia for now. #Hypothyroidism ? Continue home levothyroxine 75 mcg. TSH normal. Full code DVT prophylaxis: Heparin drip as above
[2025-05-23] MEDS: 0.9 % SODIUM CHLORIDE 1000ML 1,000 ML 250 ML IV (16:07)
--- NOTE | 2025-05-23 16:25 | XR_ITS ---
PROCEDURE INFORMATION: Exam: XR Chest Exam date and time: 05/23/2025 4:25 PM Age: 69 years old Clinical indication: Shortness of breath; Additional info: Hypoxia TECHNIQUE: Imaging protocol: Radiologic exam of the chest. Views: 1 view. COMPARISON: CR XR CHEST PORTABLE 05/23/2025 1:12 PM FINDINGS: Lungs: No consolidation or pulmonary edema. Pleural spaces: No pleural effusion. No pneumothorax. Heart/Mediastinum: The cardiomediastinal silhouette is not enlarged. Bones/joints: Visualized bones demonstrate no acute abnormality. IMPRESSION: No acute abnormality is identified.
--- NOTE | 2025-05-23 16:38 | PC.NURSE ---
Shawn Anderson called Dr. Jauregui about patient being on heparin and now coughing up mendez red blood. At this time Dr. Jauregui gave the Ok to stop the heparin at this time and Dr. Jauregui will let bre know. Shawn Anderson also will be in contact with GI to see if patient can get a scope to see where the blood is coming from that the patient is coughing up.
[2025-05-23 17:03] LABS: POC Glucose,Bedside 179 gm/dL (70-110)
[2025-05-23 17:47] LABS: PTT Heparin (inpatient only) 120.2 Seconds (50-75)
[2025-05-23 18:05] LABS: Hematocrit 51.2 % (42.0-52.0); Hemoglobin 17.1 g/dL (14.1-18.0)
--- NOTE | 2025-05-23 18:32 | CA_ITS ---
APPROVED REPORT EXAM: Comprehensive 2D, Doppler, and color-flow Echocardiogram Manufacturing Intern: LANDY Smith, RVS Ht: 5 ft 6 in Wt: 160lbs BSA: 1.82 BP: 103/58 mmHg Indications: NSTEMI, CAD, HTN, LEIDA, SOB, CP Echo Enhancing Agent Comments: Limited test due to emergency CT due to hemoptiysis during exam patient scanned supine 2D Dimensions IVSd 1.65 cm LVEF (Visual) 66.70 % PWd 1.21 cm LA Volume 53.10 mL LVDd 3.34 cm LA Volume Index 29.676709 mL/m2 (M/F) 16-34 LVDs 2.14 cm Left Atrium 3.13 cm M-Mode Dimensions RVDd 1.91 cm (0.9-2.6) LA Diam 3.62 cm (1.9-4.0) LVDd 3.24 cm (3.5-5.7) LVDs 2.24 cm (3.5-5.7) IVSd 1.71 cm (0.6-1.1) PWd 1.61 cm (0.6-1.1) EF (Teich) 59.70% EPSs 0.85 cm FS 30.90% EDV (Teich) 42.20 mL TAPSE 2.14 (<1.7) ESV (Teich) 17.00 mL LV Diastology E Decel Time 157 (160-240 msec) E/A Ratio 0.73 MED A' 11.00 cm/s LAT A' 12.40 cm/s Aortic Valve JASON Index 1.82 cm2/m2 AoV Peak Mitch. 151.0 (50-130 cm/s) AO Peak GR. 9.20 mmHg AO Mean GR. 4.50 (<5 mmHg) AO VTI 22.4 (18-25 cm) JASON (VTI) 3.38 (2.5-4.5 cm2) Mitral Valve MV A Velocity 109.0 (40-130 cm/s) E/A Ratio 0.73 Pulmonary Valve PV Peak Velocity 110.0 (50-150 cm/s) CO End VMAX 147.0 cm/s Tricuspid Valve TR P. Velocity 126.00 cm/s RAP Estimate 10.00 mmHg RVSP 16.30 mmHg Left Ventricle The left ventricle is normal size. Left ventricular systolic function is normal. The left ventricular ejection fraction is within the normal range. There is marked increase in left ventricular wall thickness. IVSd is 1.4 cm. There is normal LV segmental wall motion. Transmitral Doppler flow pattern suggests impaired LV relaxation. LVEF is 65%. Right Ventricle The right ventricle is normal size. The right ventricular systolic function is normal. Atria The left atrium is mildly dilated. Right atrium is mildly dilated. There is no color Doppler evidence of interatrial shunt. Aortic Valve The aortic valve is mildly thickened. There is no hemodynamically significant aortic valvular stenosis. Trace aortic regurgitation is present. Mitral Valve The mitral valve is normal in structure. No evidence of mitral valve stenosis. Trace mitral regurgitation is present. Tricuspid Valve The tricuspid valve leaflets are thin and pliable. Trace tricuspid regurgitation. There is insufficient TR jet to estimate RVSP. Pulmonic Valve The pulmonary valve is grossly normal in structure. Trace pulmonic valve regurgitation is present. Great Vessels The aortic root is normal in size. IVC is normal in size and collapses >50% with inspiration. Pericardium There is no pericardial effusion. Other Information Study Quality: Fair Conclusion Normal biventricular systolic function (LVEF 65%). There is marked increase in left ventricular wall thickness. IVSd is 1.4 cm. Mild biatrial dilation. No significant valvular stenosis or regurgitation. Electronically signed by : Grace Carlson MD 05/23/2025 13:08:02
--- NOTE | 2025-05-23 18:39 | PC.NURSE ---
Karen with [facility] called to notify Carroll Fraga RN that patient heparin drip is being decreased to 550 units an hour. Carroll Fraga RN informed [facility] that it has been paused due to patient coughing up mendez red blood and it was stopped at 1637. [facility] has ordered another aptt for 2300 [facility] if and when the drip gets started back
[2025-05-23] MEDS: PANTOPRAZOLE 40MG VIAL 40 MG IV (20:02)
[2025-05-23] MEDS: SODIUM CHLORIDE 0.9% 10ML VIAL 10 ML IV (20:02)
[2025-05-23 20:09] LABS: POC Glucose,Bedside 144 gm/dL (70-110)
--- NOTE | 2025-05-23 20:47 | PC.NURSE ---
2030 - Pt started having hemoptysis, pt noted to have moderate amount of hemoptysis on chin and emesis bag upon entering room. Color was bright red and thicker in constistency. Pt denies pain or discomfort, doesn't appear of having respiratory distress. Pt cleaned up by tech, notified provider about gross amount of hemoptysis. Provider at bedside to assess.
[2025-05-23] MEDS: HYDRALAZINE 20MG/ML VIAL 10 MG IV (21:08)
[2025-05-24] VITALS (26 sets, daily range): BP systolic 112–179; BP diastolic 58–99; PULSE 60–97; RESP 16–26; TEMP 36.6–37.1; O2SAT 90–99; BMI 25.9
--- NOTE | 2025-05-24 00:34 | EXP.EVENT.NO ---
Notified of a recurrent episode of hemoptysis. Personally assessed, noted moderate to large amount of bright red blood. Much larger than prior 2 episodes yesterday. Nursing staff reports coughing episode after receiving oral medication with applesauce, producing moderate amount of hemoptysis. Patient was placed on a heparin drip in preparation for peripheral angiogram (05/24). Heparin drip held yesterday (05/23) due to 2 episodes of hemoptysis. Discussed case with Dr. Anderson who discussed with GI during the day. Confirmed holding heparin gtt. Otherwise patient stable, hemoglobin stable, continue to monitor trend.
[2025-05-24] MEDS: PIPERCILLIN/TAZO 3.375 GM in 0.9 % SODIUM CHLORIDE 50 ML IV ×2 (02:23→11:15)
[2025-05-24 05:44] LABS: POC Glucose,Bedside 148 gm/dL (70-110)
[2025-05-24 06:05] LABS: Hematocrit 47.9 % (42.0-52.0); Hemoglobin 15.9 g/dL (14.1-18.0); Immature Granulocytes % 0.8 %; Mean Corpuscular HGB Conc 33.2 g/dL (31.8-35.4); Mean Corpuscular Hemoglobin 30.1 pg (27.0-31.2); Mean Corpuscular Volume 90.5 fl (80-94); Nucleated Red Blood Cells % 0 %; Platelet Count 161 K/mm3 (142-424); Red Blood Count 5.29 M/mm3 (4.60-6.20); Red Cell Distribution Width-SD 48.8 fL; White Blood Count 14.7 K/mm3 (4.8-10.8)
[2025-05-24 06:13] LABS: Albumin Level 4.0 g/dl (3.5-5.0); Chloride 110 mmol/L (98-107); Potassium 3.6 mmoL/L (3.5-5.1); Sodium 139 mmol/L (136-145)
[2025-05-24 06:16] LABS: Alanine Aminotransferase 19 U/L (12-78); Albumin/Globulin Ratio 2.1 (1.1-1.8); Alkaline Phosphatase 62 U/L (38-126); Anion Gap 12.6 mEq/L (5-15); Aspartate Amino Transferase 34 U/L (17-59); Bilirubin,Total 1.3 mg/dl (0.2-1.3); Calcium 8.8 mg/dl (8.4-10.2); Carbon Dioxide 20 mmol/L (22.0-30.0); Globulin 1.9 g/dL (1.3-3.2); Glucose 152 mg/dl (74-100); Magnesium 2.3 mg/dl (1.6-2.3); Total Protein,Serum 5.9 g/dl (6.3-8.2)
[2025-05-24 06:21] LABS: Blood Urea Nitrogen 63 mg/dl (9-20); Creatinine Clearance Estimated 44 mL/min (50-200); Creatinine,Serum 1.60 mg/dl (0.66-1.25); Estimated Glomerular Filt Rate 43 ml/min (>60); GFR (African American) 52 ML/MIN (>60)
[2025-05-24 06:47] LABS: Bilirubin,Unconjugated 0.7 mg/dL (0.0-1.1)
[2025-05-24 06:48] LABS: Bilirubin,Direct 0.6 mg/dl (0.0-0.4); Bilirubin,Indirect 0.7 mg/dL (0.0-0.9); Bilirubin,Total 1.3 mg/dl (0.2-1.3)
[2025-05-24] MEDS: HYDRALAZINE 20MG/ML VIAL 10 MG IV (06:49)
[2025-05-24 07:44] LABS: RBC Morphology Normal; Total Cells Counted 100
[2025-05-24] MEDS: 0.9 % SODIUM CHLORIDE 1000ML 1,000 ML 100 ML IV (07:53)
--- NOTE | 2025-05-24 07:55 | XR_ITS ---
FINAL REPORT CLINICAL HISTORY: SOB COMPARISON: 05/23/2025 FINDINGS: The heart size is normal. The mediastinum is normal. The lungs are underinflated. There are mild chronic changes of the lung bases. There is no focal infiltrate or edema. There are no pleural effusions. There is no pneumothorax. There is no osseous abnormality. IMPRESSION: Chronic changes without acute cardiopulmonary process Reviewed, Interpreted and Dictated by Vaibhav Raines MD Transcribed by Marcy Bello Authenticated and [facility]
--- NOTE | 2025-05-24 09:10 | PC.NURSE ---
JESSIE MILLER WITH CARDIOLOGY HOLD ON HEART CATH UNTIL MAYBE TUESDAY
[2025-05-24] MEDS: SODIUM CHLORIDE 0.9% 10ML VIAL 10 ML IV (09:25)
[2025-05-24] MEDS: PANTOPRAZOLE 40MG VIAL 40 MG IV ×2 (09:25→20:57)
--- NOTE | 2025-05-24 09:58 | PC.NURSE ---
WENT INTO PT'S ROOM TO PROVIDE ORAL CARE SWABS FOR PATIENT AND SON ASKED WHAT WE COULD DO ABOUT GETTING THE PATIENT TRANSFERRED TO [facility] SINCE, WE AREN'T GETTING ANY ANSWERED AND WE KEEP GOING IN CIRCLES . THIS RN RE-EDUCATED ON THE RISKS OF THE PATIENT'S BLEEDING. MD MADE AWARE THAT PATIENT'S SON WANTS TO DISCUSS TRANSFER TO ANOTHER FACILITY.
[2025-05-24 10:25] LABS: PTT Heparin (inpatient only) 28.2 Seconds (50-75)
--- NOTE | 2025-05-24 10:58 | PC.NURSE ---
Patient is still complaining that he is not being fed and cannot have water. Patient has been educated multiple times on the need for patient to not have anything by mouth and why. Patient is stating that he is leaving today if , they don't hurry up .
--- NOTE | 2025-05-24 10:59 | EXP.CARD.PN ---
Subjective Subjective Date: 05/24/25 Time: 09:30 Interval history: Patient developed mendez hemoptysis overnight so heparin drip was stopped. All procedures on hold until GI and pulmonology have evaluated/treated source. He denies cardiac symptoms this morning. No changes to his leg Exam Data for Last 24 hours Vital signs and Labs for Last 24 Hours: Temp Pulse Resp BP Pulse Ox O2 Del Method O2 Flow Rate 98.3 F 82 22 161/90 H 96 Room Air 96 05/24/25 08:00 05/24/25 10:00 05/24/25 10:00 05/24/25 10:00 05/24/25 10:00 05/24/25 10:00 05/24/25 06:42 Laboratory Results - last 24 hr 05/23/25 04:05: TSH 2.10 05/23/25 12:05: APTT 43.6 L 05/23/25 16:40: APTT 120.2 H* 05/23/25 16:56: POC Glucose 179 H 05/23/25 17:58: Hgb 17.1, Hct 51.2 05/23/25 20:01: POC Glucose 144 H 05/24/25 05:16: WBC 14.7 H, RBC 5.29, Hgb 15.9, Hct 47.9, MCV 90.5, MCH 30.1, MCHC 33.2, RDW 14.8, Plt Count 161, MPV 12.2 H, Neut % (Auto) 58.0, Lymph % (Auto) 34.1, [place] % (Auto) 6.7, Eos % (Auto) 0.1, Baso % (Auto) 0.3, Neut # (Auto) 8.5 H, Lymph # (Auto) 5.0 H, [place] # (Auto) 1.0, Eos # (Auto) 0.0, Baso # (Auto) 0.1, Total Counted 100, Neutrophils % (Manual) 61, Lymphocytes % (Manual) 34, Monocytes % (Manual) 3, Eosinophils % (Manual) 2, Platelet Estimate Normal, RBC Morphology Normal, Sodium 139, Potassium 3.6 D, Chloride 110 H, Carbon Dioxide 20 L, Anion Gap 12.6, BUN 63 H, Creatinine 1.60 H, Estimated Creat Clear 44, Estimated GFR 43 L, Est GFR ( Amer) 52 L, Glucose 152 H, Calcium 8.8, Magnesium 2.3, Total Bilirubin 1.3 05/24/25 05:16: Total Bilirubin 1.3, Direct Bilirubin 0.6 H, Conjugated Bilirubin 0.0, Indirect Bilirubin 0.7, Unconjugated Bilirubin 0.7, AST 34 D, ALT 19, Alkaline Phosphatase 62, Total Protein 5.9 L, Albumin 4.0 D, Globulin 1.9, Albumin/Globulin Ratio 2.1 H 05/24/25 05:37: POC Glucose 148 H 05/24/25 09:39: APTT 28.2 L I & O for Last 24 hours: Intake & Output 05/21/25 05/22/25 05/23/25 05/24/25 23:59 23:59 23:59 23:59 Intake Total 3454.3 / 3454.3 3482.050 / 3482.050 1050 / 1050 Output Total 500 / 500 1600 / 1600 950 / 950 Balance 2954.3 / 2954.3 1882.050 / 1882.050 100 / 100 Weight 160 lb 0.008 oz 159 lb 6.669 oz 161 lb 4.8 oz Microbiology Reports for the Last 24 Hours: Microbiology 05/22/25 11:30 Blood Blood Culture - Preliminary NO GROWTH AFTER 24 HOURS 05/22/25 11:35 Blood Blood Culture - Preliminary NO GROWTH AFTER 24 HOURS Constitutional Constitutional: no acute distress and cooperative *Routine HEENT Exam Eye: Present PERRL *Routine Respiratory Exam Respiratory: Present CTA bilaterally; Absent accessory muscle use, wheezes or crackles *Routine Cardiovascular Exam Cardiovascular: Present RRR, Normal S1 and Normal S2; Absent murmur, gallop or rubs *Routine Abdominal Exam Abdominal: Present soft; Absent tenderness *Routine Extremities Exam Extremities: Present pulses intact; Absent cyanosis or edema Comments: Left lower extremity unchanged from prior exams-cold, discolored, nonhealing ulcerations, he is neurovascularly intact *Routine Skin Exam Skin: Present intact; Absent erythema or wounds *Routine Neurological Exam Neurological: Present alert and oriented X3 Routine Psychiatric Exam Psychiatric: Present cooperative Progress Note: A&P Assessment and plan (1) Non-ST elevation ME (NSTEMI): Status: Acute (2) DAYSI (acute kidney injury): Status: Acute (3) Superficial femoral artery occlusion: Status: Acute (4) Hemoptysis: Status: Acute Assessment and Plan Assessment and Plan for All Diagnoses:: Critical LLE PAD with limb threatening ischemia - occluded L-SFA and L-Pop with non healing wounds and cold extremity - pt N/V in tact - cont ASA, Heparin - no statin due to intolerance (hallucinations) - peripheral angiogram on hold due to hemoptysis - pt may eventually require amputation NSTEMI - known CAD with prior stenting but details unclear - Trop peak 1.5 then down here, non-specific changes on EKG, ECHO - nml bi-v function - LHC on hold due to hemoptysis, reevaluate Tuesday if stable LEIDA - 90% RRA 50% LRA - cont Plavix, Heparin, Statin - renal angiogram/stenting on hold due to hemoptysis, reevaluate Tuesday PAF - known paroxysmal - SR here - cont Toprol 10O, heparin discontinued due to hemoptysis N/V - x1 mo - per primary service - Now with hemoptysis, may be GI source Dehydration - BUN 70, give additional 1L NS - Continue to monitor daily CV summary 05/24: Cath procedures canceled today due to development of mendez hemoptysis overnight. Further plans pending source/stabilization. We will reassess Tuesday.
[2025-05-24 11:46] LABS: POC Glucose,Bedside 126 gm/dL (70-110)
--- NOTE | 2025-05-24 12:35 | EXP.PULM.PN ---
Subjective *Date: 05/24/25 *Time: 12:35 Interval history: Patient denies any new respiratory complaints. Episodes of hemoptysis. Resolved since yesterday night after discontinuing heparin drip. Pulmonology Exam Inpatient Vital signs and Labs for Last 24 Hours: Temp Pulse Resp BP Pulse Ox O2 Del Method O2 Flow Rate 98.2 F 77 22 160/85 H 96 Room Air 96 05/24/25 12:00 05/24/25 12:00 05/24/25 12:00 05/24/25 12:00 05/24/25 12:00 05/24/25 12:00 05/24/25 06:42 Laboratory Results - last 24 hr 05/23/25 04:05: TSH 2.10 05/23/25 16:40: APTT 120.2 H* 05/23/25 16:56: POC Glucose 179 H 05/23/25 17:58: Hgb 17.1, Hct 51.2 05/23/25 20:01: POC Glucose 144 H 05/24/25 05:16: WBC 14.7 H, RBC 5.29, Hgb 15.9, Hct 47.9, MCV 90.5, MCH 30.1, MCHC 33.2, RDW 14.8, Plt Count 161, MPV 12.2 H, Neut % (Auto) 58.0, Lymph % (Auto) 34.1, [place] % (Auto) 6.7, Eos % (Auto) 0.1, Baso % (Auto) 0.3, Neut # (Auto) 8.5 H, Lymph # (Auto) 5.0 H, [place] # (Auto) 1.0, Eos # (Auto) 0.0, Baso # (Auto) 0.1, Total Counted 100, Neutrophils % (Manual) 61, Lymphocytes % (Manual) 34, Monocytes % (Manual) 3, Eosinophils % (Manual) 2, Platelet Estimate Normal, RBC Morphology Normal, Sodium 139, Potassium 3.6 D, Chloride 110 H, Carbon Dioxide 20 L, Anion Gap 12.6, BUN 63 H, Creatinine 1.60 H, Estimated Creat Clear 44, Estimated GFR 43 L, Est GFR ( Amer) 52 L, Glucose 152 H, Calcium 8.8, Magnesium 2.3, Total Bilirubin 1.3 05/24/25 05:16: Total Bilirubin 1.3, Direct Bilirubin 0.6 H, Conjugated Bilirubin 0.0, Indirect Bilirubin 0.7, Unconjugated Bilirubin 0.7, AST 34 D, ALT 19, Alkaline Phosphatase 62, Total Protein 5.9 L, Albumin 4.0 D, Globulin 1.9, Albumin/Globulin Ratio 2.1 H 05/24/25 05:37: POC Glucose 148 H 05/24/25 09:39: APTT 28.2 L 05/24/25 11:38: POC Glucose 126 H Temp Pulse Resp BP Pulse Ox O2 Del Method O2 Flow Rate 98.9 F 114 H 11 L 181/98 H 97 Room Air 96 05/23/25 08:00 05/23/25 08:12 05/23/25 08:00 05/23/25 08:00 05/23/25 08:00 05/23/25 08:00 05/23/25 06:51 Laboratory Results - last 24 hr 05/22/25 11:05: WBC 24.3 H*, RBC 6.79 H, Hgb 20.3 H, Hct 61.0 H*, MCV 89.8, MCH 29.9, MCHC 33.3, RDW 16.1, Plt Count 191, MPV 11.7 H, Neut % (Auto) 60.2, Lymph % (Auto) 33.6, [place] % (Auto) 5.0, Eos % (Auto) 0.0 L, Baso % (Auto) 0.5, Neut # (Auto) 14.6 H, Lymph # (Auto) 8.2 H, [place] # (Auto) 1.2 H, Eos # (Auto) 0.0, Baso # (Auto) 0.1, Total Counted 100, Neutrophils % (Manual) 62, Lymphocytes % (Manual) 29, Monocytes % (Manual) 9, Platelet Estimate Normal, RBC Morphology Normal, APTT 28.8 L, VBG pH 7.31, VBG pCO2 41.8, VBG pO2 44.8 H, VBG HCO3 20.3 L, VBG Total CO2 21.6 L, VBG O2 Saturation 79.3 H, VBG Base Excess -6.0 L, VBG Lactic Acid 2.3 H, Sodium 136, Potassium 4.5, Chloride 98, Carbon Dioxide 22, Anion Gap 20.5 H, BUN 72 H, Creatinine 1.80 H, Estimated Creat Clear 39, Estimated GFR 37 L, Est GFR ( Amer) 45 L, Glucose 224 H, Calcium 11.1 H, Phosphorus 4.8 H, Magnesium 2.4 H, Total Bilirubin 2.1 H, AST 46, ALT 37, Alkaline Phosphatase 90, Total Creatine Kinase 107, Troponin I 1.50 H, C-Reactive Protein 8.3 H, NT-Pro-B Natriuret Pep 9420 H, Total Protein 8.0, Albumin 3.9, Globulin 4.1 H, Albumin/Globulin Ratio 1.0 L, Lipase 469 H, Acetone Level None detected, HCV Ab JAIRO w/Rflx PCR Qn Negative, HIV Ag/Ab Combo Qual Negative 05/22/25 11:17: SARS-CoV-2 (PCR) Not detected, Influenza A Untype (PCR) Not detected, Influenza Type B (PCR) Not detected 05/22/25 13:54: Urine Color Yellow, Urine Appearance Clear, Urine pH 5.5, Ur Specific [place] 1.015, Urine Protein 2+ A, Urine Glucose (UA) 3+, Urine Ketones Trace, Urine Blood Trace-i, Urine Nitrate Negative, Urine Bilirubin Negative, Urine Urobilinogen 0.2, Ur Leukocyte Esterase Negative, Urine RBC Occasional, Urine WBC Occasional, Ur Squamous Epith Cells Occasional, Urine Bacteria Trace, Urine Opiates Screen Negative, Urine Methadone Screen Negative, Ur Barbituates Screen Negative, Ur Phencyclidine Scrn Negative, Ur Amphetamines Screen Negative, U Benzodiazepines Scrn Negative, Urine Cocaine Screen Negative, U Marijuana (THC) Screen Negative 05/22/25 14:00: Troponin I 1.47 H 05/22/25 15:40: Lactate 1.8 05/22/25 17:09: POC Glucose 150 H 05/22/25 17:15: WBC 21.1 H*, RBC 6.67 H, Hgb 19.7 H, Hct 59.9 H, MCV 89.8, MCH 29.8, MCHC 33.2, RDW 15.9, Plt Count 169, MPV 12.0 H, Neut % (Auto) 57.6, Lymph % (Auto) 36.1, [place] % (Auto) 4.8, Eos % (Auto) 0.0 L, Baso % (Auto) 0.4, Neut # (Auto) 12.1 H, Lymph # (Auto) 7.6 H, [place] # (Auto) 1.0, Eos # (Auto) 0.0, Baso # (Auto) 0.1, Sodium 131 L, Potassium 4.3, Chloride 97 L, Carbon Dioxide 17 L, Anion Gap 21.3 H, BUN 63 H, Creatinine 1.60 H, Estimated Creat Clear 43, Estimated GFR 43 L, Est GFR ( Amer) 52 L, Glucose 159 H D, Calcium 10.2, Total Bilirubin 1.9 H, AST 52, ALT 29, Alkaline Phosphatase 103, Troponin I 1.30 H, Total Protein 7.1, Albumin 3.4 L D, Globulin 3.7 H, Albumin/Globulin Ratio 0.9 L 05/22/25 18:22: Chlamy pneumoniae PCR Not detected, Adenovirus (PCR) Not detected, B. pertussis DNA (PCR) Not detected, Coronavirus OC43 (PCR) Not detected, Coronavirus HKU1 (PCR) Not detected, Coronavirus 229E (PCR) Not detected, SARS-CoV-2 (PCR) Not detected, Coronavirus NL63 (PCR) Not detected, Human Metapneumovir PCR Not detected, Influenza A (H1) PCR Not detected, Influ A (H1N1/09) PCR Not detected, Influenza A (H3) PCR Not detected, Influenza Type A (PCR) Not detected, Influenza Type B (PCR) Not detected, M. pneumoniae (PCR) Not detected, Parainfluenza 1 (PCR) Not detected, Parainfluenza 2 (PCR) Not detected, Parainfluenza 3 (PCR) Not detected, Parainfluenza 4 (PCR) Not detected, RSV (PCR) Not detected, Entero/Rhino (PCR) Not detected 05/22/25 19:42: APTT > 200.0 H* 05/22/25 20:02: POC Glucose 211 H 05/23/25 01:12: APTT 172.5 H* 05/23/25 04:05: WBC 19.9 H, RBC 5.86, Hgb 17.5 D, Hct 53.1 H, MCV 90.6, MCH 29.7, MCHC 32.8, RDW 15.0, Plt Count 163, MPV 12.5 H, Neut % (Auto) 58.8, Lymph % (Auto) 33.2, [place] % (Auto) 6.6, Eos % (Auto) 0.1, Baso % (Auto) 0.4, Neut # (Auto) 11.7 H, Lymph # (Auto) 6.6 H, [place] # (Auto) 1.3 H, Eos # (Auto) 0.0, Baso # (Auto) 0.1, Total Counted 100, Neutrophils % (Manual) 63, Lymphocytes % (Manual) 33, Atypical Lymphs % 4, Platelet Estimate Not Reportable, RBC Morphology Not Reportable, APTT 134.1 H*, Sodium 130 L, Potassium 4.9, Chloride 98, Carbon Dioxide 19 L, Anion Gap 17.9 H, BUN 70 H, Creatinine 1.50 H, Estimated Creat Clear 46, Estimated GFR 46 L, Est GFR ( Amer) 56 L, Glucose 194 H D, Hemoglobin A1c 7.0 H, Calcium 9.2, Magnesium 2.1 D, Total Bilirubin 2.0 H, AST 54, ALT 25, Alkaline Phosphatase 47, Total Protein 6.4, Albumin 2.9 L D, Globulin 3.5 H, Albumin/Globulin Ratio 0.8 L, Procalcitonin 0.301 05/23/25 05:23: POC Glucose 200 H 05/23/25 07:06: WBC 18.2 H, RBC 6.04, Hgb 18.0, Hct 54.4 H, MCV 90.1, MCH 30.0, MCHC 33.3, RDW 14.8, Plt Count 148, MPV 11.9 H, Neut % (Auto) 57.9, Lymph % (Auto) 35.1, [place] % (Auto) 5.8, Eos % (Auto) 0.0 L, Baso % (Auto) 0.4, Neut # (Auto) 10.5 H, Lymph # (Auto) 6.4 H, [place] # (Auto) 1.1 H, Eos # (Auto) 0.0, Baso # (Auto) 0.1, PT 12.4, INR 1.13 H, APTT 82.8 H* I & O for Labs for Last 24 Hours: Intake & Output 05/21/25 05/22/25 05/23/25 05/24/25 23:59 23:59 23:59 23:59 Intake Total 3454.3 / 3454.3 3482.050 / 3482.050 1100 / 1100 Output Total 500 / 500 1600 / 1600 950 / 950 Balance 2954.3 / 2954.3 1882.050 / 1882.050 150 / 150 Weight 160 lb 0.008 oz 159 lb 6.669 oz 161 lb 4.8 oz Intake & Output 05/20/25 05/21/25 05/22/25 05/23/25 23:59 23:59 23:59 23:59 Intake Total 3454.3 / 3454.3 1111.167 / 1111.167 Output Total 500 / 500 300 / 300 Balance 2954.3 / 2954.3 811.167 / 811.167 Weight 160 lb 0.008 oz 159 lb 6.669 oz Microbiology Reports for the Last 24 Hours: Microbiology 05/22/25 11:35 Blood Blood Culture - Preliminary NO GROWTH AFTER 48 HOURS 05/22/25 11:30 Blood Blood Culture - Preliminary NO GROWTH AFTER 48 HOURS Constitutional: Present mild distress Head: Present normocephalic and atraumatic ENT: Present normal exam, normal oropharynx and mucous membranes moist Neck: Present normal inspection and full ROM Respiratory: Present normal respiratory effort and able to speak in complete sentences; Absent respiratory distress, wheezes, crackles or diminished air movement Cardiac: Present S1/S2, Tachycardia and radial pulses present GI: Present soft and distention; Absent tenderness or guarding Skin: Present intact and lesions; Absent cyanosis or jaundice Neuro: Present alert, awake and oriented x 3 Extremities: Present normal inspection; Absent clubbing or cyanosis Psychiatric: Present normal affect and cooperative Assessment and Plan *Assessment and plan (1) Hemoptysis: Status: Acute Category: Medical Code(s): R04.2 - Hemoptysis Plan Mr. Kamara is a 69-year-old male never smoker no prior respiratory complaints presented to the ER with intractable nausea vomiting found to be having arterial thrombosis and renal artery stenosis initiate heparin drip for DuoNebs with hemoptysis this morning and pulmonary was called for further evaluation and management Afebrile. Hemodynamically stable. Neutrophilic predominant leukocytosis. Blood gas upon admission hypoxic respiratory failure. No hypercarbia. Comprehensive respiratory viral PCR panel negative. CTA chest upon admission no pulmonary embolism. Traction bronchiectasis. Bilateral calcified pulmonary nodules and lymphadenopathy. Subsequent CT scans and the concern for hemoptysis did not show any acute changes CT abdomen occlusion of distal left superficial femoral and popliteal artery likely from concerning embolic event. No other suspicious pulmonary nodules warranting close follow-up. Prolex-D venous Doppler December 2024 no evidence of DVT. On examination no respiratory distress. On room air. Chest clear to auscultate. Left lower extremity ulcers noted. Clinical update: Patient continued to have episode hemoptysis throughout yesterday with 1 episodes of massive hemoptysis after which his heparin drip was discontinued. Patient denies any further hemoptysis episodes at this point of time. Chest and chest x-ray continue to remain stable with no new infiltrates. Continue to remain on room air. Despite his feeling to be given his continued home pressures while on heparin and the plan was made to proceed with bronchoscopy airway examination tolerating the possible pulmonary etiology Noted hemoptysis/what patient experiencing was actually hematemesis Plan: Schedule for bronchoscopy airway examination Follow with cardiology recommendations for possible vascular intervention for the noted arterial thrombosis Continue to receive broad-spectrum antibiotics pending blood culture results
--- NOTE | 2025-05-24 14:19 | P.PNANES_ITS ---
[facility] Disclaimer: The information contained in this section may have been updated after the patient was seen, as this information can be updated by other users. Medical History Hemoptysis Myocardial infarct Skin lesion of left leg Psychosis Diabetes Traumatic injury of foot Multiple thyroid nodules Impacted cerumen of right ear Hypothyroidism Repeated falls Pulmonary HTN HLD (hyperlipidemia) HTN (hypertension) Surgical History Stented coronary artery Social History Smoking Status: Never smoker alcohol intake: never counseling provided: none substance use type: denies use current occupational status: unemployed Travel in the last 8 weeks?: None household members: none housing: apartment current occupation: retired caffeine: No [facility] Anesthesia Checklist Patient Identification Patient Identification: Arm Band and Verbal (Name & ) Structural Data Admitted From: Home Planned Operative Procedure/s: bronch Consent for Planned Operative Procedure(s) Verified: Yes Verified Documents: Surgical Consent and History and Physical NPO Status Verified Time NPO: 00:00 Additional verifications Anesthesia Reactions: No Airway Assessment Mallampati Score:: Class II Dentition: Edentulous Neurological Assessment Level of Consciousness: Awake, Alert and Appropriate Hx Seizures: No Numbness or tingling in extremities: No Anesthesia Plan Anesthesia Risk discussed: Yes Anesthesia Plan: Verified ASA Class: IV Anesthesia Type: General
--- NOTE | 2025-05-24 15:11 | EXP.BRONCH.N ---
Procedure: Date: 05/24/25 Patient Date of :: 1955 Procedure Performed:: Bronchoscopy airway examination and bronchoalveolar lavage Indications:: Hemoptysis Performing Provider:: Pranav Marlow MD Referring Provider:: Sedation:: General anesthesia Procedure:: Bronchoscopy airway examination and bronchoalveolar lavage: A clean diagnosis bronchoscopy was advanced through the ET tube and airways were examined up to subsegmental bronchi. Airways appeared friable and erythematous. No evidence of active bleeding/old blood clots noted throughout the airways. No evidence of mucoid secretions, mucous plugging noted. Bronchoalveolar lavage was performed in the RML with instillation of 60 cc normal saline with return of 15 cc back. BAL fluid was sent for cell count and differential along with bacterial fungal and AFB stain and cultures. Patient tolerated the procedure with no immediate acute complications. We will follow the patient in pulmonary clinic in 7 to 10 days. Findings:: Please see the procedure note Recommendations:: Postoperative bronchoscopy instructions Please refer to consult note from today for further recommendation Complications:: No acute immediate complications Estimated blood obtained (mL): 0
--- NOTE | 2025-05-24 15:51 | PC.NURSE ---
1548 Justin APONTE stated [facility] APONTE general surgery is aware of general surgery consult on patient.
[2025-05-24 16:38] LABS: POC Glucose,Bedside 113 gm/dL (70-110)
--- NOTE | 2025-05-24 16:56 | EXP.PN ---
Subjective *Date: 05/24/25 *Time: 16:56 Interval history: Patient feeling better this afternoon, s/p bronchoscopy with no evidence of pulmonary hemorrhage. Tolerating clears, will advance as tolerated. N.p.o. at midnight for EGD in the morning. Exam Data for Last 24 hours Vital signs and Labs for Last 24 Hours: Temp Pulse Resp BP Pulse Ox O2 Del Method O2 Flow Rate 98.2 F 97 H 16 170/90 H 97 Room Air 2 05/24/25 16:31 05/24/25 16:31 05/24/25 16:31 05/24/25 16:31 05/24/25 16:31 05/24/25 16:31 05/24/25 15:15 Laboratory Results - last 24 hr 05/23/25 16:40: APTT 120.2 H* 05/23/25 16:56: POC Glucose 179 H 05/23/25 17:58: Hgb 17.1, Hct 51.2 05/23/25 20:01: POC Glucose 144 H 05/24/25 05:16: WBC 14.7 H, RBC 5.29, Hgb 15.9, Hct 47.9, MCV 90.5, MCH 30.1, MCHC 33.2, RDW 14.8, Plt Count 161, MPV 12.2 H, Neut % (Auto) 58.0, Lymph % (Auto) 34.1, Eddy % (Auto) 6.7, Eos % (Auto) 0.1, Baso % (Auto) 0.3, Neut # (Auto) 8.5 H, Lymph # (Auto) 5.0 H, Eddy # (Auto) 1.0, Eos # (Auto) 0.0, Baso # (Auto) 0.1, Total Counted 100, Neutrophils % (Manual) 61, Lymphocytes % (Manual) 34, Monocytes % (Manual) 3, Eosinophils % (Manual) 2, Platelet Estimate Normal, RBC Morphology Normal, Sodium 139, Potassium 3.6 D, Chloride 110 H, Carbon Dioxide 20 L, Anion Gap 12.6, BUN 63 H, Creatinine 1.60 H, Estimated Creat Clear 44, Estimated GFR 43 L, Est GFR ( Amer) 52 L, Glucose 152 H, Calcium 8.8, Magnesium 2.3, Total Bilirubin 1.3 05/24/25 05:16: Total Bilirubin 1.3, Direct Bilirubin 0.6 H, Conjugated Bilirubin 0.0, Indirect Bilirubin 0.7, Unconjugated Bilirubin 0.7, AST 34 D, ALT 19, Alkaline Phosphatase 62, Total Protein 5.9 L, Albumin 4.0 D, Globulin 1.9, Albumin/Globulin Ratio 2.1 H 05/24/25 05:37: POC Glucose 148 H 05/24/25 09:39: APTT 28.2 L 05/24/25 11:38: POC Glucose 126 H 05/24/25 16:24: POC Glucose 113 H I & O for Last 24 hours: Intake & Output 05/21/25 05/22/25 05/23/25 05/24/25 23:59 23:59 23:59 23:59 Intake Total 3454.3 / 3454.3 3482.050 / 3482.050 1220 / 1220 Output Total 500 / 500 1600 / 1600 950 / 950 Balance 2954.3 / 2954.3 1882.050 / 1882.050 270 / 270 Weight 72.575 kg 72.31 kg 73.164 kg Microbiology Reports for the Last 24 Hours: Microbiology 05/22/25 11:35 Blood Blood Culture - Preliminary NO GROWTH AFTER 48 HOURS 05/22/25 11:30 Blood Blood Culture - Preliminary NO GROWTH AFTER 48 HOURS Constitutional Constitutional: no acute distress and chronically ill appearing *Routine HEENT Exam Head: Present normocephalic Eye: Present EOMI and PERRL ENT: Present mucous membranes moist *Routine Neck Exam Neck: Present supple; Absent lymphadenopathy *Routine Respiratory Exam Respiratory: Present CTA bilaterally *Routine Cardiovascular Exam Cardiovascular: Present RRR *Routine Abdominal Exam Abdominal: Present soft and normoactive bowel sounds; Absent tenderness *Routine Extremities Exam Extremities: Absent cyanosis, clubbing or edema Comments: Left lower extremity arterial insufficiency ulcers. Over pabon *Routine Skin Exam Skin: Present warm; Absent rash *Routine Neurological Exam Neurological: Present alert and oriented X3 Assessment and Plan *Assessment and plan (1) Non-ST elevation DC (NSTEMI): Status: Acute Category: Medical Code(s): I21.4 - Non-ST elevation (NSTEMI) myocardial infarction (2) DAYSI (acute kidney injury): Status: Acute Category: Medical Code(s): N17.9 - Acute kidney failure, unspecified (3) Superficial femoral artery occlusion: Status: Acute Category: Medical Code(s): I70.209 - Unspecified atherosclerosis of [place] arteries of extremities, unspecified extremity Plan Jonelle Kamara is a 69-year-old male with a medical history significant for CAD, type 2 diabetes, hypertension who presents to the ED with intractable nausea/vomiting for the past 3 days. Patient states he cannot think of any triggers that could have started it, denies focal abdominal pain, fever/chills, chest pain, shortness of breath, urinary symptoms and endorses regular bowel movements. He states he has not changed his diet, medications, or otherwise been sick or had sick contacts. Workup in the ED significant for WBC 24.3, hemoglobin 20.3, AGAP 21.3, creatinine 1.8, troponin 1.5, unremarkable UA, UDS, and negative for COVID-19, influenza. CTA abdomen did note abrupt occlusion of the distal left SFA and popliteal artery, possibly from embolic event and significant renal artery stenosis. Right upper quadrant ultrasound also unremarkable. Patient was given 3 L LR, vancomycin and Zosyn, aspirin. Dr. Davis was contacted for SFA occlusion who recommended heparin bolus and peripheral intervention in the morning. Given these findings, ED provider discussed case with me and I decided to admit patient for DAYSI on CKD, dehydration, and meeting SIRS criteria. #Intractable nausea/vomiting, resolved #Severe dehydration, resolved #DAYSI on CKD, resolving #SIRS #Leukocytosis #High anion metabolic acidosis, resolved #Elevated lipase ? Presented with intractable nausea/vomiting for the past 3 days of undefined etiology at this time, no focal abdominal pain. Could be gastroenteritis. ? Imaging and workup largely unremarkable for significant findings. Did have hemoconcentration with WBC 24.3, hemoglobin, 20.8, AGAP 21.3. Improving to WBC 14.7, AGAP 12.6, hemoglobin 15.9. ?Initial lipase was elevated to 400s, not 3 times upper limit. No focal epigastric pain. If there was pancreatitis, it seems to be improving at this time. RUQ ultrasound unremarkable for acute findings. ? Initial creatinine 1.8, improved to 1.6 after IV fluid resuscitation. Discontinued IV maintenance fluids today, patient finally tolerating clear liquid diet. ? Up until this afternoon, patient has had poor oral tolerance. Has been regurgitating even clears. Has had 4-5 episodes of hemoptysis/hematemesis concerning for Kelsi-Donaldson tear, lower esophageal issues, versus pulmonary hemorrhage given protracted nausea/vomiting/retching. Hemoglobin down to 15.9 today. ? Pulmonology consulted, s/p bronchoscopy without evidence of pulmonary bleeding. ? General Surgery consulted, planning for EGD in the morning. N.p.o. at midnight. ? Continue IV Protonix 40 mg twice daily. ? Normal respiratory panel, blood cultures, TSH. ? Discontinue Zosyn today given no evidence of infection, normal cultures. ? GI consulted, advised to follow-up on stool PCR to evaluate for gastroenteritis. Recommend outpatient colonoscopy. #Severe PAD #Severe SFA, popliteal artery thrombosis #Severe renal artery stenosis #History of CAD #NSTEMI type I #Left lower extremity arterial insufficiency ulcers ? Severe PAD, LEIDA noted on CTA abdomen. Possible embolic source. ? Initial troponin 1.5, improved to 1.3. EKG without acute ischemic changes. No chest pain, shortness of breath. ? ECHO 05/22/2025 revealed normal biventricular systolic function. But does have marked increased LV wall thickness suggesting hypertensive cardiomyopathy. ? Cardiology consulted, planning for LHC and peripheral angiogram on Tuesday. Delayed due to hematemesis. ? Continue aspirin 81 mg. Discontinued heparin drip due to hematemesis, worsening hemoglobin. #Type 2 diabetes ? Hemoglobin A1c 7.0%. [facility], [facility] glucose checks. #Hypertension ? Continue home metoprolol 200 mg, clonidine 0.2 mg twice daily. Hold home hydrochlorothiazide, Kerendia for now. #Hypothyroidism ? Continue home levothyroxine 75 mcg. TSH normal. Full code DVT prophylaxis: Contraindicated due to bleed, IPCs contraindicated severe PAD. Restart anticoagulation tomorrow after EGD if appropriate. Home meds: Reconciled.
[2025-05-24 19:48] LABS: POC Glucose,Bedside 127 gm/dL (70-110)
[2025-05-24] MEDS: AMLODIPINE 5MG TABLET 10 MG PO (20:56)
[2025-05-25] VITALS (35 sets, daily range): BP systolic 100–171; BP diastolic 54–98; PULSE 69–95; RESP 12–23; TEMP 36.4–37.1; O2SAT 94–100; BMI 26.0
[2025-05-25 06:16] LABS: POC Glucose,Bedside 133 gm/dL (70-110)
[2025-05-25 06:46] LABS: Hematocrit 48.1 % (42.0-52.0); Hemoglobin 15.8 g/dL (14.1-18.0); Immature Granulocytes % 1.5 %; Mean Corpuscular HGB Conc 32.8 g/dL (31.8-35.4); Mean Corpuscular Hemoglobin 30.1 pg (27.0-31.2); Mean Corpuscular Volume 91.6 fl (80-94); Nucleated Red Blood Cells % 0 %; Platelet Count 149 K/mm3 (142-424); Red Blood Count 5.25 M/mm3 (4.60-6.20); Red Cell Distribution Width-SD 50.0 fL; White Blood Count 11.4 K/mm3 (4.8-10.8)
[2025-05-25 06:50] LABS: Alanine Aminotransferase 21 U/L (12-78); Albumin Level 3.4 g/dl (3.5-5.0); Albumin/Globulin Ratio 0.9 (1.1-1.8); Alkaline Phosphatase 81 U/L (38-126); Anion Gap 15.5 mEq/L (5-15); Aspartate Amino Transferase 31 U/L (17-59); Bilirubin,Total 1.7 mg/dl (0.2-1.3); Blood Urea Nitrogen 52 mg/dl (9-20); Calcium 9.5 mg/dl (8.4-10.2); Carbon Dioxide 18 mmol/L (22.0-30.0); Chloride 108 mmol/L (98-107); Creatinine Clearance Estimated 41 mL/min (50-200); Creatinine,Serum 1.70 mg/dl (0.66-1.25); Estimated Glomerular Filt Rate 40 ml/min (>60); GFR (African American) 48 ML/MIN (>60); Globulin 3.6 g/dL (1.3-3.2); Glucose 124 mg/dl (74-100); Magnesium 2.4 mg/dl (1.6-2.3); Potassium 3.5 mmoL/L (3.5-5.1); Sodium 138 mmol/L (136-145); Total Protein,Serum 7.0 g/dl (6.3-8.2)
--- NOTE | 2025-05-25 07:21 | EXP.SURG.CON ---
History of Present Illness *Admission Date: 05/22/25 *Reason for visit:: Possible hematemesis *History of present illness: This is a 69-year-old gentleman with complaints of possible hematemesis. Please see HPIs from admission H&P and consultation forwarded below. Forwarded from admission H&P in separate consultation: Jonelle Kamara is a 69-year-old male with a medical history significant for CAD, type 2 diabetes, hypertension who presents to the ED with intractable nausea/vomiting for the past 3 days. Patient states he cannot think of any triggers that could have started it, denies focal abdominal pain, fever/chills, chest pain, shortness of breath, urinary symptoms and endorses regular bowel movements. He states he has not changed his diet, medications, or otherwise been sick or had sick contacts. Workup in the ED significant for WBC 24.3, hemoglobin 20.3, AGAP 21.3, creatinine 1.8,, troponin 1.5, unremarkable UA, UDS, and negative for COVID-19, influenza. CTA abdomen did note abrupt occlusion of the distal left SFA and popliteal artery, possibly from embolic event and significant renal artery stenosis. Right upper quadrant ultrasound also unremarkable. Patient was given 3 L LR, vancomycin and Zosyn, aspirin. Dr. Davis was contacted for SFA occlusion who recommended heparin bolus and peripheral intervention in the morning. Given these findings, ED provider discussed case with me and I decided to admit patient for DAYSI on CKD, dehydration, and meeting SIRS criteria. Per H&P This is a 69-year-old male who reports 4 to 5 days of acute onset nausea vomiting and diarrhea at home. Patient normally has chronic constipation and will skip multiple days between bowel movements. This was a change for him. Both patient and girlfriend deny any melena hematochezia or hemoptysis. It appears that patient became acutely dehydrated and developed an DAYSI and AMS. Upon arrival to the ER white blood cell count elevated at 24.3 with an elevated H&H as well. Bilirubin was slightly elevated at 2.1 with a normal AST at 46, ALT at 37 and alk phos at 90. He did had an elevated lipase at 469 but not 3 times the upper limit of normal and no signs of acute pancreatitis on imaging. Patient has no abdominal pain today. He is nontender to palpation across his abdomen. Glucose slightly elevated at 190. Hemoglobin A1c 7%. Imaging did show mild mucosal thickening of the distal esophagus and a small sliding hiatal hernia. Right upper quadrant ultrasound did not show cholesterol stones in the gallbladder. Patient has not had any diarrhea episodes since arrival in the ER yesterday. He has not had a bowel movement at all. He is currently having hemoptysis since initiation of heparin last night. No further vomiting. He has been NPO. He does not know when his last colonoscopy was. The girlfriend reports that she has been with him for 15 years and does not think he has had 1 in that time at all. He denies any family history of colon cancer, IBD or celiac disease. He does take 2 Aleve at home and aspirin at home. He is not sure if he has ever had an EGD. PFSH [facility] Disclaimer: The information contained in this section may have been updated after the patient was seen, as this information can be updated by other users. Medical History Hemoptysis Myocardial infarct Skin lesion of left leg Psychosis Diabetes Traumatic injury of foot Multiple thyroid nodules Impacted cerumen of right ear Hypothyroidism Repeated falls Pulmonary HTN HLD (hyperlipidemia) HTN (hypertension) Surgical History Stented coronary artery Social History Smoking Status: Never smoker alcohol intake: never counseling provided: none substance use type: denies use current occupational status: unemployed Travel in the last 8 weeks?: None household members: none housing: apartment current occupation: retired caffeine: No Review of Systems Review of Systems Review of systems:: pertinent systems reviewed and negative unless documented below Constitutional Constitutional: Reports weakness Eyes Eyes: Denies loss of vision *Respiratory Respiratory: Reports as per HPI *Gastrointestinal Gastrointestinal: Reports as per HPI *Neurologic Neurologic: Reports confusion, Denies loss of vision and Reports weakness Psychiatric Psychiatric: Reports confusion Meds Home Medications and Allergies Home Medications ?Medication ?Instructions ?Recorded ?Confirmed ?Type blood-glucose meter (Blood Glucose #1 ea 05/21/22 05/22/25 Rx Monitoring kit) lancets 28 gauge (FreeStyle #100 ea 02/21/24 05/22/25 Rx Lancets) blood sugar diagnostic (FreeStyle 03/10/24 05/22/25 History Lite Strips) canagliflozin 300 mg tablet 300 mg PO DAILY 03/10/24 05/22/25 History (Invokana) clonidine HCl 0.2 mg tablet 0.2 mg PO BID 03/10/24 05/23/25 History glipizide 2.5 mg tablet, extended 7.5 mg PO DAILY 03/10/24 05/22/25 History release 24 hr allopurinol 300 mg tablet 300 mg PO DAILY #60 tabs 09/17/24 05/22/25 Rx aspirin 81 mg tablet,delayed 81 mg PO DAILY #90 tabs 11/02/24 05/22/25 Rx release hydrochlorothiazide 25 mg tablet 25 mg PO DAILY 01/31/25 05/22/25 History pentoxifylline 400 mg 400 mg PO TID 01/31/25 05/23/25 History tablet,extended release finerenone 20 mg tablet (Kerendia) 20 mg PO DAILY 05/22/25 05/22/25 History simvastatin 20 mg tablet 20 mg PO HS 05/22/25 05/22/25 History sitagliptin phosphate 50 mg tablet 50 mg PO DAILY 05/22/25 05/22/25 History (Januvia) levothyroxine 75 mcg tablet 75 mcg PO DAILY 05/23/25 05/23/25 History metoprolol succinate 100 mg 200 mg PO DAILY 05/23/25 05/23/25 History tablet,extended release 24 hr New Prescriptions to Start Prescriptions: Allergies Allergy/AdvReac Type Severity Reaction Status Date / Time atorvastatin (From Lipitor) Allergy Mild Hallucinati Verified 05/22/25 15:39 ng Exam (Inpt) Vital signs and Labs for Last 24 Hours: Temp Pulse Resp BP Pulse Ox O2 Del Method O2 Flow Rate 98.5 F 87 14 144/75 H 96 Room Air 2 05/25/25 04:00 05/25/25 04:45 05/25/25 04:45 05/25/25 04:45 05/25/25 04:45 05/25/25 06:47 05/24/25 15:15 Laboratory Results - last 24 hr 05/24/25 05:16: Total Counted 100, Neutrophils % (Manual) 61, Lymphocytes % (Manual) 34, Monocytes % (Manual) 3, Eosinophils % (Manual) 2, Platelet Estimate Normal, RBC Morphology Normal 05/24/25 09:39: APTT 28.2 L 05/24/25 11:38: POC Glucose 126 H 05/24/25 16:24: POC Glucose 113 H 05/24/25 19:33: POC Glucose 127 H 05/25/25 06:02: POC Glucose 133 H 05/25/25 06:05: WBC 11.4 H, RBC 5.25, Hgb 15.8, Hct 48.1, MCV 91.6, MCH 30.1, MCHC 32.8, RDW 14.9, Plt Count 149, MPV 12.0 H, Neut % (Auto) 52.5, Lymph % (Auto) 38.8, [place] % (Auto) 5.4, Eos % (Auto) 1.3, Baso % (Auto) 0.5, Neut # (Auto) 6.0, Lymph # (Auto) 4.4, [place] # (Auto) 0.6, Eos # (Auto) 0.2, Baso # (Auto) 0.1 I & O for Labs for Last 24 Hours: Intake & Output 05/22/25 05/23/25 05/24/25 05/25/25 11:59 11:59 11:59 11:59 Intake Total 4775.467 / 4775.467 3210.883 / 3210.883 1500 / 1500 Output Total 800 / 800 2250 / 2250 0 / 0 Balance 3975.467 / 3975.467 960.883 / 661.197 4040 / 1500 Weight 160 lb 159 lb 6.669 oz 161 lb 4.8 oz 162 lb 1.6 oz Microbiology Reports for the Last 24 Hours: Microbiology 05/24/25 15:04 Bronchial Washings - Right Middle Lobe Gram Stain - Final 05/24/25 15:04 Bronchial Washings - Right Middle Lobe Bronchoalveolar Lavage Culture - Preliminary NO GROWTH AFTER 24 HOURS 05/23/25 09:18 Throat Group A Streptococcus Screen (XANDER) - Final Negative for Group A Streptococcus. 05/22/25 11:35 Blood Blood Culture - Preliminary NO GROWTH AFTER 48 HOURS 05/22/25 11:30 Blood Blood Culture - Preliminary NO GROWTH AFTER 48 HOURS Constitutional: no acute distress Respiratory: Absent respiratory distress Cardiac: Absent Tachycardia GI: Present soft (male): Present deferred Neuro: Present alert Results Labs 05/25/25 06:05 05/24/25 05:16 Labs: Laboratory Results - last 24 hr 05/24/25 05:16: Total Counted 100, Neutrophils % (Manual) 61, Lymphocytes % (Manual) 34, Monocytes % (Manual) 3, Eosinophils % (Manual) 2, Platelet Estimate Normal, RBC Morphology Normal 05/24/25 09:39: APTT 28.2 L 05/24/25 11:38: POC Glucose 126 H 05/24/25 16:24: POC Glucose 113 H 05/24/25 19:33: POC Glucose 127 H 05/25/25 06:02: POC Glucose 133 H 11/01/25 06:05: WBC 11.4 H, RBC 5.25, Hgb 15.8, Hct 48.1, MCV 91.6, MCH 30.1, MCHC 32.8, RDW 14.9, Plt Count 149, MPV 12.0 H, Neut % (Auto) 52.5, Lymph % (Auto) 38.8, [place] % (Auto) 5.4, Eos % (Auto) 1.3, Baso % (Auto) 0.5, Neut # (Auto) 6.0, Lymph # (Auto) 4.4, [place] # (Auto) 0.6, Eos # (Auto) 0.2, Baso # (Auto) 0.1 Assessment and Plan *Assessment and plan (1) Hematemesis: Status: Acute Qualifiers: Nausea presence: unspecified Qualified Code(s): K92.0 - Hematemesis Category: Medical Code(s): K92.0 - Hematemesis Plan: Esophagogastroduodenoscopy this a.m. I have discussed the risks and benefits including, but not limited to: Bleeding Infection Damage to surrounding tissue Inherent risks of sedation The patient agrees to proceed.
--- NOTE | 2025-05-25 07:40 | P.PN_ITS ---
Subjective *Date: 05/25/25 *Time: 10:24 Interval history: Patient somewhat better today. Denies any further nausea or vomiting. No further hematemesis or hemoptysis. Stable on room air. Taken for EGD, seen after procedure. Personally reviewed images, appears to have pill induced esoph agitis with diffuse mucosal irritation and sloughing. Patient denies any heartburn or chest pain. Medical Exam Vital signs and Labs for Last 24 Hours: Vital Signs Temp Pulse Pulse Resp BP BP Pulse Ox 05/25/25 06:47 05/25/25 05:00 05/25/25 04:45 87 14 96 05/25/25 04:45 144/75 H 05/25/25 04:30 89 23 95 05/25/25 04:30 149/83 H 05/25/25 04:15 95 H 17 97 05/25/25 04:01 83 17 95 05/25/25 04:00 98.5 F 79 22 138/75 95 05/25/25 04:00 86 05/25/25 03:00 05/25/25 02:00 05/25/25 02:00 81 18 130/72 95 05/25/25 01:00 80 20 138/76 96 05/25/25 01:00 05/25/25 00:00 75 05/25/25 00:00 98.2 F 75 12 105/62 L 95 05/24/25 23:00 05/24/25 22:00 80 19 112/58 L 95 05/24/25 21:00 05/24/25 20:28 05/24/25 20:00 98.8 F 92 H 18 160/94 H 96 05/24/25 20:00 88 05/24/25 18:45 88 18 174/92 H 96 05/24/25 18:39 05/24/25 18:15 60 18 179/95 H 90 L 05/24/25 18:04 88 18 165/91 H 96 05/24/25 17:16 95 H 16 167/92 H 99 05/24/25 17:00 05/24/25 16:46 91 H 18 167/95 H 90 L 05/24/25 16:31 98.2 F 97 H 16 170/90 H 97 05/24/25 16:15 89 17 165/86 H 96 05/24/25 16:00 90 10/31/25 15:58 90 18 160/89 H 94 L 05/24/25 15:50 05/24/25 15:45 97.9 F 84 24 154/91 H 94 L 05/24/25 15:35 97.9 F 85 24 156/87 H 94 L 05/24/25 15:25 97.9 F 83 24 158/98 H 94 L 05/24/25 15:15 97.9 F 88 24 150/99 H 90 L 05/24/25 14:00 81 22 173/95 H 98 05/24/25 13:00 05/24/25 12:29 98.2 F 71 18 160/85 H 97 05/24/25 12:00 80 05/24/25 12:00 98.2 F 77 22 160/85 H 96 05/24/25 11:00 86 21 169/92 H 96 05/24/25 11:00 05/24/25 10:00 82 22 161/90 H 96 05/24/25 09:42 05/24/25 09:00 84 17 161/89 H 95 05/24/25 09:00 05/24/25 08:00 89 05/24/25 08:00 98.3 F 89 16 167/88 H 95 O2 Del Method O2 Flow Rate 05/25/25 06:47 Room Air 05/25/25 05:00 Room Air 05/25/25 04:45 05/25/25 04:45 05/25/25 04:30 05/25/25 04:30 05/25/25 04:15 05/25/25 04:01 05/25/25 04:00 Room Air 05/25/25 04:00 05/25/25 03:00 Room Air 05/25/25 02:00 Room Air 05/25/25 02:00 Room Air 05/25/25 01:00 Room Air 05/25/25 01:00 Room Air 05/25/25 00:00 05/25/25 00:00 Room Air 05/24/25 23:00 Room Air 05/24/25 22:00 Room Air 05/24/25 21:00 Room Air 05/24/25 20:28 Room Air 05/24/25 20:00 Room Air 05/24/25 20:00 05/24/25 18:45 Room Air 05/24/25 18:39 Room Air 05/24/25 18:15 Room Air 05/24/25 18:04 Room Air 05/24/25 17:16 Room Air 05/24/25 17:00 Room Air 05/24/25 16:46 Room Air 05/24/25 16:31 Room Air 05/24/25 16:15 Room Air 05/24/25 16:00 05/24/25 15:58 Room Air 05/24/25 15:50 Room Air 05/24/25 15:45 Room Air 05/24/25 15:35 Room Air 05/24/25 15:25 Room Air 05/24/25 15:15 Nasal Cannula 2 05/24/25 14:00 Room Air 05/24/25 13:00 Room Air 05/24/25 12:29 Room Air, Venturi Mask 05/24/25 12:00 05/24/25 12:00 Room Air 05/24/25 11:00 Room Air 05/24/25 11:00 Room Air 05/24/25 10:00 Room Air 05/24/25 09:42 Room Air 05/24/25 09:00 Room Air 05/24/25 09:00 Room Air 05/24/25 08:00 05/24/25 08:00 Room Air Intake and Output 05/24/25 05/24/25 05/25/25 15:59 23:59 07:59 Intake Total 50 / 2550 1330 / 2550 120 / 120 Output Total 400 / 950 0 / 0 Balance -350 / 1600 1330 / 1600 120 / 120 Intake: Intake, Oral Amount 330 / 450 120 / 120 Intake, Total IV Amount 50 / 2100 1000 / 2100 0.9 % Sodium Chloride 1000ML 1, 1000 / 2000 000 ml @ 100 mls/hr IV .Q10H VENITA Rx#:[id number] Pipercillin/Tazo 3.375 gm In 0. 50 / 100 9 % Sodium Chloride 50 ml @ 100 mls/hr IV Q8H VENITA Rx#:[id number] Output: Output, Urine Amount 400 / 950 0 / 0 Other: Number of Voids 1 Number of Unmeasured Voids 3 Weight 73.164 kg 73.164 kg 73.527 kg Patient Weight 05/25/25 23:59 Weight 73.527 kg Laboratory Results - last 24 hr 05/24/25 05:16: Total Counted 100, Neutrophils % (Manual) 61, Lymphocytes % (Manual) 34, Monocytes % (Manual) 3, Eosinophils % (Manual) 2, Platelet Estimate Normal, RBC Morphology Normal 05/24/25 09:39: APTT 28.2 L 05/24/25 11:38: POC Glucose 126 H 05/24/25 16:24: POC Glucose 113 H 05/24/25 19:33: POC Glucose 127 H 05/25/25 06:02: POC Glucose 133 H 05/25/25 06:05: WBC 11.4 H, RBC 5.25, Hgb 15.8, Hct 48.1, MCV 91.6, MCH 30.1, MCHC 32.8, RDW 14.9, Plt Count 149, MPV 12.0 H, Neut % (Auto) 52.5, Lymph % (Auto) 38.8, [place] % (Auto) 5.4, Eos % (Auto) 1.3, Baso % (Auto) 0.5, Neut # (Auto) 6.0, Lymph # (Auto) 4.4, [place] # (Auto) 0.6, Eos # (Auto) 0.2, Baso # (Auto) 0.1, Sodium 138, Potassium 3.5, Chloride 108 H, Carbon Dioxide 18 L, Anion Gap 15.5 H, BUN 52 H, Creatinine 1.70 H, Estimated Creat Clear 41, Estimated GFR 40 L, Est GFR ( Amer) 48 L, Glucose 124 H, Calcium 9.5, Magnesium 2.4 H, Total Bilirubin 1.7 H, AST 31, ALT 21, Alkaline Phosphatase 81, Total Protein 7.0, Albumin 3.4 L D, Globulin 3.6 H, Albumin/Globulin Ratio 0.9 L I & O for Labs for Last 24 Hours: Intake & Output 05/22/25 05/23/25 05/24/25 05/25/25 23:59 23:59 23:59 23:59 Intake Total 3454.3 / 3454.3 3482.050 / 3482.050 2430 / 2550 120 / 120 Output Total 500 / 500 1600 / 1600 950 / 950 0 / 0 Balance 2954.3 / 2954.3 1882.050 / 3386.554 1278 / 1600 120 / 120 Weight 72.575 kg 72.31 kg 73.164 kg 73.527 kg Microbiology Reports for the Last 24 Hours: Microbiology 05/24/25 15:04 Bronchial Washings - Right Middle Lobe Gram Stain - Final 05/24/25 15:04 Bronchial Washings - Right Middle Lobe Bronchoalveolar Lavage Culture - Preliminary NO GROWTH AFTER 24 HOURS 05/23/25 09:18 Throat Group A Streptococcus Screen (XANEDR) - Final Negative for Group A Streptococcus. 05/22/25 11:35 Blood Blood Culture - Preliminary NO GROWTH AFTER 48 HOURS 05/22/25 11:30 Blood Blood Culture - Preliminary NO GROWTH AFTER 48 HOURS Constitutional: Present no acute distress, chronically ill appearing and cooperative Head: Present atraumatic and normocephalic Respiratory: Present normal respiratory effort; Absent respiratory distress, stridor or wheezes Cardiac: Present Reg Rate and Rhythm GI: Present soft and normal bowel sounds; Absent distention or tenderness Extremities: Present full ROM Comment:: Arterial insufficiency ulcers of left leg on pabon x 2 with scabbing. Weak pulses bilaterally. Loss of hair bilaterally and lower extremity Skin: Present wounds (See above extremities); Absent erythema Neuro: Present Grossly Intact, alert, awake, oriented x 3 and moves all extremities Assessment and Plan *Assessment and plan (1) Non-ST elevation [place] (NSTEMI): Status: Acute Category: Medical Code(s): I21.4 - Non-ST elevation (NSTEMI) myocardial infarction (2) DAYSI (acute kidney injury): Status: Acute Category: Medical Code(s): N17.9 - Acute kidney failure, unspecified (3) Superficial femoral artery occlusion: Status: Acute Category: Medical Code(s): I70.209 - Unspecified atherosclerosis of [place] arteries of extremities, unspecified extremity (4) Hematemesis: Status: Acute Qualifiers: Nausea presence: unspecified Qualified Code(s): K92.0 - Hematemesis Category: Medical Code(s): K92.0 - Hematemesis (5) Occlusion of left popliteal artery: Status: Acute Category: Medical Code(s): I70.202 - Unspecified atherosclerosis of [place] arteries of extremities, left leg (6) Arterial insufficiency with ischemic ulcer: Status: Acute Category: Medical Code(s): I77.1 - Stricture of artery; L98.499 - Non-pressure chronic ulcer of skin of other sites with unspecified severity (7) Diabetic peripheral neuropathy associated with type 2 diabetes mellitus: Status: Acute Category: Medical Code(s): E11.42 - Type 2 diabetes mellitus with diabetic polyneuropathy (8) CAD (coronary artery disease): Status: Chronic Qualifiers: Associated angina: with unspecified angina Coronary Disease-Associated Artery/Lesion type: [place] artery [place] vs. transplanted heart: [place] heart Qualified Code(s): I25.119 - Atherosclerotic heart disease of [place] coronary artery with unspecified angina pectoris Category: Medical Code(s): I25.10 - Atherosclerotic heart disease of [place] coronary artery without angina pectoris (9) HTN (hypertension): Status: Chronic Qualifiers: Hypertension type: essential hypertension Qualified Code(s): I10 - Essential (primary) hypertension Category: Medical Code(s): I10 - Essential (primary) hypertension (10) HLD (hyperlipidemia): Status: Chronic Qualifiers: Hyperlipidemia type: other hyperlipidemia Qualified Code(s): E78.4 - Other hyperlipidemia Category: Medical Code(s): E78.5 - Hyperlipidemia, unspecified (11) Decreased pedal pulses: Status: Acute Category: Medical Code(s): R09.89 - Other specified symptoms and signs involving the circulatory and respiratory systems John Kamara is a 69-year-old male with a medical history significant for CAD, type 2 diabetes, hypertension who presents to the ED with intractable nausea/vomiting for the past 3 days. Patient states he cannot think of any triggers that could have started it, denies focal abdominal pain, fever/chills, chest pain, shortness of breath, urinary symptoms and endorses regular bowel movements. He states he has not changed his diet, medications, or otherwise been sick or had sick contacts. Workup in the ED significant for WBC 24.3, hemoglobin 20.3, AGAP 21.3, creatinine 1.8, troponin 1.5, unremarkable UA, UDS, and negative for COVID-19, influenza. CTA abdomen did note abrupt occlusion of the distal left SFA and popliteal artery, possibly from embolic event and significant renal artery stenosis. Right upper quadrant ultrasound also unremarkable. Patient was given 3 L LR, vancomycin and Zosyn, aspirin. Dr. Davis was contacted for SFA occlusion who recommended heparin bolus and peripheral intervention in the morning. Given these findings, ED provider discussed case with me and I decided to admit patient for DAYSI on CKD, dehydration, and meeting SIRS criteria. Unfortunately developed a mopped assist. Still on heparin drip at this time. Taken for EGD this morning, found to have diffuse pill induced esophagitis. Continues to require inpatient management. Problems addressed as follows: #Intractable nausea/vomiting, resolved #Severe dehydration, resolved #DAYSI on CKD, resolving #SIRS #Leukocytosis #High anion metabolic acidosis, resolved #Elevated lipase #Pill induced esophagitis Hematemesis, resolved ? Presented with intractable nausea/vomiting for the past 3 days of undefined etiology at this time, no focal abdominal pain. Could be gastroenteritis. ? Imaging and workup largely unremarkable for significant findings. Did have hemoconcentration with WBC 24.3, hemoglobin, 20.8, AGAP 21.3 on admission - White count improved 11.4, hemoglobin stable at 15.8. ?Initial lipase was elevated to 400s, not 3 times upper limit. No focal epigastric pain. If there was pancreatitis, it seems to be improving at this time. RUQ ultrasound unremarkable for acute findings. -Developed hematemesis yesterday. Surgery was consulted, EGD performed today. Discussed case with surgeon, reviewed images showing diffuse sloughing of muc rain. Consistent with pill induced esophagitis. Will continue pantoprazole 40 mg IV twice daily, add sucralfate suspension 1 g ACHS -Monitor for any further hematemesis or melena. -Status post bronchoscopy by pulmonology on 05/24. No evidence of bleeding -Advance to liquid diet today - Kidney function stable with BUN 52, creatinine 1.7. Repeat CBC, CMP, magnesium ordered for the morning. #Severe PAD #Severe SFA, popliteal artery thrombosis #Severe renal artery stenosis #History of CAD #NSTEMI type I #Left lower extremity arterial insufficiency ulcers ? Severe PAD, LEIDA noted on CTA abdomen. Possible embolic source. ? Initial troponin 1.5, improved to 1.3. EKG without acute ischemic changes. No chest pain, shortness of breath. ? ECHO 05/22/2025 revealed normal biventricular systolic function. But does have marked increased LV wall thickness suggesting hypertensive cardiomyopathy. ? Cardiology consulted, planning for LHC and peripheral angiogram on Tuesday. Delayed due to hematemesis. ? Continue aspirin 81 mg. continue to hold on heparin drip due to hematemesis #Type 2 diabetes: Hemoglobin A1c 7.0%. LDSSI, ACHS glucose checks. #Hypertension: Continue home metoprolol 200 mg, clonidine 0.2 mg twice daily. Hold home hydrochlorothiazide, Kerendia for now. #Hypothyroidism: Continue home levothyroxine 75 mcg. TSH 2.1. Full code DVT prophylaxis: Contraindicated due to bleed, IPCs contraindicated severe PAD. Consider resuming heparin in the morning. Home meds: Reconciled.
--- NOTE | 2025-05-25 07:57 | [facility].SCOPE ---
Procedure: Date: 05/25/25 Patient Date of :: 1955 Procedure Performed:: Esophagogastroduodenoscopy with biopsy Indications:: Hematemesis Performing Provider:: Caio Stone MD Referring Provider:: . Sedation:: Monitored anesthesia care Procedure:: After informed consent was obtained the patient was taken to the endoscopy suite. Sedation ensued after the patient was transferred to the left lateral decubitus position. Pulse, blood pressure, and oxygen saturation were monitored throughout the procedure. The endoscope was advanced beyond the duodenal bulb. Retroflexion within the gastric lumen was accomplished. The gastroscope was carefully removed and the patient was transferred to recovery in stable condition. Please see findings and specimens below for detail. Findings:: Profound inflammation with mucosal sloughing/rents and patchy necrosis throughout esophagus Sliding hiatal hernia Mild patchy gastroduodenitis Specimens:: Antral biopsy Esophageal biopsy at 32 cm Recommendations:: Follow-up pathology Continue proton pump inhibition Complications:: No immediate Estimated blood obtained (mL): 1 Colonoscopy Component Colonoscopy Component Was a colonoscopy performed during today's procedure?: No
[2025-05-25] MEDS: METOPROLOL SUCCINATE XL 100MG TABLET 200 MG PO (09:08)
[2025-05-25] MEDS: PANTOPRAZOLE 40MG VIAL 40 MG IV ×2 (09:08→21:41)
[2025-05-25 11:25] LABS: POC Glucose,Bedside 106 gm/dL (70-110)
[2025-05-25] MEDS: SUCRALFATE 1GM/10ML SUSP UDC 1 GM PO ×3 (11:27→21:41)
--- NOTE | 2025-05-25 14:16 | PC.NURSE ---
Patient had two large amounts of black diarrhea at this time. notified. Continuation of care plan.
[2025-05-25 17:22] LABS: Hematocrit 43.1 % (42.0-52.0); Hemoglobin 14.3 g/dL (14.1-18.0)
[2025-05-25 17:29] LABS: POC Glucose,Bedside 95 gm/dL (70-110)
--- NOTE | 2025-05-25 18:26 | PC.NURSE ---
arrived by bed from ICU
[2025-05-25 20:24] LABS: POC Glucose,Bedside 127 gm/dL (70-110)
[2025-05-25] MEDS: SODIUM CHLORIDE 0.9% 10ML VIAL 10 ML IV (21:41)
[2025-05-25] MEDS: AMLODIPINE 10MG TABLET 10 MG PO (21:41)
[2025-05-26] VITALS: BP 115/67; PULSE 70; RESP 16; TEMP 36.9; O2SAT 96
[2025-05-26 04:00] VITALS: BP 113/63; PULSE 66; RESP 16; TEMP 36.7; O2SAT 96; BMI 26.6
[2025-05-26] MEDS: LEVOTHYROXINE 75MCG (0.075MG) TAB 75 MCG PO (06:18)
[2025-05-26] MEDS: SUCRALFATE 1GM/10ML SUSP UDC 1 GM PO ×4 (06:18→20:14)
[2025-05-26 07:03] LABS: POC Glucose,Bedside 104 gm/dL (70-110)
[2025-05-26 07:06] LABS: Alanine Aminotransferase 16 U/L (12-78); Albumin Level 2.5 g/dl (3.5-5.0); Albumin/Globulin Ratio 0.8 (1.1-1.8); Alkaline Phosphatase 39 U/L (38-126); Anion Gap 8.9 mEq/L (5-15); Aspartate Amino Transferase 37 U/L (17-59); Bilirubin,Total 1.3 mg/dl (0.2-1.3); Blood Urea Nitrogen 42 mg/dl (9-20); Calcium 8.5 mg/dl (8.4-10.2); Carbon Dioxide 18 mmol/L (22.0-30.0); Chloride 107 mmol/L (98-107); Creatinine Clearance Estimated 59 mL/min (50-200); Creatinine,Serum 1.20 mg/dl (0.66-1.25); Estimated Glomerular Filt Rate 60 ml/min (>60); GFR (African American) 72 ML/MIN (>60); Globulin 3.0 g/dL (1.3-3.2); Glucose 113 mg/dl (74-100); Magnesium 2.0 mg/dl (1.6-2.3); Potassium 3.9 mmoL/L (3.5-5.1); Sodium 130 mmol/L (136-145); Total Protein,Serum 5.5 g/dl (6.3-8.2)
[2025-05-26 08:00] VITALS: BP 143/77; PULSE 66; RESP 17; TEMP 36.5; O2SAT 98
[2025-05-26] MEDS: ASPIRIN EC 81MG TABLET 81 MG PO (08:16)
[2025-05-26] MEDS: PANTOPRAZOLE 40MG VIAL 40 MG IV ×2 (08:16→20:14)
[2025-05-26] MEDS: METOPROLOL SUCCINATE XL 100MG TABLET 200 MG PO (08:16)
[2025-05-26 08:31] LABS: Hematocrit 42.3 % (42.0-52.0); Hemoglobin 14.1 g/dL (14.1-18.0); Immature Granulocytes % 1.9 %; Mean Corpuscular HGB Conc 33.3 g/dL (31.8-35.4); Mean Corpuscular Hemoglobin 30.3 pg (27.0-31.2); Mean Corpuscular Volume 91.0 fl (80-94); Nucleated Red Blood Cells % 0 %; Platelet Count 122 K/mm3 (142-424); Red Blood Count 4.65 M/mm3 (4.60-6.20); Red Cell Distribution Width-SD 48.0 fL; White Blood Count 11.0 K/mm3 (4.8-10.8)
--- NOTE | 2025-05-26 09:14 | PC.NURSE ---
i ambulated pt to the chair from bed. He is weak and gait is unsteady. 1 assist needed. he tolerated well
--- NOTE | 2025-05-26 10:21 | P.PN_ITS ---
Subjective Patient reports: no new complaints and feels better Exam Data for Last 24 hours Vital signs and Labs for Last 24 Hours: Temp Pulse Resp BP Pulse Ox O2 Del Method O2 Flow Rate 97.7 F 66 17 143/77 H 98 Room Air 2 05/26/25 08:00 05/26/25 08:00 05/26/25 08:00 05/26/25 08:00 05/26/25 08:00 05/26/25 09:00 05/24/25 15:15 Laboratory Results - last 24 hr 05/25/25 11:14: POC Glucose 106 05/25/25 17:10: Hgb 14.3, Hct 43.1 05/25/25 17:21: POC Glucose 95 05/25/25 20:17: POC Glucose 127 H 05/26/25 05:40: WBC 11.0 H, RBC 4.65, Hgb 14.1, Hct 42.3, MCV 91.0, MCH 30.3, MCHC 33.3, RDW 14.4, Plt Count 122 L, MPV 11.9 H, Neut % (Auto) 47.2, Lymph % (Auto) 40.9, [place] % (Auto) 6.5, Eos % (Auto) 2.6, Baso % (Auto) 0.9, Neut # (Auto) 5.2, Lymph # (Auto) 4.5, [place] # (Auto) 0.7, Eos # (Auto) 0.3, Baso # (Auto) 0.1, Sodium 130 L, Potassium 3.9, Chloride 107, Carbon Dioxide 18 L, Anion Gap 8.9, BUN 42 H, Creatinine 1.20 D, Estimated Creat Clear 59, Estimated GFR 60, Est GFR ( Amer) 72 D, Glucose 113 H, Calcium 8.5, Magnesium 2.0 D, Total Bilirubin 1.3, AST 37, ALT 16, Alkaline Phosphatase 39, Total Protein 5.5 L, Albumin 2.5 L D, Globulin 3.0, Albumin/Globulin Ratio 0.8 L 05/26/25 06:10: POC Glucose 104 I & O for Last 24 hours: Intake & Output 05/23/25 05/24/25 05/25/25 05/26/25 11:59 11:59 11:59 10:59 Intake Total 4775.467 / 4775.467 3210.883 / 3210.883 1500 / 1500 1256 / 1256 Output Total 800 / 800 2250 / 2250 550 / 550 1275 / 1275 Balance 3975.467 / 3975.467 960.883 / 960.883 950 / 950 -19 / -19 Weight 159 lb 6.669 oz 161 lb 4.8 oz 162 lb 1.6 oz 166 lb 1.6 oz Microbiology Reports for the Last 24 Hours: Microbiology 05/24/25 15:04 Bronchial Washings - Right Middle Lobe Gram Stain - Final 05/24/25 15:04 Bronchial Washings - Right Middle Lobe Bronchoalveolar Lavage Culture - Preliminary Constitutional Constitutional: no acute distress *Routine Respiratory Exam Respiratory: Absent respiratory distress *Routine Cardiovascular Exam Cardiovascular: Absent tachycardia Progress Note: A&P Assessment and plan (1) Esophagitis: Problem details: Profound pain-esophagitis with patchy necrosis and mucosal sloughing (possible pill-induced esophagitis) Status: Acute Assessment and plan: Continue overall management as per primary service Continue proton pump inhibition Follow-up pending pathology
[2025-05-26 11:10] LABS: POC Glucose,Bedside 161 gm/dL (70-110)
[2025-05-26 12:00] VITALS: BP 126/63; PULSE 69; RESP 17; TEMP 36.8; O2SAT 97
--- NOTE | 2025-05-26 14:17 | P.PN_ITS ---
Subjective *Date: 05/26/25 *Time: 14:17 Interval history: Tolerating advancement of diet. Denies any chest pain or abdominal pain. No nausea or vomiting. Stable on room air Medical Exam Vital signs and Labs for Last 24 Hours: Vital Signs Temp Pulse Pulse Resp BP BP Pulse Ox 05/26/25 12:00 98.2 F 69 17 126/63 97 05/26/25 11:00 05/26/25 09:00 05/26/25 08:00 05/26/25 08:00 97.7 F 66 17 143/77 H 98 05/26/25 06:48 05/26/25 05:00 05/26/25 04:00 98.1 F 66 16 113/63 96 05/26/25 03:00 05/26/25 01:00 EST 05/26/25 00:00 98.4 F 70 16 115/67 96 05/25/25 23:00 05/25/25 21:00 05/25/25 20:00 05/25/25 20:00 98.5 F 71 16 133/57 L 98 05/25/25 19:00 05/25/25 17:00 05/25/25 16:01 98.1 F 69 16 105/70 L 97 05/25/25 16:00 76 O2 Del Method 05/26/25 12:00 Room Air 05/26/25 11:00 Room Air 05/26/25 09:00 Room Air 05/26/25 08:00 Room Air 05/26/25 08:00 Room Air 05/26/25 06:48 Room Air 05/26/25 05:00 Room Air 05/26/25 04:00 Room Air 05/26/25 03:00 Room Air 05/26/25 01:00 EST Room Air 05/26/25 00:00 Room Air 05/25/25 23:00 Room Air 05/25/25 21:00 Room Air 05/25/25 20:00 Room Air 05/25/25 20:00 Room Air 05/25/25 19:00 Room Air 05/25/25 17:00 Room Air 05/25/25 16:01 Room Air 05/25/25 16:00 Intake and Output 05/25/25 05/26/25 05/26/25 23:59 06:59 15:59 Intake Total 240 / 1330 1090 / 1330 Output Total 475 / 1400 0 / 725 725 / 725 Balance -475 / -594 240 / 605 365 / 605 Intake: Intake, Oral Amount 240 / 1330 1090 / 1330 Output: Output, Urine Amount 475 / 1400 0 / 725 725 / 725 Other: Number of Unmeasured Voids 1 0 Weight 75.342 kg Patient Weight 05/26/25 22:59 Weight 75.342 kg Laboratory Results - last 24 hr 05/25/25 17:10: Hgb 14.3, Hct 43.1 05/25/25 17:21: POC Glucose 95 05/25/25 20:17: POC Glucose 127 H 05/26/25 05:40: WBC 11.0 H, RBC 4.65, Hgb 14.1, Hct 42.3, MCV 91.0, MCH 30.3, MCHC 33.3, RDW 14.4, Plt Count 122 L, MPV 11.9 H, Neut % (Auto) 47.2, Lymph % (Auto) 40.9, [place] % (Auto) 6.5, Eos % (Auto) 2.6, Baso % (Auto) 0.9, Neut # (Auto) 5.2, Lymph # (Auto) 4.5, [place] # (Auto) 0.7, Eos # (Auto) 0.3, Baso # (Auto) 0.1, Sodium 130 L, Potassium 3.9, Chloride 107, Carbon Dioxide 18 L, Anion Gap 8.9, BUN 42 H, Creatinine 1.20 D, Estimated Creat Clear 59, Estimated GFR 60, Est GFR ( Amer) 72 D, Glucose 113 H, Calcium 8.5, Magnesium 2.0 D, Total Bilirubin 1.3, AST 37, ALT 16, Alkaline Phosphatase 39, Total Protein 5.5 L, Albumin 2.5 L D, Globulin 3.0, Albumin/Globulin Ratio 0.8 L 05/26/25 06:10: POC Glucose 104 05/26/25 10:39: POC Glucose 161 H I & O for Labs for Last 24 Hours: Intake & Output 05/23/25 05/24/25 05/25/25 05/26/25 23:59 23:59 23:59 22:59 Intake Total 3482.050 / 3482.050 2430 / 2550 566 / 806 1330 / 1330 Output Total 1600 / 1600 950 / 950 1400 / 1400 725 / 725 Balance 1882.050 / 7774.772 5124 / 1600 -834 / -594 605 / 605 Weight 72.31 kg 73.164 kg 73.527 kg 75.342 kg Microbiology Reports for the Last 24 Hours: Microbiology 05/22/25 11:30 Blood Blood Culture - Preliminary NO GROWTH AFTER 4 DAYS 05/22/25 11:35 Blood Blood Culture - Preliminary NO GROWTH AFTER 4 DAYS 05/24/25 15:04 Bronchial Washings - Right Middle Lobe Gram Stain - Final 05/24/25 15:04 Bronchial Washings - Right Middle Lobe Bronchoalveolar Lavage Culture - Preliminary Constitutional: Present no acute distress, chronically ill appearing and cooperative Head: Present atraumatic and normocephalic Respiratory: Present normal respiratory effort; Absent respiratory distress, stridor or wheezes Cardiac: Present Reg Rate and Rhythm GI: Present soft and normal bowel sounds; Absent distention or tenderness Extremities: Present full ROM Comment:: Arterial insufficiency ulcers of left leg on pabon x 2 with scabbing. Weak pulses bilaterally. Loss of hair bilaterally and lower extremity Skin: Present wounds (See above extremities); Absent erythema Neuro: Present Grossly Intact, alert, awake, oriented x 3 and moves all extremities Assessment and Plan *Assessment and plan (1) Non-ST elevation [place] (NSTEMI): Status: Acute Category: Medical Code(s): I21.4 - Non-ST elevation (NSTEMI) myocardial infarction (2) DAYSI (acute kidney injury): Status: Acute Category: Medical Code(s): N17.9 - Acute kidney failure, unspecified (3) Superficial femoral artery occlusion: Status: Acute Category: Medical Code(s): I70.209 - Unspecified atherosclerosis of [place] arteries of extremities, unspecified extremity (4) Hematemesis: Status: Acute Qualifiers: Nausea presence: unspecified Qualified Code(s): K92.0 - Hematemesis Category: Medical Code(s): K92.0 - Hematemesis (5) Occlusion of left popliteal artery: Status: Acute Category: Medical Code(s): I70.202 - Unspecified atherosclerosis of [place] arteries of extremities, left leg (6) Arterial insufficiency with ischemic ulcer: Status: Acute Category: Medical Code(s): I77.1 - Stricture of artery; L98.499 - Non-pressure chronic ulcer of skin of other sites with unspecified severity (7) Diabetic peripheral neuropathy associated with type 2 diabetes mellitus: Status: Acute Category: Medical Code(s): E11.42 - Type 2 diabetes mellitus with diabetic polyneuropathy (8) CAD (coronary artery disease): Status: Chronic Qualifiers: Coronary Disease-Associated Artery/Lesion type: [place] artery [place] vs. transplanted heart: [place] heart Associated angina: with unspecified angina Qualified Code(s): I25.119 - Atherosclerotic heart disease of [place] coronary artery with unspecified angina pectoris Category: Medical Code(s): I25.10 - Atherosclerotic heart disease of [place] coronary artery without angina pectoris (9) HTN (hypertension): Status: Chronic Qualifiers: Hypertension type: essential hypertension Qualified Code(s): I10 - Essential (primary) hypertension Category: Medical Code(s): I10 - Essential (primary) hypertension (10) HLD (hyperlipidemia): Status: Chronic Qualifiers: Hyperlipidemia type: other hyperlipidemia Qualified Code(s): E78.4 - Other hyperlipidemia Category: Medical Code(s): E78.5 - Hyperlipidemia, unspecified (11) Decreased pedal pulses: Status: Acute Category: Medical Code(s): R09.89 - Other specified symptoms and signs involving the circulatory and respiratory systems John Kamara is a 69-year-old male with a medical history significant for CAD, type 2 diabetes, hypertension who presents to the ED with intractable nausea/vomiting for the past 3 days. Patient states he cannot think of any triggers that could have started it, denies focal abdominal pain, fever/chills, chest pain, shortness of breath, urinary symptoms and endorses regular bowel movements. He states he has not changed his diet, medications, or otherwise been sick or had sick contacts. Workup in the ED significant for WBC 24.3, hemoglobin 20.3, AGAP 21.3, creatinine 1.8, troponin 1.5, unremarkable UA, UDS, and negative for COVID-19, influenza. CTA abdomen did note abrupt occlusion of the distal left SFA and popliteal artery, possibly from embolic event and significant renal artery stenosis. Right upper quadrant ultrasound also unremarkable. Patient was given 3 L LR, vancomycin and Zosyn, aspirin. Dr. Davis was contacted for SFA occlusion who recommended heparin bolus and peripheral intervention in the morning. Given these findings, ED provider discussed case with me and I decided to admit patient for DAYSI on CKD, dehydration, and meeting SIRS criteria. Unfortunately developed hemoptysis. On prophylactic anticoagulation. Taken for EGD on 05/25 with pill induced esophagitis. Remained stable. Cardiology to evaluate tomorrow for peripheral PCI. Problems addressed as follows: #Intractable nausea/vomiting, resolved #Severe dehydration, resolved #DAYSI on CKD, resolving #SIRS #Leukocytosis #High anion metabolic acidosis, resolved #Elevated lipase #Pill induced esophagitis Hematemesis, resolved ? Presented with intractable nausea/vomiting for the past 3 days of undefined etiology at this time, no focal abdominal pain. Could be gastroenteritis. ? Imaging and workup largely unremarkable for significant findings. Did have hemoconcentration with WBC 24.3, hemoglobin, 20.8, AGAP 21.3 on admission - White count improved 11.4, hemoglobin stable at 15.8. ?Initial lipase was elevated to 400s, not 3 times upper limit. No focal epigastric pain. If there was pancreatitis, it seems to be improving at this time. RUQ ultrasound unremarkable for acute findings. -Developed hematemesis 05/24. EGD on 05/25. reviewed images showing diffuse sloughing of mucosa. Consistent with pill induced esophagitis - Will continue pantoprazole 40 mg IV twice daily, sucralfate suspension 1 g ACHS -Monitor for any further hematemesis or melena. -Status post bronchoscopy by pulmonology on 05/24. No evidence of bleeding - Hemoglobin stable at 14.1. White count 11.0. Kidney function improving with BUN 42, creatinine 1.2. No active signs of bleeding. Did have a black stool yesterday but hemoglobin remained stable. Suspect old blood. - Repeat CBC, CMP, magnesium ordered for the morning. #Severe PAD #Severe SFA, popliteal artery thrombosis #Severe renal artery stenosis #History of CAD #NSTEMI type I #Left lower extremity arterial insufficiency ulcers ? Severe PAD, LEIDA noted on CTA abdomen. Possible embolic source. ? Initial troponin 1.5, improved to 1.3. EKG without acute ischemic changes. No chest pain, shortness of breath. ? ECHO 05/22/2025 revealed normal biventricular systolic function. But does have marked increased LV wall thickness suggesting hypertensive cardiomyopathy. ? Cardiology consulted, planning for LHC and peripheral angiogram on Tuesday. Delayed due to hematemesis. ? Continue aspirin 81 mg. continue to hold on heparin drip due to hematemesis #Type 2 diabetes: Hemoglobin A1c 7.0%. LDSJOSÉ MIGUEL, CORAS glucose checks. #Hypertension: Continue home metoprolol 200 mg, clonidine 0.2 mg twice daily. Hold home hydrochlorothiazide, Kerendia for now. #Hypothyroidism: Continue home levothyroxine 75 mcg. TSH 2.1. Full code DVT prophylaxis: Lovenox 40 mg subcu daily Home meds: Reconciled.
[2025-05-26 16:00] VITALS: BP 124/75; PULSE 66; RESP 18; TEMP 36.6; O2SAT 95
[2025-05-26 17:15] LABS: POC Glucose,Bedside 177 gm/dL (70-110)
--- NOTE | 2025-05-26 18:20 | PC.NURSE ---
pt has done well today. he was able to ambulate to the chair. has been at bedside. no complaints of pain voiced to me.
[2025-05-26 20:00] VITALS: BP 137/65; PULSE 66; RESP 16; TEMP 36.8; O2SAT 97
[2025-05-26] MEDS: AMLODIPINE 10MG TABLET 10 MG PO (20:14)
[2025-05-26] MEDS: SODIUM CHLORIDE 0.9% 10ML VIAL 10 ML IV (20:14)
[2025-05-26] MEDS: humaLOG 100 UNITS/ML 10ML VIAL (SSI) SUBCUT (20:14)
[2025-05-26 20:28] LABS: POC Glucose,Bedside 166 gm/dL (70-110)
[2025-05-27] VITALS (36 sets, daily range): BP systolic 88–171; BP diastolic 36–105; PULSE 57–87; RESP 10–22; TEMP 36.4–36.8; O2SAT 93–100; BMI 26.9; BMI 24.7
[2025-05-27 06:01] LABS: POC Glucose,Bedside 114 gm/dL (70-110)
[2025-05-27] MEDS: LEVOTHYROXINE 75MCG (0.075MG) TAB 75 MCG PO (06:02)
[2025-05-27] MEDS: SUCRALFATE 1GM/10ML SUSP UDC 1 GM PO ×2 (06:03→11:02)
[2025-05-27] MEDS: ASPIRIN EC 81MG TABLET 81 MG PO (08:23)
[2025-05-27] MEDS: PANTOPRAZOLE 40MG VIAL 40 MG IV ×2 (08:24→20:58)
[2025-05-27] MEDS: METOPROLOL SUCCINATE XL 100MG TABLET 200 MG PO (08:24)
[2025-05-27] MEDS: SODIUM CHLORIDE 0.9% 10ML VIAL 10 ML IV (08:24)
--- NOTE | 2025-05-27 08:42 | EXP.SURG.PN ---
Subjective Patient reports: no new complaints Exam Data for Last 24 hours Vital signs and Labs for Last 24 Hours: Temp Pulse Resp BP Pulse Ox O2 Del Method O2 Flow Rate 98.3 F 67 16 151/78 H 97 Room Air 2 05/27/25 07:28 05/27/25 07:28 05/27/25 07:28 05/27/25 07:28 05/27/25 07:28 05/27/25 08:00 05/24/25 15:15 Laboratory Results - last 24 hr 05/26/25 05:40: WBC 11.0 H, RBC 4.65, Hgb 14.1, Hct 42.3, MCV 91.0, MCH 30.3, MCHC 33.3, RDW 14.4, Plt Count 122 L, MPV 11.9 H, Neut % (Auto) 47.2, Lymph % (Auto) 40.9, [place] % (Auto) 6.5, Eos % (Auto) 2.6, Baso % (Auto) 0.9, Neut # (Auto) 5.2, Lymph # (Auto) 4.5, [place] # (Auto) 0.7, Eos # (Auto) 0.3, Baso # (Auto) 0.1 05/26/25 10:39: POC Glucose 161 H 05/26/25 17:05: POC Glucose 177 H 05/26/25 20:10: POC Glucose 166 H 05/27/25 05:51: POC Glucose 114 H I & O for Last 24 hours: Intake & Output 05/24/25 05/25/25 05/26/25 05/27/25 11:59 11:59 10:59 11:59 Intake Total 3210.883 / 3210.883 1500 / 1500 1256 / 1256 1000 / 1000 Output Total 2250 / 2250 550 / 550 1275 / 1275 2775 / 2775 Balance 960.883 / 960.883 950 / 950 -19 / -19 -1775 / -1775 Weight 161 lb 4.8 oz 162 lb 1.6 oz 166 lb 1.6 oz 167 lb 9.6 oz Microbiology Reports for the Last 24 Hours: Microbiology 05/22/25 11:30 Blood Blood Culture - Preliminary NO GROWTH AFTER 4 DAYS 05/22/25 11:35 Blood Blood Culture - Preliminary NO GROWTH AFTER 4 DAYS 05/24/25 15:04 Bronchial Washings - Right Middle Lobe Gram Stain - Final 05/24/25 15:04 Bronchial Washings - Right Middle Lobe Bronchoalveolar Lavage Culture - Preliminary Constitutional Constitutional: no acute distress *Routine Respiratory Exam Respiratory: Absent respiratory distress *Routine Cardiovascular Exam Cardiovascular: Absent tachycardia Progress Note: A&P Assessment and plan (1) Esophagitis: Problem details: Profound rodriguez-esophagitis with patchy necrosis and mucosal sloughing (possible pill-induced esophagitis) Status: Acute Assessment and plan: Continue overall management as per primary service Continue proton pump inhibition Follow-up pending pathology
--- NOTE | 2025-05-27 09:26 | P.PN_ITS ---
Subjective *Date: 05/27/25 *Time: 09:57 Interval history: No acute respiratory events overnight. Denies any hemoptysis over the weekend. Pulmonology Exam Inpatient Vital signs and Labs for Last 24 Hours: Temp Pulse Resp BP Pulse Ox O2 Del Method O2 Flow Rate 98.3 F 67 16 151/78 H 97 Room Air 2 05/27/25 07:28 05/27/25 07:28 05/27/25 07:28 05/27/25 07:28 05/27/25 07:28 05/27/25 09:00 05/24/25 15:15 Laboratory Results - last 24 hr 05/26/25 10:39: POC Glucose 161 H 05/26/25 17:05: POC Glucose 177 H 05/26/25 20:10: POC Glucose 166 H 05/27/25 05:51: POC Glucose 114 H Temp Pulse Resp BP Pulse Ox O2 Del Method O2 Flow Rate 98.9 F 114 H 11 L 181/98 H 97 Room Air 96 05/23/25 08:00 05/23/25 08:12 05/23/25 08:00 05/23/25 08:00 05/23/25 08:00 05/23/25 08:00 05/23/25 06:51 Laboratory Results - last 24 hr 05/22/25 11:05: WBC 24.3 H*, RBC 6.79 H, Hgb 20.3 H, Hct 61.0 H*, MCV 89.8, MCH 29.9, MCHC 33.3, RDW 16.1, Plt Count 191, MPV 11.7 H, Neut % (Auto) 60.2, Lymph % (Auto) 33.6, [place] % (Auto) 5.0, Eos % (Auto) 0.0 L, Baso % (Auto) 0.5, Neut # (Auto) 14.6 H, Lymph # (Auto) 8.2 H, [place] # (Auto) 1.2 H, Eos # (Auto) 0.0, Baso # (Auto) 0.1, Total Counted 100, Neutrophils % (Manual) 62, Lymphocytes % (Manual) 29, Monocytes % (Manual) 9, Platelet Estimate Normal, RBC Morphology Normal, APTT 28.8 L, VBG pH 7.31, VBG pCO2 41.8, VBG pO2 44.8 H, VBG HCO3 20.3 L , VBG Total CO2 21.6 L, VBG O2 Saturation 79.3 H, VBG Base Excess -6.0 L, VBG Lactic Acid 2.3 H, Sodium 136, Potassium 4.5, Chloride 98, Carbon Dioxide 22, Anion Gap 20.5 H, BUN 72 H, Creatinine 1.80 H, Estimated Creat Clear 39, Estimated GFR 37 L, Est GFR ( Amer) 45 L, Glucose 224 H, Calcium 11.1 H, Phosphorus 4.8 H, Magnesium 2.4 H, Total Bilirubin 2.1 H, AST 46, ALT 37, Alkaline Phosphatase 90, Total Creatine Kinase 107, Troponin I 1.50 H, C- Reactive Protein 8.3 H, NT-Pro-B Natriuret Pep 9420 H, Total Protein 8.0, Albumin 3.9, Globulin 4.1 H, Albumin/Globulin Ratio 1.0 L, Lipase 469 H, Acetone Level None detected, HCV Ab JAIRO w/Rflx PCR Qn Negative, HIV Ag/Ab Combo Qual Negative 05/22/25 11:17: SARS-CoV-2 (PCR) Not detected, Influenza A Untype (PCR) Not detected, Influenza Type B (PCR) Not detected 05/22/25 13:54: Urine Color Yellow, Urine Appearance Clear, Urine pH 5.5, Ur Specific [place] 1.015, Urine Protein 2+ A, Urine Glucose (UA) 3+, Urine Ketones Trace, Urine Blood Trace-i, Urine Nitrate Negative, Urine Bilirubin Negative, Urine Urobilinogen 0.2, Ur Leukocyte Esterase Negative, Urine RBC Occasional, Urine WBC Occasional, Ur Squamous Epith Cells Occasional, Urine Bacteria Trace, Urine Opiates Screen Negative, Urine Methadone Screen Negative, Ur Barbituates Screen Negative, Ur Phencyclidine Scrn Negative, Ur Amphetamines Screen Negative, U Benzodiazepines Scrn Negative, Urine Cocaine Screen Negative, U Marijuana (THC) Screen Negative 05/22/25 14:00: Troponin I 1.47 H 05/22/25 15:40: Lactate 1.8 05/22/25 17:09: POC Glucose 150 H 05/22/25 17:15: WBC 21.1 H*, RBC 6.67 H, Hgb 19.7 H, Hct 59.9 H, MCV 89.8, MCH 29.8, MCHC 33.2, RDW 15.9, Plt Count 169, MPV 12.0 H, Neut % (Auto) 57.6, Lymph % (Auto) 36.1, [place] % (Auto) 4.8, Eos % (Auto) 0.0 L, Baso % (Auto) 0.4, Neut # (Auto) 12.1 H, Lymph # (Auto) 7.6 H, [place] # (Auto) 1.0, Eos # (Auto) 0.0, Baso # (Auto) 0.1, Sodium 131 L, Potassium 4.3, Chloride 97 L, Carbon Dioxide 17 L, Anion Gap 21.3 H, BUN 63 H, Creatinine 1.60 H, Estimated Creat Clear 43, Estimated GFR 43 L, Est GFR ( Amer) 52 L, Glucose 159 H D, Calcium 10.2, Total Bilirubin 1.9 H, AST 52, ALT 29, Alkaline Phosphatase 103, Troponin I 1.30 H, Total Protein 7.1, Albumin 3.4 L D, Globulin 3.7 H, Albumin/Globulin Ratio 0.9 L 05/22/25 18:22: Chlamy pneumoniae PCR Not detected, Adenovirus (PCR) Not detected, B. pertussis DNA (PCR) Not detected, Coronavirus OC43 (PCR) Not detected, Coronavirus HKU1 (PCR) Not detected, Coronavirus 229E (PCR) Not detected, SARS-CoV-2 (PCR) Not detected, Coronavirus NL63 (PCR) Not detected, Human Metapneumovir PCR Not detected, Influenza A (H1) PCR Not detected, Influ A (H1N1/09) PCR Not detected, Influenza A (H3) PCR Not detected, Influenza Type A (PCR) Not detected, Influenza Type B (PCR) Not detected, M. pneumoniae (PCR) Not detected, Parainfluenza 1 (PCR) Not detected, Parainfluenza 2 (PCR) Not detected, Parainfluenza 3 (PCR) Not detected, Parainfluenza 4 (PCR) Not detected, RSV (PCR) Not detected, Entero/Rhino (PCR) Not detected 05/22/25 19:42: APTT > 200.0 H* 05/22/25 20:02: POC Glucose 211 H 05/23/25 01:12: APTT 172.5 H* 05/23/25 04:05: WBC 19.9 H, RBC 5.86, Hgb 17.5 D, Hct 53.1 H, MCV 90.6, MCH 29.7, MCHC 32.8, RDW 15.0, Plt Count 163, MPV 12.5 H, Neut % (Auto) 58.8, Lymph % (Auto) 33.2, [place] % (Auto) 6.6, Eos % (Auto) 0.1, Baso % (Auto) 0.4, Neut # (Auto) 11.7 H, Lymph # (Auto) 6.6 H, [place] # (Auto) 1.3 H, Eos # (Auto) 0.0, Baso # (Auto) 0.1, Total Counted 100, Neutrophils % (Manual) 63, Lymphocytes % (Manual) 33, Atypical Lymphs % 4, Platelet Estimate Not Reportable, RBC Morphology Not Reportable, APTT 134.1 H*, Sodium 130 L, Potassium 4.9, Chloride 98, Carbon Dioxide 19 L, Anion Gap 17.9 H, BUN 70 H, Creatinine 1.50 H, Estimated Creat Clear 46, Estimated GFR 46 L, Est GFR ( Amer) 56 L, Glucose 194 H D, Hemoglobin A1c 7.0 H, Calcium 9.2, Magnesium 2.1 D, Total Bilirubin 2.0 H, AST 54, ALT 25, Alkaline Phosphatase 47, Total Protein 6.4, Albumin 2.9 L D, Globulin 3.5 H, Albumin/Globulin Ratio 0.8 L, Procalcitonin 0.301 05/23/25 05:23: POC Glucose 200 H 05/23/25 07:06: WBC 18.2 H, RBC 6.04, Hgb 18.0, Hct 54.4 H, MCV 90.1, MCH 30.0, MCHC 33.3, RDW 14.8, Plt Count 148, MPV 11.9 H, Neut % (Auto) 57.9, Lymph % ([place] to) 35.1, [place] % (Auto) 5.8, Eos % (Auto) 0.0 L, Baso % (Auto) 0.4, Neut # (Auto) 10.5 H, Lymph # (Auto) 6.4 H, [place] # (Auto) 1.1 H, Eos # (Auto) 0.0, Baso # (Auto) 0.1, PT 12.4, INR 1.13 H, APTT 82.8 H* I & O for Labs for Last 24 Hours: Intake & Output 05/24/25 05/25/25 05/26/25 05/27/25 23:59 23:59 22:59 23:59 Intake Total 2430 / 2550 566 / 806 1570 / 1810 240 / 240 Output Total 950 / 950 1400 / 1400 2050 / 2050 1150 / 1150 Balance 1480 / 1600 -834 / -594 -480 / -240 -910 / -910 Weight 161 lb 4.784 oz 162 lb 1.6 oz 166 lb 1.6 oz 167 lb 9.6 oz Intake & Output 05/20/25 05/21/25 05/22/25 05/23/25 23:59 23:59 23:59 23:59 Intake Total 3454.3 / 3454.3 1111.167 / 1111.167 Output Total 500 / 500 300 / 300 Balance 2954.3 / 2954.3 811.167 / 811.167 Weight 160 lb 0.008 oz 159 lb 6.669 oz Microbiology Reports for the Last 24 Hours: Microbiology 05/22/25 11:30 Blood Blood Culture - Preliminary NO GROWTH AFTER 4 DAYS 05/22/25 11:35 Blood Blood Culture - Preliminary NO GROWTH AFTER 4 DAYS 05/24/25 15:04 Bronchial Washings - Right Middle Lobe Gram Stain - Final 05/24/25 15:04 Bronchial Washings - Right Middle Lobe Bronchoalveolar Lavage Culture - Preliminary Constitutional: Present mild distress Head: Present normocephalic and atraumatic ENT: Present normal exam, normal oropharynx and mucous membranes moist Neck: Present normal inspection and full ROM Respiratory: Present normal respiratory effort and able to speak in complete sentences; Absent respiratory distress, wheezes, crackles or diminished air movement Cardiac: Present S1/S2, Tachycardia and radial pulses present GI: Present soft and distention; Absent tenderness or guarding Skin: Present intact and lesions; Absent cyanosis or jaundice Neuro: Present alert, awake and oriented x 3 Extremities: Present normal inspection; Absent clubbing or cyanosis Psychiatric: Present normal affect and cooperative Assessment and Plan *Assessment and plan (1) Hemoptysis: Status: Acute Category: Medical Code(s): R04.2 - Hemoptysis Plan Mr. Kamara is a 69-year-old male never smoker no prior respiratory complaints presented to the ER with intractable nausea vomiting found to be having arterial thrombosis and renal artery stenosis initiate heparin drip for DuoNebs with hemoptysis this morning and pulmonary was called for further evaluation and management Afebrile. Hemodynamically stable. Neutrophilic predominant leukocytosis. Blood gas upon admission hypoxic respiratory failure. No hypercarbia. Comprehensive respiratory viral PCR panel negative. CTA chest upon admission no pulmonary embolism. Traction bronchiectasis. Bilateral calcified pulmonary nodules and lymphadenopathy. Subsequent CT scans and the concern for hemoptysis did not show any acute changes CT abdomen occlusion of distal left superficial femoral and popliteal artery likely from concerning embolic event. No other suspicious pulmonary nodules warranting close follow-up. Prolex-D venous Doppler December 2024 no evidence of DVT. On examination no respiratory distress. On room air. Chest clear to auscultat e. Left lower extremity ulcers noted. Clinical update: No acute respiratory events. No episode hemoptysis over the weekend S/P bronchoscopy with no evidence of active bleeding / old blood clots. Friable airways. Hb Stable. No further evidence of hemoptysis after stopping heparin drip. BAL cultures with gram-positive cocci moderate, will follow-up final results. Blood cultures no growth 4 days. No need for antibiotics from pulmonary standpoint at this point of time. Will monitor clinically. Plan: DuoNebs 4 times daily as needed Monitor clinically Follow with cardiology recommendations for possible vascular intervention for the noted arterial thrombosis
[2025-05-27 09:49] LABS: Hematocrit 43.9 % (42.0-52.0); Hemoglobin 15.0 g/dL (14.1-18.0); Immature Granulocytes % 2.7 %; Mean Corpuscular HGB Conc 34.2 g/dL (31.8-35.4); Mean Corpuscular Hemoglobin 30.5 pg (27.0-31.2); Mean Corpuscular Volume 89.2 fl (80-94); Nucleated Red Blood Cells % 0 %; Platelet Count 131 K/mm3 (142-424); Red Blood Count 4.92 M/mm3 (4.60-6.20); Red Cell Distribution Width-SD 45.7 fL; White Blood Count 9.5 K/mm3 (4.8-10.8)
[2025-05-27 09:50] LABS: Alanine Aminotransferase 23 U/L (12-78); Albumin Level 3.5 g/dl (3.5-5.0); Albumin/Globulin Ratio 1.3 (1.1-1.8); Anion Gap 11.5 mEq/L (5-15); Aspartate Amino Transferase 31 U/L (17-59); Blood Urea Nitrogen 33 mg/dl (9-20); Calcium 8.7 mg/dl (8.4-10.2); Carbon Dioxide 22 mmol/L (22.0-30.0); Chloride 104 mmol/L (98-107); Creatinine Clearance Estimated 56 mL/min (50-200); Creatinine,Serum 1.30 mg/dl (0.66-1.25); Estimated Glomerular Filt Rate 54 ml/min (>60); GFR (African American) 66 ML/MIN (>60); Globulin 2.6 g/dL (1.3-3.2); Glucose 149 mg/dl (74-100); Magnesium 2.2 mg/dl (1.6-2.3); Potassium 3.5 mmoL/L (3.5-5.1); Sodium 134 mmol/L (136-145); Total Protein,Serum 6.1 g/dl (6.3-8.2)
--- NOTE | 2025-05-27 09:59 | EXP.ANES.II ---
[facility] Anesthesia Record Part II Anesthesia Record Part II Discharge Time: 08:20 Destination: Medical Surgical Department PACU nurse assessment reviewed?: Yes Patient Condition:: Good Anesthesia Complications:: None Swallowing reflex intact?: Yes Airway Patency: Patent Cyanosis?: No Blood Pressure: 171/94 SaO2: 100 Respiratory Rate: 16 Pulse Rate: 87 Temperature: 97.6 F Mental Status: Alert & Oriented Pain level:: 0 Nausea and/or vomitting:: None Intake, IV Amount: 0 Hydration: Adequate
--- NOTE | 2025-05-27 10:17 | EXP.CARD.PN ---
Subjective Subjective Date: 05/27/25 Time: 10:18 Principal diagnosis: Non-healing leg ulcers, NSTEMI, GI bleed Interval history: 69 yo WM in bed in NAD. GI bleed with subsequent EGD revealing pill esophagitis. No further bloody stools and patient has been eating without issues. Plan to proceed with LE angiogram, Renal angiogram and LHC. Exam Data for Last 24 hours Vital signs and Labs for Last 24 Hours: Temp Pulse Resp BP Pulse Ox O2 Del Method O2 Flow Rate 98.3 F 67 16 151/78 H 97 Room Air 2 05/27/25 07:28 05/27/25 07:28 05/27/25 10:00 05/27/25 07:28 05/27/25 07:28 05/27/25 09:00 05/24/25 15:15 Laboratory Results - last 24 hr 05/26/25 10:39: POC Glucose 161 H 05/26/25 17:05: POC Glucose 177 H 05/26/25 20:10: POC Glucose 166 H 05/27/25 05:51: POC Glucose 114 H 05/27/25 09:16: WBC 9.5, RBC 4.92, Hgb 15.0, Hct 43.9, MCV 89.2, MCH 30.5, MCHC 34.2, RDW 14.1, Plt Count 131 L, MPV 12.3 H, Neut % (Auto) 49.7, Lymph % (Auto) 37.3, [place] % (Auto) 6.4, Eos % (Auto) 3.1, Baso % (Auto) 0.8, Neut # (Auto) 4.7, Lymph # (Auto) 3.6, [place] # (Auto) 0.6, Eos # (Auto) 0.3, Baso # (Auto) 0.1, Sodium 134 L, Potassium 3.5, Chloride 104, Carbon Dioxide 22, Anion Gap 11.5, BUN 33 H, Creatinine 1.30 H, Estimated Creat Clear 56, Estimated GFR 54 L, Est GFR ( Amer) 66, Glucose 149 H, Calcium 8.7, Magnesium 2.2, AST 31, ALT 23 D, Total Protein 6.1 L, Albumin 3.5 D, Globulin 2.6, Albumin/Globulin Ratio 1.3 I & O for Last 24 hours: Intake & Output 05/24/25 05/25/25 05/26/25 05/27/25 11:59 11:59 10:59 11:59 Intake Total 3210.883 / 3210.883 1500 / 1500 1256 / 1256 1000 / 1000 Output Total 2250 / 2250 550 / 550 1275 / 1275 2775 / 2775 Balance 960.883 / 960.883 950 / 950 -19 / -19 -1775 / -1775 Weight 161 lb 4.8 oz 162 lb 1.6 oz 166 lb 1.6 oz 167 lb 9.6 oz Microbiology Reports for the Last 24 Hours: Microbiology 05/24/25 15:04 Bronchial Washings - Right Middle Lobe Gram Stain - Final 05/24/25 15:04 Bronchial Washings - Right Middle Lobe Bronchoalveolar Lavage Culture - Preliminary Gram Positive Cocci 05/22/25 11:30 Blood Blood Culture - Preliminary NO GROWTH AFTER 4 DAYS 05/22/25 11:35 Blood Blood Culture - Preliminary NO GROWTH AFTER 4 DAYS Constitutional Constitutional: no acute distress *Routine Respiratory Exam Respiratory: Present decreased breath sounds; Absent rales or wheezes *Routine Cardiovascular Exam Cardiovascular: Present RRR; Absent gallop or rubs *Routine Extremities Exam Comments: LLE with 2 medium to large size ulcers without drainage. LLE is cool to touch . Progress Note: A&P Assessment and plan (1) Hemoptysis: Status: Acute (2) Non-ST elevation IN (NSTEMI): Status: Acute (3) DAYSI (acute kidney injury): Status: Acute (4) Superficial femoral artery occlusion: Status: Acute (5) Renal artery stenosis: Status: Acute (6) Esophagitis: Problem details: Profound rodriguez-esophagitis with patchy necrosis and mucosal sloughing (possible pill-induced esophagitis) Status: Acute (7) Arterial insufficiency with ischemic ulcer: Status: Acute (8) CAD (coronary artery disease): Status: Chronic (9) HTN (hypertension): Status: Chronic (10) HLD (hyperlipidemia): Status: Chronic Assessment and Plan Assessment and Plan for All Diagnoses:: Critical LLE PAD with limb threatening ischemia - occluded L-SFA and L-Pop with non healing wounds and cold extremity - pt N/V resolved - cont ASA, Heparin - no statin due to intolerance (hallucinations) - peripheral angiogram today - pt may eventually require amputation NSTEMI - known CAD with prior stenting but details unclear - Trop peak 1.5 then down here, non-specific changes on EKG, ECHO - nml bi-v function - LHC today -Continues on aspirin therapy LEIDA - 90% RRA 50% LRA - cont Plavix, Heparin, Statin - renal angiogram/stenting today PAF - known paroxysmal - SR here - cont Toprol 10O, heparin discontinued due to hemoptysis N/V with hemoptysis - x1 mo - per primary service - EGD shows pill esophagitis with mucosal sloughing/renta and patchy necrosis throughout esophagus -Continue IV PPI therapy and sucralfate -Hemoglobin stable at 15 Dehydration - resolved with IV fluids - Continue to monitor daily Proceed with lower extremity angiogram, renal angiogram and potential left heart catheterization today
--- NOTE | 2025-05-27 10:21 | IR_ITS ---
APPROVED REPORT Patient Location: Inpatient PROCEDURES Right femoral arterial access Catheter placement in the left common iliac artery with unilateral runoff to the left foot Catheter placement in the left superficial femoral artery Stent deployment to the left popliteal artery Catheter placement in the left PT trunk Selective angiogram of the left PT trunk Catheter placement in the left peroneal artery Left peroneal artery selective angiogram Stent deployment to the PT trunk Stent deployment to the peroneal artery INDICATION Rydal claudication class V, Occluded left popliteal artery, Occluded left PT trunk, Occluded left peroneal artery, Limb threatening ischemia with deep cyanotic ulcers Informed consent was obtained prior to the procedure. COMPLICATIONS NONE Estimated Blood Loss: LESS THAN 10 ML TECHNIQUE 1% lidocaine used anesthetize the right groin the right femoral artery was accessed via the central technique and a 5 [place] sheath is placed in the right femoral artery. A rim catheter was advanced under fluoroscopic guidance and used to cannulate the left common iliac artery. Left common iliac artery angiography was performed with unilateral runoff to the left foot. Following this an advantage wire was advanced and placed into the distal left superficial femoral artery. The 5 [place] sheath was exchanged for a long destination sheath. Therapeutic heparin was administered given a therapeutic ACT. Following this under fluoroscopic guidance the wire was used to push through the occlusion in the popliteal artery. A 6 mm x 115 mm bare-metal self-expanding stent was deployed in the left popliteal artery and deployed. A 5 mm x 60 mm balloon was then postdilated throughout the vessel to further open the struts. The catheter was placed into the PT trunk where the vessel remained occluded. Following this the wire was used to cannulate the peroneal artery. The trailblazer catheter was advanced into the peroneal artery and the wire removed and selective angiography was performed to confirm luminal access. Following this a 5 mm x 100 mm self-expanding stent was deployed in the peroneal artery extending back into the PT trunk and into the distal popliteal artery. This was deployed. A 5 mm x 60 mm balloon was then advanced and deployed at 8 lashay to post dilate. Repeat angiography demonstrated a wire perforation in the mid calf. The calf was measured at 10.5 inches. The balloon was then reinserted in the PT trunk for 7 minutes. Repeat angiography demonstrated the perforation had sealed and there was no change in the Size. Following this the apparatus was removed the long 6 [place] sheath was exchanged for a sort 6 [place] sheath patient was transferred to the postop boarding in stable condition ANGIOGRAPHIC RESULTS Left common internal and external iliac arteries are widely patent Left common femoral artery is patent Left profunda femoris artery is patent Left superficial femoral arteries widely patent Left popliteal artery is occluded throughout its entire course. There are scant collaterals which scantly provide distal flow Following revascularization the popliteal artery had inline flow into the peroneal artery with much improved flow through the left anterior tibialis artery via a rich collateral network IMPRESSION Xarelto 2.5 twice daily plus aspirin 81 mg daily Patient be brought back to the [facility] in 2 to 4 weeks will undergo a left heart catheterization as well as renal angiography with plans to stent the 90% renal artery LDL less than 55 to be achieved with high intensity statin Avoidance of tobacco products Risk factor modification Cardiac rehabilitation Electronically signed by : Baldemar Davis MD 05/27/2025 17:49:14
[2025-05-27 11:11] LABS: POC Glucose,Bedside 136 gm/dL (70-110)
[2025-05-27 12:05] LABS: Alkaline Phosphatase 65 U/L (38-126); Bilirubin,Total 0.9 mg/dl (0.2-1.3)
[2025-05-27] MEDS: LIDOCAINE 1% 10ML MDV 10 ML IJ (12:20)
[2025-05-27] MEDS: FENTANYL 100MCG/2ML VIAL 50 MCG IV (12:20)
[2025-05-27] MEDS: MIDAZOLAM HCL 1MG/ML 5ML VIAL 1 MG IV (12:20)
[2025-05-27] MEDS: HEPARIN 1,000 UNITS/500ML NS (CATH LAB) 3000 UNIT IV (12:20)
[2025-05-27] MEDS: 0.9 % SODIUM CHLORIDE 500 ML 25 ML IV (12:23)
--- NOTE | 2025-05-27 12:25 | P.PN_ITS ---
Subjective *Date: 05/27/25 *Time: 23:05 Interval history: Patient feels well today. Stable on room air. N.p.o. for intervention today. Cardiology evaluating. Hemoglobin remained stable. Medical Exam Vital signs and Labs for Last 24 Hours: Vital Signs Temp Pulse Pulse Resp BP BP Pulse Ox 05/27/25 11:00 05/27/25 10:00 16 05/27/25 09:00 05/27/25 08:00 05/27/25 07:28 98.3 F 67 16 151/78 H 97 05/27/25 06:51 05/27/25 05:00 05/27/25 04:00 97.9 F 67 16 126/68 97 05/27/25 03:00 05/27/25 01:00 05/27/25 00:00 98.0 F 67 16 107/36 L 96 05/26/25 23:00 05/26/25 21:00 05/26/25 20:00 98.3 F 66 16 137/65 97 05/26/25 20:00 05/26/25 17:00 05/26/25 16:00 97.8 F 66 18 124/75 95 05/26/25 15:00 05/26/25 13:00 O2 Del Method 05/27/25 11:00 Room Air 05/27/25 10:00 05/27/25 09:00 Room Air 05/27/25 08:00 Room Air 05/27/25 07:28 Room Air 05/27/25 06:51 Room Air 05/27/25 05:00 Room Air 05/27/25 04:00 Room Air 05/27/25 03:00 Room Air 05/27/25 01:00 Room Air 05/27/25 00:00 Room Air 05/26/25 23:00 Room Air 05/26/25 21:00 Room Air 05/26/25 20:00 Room Air 05/26/25 20:00 Room Air 05/26/25 17:00 Room Air 05/26/25 16:00 Room Air 05/26/25 15:00 Room Air 05/26/25 13:00 Room Air Intake and Output 05/26/25 05/27/25 05/27/25 23:59 07:59 15:59 Intake Total 240 / 1810 240 / 240 0 / 240 Output Total 1325 / 2050 1150 / 1150 Balance -1085 / -240 -910 / -910 0 / -910 Intake: Intake, Oral Amount 240 / 1810 240 / 240 Intake, Total IV Amount 0 / 0 Output: Output, Urine Amount [id number] 1150 / 1150 Other: Number of Unmeasured Voids 0 0 Weight 76.022 kg Patient Weight 05/27/25 23:59 Weight 76.022 kg Laboratory Results - last 24 hr 05/26/25 17:05: POC Glucose 177 H 05/26/25 20:10: POC Glucose 166 H 05/27/25 05:51: POC Glucose 114 H 05/27/25 09:16: WBC 9.5, RBC 4.92, Hgb 15.0, Hct 43.9, MCV 89.2, MCH 30.5, MCHC 34.2, RDW 14.1, Plt Count 131 L, MPV 12.3 H, Neut % (Auto) 49.7, Lymph % (Auto) 37.3, [place] % (Auto) 6.4, Eos % (Auto) 3.1, Baso % (Auto) 0.8, Neut # (Auto) 4.7, Lymph # (Auto) 3.6, [place] # (Auto) 0.6, Eos # (Auto) 0.3, Baso # (Auto) 0.1, Sodium 134 L, Potassium 3.5, Chloride 104, Carbon Dioxide 22, Anion Gap 11.5, BUN 33 H, Creatinine 1.30 H, Estimated Creat Clear 56, Estimated GFR 54 L, Est GFR ( Amer) 66, Glucose 149 H, Calcium 8.7, Magnesium 2.2, Total Bilirubin 0.9, AST 31, ALT 23 D, Alkaline Phosphatase 65, Total Protein 6.1 L, Albumin 3.5 D, Globulin 2.6, Albumin/Globulin Ratio 1.3 05/27/25 11:01: POC Glucose 136 H I & O for Labs for Last 24 Hours: Intake & Output 05/24/25 05/25/25 05/26/25 05/27/25 23:59 23:59 22:59 23:59 Intake Total 2430 / 2550 566 / 806 1570 / 1810 240 / 240 Output Total 950 / 950 1400 / 1400 2049 1150 / 1150 Balance 1480 / 1600 -834 / -594 -480 / -240 -910 / -910 Weight 73.164 kg 73.527 kg 75.342 kg 76.022 kg Microbiology Reports for the Last 24 Hours: Microbiology 05/22/25 11:35 Blood Blood Culture - Final NO GROWTH AFTER 5 DAYS 05/22/25 11:30 Blood Blood Culture - Final NO GROWTH AFTER 5 DAYS 05/24/25 15:04 Bronchial Washings - Right Middle Lobe Gram Stain - Final 05/24/25 15:04 Bronchial Washings - Right Middle Lobe Bronchoalveolar Lavage Culture - Preliminary Gram Positive Cocci Constitutional: Present no acute distress, chronically ill appearing and cooperative Head: Present atraumatic and normocephalic Respiratory: Present normal respiratory effort; Absent respiratory distress, stridor or wheezes Cardiac: Present Reg Rate and Rhythm GI: Present soft and normal bowel sounds; Absent distention or tenderness Extremities: Present full ROM Comment:: Arterial insufficiency ulcers of left leg on pabon x 2 with scabbing. Weak pulses bilaterally. Loss of hair bilaterally and lower extremity; lower extremities cool to touch below the knee but not cold or cyanotic Skin: Present wounds (See above extremities); Absent erythema Neuro: Present Grossly Intact, alert, awake, oriented x 3 and moves all extremities Assessment and Plan *Assessment and plan (1) Non-ST elevation IA (NSTEMI): Status: Acute Category: Medical Code(s): I21.4 - Non-ST elevation (NSTEMI) myocardial infarction (2) DAYSI (acute kidney injury): Status: Acute Category: Medical Code(s): N17.9 - Acute kidney failure, unspecified (3) Superficial femoral artery occlusion: Status: Acute Category: Medical Code(s): I70.209 - Unspecified atherosclerosis of [place] arteries of extremities, unspecified extremity (4) Hematemesis: Status: Acute Qualifiers: Nausea presence: unspecified Qualified Code(s): K92.0 - Hematemesis Category: Medical Code(s): K92.0 - Hematemesis (5) Occlusion of left popliteal artery: Status: Acute Category: Medical Code(s): I70.202 - Unspecified atherosclerosis of [place] arteries of extremities, left leg (6) Arterial insufficiency with ischemic ulcer: Status: Acute Category: Medical Code(s): I77.1 - Stricture of artery; L98.499 - Non-pressure chronic ulcer of skin of other sites with unspecified severity (7) Diabetic peripheral neuropathy associated with type 2 diabetes mellitus: Status: Acute Category: Medical Code(s): E11.42 - Type 2 diabetes mellitus with diabetic polyneuropathy (8) CAD (coronary artery disease): Status: Chronic Qualifiers: Associated angina: with unspecified angina Coronary Disease-Associated Artery/Lesion type: [place] artery [place] vs. transplanted heart: [place] heart Qualified Code(s): I25.119 - Atherosclerotic heart disease of [place] coronary artery with unspecified angina pectoris Category: Medical Code(s): I25.10 - Atherosclerotic heart disease of [place] coronary artery without angina pectoris (9) HTN (hypertension): Status: Chronic Qualifiers: Hypertension type: essential hypertension Qualified Code(s): I10 - Essential (primary) hypertension Category: Medical Code(s): I10 - Essential (primary) hypertension (10) HLD (hyperlipidemia): Status: Chronic Qualifiers: Hyperlipidemia type: other hyperlipidemia Qualified Code(s): E78.4 - Other hyperlipidemia Category: Medical Code(s): E78.5 - Hyperlipidemia, unspecified (11) Decreased pedal pulses: Status: Acute Category: Medical Code(s): R09.89 - Other specified symptoms and signs involving the circulatory and respiratory systems John Kamara is a 69-year-old male with a medical history significant for CAD, type 2 diabetes, hypertension who presents to the ED with intractable nausea/vomiting for the past 3 days. Patient states he cannot think of any triggers that could have started it, denies focal abdominal pain, fever/chills, chest pain, shortness of breath, urinary symptoms and endorses regular bowel movements. He states he has not changed his diet, medications, or otherwise been sick or had sick contacts. Workup in the ED significant for WBC 24.3, hemoglobin 20.3, AGAP 21.3, creatinine 1.8, troponin 1.5, unremarkable UA, UDS, and negative for COVID-19, influenza. CTA abdomen did note abrupt occlusion of the distal left SFA and popliteal artery, possibly from embolic event and significant renal artery stenosis. Right upper quadrant ultrasound also unremarkable. Patient was given 3 L LR, vancomycin and Zosyn, aspirin. Dr. Davis was contacted for SFA occlusion who recommended heparin bolus and peripheral intervention in the morning. Given these findings, ED provider discussed case with me and I decided to admit patient for DAYSI on CKD, dehydration, and meeting SIRS criteria. Unfortunately developed hemoptysis. On prophylactic anticoagulation. Taken for EGD on 05/25 with pill induced esophagitis. Remained stable. Cardiology to evaluate tomorrow for peripheral PCI. Problems addressed as follows: #Intractable nausea/vomiting, resolved #Severe dehydration, resolved #DAYSI on CKD, resolving #SIRS #Leukocytosis #High anion metabolic acidosis, resolved #Elevated lipase #Pill induced esophagitis Hematemesis, resolved ? Presented with intractable nausea/vomiting for the past 3 days of undefined etiology at this time, no focal abdominal pain. Could be gastroenteritis. ? Imaging and workup largely unremarkable for significant findings. Did have hemoconcentration with WBC 24.3, hemoglobin, 20.8, AGAP 21.3 on admission - White count normal today at 9.5, hemoglobin stable at 15. Kidney function normal with BUN 33, creatinine 1.3. ?Initial lipase was elevated to 400s, not 3 times upper limit. No focal epigastric pain. If there was pancreatitis, it seems to be improving at this time. RUQ ultrasound unremarkable for acute findings. -Developed hematemesis 05/24. EGD on 05/25. reviewed images showing diffuse sloughing of mucosa. Consistent with pill induced esophagitis - Will continue pantoprazole 40 mg IV twice daily, sucralfate suspension 1 g ACHS -Status post bronchoscopy by pulmonology on 05/24. No evidence of bleeding - Repeat CBC, CMP, magnesium ordered for the morning. #Severe PAD #Severe SFA, popliteal artery thrombosis #Severe renal artery stenosis #History of CAD #NSTEMI type I #Left lower extremity arterial insufficiency ulcers ? Severe PAD, LEIDA noted on CTA abdomen. Possible embolic source. ? Initial troponin 1.5, improved to 1.3. EKG without acute ischemic changes. No chest pain, shortness of breath. ? ECHO 05/22/2025 revealed normal biventricular systolic function. But does have marked increased LV wall thickness suggesting hypertensive cardiomyopathy. ? Cardiology consulted, going for left lower extremity angioplasty today. Will require monitoring overnight. Monitor for edema and swelling of left lower leg with reperfusion. ? Continue aspirin 81 mg. initiate dapt after stenting with plavix 75mg daily #Type 2 diabetes: Hemoglobin A1c 7.0%. [facility], ACHS glucose checks. #Hypertension: Continue home metoprolol 200 mg, clonidine 0.2 mg twice daily. Hold home hydrochlorothiazide, Kerendia for now. #Hypothyroidism: Continue home levothyroxine 75 mcg. TSH 2.1. Full code DVT prophylaxis: Lovenox 40 mg subcu daily Home meds: Reconciled.
[2025-05-27] MEDS: HEPARIN 1,000 UNITS/ML 10ML VIAL (CATH LAB) 5000 UNIT IV (13:10)
--- NOTE | 2025-05-27 13:41 | DIET.NUTRFU ---
Covered patients oral diet today in morning rounds. It was reported he tolerated the clear and full liquid diets over weekend with no issues. Diet will be upgraded post cardiac procedure. Patient is anticipating discharge
[2025-05-27] MEDS: IOPAMIDOL-370 (76%);100ML BOTTLE 150 ML IV (14:32)
[2025-05-27] MEDS: IOHEXOL-240 100ML BOTTLE 84 ML IV (14:33)
[2025-05-27 14:36] LABS: CATHL Activated Clotting Time > 400 SEC (74-125)
[2025-05-27] MEDS: diazePAM 10MG/2ML SYRINGE 10 MG IV (14:48)
[2025-05-27] MEDS: HALOPERIDOL LACTATE 5 MG/ML VIAL IV ×2 (15:00→18:36)
--- NOTE | 2025-05-27 16:20 | SUR.PHASEII ---
Fem stop to right groin still in place cuff is not inflated, band on femstop applying pressure, attempted to remove without success. Bruising and hematoma noted to right groin, MD aware. Border drawn with a marker. Pedal pulses and cap refil present to right extremity
--- NOTE | 2025-05-27 16:24 | CA_ITS ---
FINAL REPORT TECHNIQUE: Spectral and color Doppler waveform evaluation of the right lower extremity was performed. Spectral analysis was performed. CLINICAL HISTORY: Pt had a heart cath today Right femoral artery access. Large palpable, pulsatile knot. FINDINGS: There is a collection in the right groin adjacent to the common femoral artery and vein which contains flow, likely pseudoaneurysm measuring 3.2 x 4.4 x 1.3 cm. IMPRESSION: Pseudoaneurysm in the right groin. Reviewed, Interpreted and Dictated by Layne Hedrick MD Transcribed by Otilia Shaw Authenticated and [facility]
--- NOTE | 2025-05-27 16:40 | SUR.PHASEII ---
Fem stop removed, echo called for US to right groin
[2025-05-27] MEDS: MORPHINE 4MG/ML SYRINGE 4 MG IV (16:44)
--- NOTE | 2025-05-27 17:00 | SUR.PHASEII ---
Echo at beside
--- NOTE | 2025-05-27 17:30 | SUR.PHASEII ---
Fem stop re-applied to right groin
--- NOTE | 2025-05-27 18:08 | SUR.PHASEII ---
Dr Davis notified of US finding, fem stop reapplied
--- NOTE | 2025-05-27 18:09 | SUR.PHASEII ---
removed fem stop, manual pressure being applied by dr díaz
--- NOTE | 2025-05-27 18:10 | SUR.PHASEII ---
Right foot is cool to touch, pedal pulses present, cap refill present
[2025-05-27 19:58] LABS: POC Glucose,Bedside 170 gm/dL (70-110)
--- NOTE | 2025-05-27 20:36 | PC.NURSE ---
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
[2025-05-28] VITALS (27 sets, daily range): BP systolic 87–149; BP diastolic 56–84; PULSE 56–73; RESP 11–22; TEMP 36.4–36.6; O2SAT 91–100; BMI 24.3
[2025-05-28 05:41] LABS: POC Glucose,Bedside 126 gm/dL (70-110)
[2025-05-28 06:09] LABS: Hematocrit 38.8 % (42.0-52.0); Immature Granulocytes % 2.3 %; Mean Corpuscular HGB Conc 33.5 g/dL (31.8-35.4); Mean Corpuscular Hemoglobin 30.2 pg (27.0-31.2); Mean Corpuscular Volume 90.2 fl (80-94); Nucleated Red Blood Cells % 0 %; Platelet Count 160 K/mm3 (142-424); Red Blood Count 4.30 M/mm3 (4.60-6.20); Red Cell Distribution Width-SD 47.1 fL; White Blood Count 14.7 K/mm3 (4.8-10.8)
[2025-05-28 06:19] LABS: Albumin Level 3.7 g/dl (3.5-5.0); Chloride 104 mmol/L (98-107); Hemoglobin 12.9 g/dL (14.1-18.0); Potassium 4.0 mmoL/L (3.5-5.1); Sodium 139 mmol/L (136-145)
[2025-05-28 06:22] LABS: Alanine Aminotransferase 21 U/L (12-78); Albumin/Globulin Ratio 2.2 (1.1-1.8); Alkaline Phosphatase 61 U/L (38-126); Anion Gap 15.0 mEq/L (5-15); Aspartate Amino Transferase 30 U/L (17-59); Bilirubin,Total 0.7 mg/dl (0.2-1.3); Blood Urea Nitrogen 30 mg/dl (9-20); Calcium 8.6 mg/dl (8.4-10.2); Carbon Dioxide 24 mmol/L (22.0-30.0); Creatinine Clearance Estimated 50 mL/min (50-200); Creatinine,Serum 1.40 mg/dl (0.66-1.25); Estimated Glomerular Filt Rate 50 ml/min (>60); GFR (African American) 60 ML/MIN (>60); Globulin 1.7 g/dL (1.3-3.2); Glucose 130 mg/dl (74-100); Magnesium 2.4 mg/dl (1.6-2.3); Total Protein,Serum 5.4 g/dl (6.3-8.2)
[2025-05-28] MEDS: SUCRALFATE 1GM/10ML SUSP UDC 1 GM PO ×2 (06:45→13:48)
--- NOTE | 2025-05-28 08:00 | CA_ITS ---
FINAL REPORT TECHNIQUE: Arterial duplex Doppler evaluation of the right lower extremity with spectral analysis. CLINICAL HISTORY: Pt had Heart cath 05/27/25 with femoral artery access. No longer a palpable pulsatile knot in right groin. Right groin is soft to touch. No pain in right groin this AM. Continued bruising. COMPARISON: 05/27/2025 FINDINGS: There has been interval treatment for pseudoaneurysm. Pseudoaneurysm is no longer identified. There is a small collection in the subcutaneous tissues measuring 2.7 cm, likely a hematoma. IMPRESSION: Pseudoaneurysm no longer identified. Probable hematoma. Reviewed, Interpreted and Dictated by Layne Hedrick MD Transcribed by Otilia Shaw Authenticated and [facility]
[2025-05-28] MEDS: LEVOTHYROXINE 75MCG (0.075MG) TAB 75 MCG PO (08:44)
[2025-05-28] MEDS: PANTOPRAZOLE 40MG VIAL 40 MG IV (08:44)
[2025-05-28] MEDS: CLOPIDOGREL 75MG TAB 75 MG PO (08:44)
[2025-05-28] MEDS: SODIUM CHLORIDE 0.9% 10ML VIAL 10 ML IV (08:44)
[2025-05-28] MEDS: ASPIRIN EC 81MG TABLET 81 MG PO (08:44)
[2025-05-28] MEDS: METOPROLOL SUCCINATE XL 100MG TABLET 200 MG PO (08:45)
--- NOTE | 2025-05-28 09:53 | EXP.PULM.PN ---
Subjective *Date: 05/28/25 *Time: 12:12 Interval history: No acute respiratory events overnight. Patient denies any new respiratory complaints/hemoptysis episodes Pulmonology Exam Inpatient Vital signs and Labs for Last 24 Hours: Temp Pulse Resp BP Pulse Ox O2 Del Method O2 Flow Rate 97.6 F 66 15 115/61 95 Room Air 100 05/28/25 08:01 05/28/25 08:01 05/28/25 08:01 05/28/25 08:01 05/28/25 08:01 05/28/25 08:01 05/28/25 06:54 Laboratory Results - last 24 hr 05/27/25 09:16: WBC 9.5, RBC 4.92, Hgb 15.0, Hct 43.9, MCV 89.2, MCH 30.5, MCHC 34.2, RDW 14.1, Plt Count 131 L, MPV 12.3 H, Neut % (Auto) 49.7, Lymph % (Auto) 37.3, [place] % (Auto) 6.4, Eos % (Auto) 3.1, Baso % (Auto) 0.8, Neut # (Auto) 4.7, Lymph # (Auto) 3.6, [place] # (Auto) 0.6, Eos # (Auto) 0.3, Baso # (Auto) 0.1, Sodium 134 L, Potassium 3.5, Chloride 104, Carbon Dioxide 22, Anion Gap 11.5, BUN 33 H, Creatinine 1.30 H, Estimated Creat Clear 56, Estimated GFR 54 L, Est GFR ( Amer) 66, Glucose 149 H, Calcium 8.7, Magnesium 2.2, Total Bilirubin 0.9, AST 31, ALT 23 D, Alkaline Phosphatase 65, Total Protein 6.1 L, Albumin 3.5 D, Globulin 2.6, Albumin/Globulin Ratio 1.3 05/27/25 11:01: POC Glucose 136 H 05/27/25 14:58: Activated Clotting Time > 400 H* 05/27/25 19:48: POC Glucose 170 H 05/28/25 04:41: WBC 14.7 H D, RBC 4.30 L, Hgb 12.9 L D, Hct 38.8 L, MCV 90.2, MCH 30.2, MCHC 33.5, RDW 14.4, Plt Count 160, MPV 12.7 H, Neut % (Auto) 56.9, Lymph % (Auto) 32.4, [place] % (Auto) 6.2, Eos % (Auto) 1.5, Baso % (Auto) 0.7, Neut # (Auto) 8.4 H, Lymph # (Auto) 4.8 H, [place] # (Auto) 0.9, Eos # (Auto) 0.2, Baso # (Auto) 0.1, Sodium 139, Potassium 4.0, Chloride 104, Carbon Dioxide 24, Anion Gap 15.0, BUN 30 H, Creatinine 1.40 H, Estimated Creat Clear 50, Estimated GFR 50 L, Est GFR ( Amer) 60, Glucose 130 H, Calcium 8.6, Magnesium 2.4 H, Total Bilirubin 0.7, AST 30, ALT 21, Alkaline Phosphatase 61, Total Protein 5.4 L, Albumin 3.7, Globulin 1.7, Albumin/Globulin Ratio 2.2 H 05/28/25 05:33: POC Glucose 126 H Temp Pulse Resp BP Pulse Ox O2 Del Method O2 Flow Rate 98.9 F 114 H 11 L 181/98 H 97 Room Air 96 05/23/25 08:00 05/23/25 08:12 05/23/25 08:00 05/23/25 08:00 05/23/25 08:00 05/23/25 08:00 05/23/25 06:51 Laboratory Results - last 24 hr 05/22/25 11:05: WBC 24.3 H*, RBC 6.79 H, Hgb 20.3 H, Hct 61.0 H*, MCV 89.8, MCH 29.9, MCHC 33.3, RDW 16.1, Plt Count 191, MPV 11.7 H, Neut % (Auto) 60.2, Lymph % (Auto) 33.6, [place] % (Auto) 5.0, Eos % (Auto) 0.0 L, Baso % (Auto) 0.5, Neut # (Auto) 14.6 H, Lymph # (Auto) 8.2 H, [place] # (Auto) 1.2 H, Eos # (Auto) 0.0, Baso # (Auto) 0.1, Total Counted 100, Neutrophils % (Manual) 62, Lymphocytes % (Manual) 29, Monocytes % (Manual) 9, Platelet Estimate Normal, RBC Morphology Normal, APTT 28.8 L, VBG pH 7.31, VBG pCO2 41.8, VBG pO2 44.8 H, VBG HCO3 20.3 L, VBG Total CO2 21.6 L, VBG O2 Saturation 79.3 H, VBG Base Excess -6.0 L, VBG Lactic Acid 2.3 H, Sodium 136, Potassium 4.5, Chloride 98, Carbon Dioxide 22, Anion Gap 20.5 H, BUN 72 H, Creatinine 1.80 H, Estimated Creat Clear 39, Estimated GFR 37 L, Est GFR ( Amer) 45 L, Glucose 224 H, Calcium 11.1 H, Phosphorus 4.8 H, Magnesium 2.4 H, Total Bilirubin 2.1 H, AST 46, ALT 37, Alkaline Phosphatase 90, Total Creatine Kinase 107, Troponin I 1.50 H, C-Reactive Protein 8.3 H, NT-Pro-B Natriuret Pep 9420 H, Total Protein 8.0, Albumin 3.9, Globulin 4.1 H, Albumin/Globulin Ratio 1.0 L, Lipase 469 H, Acetone Level None detected, HCV Ab JAIRO w/Rflx PCR Qn Negative, HIV Ag/Ab Combo Qual Negative 05/22/25 11:17: SARS-CoV-2 (PCR) Not detected, Influenza A Untype (PCR) Not detected, Influenza Type B (PCR) Not detected 05/22/25 13:54: Urine Color Yellow, Urine Appearance Clear, Urine pH 5.5, Ur Specific [place] 1.015, Urine Protein 2+ A, Urine Glucose (UA) 3+, Urine Ketones Trace, Urine Blood Trace-i, Urine Nitrate Negative, Urine Bilirubin Negative, Urine Urobilinogen 0.2, Ur Leukocyte Esterase Negative, Urine RBC Occasional, Urine WBC Occasional, Ur Squamous Epith Cells Occasional, Urine Bacteria Trace, Urine Opiates Screen Negative, Urine Methadone Screen Negative, Ur Barbituates Screen Negative, Ur Phencyclidine Scrn Negative, Ur Amphetamines Screen Negative, U Benzodiazepines Scrn Negative, Urine Cocaine Screen Negative, U Marijuana (THC) Screen Negative 05/22/25 14:00: Troponin I 1.47 H 05/22/25 15:40: Lactate 1.8 05/22/25 17:09: POC Glucose 150 H 05/22/25 17:15: WBC 21.1 H*, RBC 6.67 H, Hgb 19.7 H, Hct 59.9 H, MCV 89.8, MCH 29.8, MCHC 33.2, RDW 15.9, Plt Count 169, MPV 12.0 H, Neut % (Auto) 57.6, Lymph % (Auto) 36.1, [place] % (Auto) 4.8, Eos % (Auto) 0.0 L, Baso % (Auto) 0.4, Neut # (Auto) 12.1 H, Lymph # (Auto) 7.6 H, [place] # (Auto) 1.0, Eos # (Auto) 0.0, Baso # (Auto) 0.1, Sodium 131 L, Potassium 4.3, Chloride 97 L, Carbon Dioxide 17 L, Anion Gap 21.3 H, BUN 63 H, Creatinine 1.60 H, Estimated Creat Clear 43, Estimated GFR 43 L, Est GFR ( Amer) 52 L, Glucose 159 H D, Calcium 10.2, Total Bilirubin 1.9 H, AST 52, ALT 29, Alkaline Phosphatase 103, Troponin I 1.30 H, Total Protein 7.1, Albumin 3.4 L D, Globulin 3.7 H, Albumin/Globulin Ratio 0.9 L 05/22/25 18:22: Chlamy pneumoniae PCR Not detected, Adenovirus (PCR) Not detected, B. pertussis DNA (PCR) Not detected, Coronavirus OC43 (PCR) Not detected, Coronavirus HKU1 (PCR) Not detected, Coronavirus 229E (PCR) Not detected, SARS-CoV-2 (PCR) Not detected, Coronavirus NL63 (PCR) Not detected, Human Metapneumovir PCR Not detected, Influenza A (H1) PCR Not detected, Influ A (H1N1/09) PCR Not detected, Influenza A (H3) PCR Not detected, Influenza Type A (PCR) Not detected, Influenza Type B (PCR) Not detected, M. pneumoniae (PCR) Not detected, Parainfluenza 1 (PCR) Not detected, Parainfluenza 2 (PCR) Not detected, Parainfluenza 3 (PCR) Not detected, Parainfluenza 4 (PCR) Not detected, RSV (PCR) Not detected, Entero/Rhino (PCR) Not detected 05/22/25 19:42: APTT > 200.0 H* 10/29/25 20:02: POC Glucose 211 H 05/23/25 01:12: APTT 172.5 H* 05/23/25 04:05: WBC 19.9 H, RBC 5.86, Hgb 17.5 D, Hct 53.1 H, MCV 90.6, MCH 29.7, MCHC 32.8, RDW 15.0, Plt Count 163, MPV 12.5 H, Neut % (Auto) 58.8, Lymph % (Auto) 33.2, [place] % (Auto) 6.6, Eos % (Auto) 0.1, Baso % (Auto) 0.4, Neut # (Auto) 11.7 H, Lymph # (Auto) 6.6 H, [place] # (Auto) 1.3 H, Eos # (Auto) 0.0, Baso # (Auto) 0.1, Total Counted 100, Neutrophils % (Manual) 63, Lymphocytes % (Manual) 33, Atypical Lymphs % 4, Platelet Estimate Not Reportable, RBC Morphology Not Reportable, APTT 134.1 H*, Sodium 130 L, Potassium 4.9, Chloride 98, Carbon Dioxide 19 L, Anion Gap 17.9 H, BUN 70 H, Creatinine 1.50 H, Estimated Creat Clear 46, Estimated GFR 46 L, Est GFR ( Amer) 56 L, Glucose 194 H D, Hemoglobin A1c 7.0 H, Calcium 9.2, Magnesium 2.1 D, Total Bilirubin 2.0 H, AST 54, ALT 25, Alkaline Phosphatase 47, Total Protein 6.4, Albumin 2.9 L D, Globulin 3.5 H, Albumin/Globulin Ratio 0.8 L, Procalcitonin 0.301 05/23/25 05:23: POC Glucose 200 H 05/23/25 07:06: WBC 18.2 H, RBC 6.04, Hgb 18.0, Hct 54.4 H, MCV 90.1, MCH 30.0, MCHC 33.3, RDW 14.8, Plt Count 148, MPV 11.9 H, Neut % (Auto) 57.9, Lymph % (Auto) 35.1, [place] % (Auto) 5.8, Eos % (Auto) 0.0 L, Baso % (Auto) 0.4, Neut # (Auto) 10.5 H, Lymph # (Auto) 6.4 H, [place] # (Auto) 1.1 H, Eos # (Auto) 0.0, Baso # (Auto) 0.1, PT 12.4, INR 1.13 H, APTT 82.8 H* I & O for Labs for Last 24 Hours: Intake & Output 05/25/25 05/26/25 05/27/25 05/28/25 23:59 22:59 23:59 23:59 Intake Total 566 / 806 1570 / 1810 740.000 / 740.000 Output Total 1400 / 1400 2049 / 2049 1150 / 1150 650 / 650 Balance -834 / -594 -480 / -240 -410.000 / -410.000 -650 / -650 Weight 162 lb 1.6 oz 166 lb 1.6 oz 162 lb 11.218 oz 160 lb 11.472 oz Intake & Output 05/20/25 05/21/25 05/22/25 05/23/25 23:59 23:59 23:59 23:59 Intake Total 3454.3 / 3454.3 1111.167 / 1111.167 Output Total 500 / 500 300 / 300 Balance 2954.3 / 2954.3 811.167 / 811.167 Weight 160 lb 0.008 oz 159 lb 6.669 oz Microbiology Reports for the Last 24 Hours: Microbiology 05/24/25 15:04 Bronchial Washings - Right Middle Lobe Gram Stain - Final 05/24/25 15:04 Bronchial Washings - Right Middle Lobe Bronchoalveolar Lavage Culture - Preliminary Gram Positive Cocci 05/22/25 11:35 Blood Blood Culture - Final NO GROWTH AFTER 5 DAYS 05/22/25 11:30 Blood Blood Culture - Final NO GROWTH AFTER 5 DAYS Constitutional: Present mild distress Head: Present normocephalic and atraumatic ENT: Present normal exam, normal oropharynx and mucous membranes moist Neck: Present normal inspection and full ROM Respiratory: Present normal respiratory effort and able to speak in complete sentences; Absent respiratory distress, wheezes, crackles or diminished air movement Cardiac: Present S1/S2, Tachycardia and radial pulses present GI: Present soft and distention; Absent tenderness or guarding Skin: Present intact and lesions; Absent cyanosis or jaundice Neuro: Present alert, awake and oriented x 3 Extremities: Present normal inspection; Absent clubbing or cyanosis Psychiatric: Present normal affect and cooperative Assessment and Plan *Assessment and plan (1) Hemoptysis: Status: Acute Category: Medical Code(s): R04.2 - Hemoptysis Plan Mr. Kamara is a 69-year-old male never smoker no prior respiratory complaints presented to the ER with intractable nausea vomiting found to be having arterial thrombosis and renal artery stenosis initiate heparin drip for DuoNebs with hemoptysis this morning and pulmonary was called for further evaluation and management Afebrile. Hemodynamically stable. Neutrophilic predominant leukocytosis. Blood gas upon admission hypoxic respiratory failure. No hypercarbia. Comprehensive respiratory viral PCR panel negative. CTA chest upon admission no pulmonary embolism. Traction bronchiectasis. Bilateral calcified pulmonary nodules and lymphadenopathy. Subsequent CT scans and the concern for hemoptysis did not show any acute changes CT abdomen occlusion of distal left superficial femoral and popliteal artery likely from concerning embolic event. No other suspicious pulmonary nodules warranting close follow-up. Prolex-D venous Doppler December 2024 no evidence of DVT. On initial examination no respiratory distress. On room air. Chest clear to auscultate. Left lower extremity ulcers noted. S/P bronchoscopy with no evidence of active bleeding / old blood clots. Friable airways. Hb Stable. No further evidence of hemoptysis after stopping heparin drip. Clinical update: No acute respiratory events. No episodes of hemoptysis. Hemoglobin stable. Blood cultures no growth so far. BAL cultures gram-positive cocci moderate. No final cultures available. Slight worsening leukocytosis. Clinically stable continue to remain on room air. Afebrile. Will continue to monitor with no need for antibiotics. Plan: DuoNebs 4 times daily as needed Monitor clinically Follow with cardiology recommendations for possible vascular intervention for the noted arterial thrombosis. # Thank you for involving pulmonary in this care. Will follow as an outpatient basis.
[2025-05-28 10:47] LABS: POC Glucose,Bedside 139 gm/dL (70-110)
--- NOTE | 2025-05-28 12:04 | EXP.DC.SUM ---
General Admission date:: 05/22/25 HPI HPI HPI: This is a 69-year-old gentleman with complaints of possible hematemesis. Please see HPIs from admission H&P and consultation forwarded below. Forwarded from admission H&P in separate consultation: Jonelle Kamara is a 69-year-old male with a medical history significant for CAD, type 2 diabetes, hypertension who presents to the ED with intractable nausea/vomiting for the past 3 days. Patient states he cannot think of any triggers that could have started it, denies focal abdominal pain, fever/chills, chest pain, shortness of breath, urinary symptoms and endorses regular bowel movements. He states he has not changed his diet, medications, or otherwise been sick or had sick contacts. Workup in the ED significant for WBC 24.3, hemoglobin 20.3, AGAP 21.3, creatinine 1.8,, troponin 1.5, unremarkable UA, UDS, and negative for COVID-19, influenza. CTA abdomen did note abrupt occlusion of the distal left SFA and popliteal artery, possibly from embolic event and significant renal artery stenosis. Right upper quadrant ultrasound also unremarkable. Patient was given 3 L LR, vancomycin and Zosyn, aspirin. Dr. Davis was contacted for SFA occlusion who recommended heparin bolus and peripheral intervention in the morning. Given these findings, ED provider discussed case with me and I decided to admit patient for DAYSI on CKD, dehydration, and meeting SIRS criteria. Per H&P This is a 69-year-old male who reports 4 to 5 days of acute onset nausea vomiting and diarrhea at home. Patient normally has chronic constipation and will skip multiple days between bowel movements. This was a change for him. Both patient and girlfriend deny any melena hematochezia or hemoptysis. It appears that patient became acutely dehydrated and developed an DAYSI and AMS. Upon arrival to the ER white blood cell count elevated at 24.3 with an elevated H&H as well. Bilirubin was slightly elevated at 2.1 with a normal AST at 46, ALT at 37 and alk phos at 90. He did had an elevated lipase at 469 but not 3 times the upper limit of normal and no signs of acute pancreatitis on imaging. Patient has no abdominal pain today. He is nontender to palpation across his abdomen. Glucose slightly elevated at 190. Hemoglobin A1c 7%. Imaging did show mild mucosal thickening of the distal esophagus and a small sliding hiatal hernia. Right upper quadrant ultrasound did not show cholesterol stones in the gallbladder. Patient has not had any diarrhea episodes since arrival in the ER yesterday. He has not had a bowel movement at all. He is currently having hemoptysis since initiation of heparin last night. No further vomiting. He has been NPO. He does not know when his last colonoscopy was. The girlfriend reports that she has been with him for 15 years and does not think he has had 1 in that time at all. He denies any family history of colon cancer, IBD or celiac disease. He does take 2 Aleve at home and aspirin at home. He is not sure if he has ever had an EGD. Hospital Course Hospital Course Hospital Course: Jonelle Kamara is a 69-year-old male with a medical history significant for CAD, type 2 diabetes, hypertension who presents to the ED with intractable nausea/vomiting for the past 3 days. Patient states he cannot think of any triggers that could have started it, denies focal abdominal pain, fever/chills, chest pain, shortness of breath, urinary symptoms and endorses regular bowel movements. He states he has not changed his diet, medications, or otherwise been sick or had sick contacts. Workup in the ED significant for WBC 24.3, hemoglobin 20.3, AGAP 21.3, creatinine 1.8, troponin 1.5, unremarkable UA, UDS, and negative for COVID-19, influenza. CTA abdomen did note abrupt occlusion of the distal left SFA and popliteal artery, possibly from embolic event and significant renal artery stenosis. Right upper quadrant ultrasound also unremarkable. Patient was given 3 L LR, vancomycin and Zosyn, aspirin. Dr. Davis was contacted for SFA occlusion who recommended heparin bolus and peripheral intervention in the morning. Given these findings, ED provider discussed case with me and I decided to admit patient for DAYSI on CKD, dehydration, and meeting SIRS criteria. Unfortunately developed hemoptysis. On prophylactic anticoagulation. Taken for EGD on 05/25 with pill induced esophagitis. #Intractable nausea/vomiting, resolved #Severe dehydration, resolved #DAYSI on CKD, resolving #SIRS #Leukocytosis #High anion metabolic acidosis, resolved #Elevated lipase #Pill induced esophagitis Hematemesis, resolved ? Presented with intractable nausea/vomiting for the past 3 days of undefined etiology at this time, no focal abdominal pain. Could be gastroenteritis. ? Imaging and workup largely unremarkable for significant findings. Did have hemoconcentration with WBC 24.3, hemoglobin, 20.8, AGAP 21.3 on admission ?Initial lipase was elevated to 400s, not 3 times upper limit. No focal epigastric pain. If there was pancreatitis, it seems to be improving at this time. RUQ ultrasound unremarkable for acute findings. - Developed hematemesis 05/23. EGD on 05/25. Revealed diffuse sloughing of mucosa. Consistent with pill induced esophagitis. Bronchoscopy by pulmonology on 05/24. No evidence of bleeding. ? Treated with IV Protonix 40 mg twice daily with improvement in symptoms. No longer having nausea/vomiting, tolerating diet without issues. No abdominal pain. ? Discharged with Protonix 40 mg daily. Follow-up with PCP within 1 week. #Severe PAD #Severe SFA, popliteal artery thrombosis #Severe renal artery stenosis #History of CAD #NSTEMI type I #Left lower extremity arterial insufficiency ulcers ? Severe PAD, LEIDA noted on CTA abdomen. Possible embolic source. ? Initial troponin 1.5, improved to 1.3. EKG without acute ischemic changes. No chest pain, shortness of breath. ? ECHO 05/22/2025 revealed normal biventricular systolic function. But does have marked increased LV wall thickness suggesting hypertensive cardiomyopathy. ? Cardiology consulted, S/p balloon angioplasty to occluded left popliteal artery with much improved flow. Plan for LHC of CAD in 4 to 6 weeks. ? Discharged with rivaroxaban 2.5 mg twice daily, aspirin 81 mg, continue statin. ?Follow-up with cardiology within 1 week. #Type 2 diabetes: Hemoglobin A1c 7.0%. LDSSI, ACHS glucose checks. #Hypertension: Continue home metoprolol 200 mg, decreased clonidine 0.1 mg twice daily. Started amlodipine 5 mg, this could continue home hydrochlorothiazide, Kerendia for now due to CKD. #Hypothyroidism: Continue home levothyroxine 75 mcg. TSH 2.1. Total time spent on discharge: 32 minutes on chart review, counseling, documentation, and direct care with patient. Exam Data for Last 24 hours Vital signs and Labs for Last 24 Hours: Temp Pulse Resp BP Pulse Ox O2 Del Method O2 Flow Rate 97.6 F 67 13 102/59 L 100 Room Air 100 05/28/25 08:01 05/28/25 10:00 05/28/25 10:00 05/28/25 10:00 05/28/25 10:00 05/28/25 10:56 05/28/25 06:54 Laboratory Results - last 24 hr 05/27/25 09:16: Total Bilirubin 0.9, Alkaline Phosphatase 65 05/27/25 14:58: Activated Clotting Time > 400 H* 05/27/25 19:48: POC Glucose 170 H 05/28/25 04:41: WBC 14.7 H D, RBC 4.30 L, Hgb 12.9 L D, Hct 38.8 L, MCV 90.2, MCH 30.2, MCHC 33.5, RDW 14.4, Plt Count 160, MPV 12.7 H, Neut % (Auto) 56.9, Lymph % (Auto) 32.4, [place] % (Auto) 6.2, Eos % (Auto) 1.5, Baso % (Auto) 0.7, Neut # (Auto) 8.4 H, Lymph # (Auto) 4.8 H, [place] # (Auto) 0.9, Eos # (Auto) 0.2, Baso # (Auto) 0.1, Sodium 139, Potassium 4.0, Chloride 104, Carbon Dioxide 24, Anion Gap 15.0, BUN 30 H, Creatinine 1.40 H, Estimated Creat Clear 50, Estimated GFR 50 L, Est GFR ( Amer) 60, Glucose 130 H, Calcium 8.6, Magnesium 2.4 H, Total Bilirubin 0.7, AST 30, ALT 21, Alkaline Phosphatase 61, Total Protein 5.4 L, Albumin 3.7, Globulin 1.7, Albumin/Globulin Ratio 2.2 H 05/28/25 05:33: POC Glucose 126 H 05/28/25 10:40: POC Glucose 139 H I & O for Last 24 hours: Intake & Output 05/25/25 05/26/25 05/27/25 05/28/25 23:59 22:59 23:59 23:59 Intake Total 566 / 806 1570 / 1810 740.000 / 740.000 210 / 210 Output Total 1400 / 1400 2049 / 2049 1150 / 1150 650 / 650 Balance -834 / -594 -480 / -240 -410.000 / -410.000 -440 / -440 Weight 73.527 kg 75.342 kg 73.8 kg 72.9 kg Microbiology Reports for the Last 24 Hours: Microbiology 05/24/25 15:04 Bronchial Washings - Right Middle Lobe Gram Stain - Final 05/24/25 15:04 Bronchial Washings - Right Middle Lobe Bronchoalveolar Lavage Culture - Preliminary Gram Positive Cocci 05/22/25 11:35 Blood Blood Culture - Final NO GROWTH AFTER 5 DAYS 05/22/25 11:30 Blood Blood Culture - Final NO GROWTH AFTER 5 DAYS Constitutional Constitutional: no acute distress *Routine Respiratory Exam Respiratory: Present decreased breath sounds; Absent rales or wheezes *Routine Cardiovascular Exam Cardiovascular: Present RRR; Absent murmur, gallop or rubs *Routine Extremities Exam Extremities: Absent edema Comments: LLE ulcers Results Data Completed and Pending Labs on day of discharge: Labs from last 24 hours 05/28/25 05/28/25 05/28/25 10:40 05:33 04:41 WBC 14.7 H D RBC 4.30 L Hgb 12.9 L D Hct 38.8 L MCV 90.2 MCH 30.2 MCHC 33.5 RDW 14.4 Plt Count 160 MPV 12.7 H Neut % (Auto) 56.9 Lymph % (Auto) 32.4 [place] % (Auto) 6.2 Eos % (Auto) 1.5 Baso % (Auto) 0.7 Neut # (Auto) 8.4 H Lymph # (Auto) 4.8 H [place] # (Auto) 0.9 Eos # (Auto) 0.2 Baso # (Auto) 0.1 Activated Clotting Time Sodium 139 Potassium 4.0 Chloride 104 Carbon Dioxide 24 Anion Gap 15.0 BUN 30 H Creatinine 1.40 H Estimated Creat Clear 50 Estimated GFR 50 L Est GFR ( Amer) 60 Glucose 130 H POC Glucose 139 H 126 H Calcium 8.6 Magnesium 2.4 H Total Bilirubin 0.7 AST 30 ALT 21 Alkaline Phosphatase 61 Total Protein 5.4 L Albumin 3.7 Globulin 1.7 Albumin/Globulin Ratio 2.2 H 05/27/25 05/27/25 05/27/25 19:48 14:58 09:16 WBC RBC Hgb Hct MCV MCH MCHC RDW Plt Count MPV Neut % (Auto) Lymph % (Auto) [place] % (Auto) Eos % (Auto) Baso % (Auto) Neut # (Auto) Lymph # (Auto) [place] # (Auto) Eos # (Auto) Baso # (Auto) Activated Clotting Time > 400 H* Sodium Potassium Chloride Carbon Dioxide Anion Gap BUN Creatinine Estimated Creat Clear Estimated GFR Est GFR ( Amer) Glucose POC Glucose 170 H Calcium Magnesium Total Bilirubin 0.9 AST ALT Alkaline Phosphatase 65 Total Protein Albumin Globulin Albumin/Globulin Ratio Preliminary micro results at discharge 05/24/25 15:04 Bronchoalveolar Lavage Culture - Preliminary Bronchial Washings - Right Middle Lobe Gram Positive Cocci DS: Diagnosis Discharge Diagnosis (1) Hemoptysis: Status: Acute Code(s): R04.2 - Hemoptysis Meds Home Medications and Allergies Home Medications ?Medication ?Instructions ?Recorded ?Confirmed ?Type blood-glucose meter (Blood Glucose #1 ea 05/21/22 05/22/25 Rx Monitoring kit) lancets 28 gauge (FreeStyle #100 ea 02/21/24 05/22/25 Rx Lancets) blood sugar diagnostic (FreeStyle 03/10/24 05/22/25 History Lite Strips) canagliflozin 300 mg tablet 300 mg PO DAILY 03/10/24 05/22/25 History (Invokana) glipizide 2.5 mg tablet, extended 7.5 mg PO DAILY 03/10/24 05/22/25 History release 24 hr allopurinol 300 mg tablet 300 mg PO DAILY #60 tabs 09/17/24 05/22/25 Rx aspirin 81 mg tablet,delayed 81 mg PO DAILY #90 tabs 11/02/24 05/22/25 Rx release pentoxifylline 400 mg 400 mg PO TID 01/31/25 05/23/25 History tablet,extended release simvastatin 20 mg tablet 20 mg PO HS 05/22/25 05/22/25 History sitagliptin phosphate 50 mg tablet 50 mg PO DAILY 05/22/25 05/22/25 History (Januvia) levothyroxine 75 mcg tablet 75 mcg PO DAILY 05/23/25 05/23/25 History metoprolol succinate 100 mg 200 mg PO DAILY 05/23/25 05/23/25 History tablet,extended release 24 hr levothyroxine 50 mcg tablet 50 mcg PO DAILY 05/25/25 05/25/25 History amlodipine 5 mg tablet 5 mg PO DAILY #30 tabs 05/28/25 Rx clonidine HCl 0.2 mg tablet 0.1 mg (1/2 x 0.2 mg) PO BID SBP > 05/28/25 05/23/25 Rx 160 30 days #0 tabs pantoprazole 40 mg tablet,delayed 40 mg PO DAILY #30 tabs 05/28/25 Rx release (Protonix) rivaroxaban 2.5 mg tablet 2.5 mg PO BID 30 days #60 tabs 05/28/25 Rx New Prescriptions to Start Prescriptions: amlodipine Adriel Anderson pantoprazole [Protonix] Adriel Anderson rivaroxaban Adriel Anderson Allergies Allergy/AdvReac Type Severity Reaction Status Date / Time atorvastatin (From Lipitor) Allergy Mild Hallucinati Verified 05/22/25 15:39 ng Discharge Plan Disposition Patient Disposition: Home, Self-Care Condition: Fair Discharge Order Discharge Orders: Discharge Order (Routine); Ordered 05/28/25 Ordered By: Adriel Anderson Follow up Plan Follow up with: Caio Stone MD [Staff Physician, General Surgery] - 05/29/25 1:45 pm Dave Carlsno MD [Staff Physician, Cardiology] - 06/04/25 3:00 pm Prescriptions/Medication Reconciliation: New pantoprazole [Protonix] 40 mg tablet,delayed release (DR/EC) 40 mg PO DAILY Qty: 30 0RF rivaroxaban 2.5 mg tablet 2.5 mg PO BID 30 Days Qty: 60 0RF amlodipine 5 mg tablet 5 mg PO DAILY Qty: 30 0RF Continued (DME) blood-glucose meter [Blood Glucose Monitoring] Kit See Rx Instructions .ROUTE .MEDSUPPLY Qty: 1 0RF Rx Instructions: Twice Daily aspirin 81 mg tablet,delayed release (DR/EC) 81 mg PO DAILY Qty: 90 4RF pentoxifylline 400 mg tablet extended release 400 mg PO TID Patient Comments: TAKE 1 TABLET BY MOUTH TWICE DAILY (DME) lancets [FreeStyle Lancets] 28 gauge misc See Rx Instructions .Route Qty: 100 0RF Rx Instructions: As directed or bid allopurinol 300 mg tablet 300 mg PO DAILY Qty: 60 1RF (DME) FreeStyle Lite Strips Strip MISCELLANEOUS Patient Comments: USE DIRECTED THREE TIMES DAILY glipizide 2.5 mg tablet extended release 24hr 7.5 mg PO DAILY Patient Comments: TAKE 3 TABLETS BY MOUTH 1 TIME DAILY Invokana 300 mg tablet 300 mg PO DAILY Patient Comments: TAKE 1 TABLET BY MOUTH DAILY Januvia 50 mg tablet 50 mg PO DAILY Patient Comments: TAKE 1 TABLET BY MOUTH DAILY simvastatin 20 mg tablet 20 mg PO HS metoprolol succinate 100 mg tablet extended release 24 hr 200 mg PO DAILY Patient Comments: TAKE 2 TABLETS BY MOUTH DAILY levothyroxine 75 mcg tablet 75 mcg PO DAILY Patient Comments: TAKE 1 TABLET BY MOUTH DAILY levothyroxine 50 mcg tablet 50 mcg PO DAILY Changed clonidine HCl 0.2 mg tablet 0.1 mg PO BID 30 Days Qty: 0 0RF Patient Comments: TAKE 1 TABLET BY MOUTH TWICE DAILY Discontinued hydrochlorothiazide 25 mg tablet 25 mg PO DAILY Patient Comments: TAKE 1 TABLET BY MOUTH EVERY DAY Kerendia 20 mg tablet 20 mg PO DAILY Problem Reconciliation Problems Reviewed?: Yes Patient Discharge Instructions Patient Instructions: DI for Heart Attack, Renal Artery Stenosis, Cardiac Catheterization, Upper GI Endoscopy, DI for Bronchoscopy, Diagnostic, Acute Kidney Injury, Surgical Site Infection, DI for Hemoptysis, DI for Esophagitis Print Language: Nepali Providers Primary Care Provider: Emery Mendoza Admit Provider: Adriel Anderson Attending Provider: Adriel Anderson
--- NOTE | 2025-05-28 12:05 | EXP.CARD.PN ---
Subjective Subjective Date: 05/28/25 Time: 12:05 Principal diagnosis: Non-healing leg ulcers, NSTEMI, GI bleed Interval history: 69-year-old white male in bed in the ICU in no acute distress. Left leg has significantly improved after revascularization yesterday. Foot is now warm with palpable pulse. Patient denies any complaints. Right groin pseudoaneurysm treated with combination of manual pressure and FemoStop yesterday. Right groin ultrasound for follow-up pending. Patient is anxious to go home. Exam Data for Last 24 hours Vital signs and Labs for Last 24 Hours: Temp Pulse Resp BP Pulse Ox O2 Del Method O2 Flow Rate 97.6 F 67 13 102/59 L 100 Room Air 100 05/28/25 08:01 05/28/25 10:00 05/28/25 10:00 05/28/25 10:00 05/28/25 10:00 05/28/25 10:56 05/28/25 06:54 Laboratory Results - last 24 hr 05/27/25 09:16: Total Bilirubin 0.9, Alkaline Phosphatase 65 05/27/25 14:58: Activated Clotting Time > 400 H* 05/27/25 19:48: POC Glucose 170 H 05/28/25 04:41: WBC 14.7 H D, RBC 4.30 L, Hgb 12.9 L D, Hct 38.8 L, MCV 90.2, MCH 30.2, MCHC 33.5, RDW 14.4, Plt Count 160, MPV 12.7 H, Neut % (Auto) 56.9, Lymph % (Auto) 32.4, [place] % (Auto) 6.2, Eos % (Auto) 1.5, Baso % (Auto) 0.7, Neut # (Auto) 8.4 H, Lymph # (Auto) 4.8 H, [place] # (Auto) 0.9, Eos # (Auto) 0.2, Baso # (Auto) 0.1, Sodium 139, Potassium 4.0, Chloride 104, Carbon Dioxide 24, Anion Gap 15.0, BUN 30 H, Creatinine 1.40 H, Estimated Creat Clear 50, Estimated GFR 50 L, Est GFR ( Amer) 60, Glucose 130 H, Calcium 8.6, Magnesium 2.4 H, Total Bilirubin 0.7, AST 30, ALT 21, Alkaline Phosphatase 61, Total Protein 5.4 L, Albumin 3.7, Globulin 1.7, Albumin/Globulin Ratio 2.2 H 05/28/25 05:33: POC Glucose 126 H 05/28/25 10:40: POC Glucose 139 H I & O for Last 24 hours: Intake & Output 05/26/25 05/27/25 05/28/25 05/29/25 10:59 11:59 11:59 11:59 Intake Total 1256 / 1256 1000 / 1000 710.000 / 710.000 Output Total 1275 / 1275 2775 / 2775 650 / 650 Balance -19 / -19 -1775 / -1775 60.000 / 60.000 Weight 166 lb 1.6 oz 167 lb 9.6 oz 160 lb 11.472 oz Microbiology Reports for the Last 24 Hours: Microbiology 05/24/25 15:04 Bronchial Washings - Right Middle Lobe Gram Stain - Final 05/24/25 15:04 Bronchial Washings - Right Middle Lobe Bronchoalveolar Lavage Culture - Preliminary Gram Positive Cocci 05/22/25 11:35 Blood Blood Culture - Final NO GROWTH AFTER 5 DAYS 05/22/25 11:30 Blood Blood Culture - Final NO GROWTH AFTER 5 DAYS Constitutional Constitutional: no acute distress *Routine Respiratory Exam Respiratory: Present decreased breath sounds; Absent rales or wheezes *Routine Cardiovascular Exam Cardiovascular: Present RRR; Absent murmur, gallop or rubs *Routine Extremities Exam Extremities: Absent edema Comments: LLE ulcers Progress Note: A&P Assessment and plan (1) Hemoptysis: Status: Acute (2) Non-ST elevation MN (NSTEMI): Status: Acute (3) DAYSI (acute kidney injury): Status: Acute (4) Superficial femoral artery occlusion: Status: Acute (5) Renal artery stenosis: Status: Acute (6) Esophagitis: Problem details: Profound rodriguez-esophagitis with patchy necrosis and mucosal sloughing (possible pill-induced esophagitis) Status: Acute (7) Arterial insufficiency with ischemic ulcer: Status: Acute (8) CAD (coronary artery disease): Status: Chronic (9) HTN (hypertension): Status: Chronic (10) HLD (hyperlipidemia): Status: Chronic Assessment and Plan Assessment and Plan for All Diagnoses:: Critical LLE PAD with limb threatening ischemia - occluded L-SFA and L-Pop with non healing wounds and cold extremity - pt N/V resolved - cont ASA, Heparin - no statin due to intolerance (hallucinations) - s/p left popliteal stenting - use combo of aspirin and xarelto 2.5 mg BID NSTEMI - known CAD with prior stenting but details unclear - Trop peak 1.5 then down here, non-specific changes on EKG, ECHO - nml bi-v function - plan LHC as outpatient - Continues on aspirin therapy - Hold HI/ARB/ARNI due to LEIDA LEIDA - 90% RRA 50% LRA - cont aspirin and statin - renal angiogram/stenting as outpatient PAF - known paroxysmal - SR here - cont Toprol 10O, heparin discontinued due to hemoptysis N/V with hemoptysis - x1 mo - per primary service - EGD shows pill esophagitis with mucosal sloughing/renta and patchy necrosis throughout esophagus - Home on PPI therapy and sucralfate - Hemoglobin stable at 15 Dehydration - resolved with IV fluids - Continue to monitor daily Unable to perform LHC and renal angio due to contrast used for peripheral angio. Pt is stable from cardiac standpoint to be discharged home with early follow up to reschedule LHC and renal angio. Home medication recommendations: Aspirin 81 mg daily Clonidine 0.2 mg twice daily PRN SBP >160 mmHg. Metoprolol succinate 200 mg daily amlodipine 10 mg daily Sucralfate as directed Xarelto 2.5 mg twice daily stop HCTZ and Kerendia for now until LEIDA is treated. Follow up in one week.
--- NOTE | 2025-05-29 10:19 | SW/DCPLANNER ---
Spoke with patient on the phone. Patient stated that he is doing well. Patient stated that he is aware of his upcoming appointments. Patient stated that he was able to get his new medicine picked up from clinic pharmacy. Patient stated that he has no concerns or questions at this time. Nitin Goodrich
== END 2025-05-28 14:35 | disposition home or self-care (01) | DRG 252 ==
LOC: ER 12:00 → ICU 15:48 → 2ND 05-25 17:35 → ICU 05-27 16:52
PROVIDERS: Internal Medicine; Internal Medicine Adolescent Medicine; Internal Medicine Pulmonary Disease; Nurse Practitioner Family; Surgery; Admitting Provider Student in an Organized Health Care Education/Training Program; Emergency Provider Student in an Organized Health Care Education/Training Program; PCP Family Medicine; Visit Provider Student in an Organized Health Care Education/Training Program
PROC: 0B9D8ZX Drainage of Right Middle Lung Lobe, Via Natural or Artificial Opening Endoscopic, Diagnostic (ICD-10-PCS; principal; 2025-05-24 14:15)
PROC: 0DJ08ZZ Inspection of Upper Intestinal Tract, Via Natural or Artificial Opening Endoscopic (ICD-10-PCS; principal; 2025-05-25 07:40)
PROC: 047N3DZ Dilation of Left Popliteal Artery with Intraluminal Device, Percutaneous Approach (ICD-10-PCS; principal; 2025-05-27 14:30)
PROC: 047N3DZ Dilation of Left Popliteal Artery with Intraluminal Device, Percutaneous Approach (ICD-10-PCS; 2025-05-27 14:30)
DX: E11.51 Type 2 diabetes mellitus with diabetic peripheral angiopathy without gangrene (principal); I21.4 Non-ST elevation (NSTEMI) myocardial infarction; J96.91 Respiratory failure, unspecified with hypoxia; K20.81 Other esophagitis with bleeding; N17.9 Acute kidney failure, unspecified; E87.20 Acidosis, unspecified; R65.10 Systemic inflammatory response syndrome (SIRS) of non-infectious origin without acute organ dysfunction; R04.2 Hemoptysis; L97.229 Non-pressure chronic ulcer of left calf with unspecified severity; I82.432 Acute embolism and thrombosis of left popliteal vein; I25.10 Atherosclerotic heart disease of native coronary artery without angina pectoris; I12.9 Hypertensive chronic kidney disease with stage 1 through stage 4 chronic kidney disease, or unspecified chronic kidney disease; E11.22 Type 2 diabetes mellitus with diabetic chronic kidney disease; N18.9 Chronic kidney disease, unspecified; E86.0 Dehydration; E78.5 Hyperlipidemia, unspecified; M19.90 Unspecified osteoarthritis, unspecified site; R29.6 Repeated falls; E03.9 Hypothyroidism, unspecified; K44.9 Diaphragmatic hernia without obstruction or gangrene; I70.1 Atherosclerosis of renal artery; K52.9 Noninfective gastroenteritis and colitis, unspecified; I48.0 Paroxysmal atrial fibrillation; Z53.09 Procedure and treatment not carried out because of other contraindication; E11.42 Type 2 diabetes mellitus with diabetic polyneuropathy; I70.242 Atherosclerosis of native arteries of left leg with ulceration of calf; I74.3 Embolism and thrombosis of arteries of the lower extremities; Z95.5 Presence of coronary angioplasty implant and graft; Z79.82 Long term (current) use of aspirin; Z79.84 Long term (current) use of oral hypoglycemic drugs
CPT/HCPCS: 0223U; 36415; 70450; 70496; 70498; 71045; 71250; 71275; 75635; 76705; 80053; 80307; 81001; 82009; 82247; 82248; 82550; 82803; 82962; 83036; 83605; 83690; 83735; 83880; 84100; 84145; 84443; 84484; 85007; 85014; 85018; 85025; 85347; 85610; 85730; 86140; 86803; 87040; 87070; 87077; 87081; 87101; 87116; 87186; 87205; 87389; 87430; 87636; 88112; 88305; 93005; 93306; 93926; 99152; 99153; 99285; C1725; C1766; C1769; C1876; C1894; J0360; J1100; J1200; J1630; J1644; J1650; J2003; J2250; J2270; J2405; J2470; J2543; J2704; J3010; J3360; J3375; J7030; J7040; J7120; Q9966; Q9967

== ENCOUNTER 2025-06-17 08:04 | Day surgery (SDC) | payer MEDICARE, MEDICAID, SELFPAY ==
[2025-06-17] VITALS (15 sets, daily range): BP systolic 102–183; BP diastolic 57–113; PULSE 84–121; RESP 16–22; TEMP 36.1; O2SAT 93–98; BMI 27.3
--- NOTE | 2025-06-17 07:10 | IR_ITS ---
APPROVED REPORT Patient Location: Outpatient Bryologist: Don Rawls, RT (R) PROCEDURES Left heart catheterization Left ventriculogram Selective coronary angiogram Drug-eluting stent deployment to the proximal dominant circumflex artery Drug-eluting stent deployment to the proximal and mid LAD in a contiguous manner INDICATION Recent non-ST elevation myocardial infarction, Coronary artery disease, Angina pectoris, Informed consent was obtained prior to the procedure. COMPLICATIONS NONE Estimated Blood Loss: LESS THAN 10 ML TECHNIQUE One percent lidocaine used to anesthetize the right anterior aspect of the wrist. The right radial artery was accessed via the Seldinger technique. A 6 [place] sheath was placed in the right radial artery. 2.5 mg of Verapamil, 800 mcg of nitroglycerin, 1mg Lidocaine and 5000 U Heparin were given through the arterial sheath. The JL3 catheter was also used to perform left heart catheterization, left ventriculogram and selective coronary angiogram. At the end of the diagnostic angiogram therapeutic heparin was administered giving a therapeutic ACT and the guide catheter was placed in left main artery followed by Choice PT extra-support wire placed into the circumflex artery. A 4 mm x 15 mm [place] frontier stent was placed in the proximal circumflex artery and deployed at 20 lashay reducing the stenosis to 0%. YOMAIRA-3 flow was present before and after the procedure involving the circumflex artery. The wire was pulled back and placed into the LAD where a 3 mm x 38 mm [place] frontier stent was deployed in the mid right coronary artery at 20 lashay. An additional 3.5 x 38 mm Leobardo frontier stent was placed proximal to the first LAD stent yet still overlapping and deployed at 20 lashay. The balloon was advanced and deployed at 20 lashay in the midportion of the LAD to further post dilate. The balloon was brought back and deployed at 22 lashay to further post dilate the proximal segment. Excellent angiograph results were obtained with YOMAIRA-3 flow being present in the LAD before and after the procedure. At the end the procedure the apparatus was removed the sheath was removed and hemostasis was achieved using TR banding patient was transferred to the postop boarding in stable condition Patient was scheduled for bilateral selective renal angiography. However because his creatinine was elevated at 1.4 and he just received complex coronary angiography and revascularization it was decided not to perform renal angiography and expose patient to additional risk of contrast nephropathy. He will be brought back to the [facility] in 2 weeks and will undergo bilateral selective renal angiography from the groin ANGIOGRAPHIC RESULTS The left main artery Normal The left anterior descending artery Has stents in the proximal through mid segment with the proximal segment being widely patent. The midportion has 40% followed by 60% concentric stenosis followed by mid vessel 80% stenosis. There is good distal transitioning of the LAD. There is an additional 50% stenosis distally The circumflex artery Large and dominant with a proximal 60 to 70% stenosis followed by mid vessel 30% followed by an additional 40 to 50% stenosis. The first obtuse marginal artery is medium in size and has proximal 80% stenosis with a distal 90% stenosis at the bifurcation where both vessels are less than 1 mm in diameter. The second obtuse marginal artery is large and has proximal 70% with mid vessel 50% stenoses. The posterior descending artery has proximal 90% stenosis where the vessel was approximately 2 mm in diameter The right coronary artery Vestigial and patent The FARLEY ventriculogram reveals Hyperdynamic 70% The left ventricular end-diastolic pressure 15 mmHg IMPRESSION Coronary artery disease as described above with recent non-ST elevation myocardial infarction Successful stenting of a large proximal dominant circumflex artery severe disease reduced to 0% with 1 drug-eluting stent. Persistent severe disease in the obtuse marginal arteries as described above which are best managed medically at this time. I believe increasing inflow into the circumflex artery should allow for better medical management of the 3 obtuse marginal arteries as described above Successful stenting of the proximal to mid LAD severe disease reduced to less than 10% with 2 contiguous drug-eluting stents Hyperdynamic ventricle Borderline LVEDP Known bilateral renal artery stenosis in the setting of hypertension with abnormal creatinine. PLAN 1. Patient will be brought back to the [facility] in 2 weeks and will undergo groin access with plans for bilateral selective renal angiography and possible revascularization 2. Dual antiplatelet therapy 3. Maximize beta-higinio to control hypertension 4. LDL less than 55 to be achieved with high intensity statin 5. Avoidance of tobacco products 6. Risk factor modification Electronically signed by : Baldemar Davis MD 06/17/2025 10:44:40
[2025-06-17 08:42] LABS: Hematocrit 46.2 % (42.0-52.0); Hemoglobin 15.2 g/dL (14.1-18.0); Immature Granulocytes % 0.7 %; Mean Corpuscular HGB Conc 32.9 g/dL (31.8-35.4); Mean Corpuscular Hemoglobin 31.0 pg (27.0-31.2); Mean Corpuscular Volume 94.3 fl (80-94); Nucleated Red Blood Cells % 0 %; Platelet Count 206 K/mm3 (142-424); Red Blood Count 4.90 M/mm3 (4.60-6.20); Red Cell Distribution Width-SD 55.6 fL; White Blood Count 12.1 K/mm3 (4.8-10.8)
[2025-06-17 08:55] LABS: Anion Gap 14.5 mEq/L (5-15); Blood Urea Nitrogen 29 mg/dl (9-20); Calcium 11.4 mg/dl (8.4-10.2); Carbon Dioxide 23 mmol/L (22.0-30.0); Chloride 102 mmol/L (98-107); Creatinine Clearance Estimated 53 mL/min (50-200); Creatinine,Serum 1.40 mg/dl (0.66-1.25); Estimated Glomerular Filt Rate 50 ml/min (>60); GFR (African American) 60 ML/MIN (>60); Glucose 187 mg/dl (74-100); Potassium 4.5 mmoL/L (3.5-5.1); Sodium 135 mmol/L (136-145)
[2025-06-17] MEDS: HEPARIN 1,000 UNITS/500ML NS (CATH LAB) 3000 UNIT IV (10:18)
[2025-06-17] MEDS: LIDOCAINE 1% 10ML MDV 10 ML IJ (10:18)
[2025-06-17] MEDS: NITROGLYCERIN 800MCG/8ML SYR (CATH LAB) 800 MCG IA (10:18)
[2025-06-17] MEDS: HEPARIN 1,000 UNITS/ML 10ML VIAL (CATH LAB) 5000 UNIT IV (10:19)
[2025-06-17] MEDS: 0.9 % SODIUM CHLORIDE 500 ML 25 ML IV (10:19)
[2025-06-17] MEDS: VERAPAMIL 2.5MG/ML 2ML VIAL 2.5 MG IV (10:19)
[2025-06-17] MEDS: FENTANYL 100MCG/2ML VIAL 50 MCG IV (10:20)
[2025-06-17] MEDS: MIDAZOLAM HCL 1MG/ML 5ML VIAL 1 MG IV (10:20)
--- NOTE | 2025-06-17 10:50 | SUR.PHASEII ---
No orquidea or arb per MD
[2025-06-17] MEDS: IOPAMIDOL-370 (76%);100ML BOTTLE 90 ML IV (14:29)
[2025-06-17 14:31] LABS: CATHL Activated Clotting Time > 400 SEC (74-125)
== END 2025-06-17 14:43 | disposition home or self-care (01) ==
PROVIDERS: PCP Physician Assistant; Visit Provider Internal Medicine
PROC: 4A023N7 Measurement of Cardiac Sampling and Pressure, Left Heart, Percutaneous Approach (ICD-10-PCS; CPT 93452; principal; 2025-06-17 12:00)
DX: I25.119 Atherosclerotic heart disease of native coronary artery with unspecified angina pectoris (principal); R79.89 Other specified abnormal findings of blood chemistry; I25.2 Old myocardial infarction; I70.1 Atherosclerosis of renal artery; I27.20 Pulmonary hypertension, unspecified; I10 Essential (primary) hypertension; R94.31 Abnormal electrocardiogram [ECG] [EKG]; E03.9 Hypothyroidism, unspecified; E11.51 Type 2 diabetes mellitus with diabetic peripheral angiopathy without gangrene; I48.0 Paroxysmal atrial fibrillation; E78.49 Other hyperlipidemia; Z91.81 History of falling; Z95.5 Presence of coronary angioplasty implant and graft; Z79.82 Long term (current) use of aspirin; Z79.01 Long term (current) use of anticoagulants; Z79.02 Long term (current) use of antithrombotics/antiplatelets; Z79.84 Long term (current) use of oral hypoglycemic drugs; Z79.890 Hormone replacement therapy; Z79.899 Other long term (current) drug therapy; Z79.4 Long term (current) use of insulin; Z88.8 Allergy status to other drugs, medicaments and biological substances
CPT/HCPCS: 80048; 85025; 85347; 92928; 93458; 99152; 99153; C1769; C1874; C1887; C9600; J1200; J1644; J3010; J7040; Q9967

== ENCOUNTER 2025-07-02 14:44 | Inpatient (IN) | payer MEDICARE, MEDICAID, SELFPAY ==
[2025-07-02] VITALS (51 sets, daily range): BP systolic 68–174; BP diastolic 30–94; PULSE 60–74; RESP 11–25; TEMP 34.1–36.1; O2SAT 93–100; BMI 37.5; BMI 26.1
--- NOTE | 2025-07-02 07:03 | IR_ITS ---
APPROVED REPORT Patient Location: Outpatient Cleaning Specialist: NII Sr RT (R) PROCEDURES Bilateral selective angiogram Bare-metal balloon expandable stent deployment to the ostial proximal left renal artery Bare-metal balloon expandable stent deployment to the ostial proximal right renal artery INDICATION Bilateral renal artery stenosis, Chronic renal failure creatinine 1.4, Renovascular hypertension Informed consent was obtained prior to the procedure. COMPLICATIONS NONE Estimated Blood Loss: LESS THAN 10 ML TECHNIQUE 1% lidocaine used to anesthetize the right anterior aspect of the right wrist. The right radial artery was accessed via the central technique and an arterial cocktail using 5000U heparin, 2.5 mg verapamil, 1mg lidocaine and 800mcg nitroglycerin into the right radial sheath intra-arterially. A [place] catheter was used to perform bilateral selective renal angiography. Therapeutic heparin was administered giving a therapeutic ACT and the guide catheter was placed in left renal artery followed by a Choice PT extra-support wire. A 6 mm x 15 mm Herculink stent was deployed at 16 lashay reducing the critical stenosis to 0%. This procedure was repeated in the right renal artery followed by a 6 mm x 18 mm Herculink stent in the ostial proximal segment also deployed at 16 lashay reducing the stenosis to 0%. Excellent angiographic results were obtained. The apparatus was removed the sheath was removed and hemostasis was achieved using TR banding patient was transferred to the postop boarding in stable condition ANGIOGRAPHIC RESULTS Left renal artery is singular and has an ostial concentric 90% stenosis Right renal artery is singular and has a long concentric ostial to proximal 70% stenosis IMPRESSION Severe bilateral renal artery stenosis Successful stenting of left renal artery severe disease reduced to 0% with 1 bare-metal balloon expandable stent Successful stenting of the right renal artery severe disease reduced to 0% with 1 bare-metal balloon expandable stent PLAN 1. Antiplatelet therapy is reasonable for the next month 2. Monitoring of blood pressure and creatinine 3. Risk factor modification for peripheral artery disease and vascular disease 4. LDL less than 55 to be achieved with high intensity statin Electronically signed by : Baldemar Davis MD 07/02/2025 10:03:54
[2025-07-02 09:15] LABS: Hematocrit 49.4 % (42.0-52.0); Hemoglobin 16.4 g/dL (14.1-18.0); Immature Granulocytes % 0.8 %; Mean Corpuscular HGB Conc 33.2 g/dL (31.8-35.4); Mean Corpuscular Hemoglobin 30.5 pg (27.0-31.2); Mean Corpuscular Volume 92.0 fl (80-94); Nucleated Red Blood Cells % 0 %; Platelet Count 212 K/mm3 (142-424); Red Blood Count 5.37 M/mm3 (4.60-6.20); Red Cell Distribution Width-SD 50.8 fL; White Blood Count 12.7 K/mm3 (4.8-10.8)
[2025-07-02] MEDS: NITROGLYCERIN 800MCG/8ML SYR (CATH LAB) 800 MCG IA (09:28)
[2025-07-02] MEDS: 0.9 % SODIUM CHLORIDE 500 ML 25 ML IV ×2 (09:29→15:10)
[2025-07-02] MEDS: HEPARIN 1,000 UNITS/ML 10ML VIAL (CATH LAB) 5000 UNIT IV ×2 (09:29→10:02)
[2025-07-02] MEDS: VERAPAMIL 2.5MG/ML 2ML VIAL 2.5 MG IV (09:29)
[2025-07-02] MEDS: LIDOCAINE 1% 10ML MDV 10 ML IJ ×2 (09:29→13:38)
[2025-07-02] MEDS: HEPARIN 1,000 UNITS/500ML NS (CATH LAB) 3000 UNIT IV ×2 (09:30→13:38)
[2025-07-02 09:36] LABS: Anion Gap 18.0 mEq/L (5-15); Blood Urea Nitrogen 17 mg/dl (9-20); Calcium 10.0 mg/dl (8.4-10.2); Carbon Dioxide 20 mmol/L (22.0-30.0); Chloride 107 mmol/L (98-107); Creatinine Clearance Estimated 47 mL/min (50-200); Creatinine,Serum 1.50 mg/dl (0.66-1.25); Estimated Glomerular Filt Rate 46 ml/min (>60); GFR (African American) 56 ML/MIN (>60); Glucose 146 mg/dl (74-100); Potassium 4.0 mmoL/L (3.5-5.1); Sodium 141 mmol/L (136-145)
[2025-07-02] MEDS: MIDAZOLAM HCL 1MG/ML 5ML VIAL 1 MG IV ×2 (10:01→13:59)
[2025-07-02] MEDS: FENTANYL 100MCG/2ML VIAL 50 MCG IV ×2 (10:02→13:59)
[2025-07-02 11:10] LABS: CATHL Activated Clotting Time 348 SEC (74-125)
[2025-07-02] MEDS: ONDANSETRON 4MG/2ML VIAL 4 MG IV (11:40)
--- NOTE | 2025-07-02 12:30 | SUR.PHASEII ---
Pt complaining of severe back pain, offered pain medication which patient refused. Notified MD of pt complaining of back pain stated to send pt for stat abdomen pelvis.
--- NOTE | 2025-07-02 12:31 | CT_ITS ---
FINAL REPORT TECHNIQUE: Axial images through the abdomen and pelvis were performed without contrast. This study was performed with techniques to keep radiation doses as low as reasonably achievable, (ALARA). Individualized dose reduction techniques using automated exposure control or adjustment of mA and/or kV according to the patient's size were employed. CLINICAL HISTORY: back pain, post renal stenting. now having back pain. Successful stenting of left renal artery severe disease reduced to 0% with 1 bare-metal balloon expandable stent Successful stenting of the right renal artery severe disease reduced to 0% with 1 bare-metal balloon expandable stent COMPARISON: None FINDINGS: CT ABDOMEN PELVIS WITHOUT CONTRAST: Abdomen: Scarring is present in the lung bases. The liver parenchyma is homogeneous. The gallbladder is present and contains high attenuation bile is probably secondary to vicarious contrast. The spleen, pancreas and adrenal glands are unremarkable. The patient has a large subcapsular hematoma in the left kidney, measuring 2.8 cm in thickness. There is marked stranding in the retroperitoneum throughout the perinephric fat, with high attenuation density extending from the left kidney inferiorly along the psoas muscle consistent with extensive retroperitoneal hematoma, which extends into the left inguinal area as well. There is significant compression of the renal cortex on the left side. There is a benign-appearing cyst in the left kidney, 5.1 x 4.1 cm. Bilateral renal artery stents are present. Pelvis: The urinary bladder is distended and contains contrast. Bilateral inguinal hernias are present, the left containing hemorrhage. There is no pelvic mass or inflammation. IMPRESSION: There is a large subcapsular hematoma, with compression of the left kidney and extensive perinephric stranding, with left retroperitoneal hematoma extending into the pelvis. These results were called to at [facility], 07/02/2025 at 1:10 PM. Reviewed, Interpreted and Dictated by Vaibhav Raines MD Transcribed by Radha Merchant Authenticated and [facility]
--- NOTE | 2025-07-02 12:50 | SUR.PHASEII ---
Pt returned from ct
--- NOTE | 2025-07-02 12:56 | SUR.PHASEII ---
Pt c/o of back pain still, notified, pt refuses pain meds
--- NOTE | 2025-07-02 13:14 | SUR.PHASEII ---
Dr Edwards called up with results of CT, Dr Davis speaking with Grace
[2025-07-02] MEDS: MORPHINE 4MG/ML SYRINGE 4 MG IV (13:33)
[2025-07-02] MEDS: HYDROMORPHONE 2MG/ML SYRINGE 2 MG IV (14:35)
--- NOTE | 2025-07-02 14:59 | HMH.PHAINT1 ---
Pharmacy Intervention Comments: MEDICATION RECONCILIATION COMPLETED ON PATIENT USING EXTERNAL FILL HISTORY FROM PHARMACY, LIST FROM CARDIOLOGY OFFICE, AND DISCHARGE SUMMARY FROM PREVIOUS ADMISSION. -JESÚS SALCIDO, PHARMD
[2025-07-02] MEDS: SODIUM CHLORIDE 0.9% 500ML BAG 500 ML IV (15:32)
[2025-07-02 15:37] LABS: Hematocrit 33.9 % (42.0-52.0); Immature Granulocytes % 1.6 %; Mean Corpuscular HGB Conc 31.6 g/dL (31.8-35.4); Mean Corpuscular Hemoglobin 30.7 pg (27.0-31.2); Mean Corpuscular Volume 97.4 fl (80-94); Nucleated Red Blood Cells % 0 %; Platelet Count 240 K/mm3 (142-424); Red Blood Count 3.48 M/mm3 (4.60-6.20); Red Cell Distribution Width-SD 54.7 fL; White Blood Count 28.5 K/mm3 (4.8-10.8)
[2025-07-02 15:56] LABS: Hemoglobin 10.7 g/dL (14.1-18.0)
--- NOTE | 2025-07-02 16:00 | SUR.PHASEII ---
report given to mauricio PERAZA and answered all questions.
[2025-07-02 16:23] LABS: RBC Morphology Normal; Total Cells Counted 100
--- NOTE | 2025-07-02 17:00 | PC.NURSE ---
pT ARRIVED TO UNIT AT 1640. PT COOL. PALE AND HYPOTENSIVE. AT BEDSIDE AND ORDERED 2 UNITS OF EMERGENT BLOOD. DALE AT BEDSIDE FOR VERIFICATION. PT IS SEDATED BUT INTERMITTENLY CONFUSED. STU GUZMÁN TO BEDSIDE TO PLACE MIDLINE WHICH MEASURES 15CM AND HAS BLOOD RETURN AND FLUSHED WITHOUT RESISTANCE. PT TOLERATED BOTH TRANSFUSIONS WELL AND HAS CLEAR BREATH SOUNDS. PT IS STILL HYPOTHERMIC POST TRANSFUSIONS AT 95.8 SO PT PLACED ON BEAR HUGGER. PT FAMILY AT BEDSIDE NO COMPLAINTS AT THIS TIME
[2025-07-02 20:02] LABS: Hematocrit 40.7 % (42.0-52.0)
--- NOTE | 2025-07-02 20:02 | P.HP_ITS ---
History of Present Illness *Admission Date: 07/02/25 *Reason for visit:: Left flank pain, anemia *History of present illness: Mr. Kamara is a 69-year-old male with significant history of vascular disease including CAD, peripheral artery disease in his subclavian's bilaterally and lower extremities. Recent intervention with stenting of iliacs and subclavian's. Noted to have bilateral renal artery stenosis at that time. Brought back today for staged procedure with stenting of bilateral renal arteries. Monitored after his procedure. Noted to have some back pain. Pain predominant on the left side. CT obtained showing large left-sided retroperitoneal hematoma with subcapsular hematoma and compression of left kidney. Repeat intervention performed did not show any extravasation of contrast. Patient believed to have some leaking from renal artery after stent placement that has resolved. Needs monitoring overnight however due to risk for pressure variation and further bleeding. Hemoglobin of 16 on arrival this morning. Repeat H&H pending. Discussed case with cardiology, request admission for inpatient management. Admitted to ICU for further treatment. [facility] Disclaimer: The information contained in this section may have been updated after the patient was seen, as this information can be updated by other users. Medical History Myocardial infarct Skin lesion of left leg Psychosis Diabetes Traumatic injury of foot Multiple thyroid nodules Impacted cerumen of right ear Hypothyroidism Repeated falls Pulmonary HTN HLD (hyperlipidemia) HTN (hypertension) Surgical History Stented coronary artery Social History Smoking Status: Never smoker alcohol intake: never counseling provided: none substance use type: denies use current occupational status: unemployed Travel in the last 8 weeks?: None household members: none housing: apartment current occupation: retired caffeine: No Have you lived/traveled outside US in past 30 days?: No Contact w/someone who lives/traveled outside US past 30 days?: No Exposure to someone with infectious disease in past 14 days?: No Do you have a fever (greater than 100.4 F or 38 C)?: No Have you tested positive for COVID-19?: No Exposed to someone with COVID-19 in past 14 days?: No Do you have a sore throat?: No Do you have a cough?: No Do you have any weakness?: No Do you have any diarrhea?: No Are you experiencing any unusual bleeding?: No Do you have any muscle aches/pain?: No Do you have any abdominal pain?: No Are you experiencing loss of taste or smell?: No Other Medical History Have you received the Flu Vaccine for this season: No Have you received the Pneumonia Vaccine: No Review of Systems Review of Systems Review of systems (narrative): 14 point review of systems performed, pertinent positives and negatives as per [facility] Meds Home Medications and Allergies Home Medications ?Medication ?Instructions ?Recorded ?Confirmed ?Type blood-glucose meter (Blood Glucose #1 ea 05/21/22 1204/18 Rx Monitoring kit) lancets 28 gauge (FreeStyle #100 ea 02/21/24 07/02/25 Rx Lancets) blood sugar diagnostic (FreeStyle 03/10/24 07/02/25 H istory Lite Strips) canagliflozin 300 mg tablet 300 mg PO DAILY 03/10/24 1 09/02/24 History (Invokana) glipizide 2.5 mg tablet, extended 7.5 mg PO DAILY 02/2207/02/25 History release 24 hr allopurinol 300 mg tablet 300 mg PO DAILY #60 tabs 07/02/25 Rx aspirin 81 mg tablet,delayed 81 mg PO DAILY #90 tabs 0 11/02/24 07/02/25 Rx release pentoxifylline 400 mg 400 mg PO TID 01/31/2507/02 History tablet,extended release simvastatin 20 mg tablet 20 mg PO HS 05/22/25 5 History sitagliptin phosphate 50 mg tablet 50 mg PO DAILY 04/2507/02/25 History (Januvia) levothyroxine 75 mcg tablet 75 mcg PO DAILY 05/23/25 1 09/02/24 History metoprolol succinate 100 mg 200 mg PO DAILY 05/23/25 1 09/02/24 History tablet,extended release 24 hr levothyroxine 50 mcg tablet 50 mcg PO DAILY 05/25/25 1 09/02/24 History amlodipine 5 mg tablet 5 mg PO DAILY #30 tabs 05/2807/02/25 Rx clonidine HCl 0.2 mg tablet 0.1 mg (1/2 x 0.2 mg) PO B ID SBP > 05/28/25 07/02/25 Rx 160 30 days #0 tabs pantoprazole 40 mg tablet,delayed 40 mg PO DAILY #30 t abs 05/28/25 07/02/25 Rx release (Protonix) rivaroxaban 2.5 mg tablet 2.5 mg PO BID 30 days #60 ta bs 05/28/25 07/02/25 Rx clopidogrel 75 mg tablet (Plavix) 75 mg PO DAILY 30 da ys #30 tabs 06/17/25 07/02/25 Rx New Prescriptions to Start Prescriptions: Allergies Allergy/AdvReac Type Severity Reaction Status Date / Time atorvastatin (From Lipitor) Allergy Mild Hallucinati Verified 06/12/25 13:17 ng Exam Data for Last 24 hours Vital signs and Labs for Last 24 Hours: Temp Pulse Resp BP Pulse Ox O2 Del Method 95.3 F L 66 12 69/44 L 98 Room Air 07/02/25 14:35 07/02/25 14:35 07/02/25 14:35 07/02/25 14:35 07/02/25 14:35 07/02/25 14:35 Laboratory Results - last 24 hr 07/02/25 09:00: WBC 12.7 H, RBC 5.37, Hgb 16.4, Hct 49.4, MCV 92.0, MCH 30.5, MCHC 33.2, RDW 15.0, Plt Count 212, MPV 10.4, Neut % (Auto) 57.3, Lymph % (Auto) 33.6, Bucks % (Auto) 6.1, Eos % (Auto) 1.6, Baso % (Auto) 0.6, Neut # (Auto) 7.3, Lymph # (Auto) 4.3, Bucks # (Auto) 0.8, Eos # (Auto) 0.2, Baso # (Auto) 0.1, Sodium 141, Potassium 4.0, Chloride 107, Carbon Dioxide 20 L, Anion Gap 18.0 H, BUN 17, Creatinine 1.50 H, Estimated Creat Clear 47, Estimated GFR 46 L, Est GFR ( Amer) 56 L, Glucose 146 H, Calcium 10.0 07/02/25 10:59: Activated Clotting Time 348 H* 07/02/25 15:24: WBC 28.5 H* D, RBC 3.48 L D, Hgb 10.7 L D, Hct 33.9 L, MCV 97.4 H, MCH 30.7, MCHC 31.6 L, RDW 15.4, Plt Count 240, MPV 11.2 H, Neut % (Auto) 66.3, Lymph % (Auto) 27.7, Bucks % (Auto) 3.8, Eos % (Auto) 0.1, Baso % (Auto) 0.5, Neut # (Auto) 18.9 H, Lymph # (Auto) 7.9 H, Bucks # (Auto) 1.1 H, Eos # (Auto) 0.0, Baso # (Auto) 0.1, Total Counted 100, Neutrophils % (Manual) 80 H, Lymphocytes % (Manual) 19, Monocytes % (Manual) 1 L, Platelet Estimate Normal, RBC Morphology Normal, Blood Type B Positive, Antibody Screen Negative, Crossmatch (AHG) See Detail 07/02/25 16:10: Blood Type Confirm B Positive I & O for Last 24 hours: Intake & Output 06/29/25 06/30/25 07/01/25 07/02/25 23:59 23:59 23:59 23:59 Intake Total 750 / 750 Balance 750 / 750 Weight 73.482 kg Constitutional Constitutional: moderate distress, chronically ill appearing and cooperative *Routine HEENT Exam Head: Present normocephalic Eye: Present EOMI and PERRL ENT: Present mucous membranes moist *Routine Neck Exam Neck: Present supple; Absent lymphadenopathy *Routine Respiratory Exam Respiratory: Present CTA bilaterally *Routine Cardiovascular Exam Cardiovascular: Present RRR *Routine Abdominal Exam Abdominal: Present soft, normoactive bowel sounds and tenderness Comments: Generalized mild abdominal tenderness. *Routine Rectal Exam Rectal:: deferred *Routine Genitalia Exam Genitalia:: deferred *Routine Extremities Exam Extremities: Absent cyanosis, clubbing or edema Comments: Venous stasis ulcers left lower extremity with scabbing *Routine Skin Exam Skin: Present pallor and warm; Absent rash *Routine Neurological Exam Neurological: Present alert and oriented X3 Assessment and Plan *Assessment and plan (1) Retroperitoneal bleed: Status: Acute Category: Medical Code(s): K68.3 - Retroperitoneal hematoma (2) Acute blood loss anemia: Status: Acute Category: Medical Code(s): D62 - Acute posthemorrhagic anemia (3) Renal artery stenosis: Status: Acute Category: Medical Code(s): I70.1 - Atherosclerosis of renal artery (4) Non-ST elevation CT (NSTEMI): Status: Acute Category: Medical Code(s): I21.4 - Non-ST elevation (NSTEMI) myocardial infarction (5) Superficial femoral artery occlusion: Status: Acute Category: Medical Code(s): I70.209 - Unspecified atherosclerosis of [place] arteries of extremities, unspecified extremity (6) Arterial insufficiency with ischemic ulcer: Status: Acute Category: Medical Code(s): I77.1 - Stricture of artery; L98.499 - Non-pressure chronic ulcer of skin of other sites with unspecified severity (7) Diabetic peripheral neuropathy associated with type 2 diabetes mellitus: Status: Acute Category: Medical Code(s): E11.42 - Type 2 diabetes mellitus with diabetic polyneuropathy (8) CAD (coronary artery disease): Status: Chronic Qualifiers: Associated angina: with unspecified angina Coronary Disease-Associated Artery/Lesion type: [place] artery [place] vs. transplanted heart: [place] heart Qualified Code(s): I25.119 - Atherosclerotic heart disease of [place] coronary artery with unspecified angina pectoris Category: Medical Code(s): I25.10 - Atherosclerotic heart disease of [place] coronary artery without angina pectoris (9) HTN (hypertension): Status: Chronic Qualifiers: Hypertension type: essential hypertension Qualified Code(s): I10 - Essential (primary) hypertension Category: Medical Code(s): I10 - Essential (primary) hypertension (10) HLD (hyperlipidemia): Status: Chronic Qualifiers: Hyperlipidemia type: other hyperlipidemia Qualified Code(s): E78.4 - Other hyperlipidemia Category: Medical Code(s): E78.5 - Hyperlipidemia, unspecified (11) Decreased pedal pulses: Status: Acute Category: Medical Code(s): R09.89 - Other specified symptoms and signs involving the circulatory and respiratory systems (12) Esophagitis: Problem Comment: Profound rodriguez-esophagitis with patchy necrosis and mucosal sloughing (possible pill-induced esophagitis) Status: Acute Category: Medical Code(s): K20.90 - Esophagitis, unspecified without bleeding (13) Hypotension: Status: Acute Category: Medical Code(s): I95.9 - Hypotension, unspecified Plan Jonelle Kamara is a 69-year-old male with a medical history significant for CAD, type 2 diabetes, hypertension, PAD who presented for elective renal artery stenosis stenting and angiogram today. Procedure complicated by retroperitoneal bleed on left side with development of anemia and subcapsular hematoma. Discussed case cardiology, request admission for monitoring overnight and consideration for transfusion if necessary along with treatment of hypo or hypertension. I agreed to admit to the ICU for further care. Necessitating inpatient management. Problems addressed as follows: Peritoneal hemorrhage Bilateral renal artery stenosis status post stenting Subcapsular hematoma of left kidney Acute blood loss anemia - Patient's initial hemoglobin was 16. Repeat H&H after identification of retroperitoneal bleed/subcapsular hematoma on left side. hemoglobin found to be 10. Due to significant volume loss and hypotension with systolics of 60-70 in spite of receiving 2 L IV fluids, patient transfused 2 units packed red blood cells. -CT per my review showing stranding around left kidney, subcapsular hematoma, compression of kidney, and retroperitoneal hematoma extending into pelvis. Do not appreciate any blush of contrast -Transfusion threshold hemoglobin less than 9 or symptomatic anemia in the setting of large-volume blood loss - Will consider Levophed if becomes hypotensive again - Repeat H&H an hour after transfusion - Cardiology consulted to continue to assist with care #Severe PAD #History of CAD #Left lower extremity arterial insufficiency ulcers ?Recently admitted with stenting to severe PAD in his lower extremities. - Successful reconstruction of bilateral iliacs and bilateral stenting of bilateral subclavian. - Continue aspirin 81 mg, plavix 75mg daily; holding Xarelto Pill induced esophagitis; identified on recent admission with endoscopy. Continue pantoprazole 40 mg twice daily #Type 2 diabetes: Hemoglobin A1c 7.0% on 05/23. LDSSI, ACHS glucose checks. #Hypertension: Holding blood pressure meds in the setting of hypotension. Will consider resuming tomorrow if blood pressure normalizes. #Hypothyroidism: Continue home levothyroxine 75 mcg. TSH 2.1 in April Full code DVT prophylaxis: Contraindicated in the setting of bleeding
--- NOTE | 2025-07-02 20:27 | PC.NURSE ---
spoke to MD díaz on the phone. provider stated to monitor pts bp. if pts sys bp gets >170 then to notify hospitalist about starting pt on a nipride drip.
[2025-07-02 20:56] LABS: Hemoglobin 13.3 g/dL (14.1-18.0)
[2025-07-02] MEDS: PANTOPRAZOLE 40MG VIAL 40 MG IV (21:52)
[2025-07-03] VITALS (33 sets, daily range): BP systolic 101–158; BP diastolic 41–73; PULSE 70–91; RESP 12–44; TEMP 36.6–37.3; O2SAT 92–98; BMI 27.8; BMI 27.6
[2025-07-03 07:15] LABS: Hematocrit 36.8 % (42.0-52.0); Immature Granulocytes % 1.5 %; Mean Corpuscular HGB Conc 31.3 g/dL (31.8-35.4); Mean Corpuscular Hemoglobin 29.1 pg (27.0-31.2); Mean Corpuscular Volume 93.2 fl (80-94); Nucleated Red Blood Cells % 0 %; Platelet Count 184 K/mm3 (142-424); Red Blood Count 3.95 M/mm3 (4.60-6.20); Red Cell Distribution Width-SD 54.7 fL; White Blood Count 24.0 K/mm3 (4.8-10.8)
[2025-07-03 07:21] LABS: Albumin Level 3.3 g/dl (3.5-5.0); Chloride 115 mmol/L (98-107)
[2025-07-03 07:22] LABS: Potassium 5.9 mmoL/L (3.5-5.1); Sodium 142 mmol/L (136-145)
[2025-07-03 07:24] LABS: Alanine Aminotransferase 19 U/L (12-78); Alkaline Phosphatase 56 U/L (38-126); Anion Gap 17.9 mEq/L (5-15); Aspartate Amino Transferase 33 U/L (17-59); Bilirubin,Total 0.7 mg/dl (0.2-1.3); Blood Urea Nitrogen 28 mg/dl (9-20); Carbon Dioxide 15 mmol/L (22.0-30.0); Creatinine Clearance Estimated 33 mL/min (50-200); Creatinine,Serum 2.30 mg/dl (0.66-1.25); Estimated Glomerular Filt Rate 28 ml/min (>60); GFR (African American) 34 ML/MIN (>60)
[2025-07-03 07:25] LABS: Albumin/Globulin Ratio 1.5 (1.1-1.8); Calcium 8.1 mg/dl (8.4-10.2); Globulin 2.2 g/dL (1.3-3.2); Glucose 168 mg/dl (74-100); Magnesium 2.2 mg/dl (1.6-2.3); Total Protein,Serum 5.5 g/dl (6.3-8.2)
[2025-07-03] MEDS: ASPIRIN EC 81MG TABLET 81 MG PO (08:27)
[2025-07-03] MEDS: ALLOPURINOL 300MG TABLET 300 MG PO (08:27)
[2025-07-03] MEDS: CLOPIDOGREL 75MG TAB 75 MG PO (08:27)
[2025-07-03] MEDS: LEVOTHYROXINE 75MCG (0.075MG) TAB 75 MCG PO (08:28)
[2025-07-03] MEDS: SODIUM CHLORIDE 0.9% 10ML VIAL 10 ML IV (08:28)
[2025-07-03] MEDS: PANTOPRAZOLE 40MG VIAL 40 MG IV ×2 (08:28→21:15)
--- NOTE | 2025-07-03 08:50 | HMH.PROCNOTE ---
[facility] Procedure Note Date: 07/02/25 Time: 16:30 Procedure Note:: Midline insertion: Time: Patient unable to give consent, emergent placement needed, decision made to proceed emergently with midline placement. Lab work was reviewed platelet count was 240. Discussed risk with patient's including but not limited to bleeding, nerve damage, pain, infection. Left arm was placed on table, prepped and draped in sterile fashion. Under ultrasound guidance, needle was placed into the left brachial vein. A guidewire was then threaded through the vein and advanced without difficulty. Introducer was then placed over the guidewire and guidewire was removed. Midline catheter was measured and trimmed to appropriate length of 15 cm . Midline catheter was then threaded through introducer without difficulty. Midline was flushed with 30 mL of normal saline without resistance. Blood return noted. Introducer was removed, Midline was secured with StatLock and sterile dressing. Patient tolerated the procedure nicely. Blood Loss:5 cc
[2025-07-03] MEDS: LOKELMA 5GM PACKET 10 GM PO ×3 (08:51→21:15)
--- NOTE | 2025-07-03 09:01 | CT_ITS ---
FINAL REPORT TECHNIQUE: Axial images through the abdomen and pelvis were performed without contrast. This study was performed with techniques to keep radiation doses as low as reasonably achievable, (ALARA). Individualized dose reduction techniques using automated exposure control or adjustment of mA and/or kV according to the patient's size were employed. CLINICAL HISTORY: retro bleed COMPARISON: 07/02/2025 FINDINGS: Abdomen: There is new dense left lower lobe consolidation. There is mild bibasilar atelectasis. The liver parenchyma is homogeneous. Contrast is seen within the gallbladder, probably due to vicarious excretion. There is a small sliding-type hiatal hernia. There are calcified granulomas in the spleen. The pancreas and adrenals are unremarkable. Note is made of a cyst in the left kidney measuring 4.9 x 3.9 cm. Again seen is a large subcapsular hematoma of the left kidney with extensive stranding throughout the left perinephric fat. There is a hematoma extending inferiorly along the anterior margin of the left psoas. Hematoma measures up to 5.9 x 6.9 cm in AP and transverse dimensions. The hematoma anterior to the psoas muscle appears larger than previous. Pelvis: The appendix is unremarkable. The urinary bladder is decompressed. There is a small left inguinal hernia. There is no free fluid or adenopathy. IMPRESSION: The retroperitoneal component of the hematoma looks larger than previous. Persistent large subcapsular hematoma with significant compression of the left renal parenchyma. New consolidation at the left base. Reviewed, Interpreted and Dictated by Vaibhav Raines MD Transcribed by Otilia Shaw Authenticated and [facility]
[2025-07-03 09:19] LABS: Hemoglobin 11.8 g/dL (14.1-18.0)
--- NOTE | 2025-07-03 09:20 | EXP.ACUTE.PN ---
Subjective *Date: 07/03/25 *Time: 17:35 Interval history: Blood pressure improved today. Still complaining of left flank pain. Tender on exam. No nausea or vomiting. Stable on room air. Hemoglobin responded well to transfusion, slight bump in creatinine. Repeat CT of abdomen performed this morning. Tolerating p.o. intake. Medical Exam Vital signs and Labs for Last 24 Hours: Vital Signs Temp Temp Pulse Pulse Pulse Resp Resp 07/03/25 09:00 83 07/03/25 09:00 07/03/25 08:00 07/03/25 07:00 97.8 F 82 20 07/03/25 07:00 84 07/03/25 06:49 07/03/25 06:02 85 22 07/03/25 05:15 21 07/03/25 05:01 20 07/03/25 04:59 07/03/25 04:45 22 07/03/25 04:39 80 07/03/25 04:00 98.0 F 81 22 07/03/25 03:00 76 20 07/03/25 03:00 07/03/25 02:45 77 21 07/03/25 02:39 78 17 07/03/25 02:30 78 25 H 07/03/25 02:15 78 18 07/03/25 02:00 78 22 07/03/25 01:15 77 18 07/03/25 01:01 79 27 H 07/03/25 00:45 76 22 07/03/25 00:30 75 23 07/03/25 00:15 76 21 07/03/25 00:00 70 07/03/25 00:00 07/03/25 00:00 76 20 07/02/25 23:16 07/02/25 23:00 74 22 07/02/25 22:15 97.0 F L 74 25 H 07/02/25 22:00 72 15 07/02/25 21:45 72 22 07/02/25 21:30 71 17 07/02/25 21:20 73 19 07/02/25 21:19 71 11 L 07/02/25 21:00 69 21 07/02/25 21:00 07/02/25 20:45 69 21 07/02/25 20:37 60 07/02/25 20:30 66 19 07/02/25 20:15 65 19 07/02/25 20:00 07/02/25 20:00 95.8 F L 67 16 07/02/25 19:00 07/02/25 18:40 64 16 07/02/25 18:25 69 07/02/25 18:10 65 07/02/25 17:55 67 16 07/02/25 17:40 66 16 07/02/25 17:25 95.4 F L 64 16 07/02/25 17:21 95.3 F L 63 13 07/02/25 17:10 63 15 07/02/25 17:00 95.8 F L 64 15 07/02/25 17:00 65 07/02/25 16:55 65 15 07/02/25 16:50 65 16 07/02/25 16:45 95.4 F L 64 16 07/02/25 16:40 95.2 F L 64 15 07/02/25 16:35 95.3 F L 65 16 07/02/25 16:35 95.3 F L 66 12 07/02/25 16:30 93.4 F L 64 15 07/02/25 16:25 95.3 F L 66 17 07/02/25 14:30 07/02/25 14:25 07/02/25 14:20 07/02/25 14:18 70 20 07/02/25 14:15 69 20 07/02/25 14:12 71 20 07/02/25 14:09 68 20 07/02/25 14:06 72 20 07/02/25 14:03 71 20 07/02/25 14:00 71 20 07/02/25 14:00 70 07/02/25 12:50 71 20 07/02/25 12:20 65 20 07/02/25 11:50 66 20 07/02/25 11:20 72 18 07/02/25 11:05 71 18 07/02/25 10:50 67 20 07/02/25 10:35 68 20 07/02/25 10:20 70 18 07/02/25 10:15 70 20 07/02/25 10:10 70 20 07/02/25 10:05 71 71 20 07/02/25 09:21 72 20 07/02/25 09:21 74 BP BP BP Pulse Ox Pulse Ox O2 Del Method O2 Del Method 07/03/25 09:00 114/41 L 97 Room Air 07/03/25 09:00 Room Air 07/03/25 08:00 97 Room Air 07/03/25 07:00 128/55 L 96 Room Air 07/03/25 07:00 125/67 98 Room Air 07/03/25 06:49 Room Air 07/03/25 06:02 131/59 L 97 Room Air 07/03/25 05:15 135/61 07/03/25 05:01 158/57 H 07/03/25 04:59 Room Air 07/03/25 04:45 150/63 H 07/03/25 04:39 07/03/25 04:00 126/54 L 96 07/03/25 03:00 127/54 L 93 L 07/03/25 03:00 Room Air 07/03/25 02:45 132/52 L 95 07/03/25 02:39 153/61 H 96 07/03/25 02:30 154/59 H 95 07/03/25 02:15 129/59 L 96 07/03/25 02:00 136/62 95 Room Air 07/03/25 01:15 150/56 H 95 07/03/25 01:01 144/58 H 94 L 07/03/25 00:45 108/58 L 95 07/03/25 00:30 128/51 L 95 07/03/25 00:15 153/56 H 94 L 07/03/25 00:00 07/03/25 00:00 95 Room Air 07/03/25 00:00 146/55 H 92 L Room Air 07/02/25 23:16 Room Air 07/02/25 23:00 95/34 L 95 Room Air 07/02/25 22:15 94/58 L 95 07/02/25 22:00 97/64 L 07/02/25 21:45 92/59 L 94 L 07/02/25 21:30 99/57 L 94 L 07/02/25 21:20 84/58 L 97 07/02/25 21:19 75/50 L 96 07/02/25 21:00 163/57 H 96 07/02/25 21:00 Room Air 07/02/25 20:45 166/53 H 96 07/02/25 20:37 07/02/25 20:30 146/54 H 95 07/02/25 20:15 150/54 H 95 07/02/25 20:00 97 Room Air 07/02/25 20:00 146/54 H 96 Room Air 07/02/25 19:00 Room Air 07/02/25 18:40 153/84 H 96 Room Air 07/02/25 18:25 145/64 H 96 Room Air 07/02/25 18:10 132/65 96 Room Air 07/02/25 17:55 132/84 98 Room Air 07/02/25 17:40 121/45 L 97 Room Air 07/02/25 17:25 113/52 L 97 Room Air 07/02/25 17:21 98/43 L 97 Room Air 07/02/25 17:10 113/40 L 97 07/02/25 17:00 117/40 L 96 Room Air 07/02/25 17:00 96 Room Air 07/02/25 16:55 89/50 L 96 Room Air 07/02/25 16:50 108/30 L 97 Room Air 07/02/25 16:45 117/31 L 97 Room Air 07/02/25 16:40 82/44 L 96 Room Air 07/02/25 16:35 78/47 L 95 Room Air 07/02/25 16:35 69/44 L 98 Room Air 07/02/25 16:30 76/48 L 96 Room Air 07/02/25 16:25 69/44 L 98 Room Air 07/02/25 14:30 114/61 07/02/25 14:25 101/56 L 07/02/25 14:20 97/62 L 07/02/25 14:18 88/53 L 97 Room Air 07/02/25 14:15 78/42 L 98 Room Air 07/02/25 14:12 73/45 L 99 Room Air 07/02/25 14:09 68/42 L 95 Room Air 07/02/25 14:06 73/52 L 95 Room Air 07/02/25 14:03 91/58 L 96 Room Air 07/02/25 14:00 104/57 L 93 L Room Air 07/02/25 14:00 07/02/25 12:50 111/67 07/02/25 12:20 119/72 07/02/25 11:50 113/77 12/09/25 11:20 109/72 L 07/02/25 11:05 141/86 H 07/02/25 10:50 125/83 97 07/02/25 10:35 123/74 95 07/02/25 10:20 120/63 96 07/02/25 10:15 115/78 96 07/02/25 10:10 146/76 H 96 07/02/25 10:05 174/74 H 100 07/02/25 09:21 162/94 H 95 07/02/25 09:21 O2 Flow Rate 07/03/25 09:00 07/03/25 09:00 07/03/25 08:00 07/03/25 07:00 07/03/25 07:00 07/03/25 06:49 07/03/25 06:02 07/03/25 05:15 07/03/25 05:01 07/03/25 04:59 07/03/25 04:45 07/03/25 04:39 07/03/25 04:00 07/03/25 03:00 07/03/25 03:00 94 07/03/25 02:45 07/03/25 02:39 07/03/25 02:30 07/03/25 02:15 07/03/25 02:00 07/03/25 01:15 07/03/25 01:01 07/03/25 00:45 07/03/25 00:30 07/03/25 00:15 07/03/25 00:00 07/03/25 00:00 07/03/25 00:00 07/02/25 23:16 07/02/25 23:00 07/02/25 22:15 07/02/25 22:00 07/02/25 21:45 07/02/25 21:30 07/02/25 21:20 07/02/25 21:19 07/02/25 21:00 07/02/25 21:00 97 07/02/25 20:45 07/02/25 20:37 07/02/25 20:30 07/02/25 20:15 07/02/25 20:00 07/02/25 20:00 07/02/25 19:00 07/02/25 18:40 07/02/25 18:25 07/02/25 18:10 07/02/25 17:55 07/02/25 17:40 07/02/25 17:25 07/02/25 17:21 07/02/25 17:10 07/02/25 17:00 07/02/25 17:00 07/02/25 16:55 07/02/25 16:50 07/02/25 16:45 07/02/25 16:40 07/02/25 16:35 07/02/25 16:35 07/02/25 16:30 07/02/25 16:25 07/02/25 14:30 07/02/25 14:25 07/02/25 14:20 07/02/25 14:18 07/02/25 14:15 07/02/25 14:12 07/02/25 14:09 07/02/25 14:06 07/02/25 14:03 07/02/25 14:00 07/02/25 14:00 07/02/25 12:50 07/02/25 12:20 07/02/25 11:50 07/02/25 11:20 07/02/25 11:05 07/02/25 10:50 07/02/25 10:35 07/02/25 10:20 07/02/25 10:15 07/02/25 10:10 07/02/25 10:05 07/02/25 09:21 07/02/25 09:21 Intake and Output 07/02/25 07/03/25 07/03/25 23:59 07:59 15:59 Intake Total 500 / 1000 240 / 240 Balance 500 / 1000 240 / 240 Intake: Intake, Oral Amount 240 / 240 Intake (Blood Product) Amt 500 / 500 Unit #1 500 / 500 Other: Weight 78.517 kg 78 kg Patient Weight 07/03/25 23:59 Weight 78 kg Laboratory Results - last 24 hr 07/02/25 09:00: Sodium 141, Potassium 4.0, Chloride 107, Carbon Dioxide 20 L, Anion Gap 18.0 H, BUN 17, Creatinine 1.50 H, Estimated Creat Clear 47, Estimated GFR 46 L, Est GFR ( Amer) 56 L, Glucose 146 H, Calcium 10.0 07/02/25 10:59: Activated Clotting Time 348 H* 12/09/25 15:24: WBC 28.5 H* D, RBC 3.48 L D, Hgb 10.7 L D, Hct 33.9 L, MCV 97.4 H, MCH 30.7, MCHC 31.6 L, RDW 15.4, Plt Count 240, MPV 11.2 H, Neut % (Auto) 66.3, Lymph % (Auto) 27.7, [place] % (Auto) 3.8, Eos % (Auto) 0.1, Baso % (Auto) 0.5, Neut # (Auto) 18.9 H, Lymph # (Auto) 7.9 H, [place] # (Auto) 1.1 H, Eos # (Auto) 0.0, Baso # (Auto) 0.1, Total Counted 100, Neutrophils % (Manual) 80 H, Lymphocytes % (Manual) 19, Monocytes % (Manual) 1 L, Platelet Estimate Normal, RBC Morphology Normal, Blood Type B Positive, Antibody Screen Negative, Crossmatch ([facility]) See Detail 07/02/25 16:10: Blood Type Confirm B Positive 07/02/25 19:45: Hgb 13.3 L D, Hct 40.7 L 07/03/25 05:30: WBC 24.0 H*, RBC 3.95 L, Hgb 11.8 L D, Hct 36.8 L, MCV 93.2, MCH 29.1, MCHC 31.3 L, RDW 16.3, Plt Count 184, MPV 12.0 H, Neut % (Auto) 70.2, Lymph % (Auto) 21.7, [place] % (Auto) 6.3, Eos % (Auto) 0.0 L, Baso % (Auto) 0.3, Neut # (Auto) 16.8 H, Lymph # (Auto) 5.2 H, [place] # (Auto) 1.5 H, Eos # (Auto) 0.0, Baso # (Auto) 0.1, Sodium 142, Potassium 5.9 H D, Chloride 115 H, Carbon Dioxide 15 L, Anion Gap 17.9 H, BUN 28 H D, Creatinine 2.30 H D, Estimated Creat Clear 33, Estimated GFR 28 L, Est GFR ( Amer) 34 L D, Glucose 168 H, Calcium 8.1 L, Magnesium 2.2, Total Bilirubin 0.7, AST 33, ALT 19, Alkaline Phosphatase 56, Total Protein 5.5 L, Albumin 3.3 L, Globulin 2.2, Albumin/Globulin Ratio 1.5 I & O for Labs for Last 24 Hours: Intake & Output 06/30/25 07/01/25 07/02/25 07/03/25 23:59 23:59 23:59 23:59 Intake Total 1000 / 1000 240 / 240 Balance 1000 / 1000 240 / 240 Weight 73.482 kg 78 kg Constitutional: Present no acute distress, chronically ill appearing and cooperative Head: Present atraumatic and normocephalic Respiratory: Present normal respiratory effort; Absent respiratory distress, stridor or wheezes Cardiac: Present Reg Rate and Rhythm GI: Present soft, tenderness (Left abdomen and flank prominently, no bruising on left flank) and normal bowel sounds; Absent distention Extremities: Present full ROM Comment:: Arterial insufficiency ulcers of left leg on pabon x 2 with scabbing. Weak pulses bilaterally. Loss of hair bilaterally and lower extremity; lower extremities cool to touch below the knee but not cold or cyanotic Skin: Present wounds (See above extremities); Absent erythema Neuro: Present Grossly Intact, alert, awake, oriented x 3 and moves all extremities Assessment and Plan *Assessment and plan (1) Retroperitoneal bleed: Status: Acute Category: Medical Code(s): K68.3 - Retroperitoneal hematoma (2) Acute blood loss anemia: Status: Acute Category: Medical Code(s): D62 - Acute posthemorrhagic anemia (3) Renal artery stenosis: Status: Acute Category: Medical Code(s): I70.1 - Atherosclerosis of renal artery (4) Non-ST elevation [place] (NSTEMI): Status: Acute Category: Medical Code(s): I21.4 - Non-ST elevation (NSTEMI) myocardial infarction (5) Superficial femoral artery occlusion: Status: Acute Category: Medical Code(s): I70.209 - Unspecified atherosclerosis of [place] arteries of extremities, unspecified extremity (6) Arterial insufficiency with ischemic ulcer: Status: Acute Category: Medical Code(s): I77.1 - Stricture of artery; L98.499 - Non-pressure chronic ulcer of skin of other sites with unspecified severity (7) Diabetic peripheral neuropathy associated with type 2 diabetes mellitus: Status: Acute Category: Medical Code(s): E11.42 - Type 2 diabetes mellitus with diabetic polyneuropathy (8) CAD (coronary artery disease): Status: Chronic Qualifiers: Associated angina: with unspecified angina Coronary Disease-Associated Artery/Lesion type: [place] artery [place] vs. transplanted heart: [place] heart Qualified Code(s): I25.119 - Atherosclerotic heart disease of [place] coronary artery with unspecified angina pectoris Category: Medical Code(s): I25.10 - Atherosclerotic heart disease of [place] coronary artery without angina pectoris (9) HTN (hypertension): Status: Chronic Qualifiers: Hypertension type: essential hypertension Qualified Code(s): I10 - Essential (primary) hypertension Category: Medical Code(s): I10 - Essential (primary) hypertension (10) HLD (hyperlipidemia): Status: Chronic Qualifiers: Hyperlipidemia type: other hyperlipidemia Qualified Code(s): E78.4 - Other hyperlipidemia Category: Medical Code(s): E78.5 - Hyperlipidemia, unspecified (11) Decreased pedal pulses: Status: Acute Category: Medical Code(s): R09.89 - Other specified symptoms and signs involving the circulatory and respiratory systems (12) Esophagitis: Problem Comment: Profound rodriguez-esophagitis with patchy necrosis and mucosal sloughing (possible pill-induced esophagitis) Status: Acute Category: Medical Code(s): K20.90 - Esophagitis, unspecified without bleeding (13) Hypotension: Status: Acute Category: Medical Code(s): I95.9 - Hypotension, unspecified Plan Jonelle Kamara is a 69-year-old male with a medical history significant for CAD, type 2 diabetes, hypertension, PAD who presented for elective renal artery stenosis stenting and angiogram today. Procedure complicated by retroperitoneal bleed on left side with development of anemia and subcapsular hematoma. Discussed case cardiology, request admission for monitoring overnight and consideration for transfusion if necessary along with treatment of hypo or hypertension. I agreed to admit to the ICU for further care. Showing improvement after transfusion with stabilization of blood pressure. Hemoglobin relatively stable this morning. Has kidney injury this morning. Continues to require patient management. Cardiology assisting with care. Problems addressed as follows: Peritoneal hemorrhage Bilateral renal artery stenosis status post stenting Subcapsular hematoma of left kidney Acute blood loss anemia Hemorrhagic shock, responded to blood transfusion and aggressive fluid resuscitation DAYSI Hyperkalemia - Patient's initial hemoglobin was 16. Repeat H&H after identification of retroperitoneal bleed/subcapsular hematoma on left side, hemoglobin found to be 10. Due to significant volume loss and hypotension with systolics of 60-70 in spite of receiving 2 L IV fluids, patient transfused 2 units packed red blood cells. Responded with improvement to 13. Down to 11.7 this morning. -CT per my review showing stranding around left kidney, subcapsular hematoma, compression of kidney, and retroperitoneal hematoma extending into pelvis. Do not appreciate any blush of contrast -Repeat CT of abdomen obtained today showing relative stability of hematoma per my review however formal measurement and evaluation by radiology shows concern for slight increase in size from yesterday. -Kidney function worse today with bump in creatinine from 1.5-2.3. BUN 28. Potassium 5.9. -Repeat BMP ordered for this afternoon, repeat H&H this afternoon. Monitor kidney function and electrolytes closely. Initiate Lokelma 3 times a day for 5 doses to address hyperkalemia, anticipate continued increase with blood loss and breakdown in retroperitoneum. -Transfusion threshold hemoglobin less than 9 or symptomatic anemia in the setting of large-volume blood loss - Cardiology consulted to continue to assist with care, discussed case this morning. No plan for further intervention. Pleased with patient's stability. Will continue to monitor and support care #Severe PAD #History of CAD #Left lower extremity arterial insufficiency ulcers ?Recently admitted with stenting to severe PAD in his lower extremities. - Successful reconstruction of bilateral iliacs and bilateral stenting of bilateral subclavian. - Continue aspirin 81 mg, plavix 75mg daily; holding Xarelto Pill induced esophagitis; identified on recent admission with endoscopy. Continue pantoprazole 40 mg twice daily #Type 2 diabetes: Hemoglobin A1c 7.0% on 05/23. LDSSI, ACHS glucose checks. #Hypertension: Holding blood pressure meds in the setting of hypotension. Will consider resuming tomorrow if blood pressure normalizes. #Hypothyroidism: Continue home levothyroxine 75 mcg. TSH 2.1 in April Full code DVT prophylaxis: Contraindicated in the setting of bleeding Diabetic diet
[2025-07-03 09:23] LABS: RBC Morphology Normal; Total Cells Counted 100
--- NOTE | 2025-07-03 10:19 | HMH.PTEV ---
Physical Therapy Evaluation Rehab PT IP Evaluation Start: 07/02/25 20:37 Freq: ONCE Status: Active Protocol: Document 07/03/25 10:15 ROYA (Rec: 07/03/25 10:19 ROYA [id number]) Subjective/History History History Per H&P: Mr. Kamara is a 69-year-old male with significant history of vascular disease including CAD, peripheral artery disease in his subclavian's bilaterally and lower extremities. Recent intervention with stenting of iliacs and subclavian's. Noted to have bilateral renal artery stenosis at that time. Brought back today for staged procedure with stenting of bilateral renal arteries. Monitored after his procedure. Noted to have some back pain. Pain predominant on the left side. CT obtained showing large left-sided retroperitoneal hematoma with subcapsular hematoma and compression of left kidney. Repeat intervention performed did not show any extravasation of contrast. Patient believed to have some leaking from renal artery after stent placement that has resolved. Needs monitoring overnight however due to risk for pressure variation and further bleeding . Hemoglobin of 16 on arrival this morning. Repeat H& H pending. Discussed case with cardiology, request admission for inpatient management. Admitted to ICU for further treatment. Subjective Subjective PLOF: IND with household level ambulation using a RW. Uses a w/c for outdoor and community navigation. No falls in past [address] HOME: Lives with his girlfriend in a home with ramped entrance. ASSIST: Girlfriend able to assist as needed. [facility] How much help from another person do you currently need... Turning from your None back to your side while in a flat bed without using bedrails? Moving from lying on None back to sitting on the side of a flat bed without using bedrails? Moving to and from a None bed to a chair ( including a wheelchair)? Standing up from a None chair using your arms? (e.g., wheelchair, bedside chair) Walking in hospital None room? Climbing 3-5 steps A little with a railing? Mobility Score 23 Mobility Level [place] Castillo Mobility 7 Walk 25 feet or more Mobility Calculator Rehab PT IP Eval Objective Appearance Patient Behavior Appropriate,Cooperative Patient Orientation Person,Situation Difficulty following none instructions Speech Pattern Clear Ambulation Patient Able to Yes Ambulate Ambulation Observation IP General Gait No Deviations/Normal Pattern Observation Ambulation Distance 20 (feet) Ambulation Assistive Rolling Walker Device Ambulation Ability Supervision/Stand by Balance Ability to Arise Able, uses arms to help Sitting Balance Steady, safe Standing Balance Steady, wide stance Dynamic Sitting Good Balance Ability Dynamic Standing Fair Balance Ability Transfers Bed Transfer Ability Supervision/Stand by Sit to Stand Bed Supervision/Stand by Transfer Ability Rehab PT IP prob,goals,plan Problems Date of Evaluation: 07/03/25 Rehab Potential Rehab Potential Innapropriate for Skilled Therapy Discharge Plan PT Discharge Plan Pt appears to be at his baseline in mobility and is not appropriate for skilled acute level PT at this time. PT recommending PT to address generalized strengthening. Eval Complexity Eval Charge Codes 05111 - Moderate Complexity PHYSICIAN CERTIFICATION: I certify the specified therapy services for Jonelle Kamara are required, authorized, and reviewed every 30 days.
--- NOTE | 2025-07-03 10:35 | SW/DCPLANNER ---
Spoke with patient and his regarding home health services once he is medically stable and ready for discharge. Patient stated that he is not interested in home health services at this time. Patient is not interested in outpatient therapy either. Nitin Goodrich
--- NOTE | 2025-07-03 14:28 | EXP.CARD.CON ---
History of Present Illness History of Present Illness Consult date: 07/03/25 Requesting physician: Vitaliy Farias Chief complaint: Left flank pain, anemia History of present illness: This is a 69-year-old gentleman who was admitted to the hospital following bilateral renal artery stenting. The patient started having flank pain and had a CT that showed a large left-sided retroperitoneal hematoma with subcapsular hematoma and compression of the left kidney. He was taken back to the [facility] and this did not show any extravasation of contrast. Patient is believed to have some leaking from the renal artery after stent placement that had already resolved. The patient was kept overnight for further evaluation to make sure he remained hemodynamically stable and had no further bleeding. The patient's renal function did elevate to 2.3 from his baseline of 1.5. His potassium is also elevated this morning as well as his white blood cell count. He denies having any complaints today. He denies any chest pain or pressure. No shortness of breath or edema. No fever, chills, nausea, vomiting or diarrhea. Flank pain has resolved. [facility] Disclaimer: The information contained in this section may have been updated after the patient was seen, as this information can be updated by other users. Medical History Myocardial infarct Skin lesion of left leg Psychosis Diabetes Traumatic injury of foot Multiple thyroid nodules Impacted cerumen of right ear Hypothyroidism Repeated falls Pulmonary HTN HLD (hyperlipidemia) HTN (hypertension) Surgical History Stented coronary artery Social History Smoking Status: Never smoker alcohol intake: never counseling provided: none substance use type: denies use current occupational status: unemployed Travel in the last 8 weeks?: None household members: none housing: apartment current occupation: retired caffeine: No Have you lived/traveled outside [place] in past 30 days?: No Contact w/someone who lives/traveled outside US past 30 days?: No Exposure to someone with infectious disease in past 14 days?: No Do you have a fever (greater than 100.4 F or 38 C)?: No Have you tested positive for COVID-19?: No Exposed to someone with COVID-19 in past 14 days?: No Do you have a sore throat?: No Do you have a cough?: No Do you have any weakness?: No Do you have any diarrhea?: No Are you experiencing any unusual bleeding?: No Do you have any muscle aches/pain?: No Do you have any abdominal pain?: No Are you experiencing loss of taste or smell?: No Review of Systems Review of Systems Review of systems:: pertinent systems reviewed and negative unless documented below Constitutional Constitutional: Reports system reviewed and no additional complaints, except as documented Eyes Eyes: Reports system reviewed and no additional complaints, except as documented ENT Ears, Nose, Mouth, and Throat: Reports system reviewed and no additional complaints, except as documented *Cardiovascular Cardiovascular: Reports system reviewed and no additional complaints, except as documented *Respiratory Respiratory: Reports system reviewed and no additional complaints, except as documented *Gastrointestinal Gastrointestinal: Reports system reviewed and no additional complaints, except as documented *Genitourinary Genitourinary: Reports system reviewed and no additional complaints, except as documented *Musculoskeletal Musculoskeletal: Reports system reviewed and no additional complaints, except as documented Integumentary/Breasts Skin/Breast: Reports system reviewed and no additional complaints, except as documented *Neurologic Neurologic: Reports system reviewed and no additional complaints, except as documented Psychiatric Psychiatric: Reports system reviewed and no additional complaints, except as documented Endocrine Endocrine: Reports system reviewed and no additional complaints, except as documented Hematologic/Lymphatic Hematologic/Lymphatic: Reports system reviewed and no additional complaints, except as documented Allergic/Immunologic Allergic/Immunologic: Reports system reviewed and no additional complaints, except as documented Exam Data for Last 24 hours Vital signs and Labs for Last 24 Hours: Temp Pulse Resp BP Pulse Ox O2 Del Method O2 Flow Rate 97.8 F 82 20 101/48 L 97 Room Air 94 07/03/25 07:00 07/03/25 13:27 07/03/25 07:00 07/03/25 13:27 07/03/25 14:00 07/03/25 14:00 07/03/25 03:00 Laboratory Results - last 24 hr 07/02/25 15:24: WBC 28.5 H* D, RBC 3.48 L D, Hgb 10.7 L D, Hct 33.9 L, MCV 97.4 H, MCH 30.7, MCHC 31.6 L, RDW 15.4, Plt Count 240, MPV 11.2 H, Neut % (Auto) 66.3, Lymph % (Auto) 27.7, [place] % (Auto) 3.8, Eos % (Auto) 0.1, Baso % (Auto) 0.5, Neut # (Auto) 18.9 H, Lymph # (Auto) 7.9 H, [place] # (Auto) 1.1 H, Eos # (Auto) 0.0, Baso # (Auto) 0.1, Total Counted 100, Neutrophils % (Manual) 80 H, Lymphocytes % (Manual) 19, Monocytes % (Manual) 1 L, Platelet Estimate Normal, RBC Morphology Normal, Blood Type B Positive, Antibody Screen Negative, Crossmatch ([facility]) See Detail 07/02/25 16:10: Blood Type Confirm B Positive 07/02/25 19:45: Hgb 13.3 L D, Hct 40.7 L 07/03/25 05:30: WBC 24.0 H*, RBC 3.95 L, Hgb 11.8 L D, Hct 36.8 L, MCV 93.2, MCH 29.1, MCHC 31.3 L, RDW 16.3, Plt Count 184, MPV 12.0 H, Neut % (Auto) 70.2, Lymph % (Auto) 21.7, [place] % (Auto) 6.3, Eos % (Auto) 0.0 L, Baso % (Auto) 0.3, Neut # (Auto) 16.8 H, Lymph # (Auto) 5.2 H, [place] # (Auto) 1.5 H, Eos # (Auto) 0.0, Baso # (Auto) 0.1, Total Counted 100, Neutrophils % (Manual) 80 H, Lymphocytes % (Manual) 20, Platelet Estimate Normal, RBC Morphology Normal, Sodium 142, Potassium 5.9 H D, Chloride 115 H, Carbon Dioxide 15 L, Anion Gap 17.9 H, BUN 28 H D, Creatinine 2.30 H D, Estimated Creat Clear 33, Estimated GFR 28 L, Est GFR ( Amer) 34 L D, Glucose 168 H, Calcium 8.1 L, Magnesium 2.2, Total Bilirubin 0.7, AST 33, ALT 19, Alkaline Phosphatase 56, Total Protein 5.5 L, Albumin 3.3 L, Globulin 2.2, Albumin/Globulin Ratio 1.5 I & O for Last 24 hours: Intake & Output 06/30/25 07/01/25 07/02/25 07/03/25 23:59 23:59 23:59 23:59 Intake Total 1000 / 1000 490 / 490 Output Total 700 / 700 Balance 1000 / 1000 -210 / -210 Weight 162 lb 171 lb 15.369 oz Constitutional Constitutional: no acute distress and average body habitus *Routine HEENT Exam Head: Present normocephalic and atraumatic ENT: Present mucous membranes moist *Routine Neck Exam Neck: Present supple, full ROM and normal carotid upstroke; Absent JVD, carotid bruit or lymphadenopathy *Routine Respiratory Exam Respiratory: Present CTA bilaterally, normal respiratory effort, able to speak in complete sentences and symmetric chest movement *Routine Cardiovascular Exam Cardiovascular: Present RRR, Normal S1 and Normal S2; Absent murmur or gallop *Routine Abdominal Exam Abdominal: Present soft and normoactive bowel sounds; Absent tenderness, distended or organomegaly *Routine Extremities Exam Extremities: Present full ROM, pulses intact and normal capillary refill; Absent cyanosis, clubbing or edema *Routine Skin Exam Skin: Present intact and warm; Absent erythema *Routine Neurological Exam Neurological: Present alert, oriented X3 and CN II-XII intact; Absent sensory deficit or motor deficit Routine Psychiatric Exam Psychiatric: Present normal affect Meds Home Medications and Allergies Home Medications ?Medication ?Instructions ?Recorded ?Confirmed ?Type blood-glucose meter (Blood Glucose #1 ea 05/21/22 07/02/25 Rx Monitoring kit) lancets 28 gauge (FreeStyle #100 ea 02/21/24 07/02/25 Rx Lancets) blood sugar diagnostic (FreeStyle 03/10/24 07/02/25 History Lite Strips) canagliflozin 300 mg tablet 300 mg PO DAILY 03/10/24 07/02/25 History (Invokana) glipizide 2.5 mg tablet, extended 7.5 mg PO DAILY 03/10/24 07/02/25 History release 24 hr allopurinol 300 mg tablet 300 mg PO DAILY #60 tabs 09/17/24 07/02/25 Rx aspirin 81 mg tablet,delayed 81 mg PO DAILY #90 tabs 11/02/24 07/02/25 Rx release pentoxifylline 400 mg 400 mg PO TID 01/31/25 07/02/25 History tablet,extended release simvastatin 20 mg tablet 20 mg PO HS 10/29/25 12/09/25 History sitagliptin phosphate 50 mg tablet 50 mg PO DAILY 05/22/25 07/02/25 History (Januvia) levothyroxine 75 mcg tablet 75 mcg PO DAILY 05/23/25 07/02/25 History metoprolol succinate 100 mg 200 mg PO DAILY 05/23/25 07/02/25 History tablet,extended release 24 hr levothyroxine 50 mcg tablet 50 mcg PO DAILY 05/25/25 07/02/25 History amlodipine 5 mg tablet 5 mg PO DAILY #30 tabs 05/28/25 07/02/25 Rx clonidine HCl 0.2 mg tablet 0.1 mg (1/2 x 0.2 mg) PO BID SBP > 05/28/25 07/02/25 Rx 160 30 days #0 tabs pantoprazole 40 mg tablet,delayed 40 mg PO DAILY #30 tabs 05/28/25 07/02/25 Rx release (Protonix) rivaroxaban 2.5 mg tablet 2.5 mg PO BID 30 days #60 tabs 05/28/25 07/02/25 Rx clopidogrel 75 mg tablet (Plavix) 75 mg PO DAILY 30 days #30 tabs 06/17/25 07/02/25 Rx New Prescriptions to Start Prescriptions: Allergies Allergy/AdvReac Type Severity Reaction Status Date / Time atorvastatin (From Lipitor) Allergy Mild Hallucinati Verified 06/12/25 13:17 ng Assessment and Plan *Assessment and plan (1) Retroperitoneal bleed: Status: Acute Category: Medical Code(s): K68.3 - Retroperitoneal hematoma (2) Hypotension: Status: Acute Qualifiers: Hypotension type: postprocedural hypotension Qualified Code(s): I95.81 - Postprocedural hypotension Category: Medical Code(s): I95.9 - Hypotension, unspecified (3) Acute blood loss anemia: Status: Acute Category: Medical Code(s): D62 - Acute posthemorrhagic anemia (4) Renal artery stenosis: Status: Acute Category: Medical Code(s): I70.1 - Atherosclerosis of renal artery (5) CAD (coronary artery disease): Status: Chronic Qualifiers: Coronary Disease-Associated Artery/Lesion type: [place] artery [place] vs. transplanted heart: [place] heart Associated angina: with unspecified angina Qualified Code(s): I25.119 - Atherosclerotic heart disease of [place] coronary artery with unspecified angina pectoris Category: Medical Code(s): I25.10 - Atherosclerotic heart disease of [place] coronary artery without angina pectoris (6) Atrial fibrillation: Status: Chronic Qualifiers: Atrial fibrillation type: unspecified Qualified Code(s): I48.91 - Unspecified atrial fibrillation Category: Medical Code(s): I48.91 - Unspecified atrial fibrillation (7) HLD (hyperlipidemia): Status: Chronic Qualifiers: Hyperlipidemia type: other hyperlipidemia Qualified Code(s): E78.4 - Other hyperlipidemia Category: Medical Code(s): E78.5 - Hyperlipidemia, unspecified (8) HTN (hypertension): Status: Chronic Qualifiers: Hypertension type: essential hypertension Qualified Code(s): I10 - Essential (primary) hypertension Category: Medical Code(s): I10 - Essential (primary) hypertension (9) Pulmonary HTN: Status: Chronic Category: Medical Code(s): I27.20 - Pulmonary hypertension, unspecified Plan Plan: 1. The patient is status post bilateral renal artery stenting. Following procedure he had some left flank pain and had a CT of the abdomen which showed a large subscapular hematoma compressing the left kidney with perinephric stranding and a large retroperitoneal hematoma. The patient had repeat angiogram of the renals which showed no bleed. It is presumed that he likely had a bleed around the kidney following stenting that has already resolved. He was kept overnight for further observation. 2. Repeat CTA of the abdomen this morning shows Retroperitoneal component of the hematoma looks larger, subcapsular hematoma appears the same. Will repeat CTA of the abdomen/pelvis without contrast in the morning. 3. The patient renal function is up to 2.23. His baseline is around 1.5. Will continue to follow his renal function. 4. White count is elevated. He does have new consolidation in his left base. Will defer this to the hospitalist. 5. Coronary artery disease is likely stable. No plans for invasive left cardiac catheterization at this time. Continue Plavix and aspirin. 6. His blood pressure is well-controlled today. Continue metoprolol and amlodipine. 7. He is status post bilateral renal artery stenting. Continue Plavix and aspirin. 8. His LDL goal is less than 55. He is on a statin. Will get a lipid panel in the morning. 9. Known paroxysmal atrial fibrillation. He remains in sinus rhythm. 10. Further recommendations will be made pending the patient's response to treatment. Thank you for the opportunity to help participate in the care of this patient. All recommendations and orders are per Dr. Carlson.
[2025-07-03 14:33] LABS: Hematocrit 35.1 % (42.0-52.0); Hemoglobin 11.3 g/dL (14.1-18.0)
[2025-07-03 16:06] LABS: Anion Gap 17.6 mEq/L (5-15); Blood Urea Nitrogen 31 mg/dl (9-20); Calcium 8.9 mg/dl (8.4-10.2); Carbon Dioxide 15 mmol/L (22.0-30.0); Chloride 112 mmol/L (98-107); Creatinine Clearance Estimated 29 mL/min (50-200); Creatinine,Serum 2.60 mg/dl (0.66-1.25); Estimated Glomerular Filt Rate 24 ml/min (>60); GFR (African American) 30 ML/MIN (>60); Glucose 180 mg/dl (74-100); Potassium 5.6 mmoL/L (3.5-5.1); Sodium 139 mmol/L (136-145)
[2025-07-03 23:27] LABS: POC Glucose,Bedside 133 gm/dL (70-110)
[2025-07-04] VITALS (8 sets, daily range): BP systolic 113–151; BP diastolic 56–86; PULSE 90–103; RESP 17–24; TEMP 36.7–37.8; O2SAT 96–99; BMI 28.0; BMI 29.7
[2025-07-04] MEDS: NICOTINE 21MG/24HR PATCH 21 MG TD (02:49)
--- NOTE | 2025-07-04 03:18 | PC.NURSE ---
Pt midline was assessed at approximately 2000 on 07/03. Midline flushed with no complications. Dressing was clean, dry, and intact. Pt pulled midline out at approximately 0245. Pressure applied, pt does not complain of shortness of breath. Pt was trying to get up to get his tobacco and pulled midline, AC IV, and monitor leads off.
[2025-07-04] MEDS: ACETAMINOPHEN 325MG TAB 650 MG PO (04:37)
--- NOTE | 2025-07-04 06:00 | CT_ITS ---
FINAL REPORT TECHNIQUE: Axial images through the abdomen and pelvis were performed without contrast. This study was performed with techniques to keep radiation doses as low as reasonably achievable, (ALARA). Individualized dose reduction techniques using automated exposure control or adjustment of mA and/or kV according to the patient's size were employed. CLINICAL HISTORY: retroperitoneal hematoma COMPARISON: 07/03/2025 FINDINGS: Abdomen: There is dense left lower lobe consolidation and small bilateral effusions, left greater than right. The right effusion is increased over previous. There are calcified granulomas in the liver and spleen. The pancreas and adrenals appear unremarkable. There is vicarious excretion of contrast in the gallbladder. Again identified is a large left subcapsular hematoma of the left kidney. The subcapsular component now measures up to 3.0 cm in transverse dimension, increased over previous. There is stranding throughout the perinephric fat. Hematoma is present anterior to the right psoas muscle measuring up to 4.7 x 6.0 cm in AP and transverse dimensions. This is best seen on image 77. Stranding extends into the pelvis. There are benign-appearing cyst in both kidneys. Cyst on the left measures up to 4.5 x 4.0 cm. Pelvis: The urinary bladder is decompressed. The appendix is not visualized. There is no pelvic mass or inflammation. IMPRESSION: Subcapsular component of the left perinephric hematoma has increased in size. The component at the anterior margin of the psoas is stable. Right pleural effusion has increased in size. Reviewed, Interpreted and Dictated by Vaibhav Raines MD Transcribed by Otilia Shaw Authenticated and [facility]
[2025-07-04 06:01] LABS: POC Glucose,Bedside 149 gm/dL (70-110)
[2025-07-04 06:48] LABS: Hematocrit 30.2 % (42.0-52.0); Immature Granulocytes % 1.1 %; Mean Corpuscular HGB Conc 31.1 g/dL (31.8-35.4); Mean Corpuscular Hemoglobin 29.5 pg (27.0-31.2); Mean Corpuscular Volume 94.7 fl (80-94); Nucleated Red Blood Cells % 0 %; Platelet Count 147 K/mm3 (142-424); Red Blood Count 3.19 M/mm3 (4.60-6.20); Red Cell Distribution Width-SD 56.4 fL; White Blood Count 16.8 K/mm3 (4.8-10.8)
[2025-07-04 06:59] LABS: Albumin Level 3.4 g/dl (3.5-5.0); Chloride 112 mmol/L (98-107); Potassium 4.9 mmoL/L (3.5-5.1); Sodium 142 mmol/L (136-145)
[2025-07-04 07:02] LABS: Alanine Aminotransferase 20 U/L (12-78); Albumin/Globulin Ratio 1.4 (1.1-1.8); Alkaline Phosphatase 70 U/L (38-126); Anion Gap 18.9 mEq/L (5-15); Aspartate Amino Transferase 45 U/L (17-59); Bilirubin,Total 0.7 mg/dl (0.2-1.3); Blood Urea Nitrogen 31 mg/dl (9-20); Calcium 8.8 mg/dl (8.4-10.2); Carbon Dioxide 16 mmol/L (22.0-30.0); Creatinine Clearance Estimated 28 mL/min (50-200); Creatinine,Serum 2.70 mg/dl (0.66-1.25); Estimated Glomerular Filt Rate 23 ml/min (>60); GFR (African American) 28 ML/MIN (>60); Globulin 2.5 g/dL (1.3-3.2); Glucose 122 mg/dl (74-100); Magnesium 2.3 mg/dl (1.6-2.3); Total Protein,Serum 5.9 g/dl (6.3-8.2)
[2025-07-04 07:13] LABS: HDL Cholesterol 26 mg/dl (40-60)
[2025-07-04 07:24] LABS: Hemoglobin 9.5 g/dL (14.1-18.0)
[2025-07-04 07:52] LABS: Cholesterol 120 mg/dl (140-200); Triglycerides 340 mg/dl (30-150)
[2025-07-04] MEDS: ASPIRIN EC 81MG TABLET 81 MG PO (08:43)
[2025-07-04] MEDS: ALLOPURINOL 300MG TABLET 300 MG PO (08:44)
[2025-07-04] MEDS: LEVOTHYROXINE 75MCG (0.075MG) TAB 75 MCG PO (08:44)
[2025-07-04] MEDS: CLOPIDOGREL 75MG TAB 75 MG PO (08:44)
[2025-07-04] MEDS: PANTOPRAZOLE 40MG VIAL 40 MG IV (08:44)
[2025-07-04] MEDS: LOKELMA 5GM PACKET 10 GM PO (10:56)
[2025-07-04 11:23] LABS: POC Glucose,Bedside 177 gm/dL (70-110)
--- NOTE | 2025-07-04 11:51 | EXP.CARD.PN ---
Subjective Subjective Date: 07/04/25 Time: 10:30 Principal diagnosis: Bilateral renal stenting, large left-sided retroperitoneal hematoma Interval history: This is a 69-year-old gentleman who was admitted to the hospital following bilateral renal artery stenting. The patient started having flank pain and had a CT that showed a large left-sided retroperitoneal hematoma with subcapsular hematoma and compression of the left kidney. He was taken back to the [employer] [facility] and this did not show any extravasation of contrast. Patient is believed to have some leaking from the renal artery after stent placement that had already resolved. The patient was kept overnight for further evaluation to make sure he remained hemodynamically stable and had no further bleeding. The patient's renal function further elevated with a creatinine of 2.7 today. His baseline is 1.5. His hemoglobin is down to 9.5 today as well which he initially started with a normal hemoglobin at 16.4. Repeat CT of the abdomen shows that the subcapsular component of the hematoma has increased in size and a right pleural effusion has increased as well. He is slightly tachycardic this morning. He denies any chest pain or pressure. He denies any shortness of breath or edema. He denies any fever, chills, nausea, vomiting or diarrhea. He denies flank pain today. Exam Data for Last 24 hours Vital signs and Labs for Last 24 Hours: Temp Pulse Resp BP Pulse Ox O2 Del Method O2 Flow Rate 98.1 F 102 H 24 132/86 97 Room Air 94 07/04/25 08:30 07/04/25 08:30 07/04/25 05:00 07/04/25 08:30 07/04/25 08:30 07/04/25 11:00 07/03/25 03:00 Laboratory Results - last 24 hr 07/02/25 15:24: Blood Type B Positive, Antibody Screen Negative, Crossmatch ([facility]) See Detail 07/03/25 14:12: Hgb 11.3 L, Hct 35.1 L, Sodium 139, Potassium 5.6 H, Chloride 112 H, Carbon Dioxide 15 L, Anion Gap 17.6 H, BUN 31 H, Creatinine 2.60 H, Estimated Creat Clear 29, Estimated GFR 24 L, Est GFR ( Amer) 30 L, Glucose 180 H, Calcium 8.9 07/03/25 23:20: POC Glucose 133 H 07/04/25 04:51: WBC 16.8 H D, RBC 3.19 L, Hgb 9.5 L D, Hct 30.2 L, MCV 94.7 H, MCH 29.5, MCHC 31.1 L, RDW 16.5, Plt Count 147, MPV 11.9 H, Neut % (Auto) 66.0, Lymph % (Auto) 23.8, [place] % (Auto) 8.1, Eos % (Auto) 0.7, Baso % (Auto) 0.3, Neut # (Auto) 11.1 H, Lymph # (Auto) 4.0, [place] # (Auto) 1.4 H, Eos # (Auto) 0.1, Baso # (Auto) 0.1, Sodium 142, Potassium 4.9, Chloride 112 H, Carbon Dioxide 16 L, Anion Gap 18.9 H, BUN 31 H, Creatinine 2.70 H, Estimated Creat Clear 28, Estimated GFR 23 L, Est GFR ( Amer) 28 L, Glucose 122 H D, Calcium 8.8, Magnesium 2.3, Total Bilirubin 0.7, AST 45 D, ALT 20, Alkaline Phosphatase 70, Total Protein 5.9 L, Albumin 3.4 L, Globulin 2.5, Albumin/Globulin Ratio 1.4, Triglycerides 340 H, Cholesterol 120 L, LDL Cholesterol Direct 56.95 L, VLDL Cholesterol 68 H, HDL Cholesterol 26 L, Cholesterol/HDL Ratio 4.6 H 07/04/25 05:54: POC Glucose 149 H 07/04/25 11:17: POC Glucose 177 H I & O for Last 24 hours: Intake & Output 07/01/25 07/02/25 07/03/25 07/04/25 23:59 23:59 23:59 23:59 Intake Total 1000 / 1000 710 / 950 358 / 358 Output Total 975 / 975 500 / 500 Balance 1000 / 1000 -265 / -25 -142 / -142 Weight 162 lb 171 lb 15.369 oz 173 lb Constitutional Constitutional: no acute distress and average body habitus *Routine HEENT Exam Head: Present normocephalic and atraumatic ENT: Present mucous membranes moist *Routine Neck Exam Neck: Present supple, full ROM and normal carotid upstroke; Absent JVD, carotid bruit or lymphadenopathy *Routine Respiratory Exam Respiratory: Present CTA bilaterally, normal respiratory effort, able to speak in complete sentences and symmetric chest movement *Routine Cardiovascular Exam Cardiovascular: Present RRR, Normal S1, Normal S2 and tachycardia; Absent murmur or gallop *Routine Abdominal Exam Abdominal: Present soft and normoactive bowel sounds; Absent tenderness, distended or organomegaly *Routine Extremities Exam Extremities: Present full ROM, pulses intact and normal capillary refill; Absent cyanosis, clubbing or edema *Routine Skin Exam Skin: Present intact and warm; Absent erythema *Routine Neurological Exam Neurological: Present alert, oriented X3 and CN II-XII intact; Absent sensory deficit or motor deficit Routine Psychiatric Exam Psychiatric: Present normal affect Progress Note: A&P Assessment and plan (1) Retroperitoneal bleed: Status: Acute (2) Pleural effusion, right: Status: Acute (3) Acute blood loss anemia: Status: Acute (4) Sinus tachycardia: Status: Acute (5) DAYSI (acute kidney injury): Status: Acute (6) Renal artery stenosis: Status: Acute (7) Arterial insufficiency with ischemic ulcer: Status: Acute (8) Diabetic peripheral neuropathy associated with type 2 diabetes mellitus: Status: Acute (9) CAD (coronary artery disease): Status: Chronic (10) HTN (hypertension): Status: Chronic (11) HLD (hyperlipidemia): Status: Chronic Assessment and Plan Assessment and Plan for All Diagnoses:: Plan: 1. The patient is status post bilateral renal artery stenting. Following procedure he had some left flank pain and had a CT of the abdomen which showed a large subscapular hematoma compressing the left kidney with perinephric stranding and a large retroperitoneal hematoma. The patient had repeat angiogram of the renals which showed no bleed. It is presumed that he likely had a bleed around the kidney following stenting that has already resolved. He was kept overnight for further observation. 2. Repeat CT of the abdomen/pelvis this morning shows that the subcapsular component of the hematoma has increased inside. There is also an increased right-sided pleural effusion. The patient needs to remain hospitalized to continue to follow this bleed. He is currently asymptomatic. 3. The patient renal function is up to 2.7. His baseline is around 1.5. Will continue to follow his renal function. 4. White count is elevated. He does have new consolidation in his left base. Will defer this to the hospitalist. 5. Coronary artery disease is likely stable. No plans for invasive left cardiac catheterization at this time. Continue Plavix and aspirin. 6. His blood pressure is well-controlled today. Continue metoprolol and amlodipine. 7. He is status post bilateral renal artery stenting. Continue Plavix and aspirin. 8. His LDL goal is less than 55. He is on a statin. His LDL is 56. 9. Known paroxysmal atrial fibrillation. He remains in sinus rhythm. 10. The patient has worsening in his anemia today. His hemoglobin is down to 9.5. Prior to the procedure his hemoglobin was normal at 16. Will continue to follow. 11. The patient is slightly tachycardic today. Will continue to follow his heart rate. 12. The patient should remain hospitalized to continue to follow the subscapular hematoma that is increasing in size and his renal function as well as his anemia. Further recommendations will be made pending the patient's response to treatment. Thank you for the opportunity to help participate in the care of this patient. All recommendations and orders are per Dr. Carlson. Addendum: The patient is adamant that he wants to leave today despite his worsening retroperitoneal hematoma and subscapular hematoma, worsening kidney function, worsening anemia and tachycardia. We have had a long discussion with the patient about the risks of him leaving AGAINST MEDICAL ADVICE. The patient verbalizes understanding and states that he is leaving anyway despite those risks including . The patient is advised to come back to the emergency department with any change or worsening in symptoms. He verbalizes understanding. The patient can follow-up in cardiology clinic tomorrow with a CBC and BMP if he does decide to leave AMA today.
[2025-07-04 12:32] LABS: Hematocrit 29.5 % (42.0-52.0); Hemoglobin 9.5 g/dL (14.1-18.0)
--- NOTE | 2025-07-04 14:34 | PC.NURSE ---
1434 pt transported off of unit via wheelchair by matthew tillman and mundo shields
--- NOTE | 2025-07-04 15:10 | PC.NURSE ---
1330 pt s/o approached staff and stated that pt was dressed and wanting to leave. This RN went in to talk to pt and notify him that his blood work had returned and that the Doctor would be over to talk to him. pt was adamant that he was leaving. pt was asked to have a seat and give staff a chance to speak to MD and that pt still had an IV in place that staff needed to removed. This RN called and spoke with Dr Farias. md was in a meeting at that time and would be over within 15-20 mins to talk to pt. 1335 returned to pt room to update pt. pt had just removed his iv as it was lying on the table. pt was difficult to redirect and remind that md would be coming to room to speak with pt. conversation with pt was repeated numerous times, but pt was unable/unwilling to retain information. 1340 video manager at bedside with pt and RN at this time and attempting to reorient/update pt. 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 1400 Dr Farias at bedside speaking with pt. 1410 Dr Carlson and emily mooney at bedside as well at this time. Dr Carlson states that he does not wish to DC pt at this time as he requires more monitoring. pt is still insistant that he be discharged. pt was given AMA form and was educated by Corey Montiel and Dr Farias about AMA. medication list updated by and provided to pt and s/o prior to leaving AMA. med list signed by patient. list again gone over with s/o by corey tillman rn pt off unit at 1434
--- NOTE | 2025-07-04 17:26 | EXP.DC.SUM ---
General Admission date:: 07/03/25 Discharge date: 07/04/25 HPI HPI HPI: Mr. Kamara is a 69-year-old male with significant history of vascular disease including CAD, peripheral artery disease in his subclavian's bilaterally and lower extremities. Recent intervention with stenting of iliacs and subclavian's. Noted to have bilateral renal artery stenosis at that time. Brought back today for staged procedure with stenting of bilateral renal arteries. Monitored after his procedure. Noted to have some back pain. Pain predominant on the left side. CT obtained showing large left-sided retroperitoneal hematoma with subcapsular hematoma and compression of left kidney. Repeat intervention performed did not show any extravasation of contrast. Patient believed to have some leaking from renal artery after stent placement that has resolved. Needs monitoring overnight however due to risk for pressure variation and further bleeding. Hemoglobin of 16 on arrival this morning. Repeat H&H pending. Discussed case with cardiology, request admission for inpatient management. Admitted to ICU for further treatment. Hospital Course Hospital Course Hospital Course: Jonelle Kamara is a 69-year-old male with a medical history significant for CAD, type 2 diabetes, hypertension, PAD who presented for elective renal artery stenosis stenting and angiogram today. Procedure complicated by retroperitoneal bleed on left side with development of anemia and subcapsular hematoma. Discussed case cardiology, request admission for monitoring overnight and consideration for transfusion if necessary along with treatment of hypo or hypertension. I agreed to admit to the ICU for further care. Showing improvement after transfusion with stabilization of blood pressure. Hemoglobin continued to drop however on serial labs daily. Serial imaging showed slight increase daily of retroperitoneal hematoma and subcapsular hematoma. Patient was encouraged to stay for further monitoring and serial labs due to potential need for further transfusion. He did not want to stay for further care. Explained risks of leaving AGAINST MEDICAL ADVICE and benefits of staying for monitoring. Patient was adamant about leaving. Significant other at bedside present for all discussions. Ultimately patient left AGAINST MEDICAL ADVICE. High risk for decompensation. Problems addressed as follows: Peritoneal hemorrhage Bilateral renal artery stenosis status post stenting Subcapsular hematoma of left kidney Acute blood loss anemia Hemorrhagic shock, responded to blood transfusion and aggressive fluid resuscitation DAYSI Hyperkalemia - Patient's initial hemoglobin was 16. Repeat H&H after identification of retroperitoneal bleed/subcapsular hematoma on left side, hemoglobin found to be 10. Due to significant volume loss and hypotension with systolics of 60-70 in spite of receiving 2 L IV fluids, patient transfused 2 units packed red blood cells. Responded with improvement to 13. Hemoglobin down to 11.7 on morning of 07/03. Decreased to 9.5 on morning of 07/04.Repeat level was obtained at noon prior to patient leaving his medical advice but still low at 9.5. CT from morning of discharge showed increase in size of subcapsular hematoma. Retroperitoneal hematoma appeared stable on today's imaging but was increased in size on yesterday's imaging. Strong concern that he needs further monitoring with serial labs and potential further transfusion. Blood pressure stable on morning of the but heart rate increasing to 90-110. Kidney function abnormal. Baseline creatinine approximately 1.6. Increased to 2.7 by day of discharge. Suspect secondary to compressive effect from subcapsular hematoma causing kidney injury and poor perfusion. Recommend holding his blood pressure meds but continue DAPT therapy in the setting of stenting of renal artery. Needs further labs, even though we agree to disagree on discharge and patient is electing to leave under patient directed discharge, ordered BMP and CBC for the morning, patient counseled on necessity to come back for monitoring due to risk of further decompensation. Given significant warning about discharging but also given encouragement to return to the ER if develops any new symptoms such as weakness, fatigue, syncope or increased flank pain. - Potassium improved from 5.9-4.9 with treatment -Transfusion threshold hemoglobin less than 9 or symptomatic anemia in the setting of large-volume blood loss - Cardiology assisted with care during management assisted in counseling on risks of leaving. #Severe PAD #History of CAD #Left lower extremity arterial insufficiency ulcers ?Recently admitted with stenting to severe PAD in his lower extremities. Successful reconstruction of bilateral iliacs and bilateral stenting of bilateral subclavian. Continue aspirin 81 mg, plavix 75mg daily; holding Xarelto Pill induced esophagitis; identified on recent admission with endoscopy. Continue pantoprazole 40 mg twice daily #Type 2 diabetes: Hemoglobin A1c 7.0% on 05/23. LDSSI, ACHS glucose checks. #Hypertension: Holding blood pressure meds in the setting of hypotension. Will consider resuming tomorrow if blood pressure normalizes. #Hypothyroidism: Continue home levothyroxine 75 mcg. TSH 2.1 in April Patient left under patient directed discharge. Extensive discussion by both myself and cardiology about risks of leaving given his drop in hemoglobin and change in size of subcapsular hematoma and retroperitoneal hematoma on imaging. Patient adamant he wanted to go home. States he has things he needs to take care of . Explained that he risked further injury or at this time and needs close monitoring. Was able to convince patient to at least come back tomorrow for repeat labs to monitor hemoglobin. He elected to leave AGAINST MEDICAL ADVICE. Exam Data for Last 24 hours Vital signs and Labs for Last 24 Hours: Temp Pulse Resp BP Pulse Ox O2 Del Method O2 Flow Rate 98.2 F 100 H 17 151/85 H 96 Room Air 94 07/04/25 12:00 07/04/25 12:00 07/04/25 12:00 07/04/25 12:00 07/04/25 12:00 07/04/25 13:30 07/03/25 03:00 Laboratory Results - last 24 hr 07/02/25 15:24: Blood Type B Positive, Antibody Screen Negative, Crossmatch ([facility]) See Detail 07/03/25 23:20: POC Glucose 133 H 07/04/25 04:51: WBC 16.8 H D, RBC 3.19 L, Hgb 9.5 L D, Hct 30.2 L, MCV 94.7 H, MCH 29.5, MCHC 31.1 L, RDW 16.5, Plt Count 147, MPV 11.9 H, Neut % (Auto) 66.0, Lymph % (Auto) 23.8, [place] % (Auto) 8.1, Eos % (Auto) 0.7, Baso % (Auto) 0.3, Neut # (Auto) 11.1 H, Lymph # (Auto) 4.0, [place] # (Auto) 1.4 H, Eos # (Auto) 0.1, Baso # (Auto) 0.1, Sodium 142, Potassium 4.9, Chloride 112 H, Carbon Dioxide 16 L, Anion Gap 18.9 H, BUN 31 H, Creatinine 2.70 H, Estimated Creat Clear 28, Estimated GFR 23 L, Est GFR ( Amer) 28 L, Glucose 122 H D, Calcium 8.8, Magnesium 2.3, Total Bilirubin 0.7, AST 45 D, ALT 20, Alkaline Phosphatase 70, Total Protein 5.9 L, Albumin 3.4 L, Globulin 2.5, Albumin/Globulin Ratio 1.4, Triglycerides 340 H, Cholesterol 120 L, LDL Cholesterol Direct 56.95 L, VLDL Cholesterol 68 H, HDL Cholesterol 26 L, Cholesterol/HDL Ratio 4.6 H 07/04/25 05:54: POC Glucose 149 H 07/04/25 11:17: POC Glucose 177 H 07/04/25 12:18: Hgb 9.5 L, Hct 29.5 L I & O for Last 24 hours: Intake & Output 07/01/25 07/02/25 07/03/25 07/04/25 23:59 23:59 23:59 23:59 Intake Total 1000 / 1000 710 / 950 358 / 358 Output Total 975 / 975 500 / 500 Balance 1000 / 1000 -265 / -25 -142 / -142 Weight 73.482 kg 78 kg 78.471 kg Constitutional Constitutional: no acute distress and chronically ill appearing *Routine HEENT Exam Head: Present normocephalic ENT: Present mucous membranes moist *Routine Neck Exam Neck: Present supple *Routine Respiratory Exam Respiratory: Present decreased breath sounds; Absent rales, rhonchi or wheezes *Routine Cardiovascular Exam Cardiovascular: Present RRR; Absent murmur, gallop or rubs *Routine Abdominal Exam Abdominal: Present soft, normoactive bowel sounds and tenderness (Mild but improved in left abdomen); Absent distended Comments: No bruising of flank *Routine Rectal Exam Patient deferred: visual exam *Routine Exam Patient deferred: penile exam *Routine Extremities Exam Extremities: Absent cyanosis or edema Comments: Arterial insufficiency ulcers of left leg with scabbing x 2 *Routine Skin Exam Skin: Present wounds *Routine Neurological Exam Neurological: Present alert and moving all extremities; Absent altered mental status Comments: Oriented to self and place. Will sometimes answer questions and appropriately and then catch himself and correct himself. Results Data Completed and Pending Labs on day of discharge: Labs from last 24 hours 07/04/25 07/04/25 07/04/25 12:18 11:17 05:54 WBC RBC Hgb 9.5 L Hct 29.5 L MCV MCH MCHC RDW Plt Count MPV Neut % (Auto) Lymph % (Auto) [place] % (Auto) Eos % (Auto) Baso % (Auto) Neut # (Auto) Lymph # (Auto) [place] # (Auto) Eos # (Auto) Baso # (Auto) Sodium Potassium Chloride Carbon Dioxide Anion Gap BUN Creatinine Estimated Creat Clear Estimated GFR Est GFR ( Amer) Glucose POC Glucose 177 H 149 H Calcium Magnesium Total Bilirubin AST ALT Alkaline Phosphatase Total Protein Albumin Globulin Albumin/Globulin Ratio Triglycerides Cholesterol LDL Cholesterol Direct VLDL Cholesterol HDL Cholesterol Cholesterol/HDL Ratio Blood Type Antibody Screen Crossmatch ([facility]) 07/04/25 07/03/25 07/02/25 04:51 23:20 15:24 WBC 16.8 H D RBC 3.19 L Hgb 9.5 L D Hct 30.2 L MCV 94.7 H MCH 29.5 MCHC 31.1 L RDW 16.5 Plt Count 147 MPV 11.9 H Neut % (Auto) 66.0 Lymph % (Auto) 23.8 [place] % (Auto) 8.1 Eos % (Auto) 0.7 Baso % (Auto) 0.3 Neut # (Auto) 11.1 H Lymph # (Auto) 4.0 [place] # (Auto) 1.4 H Eos # (Auto) 0.1 Baso # (Auto) 0.1 Sodium 142 Potassium 4.9 Chloride 112 H Carbon Dioxide 16 L Anion Gap 18.9 H BUN 31 H Creatinine 2.70 H Estimated Creat Clear 28 Estimated GFR 23 L Est GFR ( Amer) 28 L Glucose 122 H D POC Glucose 133 H Calcium 8.8 Magnesium 2.3 Total Bilirubin 0.7 AST 45 D ALT 20 Alkaline Phosphatase 70 Total Protein 5.9 L Albumin 3.4 L Globulin 2.5 Albumin/Globulin Ratio 1.4 Triglycerides 340 H Cholesterol 120 L LDL Cholesterol Direct 56.95 L VLDL Cholesterol 68 H HDL Cholesterol 26 L Cholesterol/HDL Ratio 4.6 H Blood Type B Positive Antibody Screen Negative Crossmatch ([facility]) See Detail DS: Diagnosis Discharge Diagnosis (1) Retroperitoneal bleed: Status: Acute Code(s): K68.3 - Retroperitoneal hematoma (2) Pleural effusion, right: Status: Acute Code(s): J90 - Pleural effusion, not elsewhere classified (3) Acute blood loss anemia: Status: Acute Code(s): D62 - Acute posthemorrhagic anemia (4) Sinus tachycardia: Status: Acute Code(s): R00.0 - Tachycardia, unspecified (5) DAYSI (acute kidney injury): Status: Acute Code(s): N17.9 - Acute kidney failure, unspecified (6) Renal artery stenosis: Status: Acute Code(s): I70.1 - Atherosclerosis of renal artery (7) Arterial insufficiency with ischemic ulcer: Status: Acute Code(s): I77.1 - Stricture of artery; L98.499 - Non-pressure chronic ulcer of skin of other sites with unspecified severity (8) Diabetic peripheral neuropathy associated with type 2 diabetes mellitus: Status: Acute Code(s): E11.42 - Type 2 diabetes mellitus with diabetic polyneuropathy (9) CAD (coronary artery disease): Status: Chronic Code(s): I25.10 - Atherosclerotic heart disease of [place] coronary artery without angina pectoris Qualifiers: Coronary Disease-Associated Artery/Lesion type: [place] artery [place] vs. transplanted heart: [place] heart Associated angina: with unspecified angina Qualified Code(s): I25.119 - Atherosclerotic heart disease of [place] coronary artery with unspecified angina pectoris (10) HTN (hypertension): Status: Chronic Code(s): I10 - Essential (primary) hypertension Qualifiers: Hypertension type: essential hypertension Qualified Code(s): I10 - Essential (primary) hypertension (11) HLD (hyperlipidemia): Status: Chronic Code(s): E78.5 - Hyperlipidemia, unspecified Qualifiers: Hyperlipidemia type: other hyperlipidemia Qualified Code(s): E78.4 - Other hyperlipidemia (12) Postoperative hemorrhagic shock: Status: Acute Code(s): T81.19XA - Other postprocedural shock, initial encounter Meds Home Medications and Allergies Home Medications ?Medication ?Instructions ?Recorded ?Confirmed ?Type canagliflozin 300 mg tablet 300 mg PO DAILY 03/10/24 07/02/25 History (Invokana) Held on 07/04/25. Instructions: due to hypotension, until follow-up with Cardiology glipizide 2.5 mg tablet, extended 7.5 mg PO DAILY 03/10/24 07/02/25 History release 24 hr allopurinol 300 mg tablet 300 mg PO DAILY #60 tabs 09/17/24 07/02/25 Rx aspirin 81 mg tablet,delayed 81 mg PO DAILY #90 tabs 11/02/24 07/02/25 Rx release pentoxifylline 400 mg 400 mg PO TID 01/31/25 07/02/25 History tablet,extended release simvastatin 20 mg tablet 20 mg PO HS 05/22/25 07/02/25 History sitagliptin phosphate 50 mg tablet 50 mg PO DAILY 05/22/25 07/02/25 History (Januvia) Held on 07/04/25. Instructions: due to hypotension, until follow-up with Cardiology levothyroxine 75 mcg tablet 75 mcg PO DAILY 05/23/25 07/02/25 History metoprolol succinate 100 mg 200 mg PO DAILY 05/23/25 07/02/25 History tablet,extended release 24 hr Held on 07/04/25. Instructions: due to hypotension, until follow-up with Cardiology levothyroxine 50 mcg tablet 50 mcg PO DAILY 05/25/25 07/02/25 History amlodipine 5 mg tablet 5 mg PO DAILY #30 tabs 05/28/25 07/02/25 Rx Held on 07/04/25. Instructions: due to hypotension, until follow-up with Cardiology clonidine HCl 0.2 mg tablet 0.1 mg (1/2 x 0.2 mg) PO BID SBP > 05/28/25 07/02/25 Rx Held on 07/04/25. 160 30 days #0 tabs Instructions: due to hypotension, until follow-up with Cardiology pantoprazole 40 mg tablet,delayed 40 mg PO DAILY #30 tabs 05/28/25 07/02/25 Rx release (Protonix) clopidogrel 75 mg tablet (Plavix) 75 mg PO DAILY 30 days #30 tabs 06/17/25 07/02/25 Rx New Prescriptions to Start Prescriptions: Allergies Allergy/AdvReac Type Severity Reaction Status Date / Time atorvastatin (From Lipitor) Allergy Mild Hallucinati Verified 06/12/25 13:17 ng Discharge Plan Disposition Patient Disposition: Left Against Medical Advice Condition: Undetermined Patient Discharge Instructions Print Language: [place] Providers Admit Provider: Vitaliy Farias Attending Provider: Vitaliy Farias
--- NOTE | 2025-07-05 09:31 | CARE MANAGER ---
Unable to reach patient via phone number on account, to discuss recent discharge.
== END 2025-07-04 14:36 | disposition left against medical advice (07) | DRG 919 ==
LOC: ICU 14:45
PROVIDERS: Internal Medicine; Nurse Practitioner Family; Admitting Provider Internal Medicine Adolescent Medicine; PCP Physician Assistant; Visit Provider Internal Medicine Adolescent Medicine
DX: N99.840 Postprocedural hematoma of a genitourinary system organ or structure following a genitourinary system procedure (principal); K68.3 Retroperitoneal hematoma; D62 Acute posthemorrhagic anemia; N17.9 Acute kidney failure, unspecified; T81.19XA Other postprocedural shock, initial encounter; K20.80 Other esophagitis without bleeding; E87.5 Hyperkalemia; E03.9 Hypothyroidism, unspecified; K20.90 Esophagitis, unspecified without bleeding; E11.51 Type 2 diabetes mellitus with diabetic peripheral angiopathy without gangrene; I10 Essential (primary) hypertension; I70.1 Atherosclerosis of renal artery; I25.10 Atherosclerotic heart disease of native coronary artery without angina pectoris; I48.0 Paroxysmal atrial fibrillation; Z53.29 Procedure and treatment not carried out because of patient's decision for other reasons; Y73.3 Surgical instruments, materials and gastroenterology and urology devices (including sutures) associated with adverse incidents; Y83.8 Other surgical procedures as the cause of abnormal reaction of the patient, or of later complication, without mention of misadventure at the time of the procedure; Y92.234 Operating room of hospital as the place of occurrence of the external cause; Z79.84 Long term (current) use of oral hypoglycemic drugs; Z79.82 Long term (current) use of aspirin; Z79.890 Hormone replacement therapy; Z79.899 Other long term (current) drug therapy; Z79.01 Long term (current) use of anticoagulants; Z79.02 Long term (current) use of antithrombotics/antiplatelets; Z88.8 Allergy status to other drugs, medicaments and biological substances
CPT/HCPCS: 36415; 36430; 74176; 80048; 80053; 80061; 82962; 83735; 85007; 85014; 85018; 85025; 85347; 86850; 97162; 99152; C1725; C1769; C1876; C1894; G0378; J1171; J1200; J1644; J2270; J2405; J2470; J3010; J7040; P9016; Q9967

== ENCOUNTER 2025-07-06 05:09 | Observation (INO) | payer MEDICARE, MEDICAID, SELFPAY ==
[2025-07-06] VITALS (20 sets, daily range): BP systolic 146–194; BP diastolic 89–115; PULSE 88–152; RESP 16–34; TEMP 36.7–37.1; O2SAT 92–100; BMI 26.3
--- OUTSIDE RECORDS SUMMARY | 2025-07-06 05:12 | XMS_ITS | Continuity of Care Document ---
Author Organization [place] - [facility] Address [address] [place] [address] Assessment No assessment recorded. Plan of Treatment Reminders Order Date Submit Date Provider Last Modified By Organization Details Last Modified Time Details Appointments None recorded. Lab None recorded. Referral None recorded. Procedures None recorded. Surgeries None recorded. Imaging None recorded. Medication Orders benzonatate 200 mg capsule 2024 025 [id number], [address] [place], [id number], 05:02:08 Patient TargetsNo targets recorded. Patient Instructions Encounter Date Encounter Id Patient Instructions Last Modified By Organization Details Last Modified Time 06/14/2025 [id number] Peripheral Arterial Disease (PAD): Care Instructions [email or web address] Not available 06/14/2025 15:59:22 high cholesterol : care instructions Not available 06/14/2025 15:59:22 Reason for Referral None Reported. Results Created Date Observation Date Name Description Value Unit Range Abnormal Flag Note LastModifiedBy Organization Detail LastModifiedTime 07/02/2007/02/2025 RF, angio gram, renal arter y, bilat eral No observ ation record ed. [facility] [address], [place], [address], 07/02/2025 10:21:43 07/02/20 25 07/02/2025 CT, abdom en + pelvi s, w/o contr ast No observ ation record ed. [email or web address] [facility] [address], [place], [address], 07/02/2025 15:57:31 07/03/20 25 07/03/2025 CT, abdom en + pelvi s, w/o contr ast No observ ation record ed. [facility] [address], [place], [address], 07/04/2025 09:51:19 Result Notes None recorded. Problems Name Problem SNOMED Code Status Onset Date Resolution Date Notes Provider Name and Address Organization Details Recorded Time Edema of left lower limb 669455883 Active 2024 LIZBETH Camacho [address] [place] [address], 65018-798 8, [employer] 11:52:09 Hyperglyc emia due to type 2 diabetes mellitus 928333841147 109 Active 2024 LIZBETH Camacho [address] [place] [address], 46236[address]892 8, [employer] 14:35:50 Triggerin g of digit 554295984 Active 2024 LIZBETH Camacho [address] [place] [address], 23256-559 8, [employer] 14:35:35 Ulcer of skin of lower extremity 109111903 Active 2024 LIZBETH Camacho [address] [place] [address], 24118-255 8, [employer] 15:55:57 Candidias is of skin 08969950 Completed 202404/12/2025 LIZBETH Camacho [address] [place] [address], 25622-547 8, [employer] 13:40:06 Essential hypertens ion 67411485 Active 2024 LIZBETH Camacho [address] [place] [address], 16252-485 8, [employer] 15:12:27 Gouty arthritis of multiple sites 954659721 Active 2024 LIZBETH Camacho [address] [place] [address], 35168-184 8, [employer] 11:31:33 Edema of lower extremity 137124505 Active 2024 LIZBETH Camacho [address] [place] [address], 19462-297 8, [place] [employer] 14:19:20 Gouty arthritis 90595819 Active 2024 LIZBETH Camacho [address] [place] [address], 15489-927 8, [place] [employer] 13:33:31 Chronic kidney disease stage 3B 969919037 Active 2024 LIZBETH Camacho [address] [place] [address], 16132-655 8, [place] [employer] 13:39:16 Chronic kidney disease stage 3 560909854 Active 2024 LIZBETH Camacho [address] [place] [address], 91812-448 8, [place] [employer] 13:39:38 Well controlle d type 2 diabetes mellitus 422690282 Active 2024 LIZBETH Camacho [address] [place] [address], 07259-761 8, [place] [employer] 11:52:04 Periphera l vascular disease 202347401 Active 2024 LIZBETH Camacho [address] [place] [address], 73950-402 8, [place] [employer] 11:52:17 Hyperlipi demia 06224498 Active 2024 LIZBETH Camacho [address] [place] [address], 42312-227 8, [employer] 5 10:15:01 Acute cough Active 2024 LIZBETH Camacho [address] [place] [address], 88945-372 8, [place] [employer] 14:29:30 Problem Notes None recorded. Procedures Surgical History Date Name Laterality Status Provider Name and Address Organization Details Recorded Time 5 Unna boot - LE edema completed [employer] 01/03/2025 13:37:46 5 Unna boot - LE edema completed [employer] 12/27/2024 14:35:21 operation on testis completed [employer] 12/27/2024 13:55:57 Stent completed [employer] 12/27/2024 13:56:05 Imaging Results None recorded. Procedure Notes None recorded. Medical Equipment None Reported. Allergies Allergen ID Allergen Name Allergen Category Reaction Reaction Severity Criticality Documentation Date Start Date Code Code System Note Provider Name and Address Organization Details Recorded Time 01375 diltiazem medicatio n Not available Not available Not available 12/28/2024 3443 RxNorm Colleen Vice [employer], [employer] 17:28:41 90871 parathyro id hormone medicatio n Not available Not available Not available 12/28/2024 83590 22 RxNorm Colleen Vice [employer], [employer] 17:29:03 35908 amlodipin e medicatio n swelling Not available high 06/14/20252017 62870 RxNorm Colleen Vice null, [employer] 5 10:29:05 63096 atorvasta tin calcium medicatio n hallucina tions Not available high 06/14/20252021 87359 RxNorm Colleen Vice null, [employer] 5 10:29:11 20562 diltiazem Not available other Not available Not available 06/14/20252024 3443 RxNorm Not Available ruth ann - [employer] - prod 04:57:13 62560 levothyro xine sodium medicatio n hallucina tions Not available high 06/14/20252017 57484 RxNorm Only 75mcg Not Available [place] - External [employer] - prod 5 04:58:42 Medications Name Sig Start Date Stop Date Status Note LastModified by Organization Details LastModified Time clonidine HCl 0.1 mg tablet Take 2 tablets by oral route. 03/08 completed Not Available Not Available Not Available fluconazole 150 mg tablet TAKE 1 TABLET BY MOUTH ONCE DAILY FOR 7 DAYS 01/10 completed Not Available Not Available Not Available benzonatate 200 mg capsule Take 1 capsule 3 times a day by oral route as needed for 10 days. 07/01 completed Not Available Not Available Not Available [...] Not Available Not Available No t Available clopidogrel 75 mg tablet TAKE ONE TABLET BY MOUTH EVERY DAY active Not Available Not Available No t Available amlodipine 5 mg tablet TAKE ONE TABLET BY MOUTH EVERY DAY 06/14 completed Not Available Not Available Not Available aspirin 81 mg tablet,kyleigh yed release [...] Available clonidine HCl 0.2 mg tablet TAKE 1/2 TABLET BY MOUTH TWICE DAILY active Not [...] completed Not Available Not Available Not Available pantoprazol e 40 mg tablet,kyleigh yed release TAKE ONE TABLET BY MOUTH EVERY DAY active Not Available Not Available No t Available simvastatin 20 mg tablet TAKE 1 [...] TWICE DAILY FOR 14 DAYS FOR INFECTION 06/14 completed Not Available Not Available Not Available ketoconazol e 2 % topical cream [...] Not Available FreeStyle Lite Strips USE DIRECTED TWICE DAILY active Not Available Not Available [...] completed Not Available Not Available Not Available Xarelto 2.5 mg tablet TAKE ONE TABLET BY MOUTH TWICE DAILY active Not Available Not Available No t Available Kerendia 20 mg tablet TAKE 1 TABLET BY MOUTH EVERY DAY active Not Available Not Available No t Available Vitals Date Recorded Body height Body mass index (BMI) Body weight Heart rate Oxygen saturation Body temperature Systolic And Diastolic Provider Name and Address Organization Details Last Updated DateTime 162.56 cm 27.9 kg/m2 52377.8 4 g 82 /min 98 % 97.8 [degF] 128/80 mm[Hg] Colleen Gonzalez [employer] 10:27:16 Social History Question Answer Notes LastModified by Organizat ion Details LastModified Time Tobacco Smoking Status Never Smoker Colleen duran [employer]. 12/27/2024 13:46:04 Do You Have An Advance Directive? No Information not available 12/27/2024 Is Your Home Air Conditioned? Yes Information not available 12/27/2024 Are You Blind Or Do You Have Difficulty Seeing? No Information not available 12/27/2024 What Is Your Level Of Caffeine Consumption? Occasional Information not available 12/27/2024 What Type Of Wastewater Technician Do You Use? None Information not available [...] Or The Highest Degree You Have Received? [id number] Information not available 12/27/2024 How Many Days [...] Right Information not available 12/27/2024 Do You Engage In Moderate/heavy Exercise (e.g. Brisk Walk, Jogging, Strength Training, Etc)? No Information not available 06/14/2025 Where Do You Live? Apartment Information not available 06/14/2025 Are You Following A Low Salt Diet? Yes Information not available 06/14/2025 Do You Have A Medical Power Of Swiss Machinist? No Information not available 12/27/2024 What Was The Date Of Your Most Recent Tobacco Screening? 06/14/2025 Information not available 06/14/2025 Do You Have Any Pets? No Information not available 12/27/2024 What Is Your Relationship Status? Single Information not available 12/27/2024 Have You Repeated Any Grades? No Information not available 12/27/2024 Do You Wear A Seatbelt When Driving Or As A Passenger? Yes Information not available 06/14/2025 Do You Use Your Seat Belt Or [...] No Information not available 12/27/2024 Do You Feel Safe In Your Home? Yes Information not available 06/14/2025 Do You Have Any Dietary Restrictions? Yes [...] anxious, or unable to sleep at night)? [id number] Information not available 12/27/2024 Do you have [...] Emergency room visit since last appointm ent. Y Hypothyroidism N Lung Disease N COPD N [...] N Ear or Hearing Problems N Hospitalizations Y Learning Disorder N Artificial Joints N Thyroid [...] preservative free, adsorbed 7 completed Not Available [facility] 06/14/2025 10:06:14 Influenza, split virus, quadrivalent, PF 6 completed Not Available [facility] 06/14/2025 10:06:14 Influenza, split virus, quadrivalent, PF 7 completed Not Available [facility] 06/14/2025 10:06:14 Influenza, split virus, trivalent, PF 8 completed Not Available [facility] 06/14/2025 10:06:14 Hep A, adult 8 completed Not Available [facility] 06/14/2025 10:06:14 Influenza, high-dose, quadrivalent, PF 0 completed Not Available [facility] 06/14/2025 10:06:14 COVID-19 vaccine, vector-nr, [id number], PF, 0.5 mL 1 completed Not Available [facility] 06/14/2025 10:06:14 Influenza, high-dose, quadrivalent, PF 1 completed Not Available [facility] 06/14/2025 10:06:14 COVID-19, mRNA, LNP-S, PF, 100 mcg/0.5mL dose or 50 mcg/0.25mL dose 1 completed Not Available [facility] 06/14/2025 10:06:14 COVID-19, mRNA, LNP-S, PF, 100 mcg/0.5mL dose or 50 mcg/0.25mL dose 2 completed Not Available [facility] 06/14/2025 10:06:14 Influenza, adjuvanted, quadrivalent, PF 2 completed Not Available [facility] 06/14/2025 10:06:14 COVID-19, mRNA, LNP-S, bivalent, PF, 50 mcg/0.5 mL or 25mcg/0.25 mL dose 3 completed Not Available [facility] 06/14/2025 10:06:14 Influenza, adjuvanted, quadrivalent, PF 3 completed Not Available [facility] 06/14/2025 10:06:14 COVID-19, mRNA, LNP-S, PF, 50 mcg/0.5 mL 3 completed Not Available [facility] 06/14/2025 10:06:14 Influenza, high-dose, trivalent, PF 4 completed Not Available [facility] 06/14/2025 10:06:14 COVID-19, mRNA, LNP-S, PF, tatyana-sucrose, 30 mcg/0.3 mL 4 completed Not Available [facility] 06/14/2025 10:06:14 zoster recombinant 5 completed Not Available [facility] 06/14/2025 10:06:14 Pneumococcal conjugate PCV20, polysaccharide [id number] conjugate, adjuvant, PF 5 completed Not Available [facility] 06/14/2025 10:06:14 RSV, bivalent, protein subunit RSVpreF, diluent reconstituted, 0.5 mL, PF 5 completed Not Available [facility] 06/14/2025 10:06:14 Influenza, high-dose, trivalent, PF 5 completed Not Available [facility] 06/14/2025 10:06:14 COVID-19, mRNA, LNP-S, PF, tatyana-sucrose, 30 mcg/0.3 mL 5 completed Not Available [facility] 06/14/2025 10:06:14 Past Encounters Encounter ID Performer Location Encounter Start Date Encounter Closed Date Diagnosis/Indication Diagnosis SNOMED-CT Code Diagnosis ICD10 Code Diagnosis IMO Codes Diagnosis Note [id number] LIZBETH Camacho [facility] [address] [place] [address] 06/14/2025 09:56:09 06/14/2025 10:52:23 Acute cough 0019037392 56709119 R05.9 4256385161 Peripheral vascular disease 815205390 I73.9 08098 Hyperlipidemia 30886768 E78.5 75981018 Well contr olled type 2 diabetes mellitus 773231063 E11.9 394421 Health Concerns Section Related Observation LastModified by Organization Detai ls LastModified Time None Recorded Concern Status LastModified by Organization Details LastModified Time None Recorded Payers Encounter Date Sequence Insurance Name Policy Number Policy [place] Covered Member ID [place] Member ID Guarantor Name 06/14/2025 1 [place] Jonelle Kamara [id number] Jonelle Kamara 06/14/2025 2 [facility] (MEDICAID HMO) Jonelle Kamara [id number] Jonelle Kamara Notes Date Note Type Note Provider Name and Address Organization Details Recorded Time 06/14/2025 text/html ROS as noted in the HPI Patient presents for followup. Recently had stents placed in legs. He is feeling a lot better. He has a heart cath next week. He has had a cough for a few weeks but is otherwise feeling ok. LIZBETH Camacho [address] [place] [address], [phone], [place] [facility] [employer] 06/14/2025 15:59:49
--- OUTSIDE RECORDS SUMMARY | 2025-07-06 05:12 | XMS_ITS | Encounter Summary ---
Author Organization [facility] Address [address] [place] [address] Care Team Providers Care Mine Safety Engineer Name Role Phone Damaris Quinteros Primary Care Provider [phone] Reason for Visit * Reason Comments Med Refill Encounter Details Date Type Department Care Team (Late st Contact Info) Description 05/17/[address] [facility] [address] [place] [address] Helena Feliz MD [address] [place] [address] Social History Tobacco Use Types Packs/Day [...] PM EDT Office Visit [facility] [address] [place] [address] Helena Feliz MD [address] [place] [address] 07/03/2026 1:45 PM EST Office Visit [facility] [address] [place] [address] [place] [address] Vitaliy Perez MD [address] [place] [address] documented as of this encounter Visit Diagnoses Not on filedocumented in this encounter Care Teams Mine Safety Engineer Relationship Specialty Start Date End Date Damaris Quinteros PA [address] [place] [address] PCP - General Physician Cutter Apprentice Hand 02/14/25 documented as of this encounter
--- OUTSIDE RECORDS SUMMARY | 2025-07-06 05:12 | XMS_ITS | Clinical Summary ---
Author Organization [facility] Address [address] [place] [address] Care Team Providers Care Chemical Equipment Controller Name Role Phone Damaris Quinteros Primary Care Provider [phone] Allergies Active Allergy Reactions Criticality Noted Date [...] EVERY EVENING 90 tablet 1 4 Active Lorain-3 Fatty Acids (fish oil) 1000 MG capsule [...] Type Department Care Team Description 04/30/2025 Refill [facility] [address] [place] [address] Helena Feliz MD 04/09/2025 Results Follow-Up [facility] [address] [place] [address] Helena Feliz MD from Last 3 Months Family History Medical [...] Description 12/11/2025 1:00 PM EDT Office Visit [facility] [address] [place] [address] Helena Feliz MD [address] [place] [address] 07/03/2026 1:45 PM EST Office Visit [facility] [address] [place] [address] [place] [address] Vitaliy Perez MD [address] [place] [address] Health Maintenance Due Date Last Done Comments DIABETIC FOOT EXAM 12/21/1965 TDAP/TD VACCINES (1 - Tdap) 09/27/1996 09/26/1996 COLOGUARD 1998 COLON CANCER SCREENING 5 YEA R SIGMOIDOSCOPY 1998 COLONOSCOPY 1998 COLORECTAL CANCER SCREENING 1998 CT COLONOGRAPHY 1998 FECAL OCCULT BLOOD TEST 1998 FIT Testing (1 year) 1998 ANNUAL WELLNESS VISIT 04/05/2016 HEPATITIS C SCREENING 04/05/2016 DIABETIC EYE EXAM 05/21/2023 05/21/2022 ZOSTER VACCINE (2 of 2) 12/18/2024 10/23/2024 INFLUENZA VACCINE 02/22/2025 03/28/2024, , 03/29/2023, Additional history exists COVID-19 Vaccine (5 - 2023-2 5 season) 2025 04/12/2024, 05/20/2023, 03/11/2023, Additional history exists HEMOGLOBIN A1C 10/03/2025 04/05/2025, 02/23, 11/25/2023, Additional history exists LIPID PANEL 04/05/2026 04/05/2025, 12/0 02/2023, 05/25/2023, Additional history exists URINE MICROALBUMIN-CREATININ E RATIO (uACR) 04/05/2026 04/05/2025, 04/03/2015 Pneumococcal Vaccine 50+ Completed 10/23/2024 Procedures Procedure Name Priority Date/Time Associated Diagnosis Comments MICROALBUMIN / CREATININE URINE RATIO Routine 04/05/2025 11:48 AM EDT Type 2 diabetes mellitus with hyperglycemia, without long-term current use of insulin LIPID PANEL Routine 04/05/2025 11:48 AM EDT [...] - 29.0 mg/g 04/06/2025 1:55 AM EDT [facility] Creatinine, Urine 61.2 mg/dL 04/06/2025 1:55 AM EDT [facility] Microalbumin, Urine 29.2 mg/dL 04/06/2025 1:55 AM EDT [facility] Urine Urine specimen obtained by clean catch procedure / Unknown Collection / Unknown 04/05/2025 11:48 AM EDT 04/05/2025 11:48 AM EDT us Helena Rojo MD URINE ORDERABLES Final Result [facility]
[address] [place] [address], * (ABNORMAL) Lipid Panel (04/05/2025 11:48 AM EDT) Total Cholesterol 130 0 - 200 mg/dL 04/06/2025 1:53 AM EDT [facility] Triglycerides 215(H) 0 - 150 mg/dL 04/06/2025 1:53 AM EDT [facility] HDL Cholesterol 31(L) 40 - 60 mg/dL 04/06/2025 1:53 AM EDT [facility] LDL Cholesterol 64 0 - 100 mg/dL 04/06/2025 1:53 AM EDT [facility] VLDL Cholesterol 35 5 - 40 mg/dL 04/06/2025 1:53 AM EDT [facility] LDL/HDL Ratio 1.81 04/06/2025 1:53 AM EDT [facility] Blood Structure of left upper limb / Unknown Venipuncture / Unknown 04/05/2025 11:48 AM EDT 04/05/2025 11:48 AM EDT [facility] - 04/06/2025 1:53 AM EDT Cholesterol [...] MD LAB BLOOD ORDERABLES Final Res ult [facility]
[address] [place] [address], * (ABNORMAL) POC Glycosylated Hemoglobin (Hb A1C) (04/05/2025 10:56 AM EDT) Hemoglobin A1C 7.4(A) 4.5 - 5.7 % [facility] Lot Number [id number] [facility] Expiration Date 10/25/26 [facility] Blood 04/05/2025 10:5 6 AM EDT Helena Rojo MD POINT OF CARE TEST ORDERABLES Final Result [facility]
[address] [place] [address], * SCANNED - EYE EXAM (05/21/2022) Anatomical Region Laterality Modality Other Helena Rojo MD CHART REVIEW TABS Final Res ult from Last 3 Months or Most Recently Relevant to Health Maintenance Insurance MEDICARE B ONLY Care Teams Chemical Equipment Controller Relationship Specialty Start Date End Date Damaris Quinteros PA [address] [place] [address] PCP - General Physician Customer Advocate 02/14/25
--- OUTSIDE RECORDS SUMMARY | 2025-07-06 05:13 | XMS_ITS | Encounter Summary ---
Author Organization [facility] Address [address] [place] [address] Care Team Providers Care Printed Circuit Boards Router Name Role Phone Damaris Quinteros Primary Care Provider [phone] Encounter Details Date Type Department Care Team (Late Contact Info) Description 04/09/2025 Results Follow-Up [facility] [address] [place] [address] Helena Feliz MD [address] [place] [address] Social History Tobacco Use Types Packs/Day [...] Visit [facility] [address] [place] [address] Helena Feliz MD [address] [place] [address] 07/03/2026 1:45 PM EST Office Visit [facility] [address] [place] [address] [place] [address] Vitaliy Perez MD [address] [place] [address] Scheduled Orders Name Type Priority Associated Diagnoses Orde r Schedule Basic Metabolic Panel Lab Routine Acquired hypothyroidism Expected: 07/08/2025 (Approximate), Expires: 04/10/2026 T4, Free Lab Routine Acquired hypothyroidism Expected: 07/08/2025 (Approximate), Expires: 04/09/2026 TSH Lab Routine Acquired hypothyroidism Expected: 07/08/2025 (Approximate), Expires: 04/09/2026 documented as of this encounter Visit Diagnoses Diagnosis Acquired hypothyroidism- Primary Unspecified hypothyroidism documented in this encounter Care Teams Printed Circuit Boards Router Relationship Specialty Start Date End Date Damaris Quinteros PA [address] [place] [address] PCP - General Physician Bead Inspector 02/14/25 documented as of this encounter
--- OUTSIDE RECORDS SUMMARY | 2025-07-06 05:13 | XMS_ITS ---
Author Organization [facility] Address [address] [place] [address] Care Team Providers Care Garnett Fixer Name Role Phone Damaris Quinteros Primary Care Provider [phone] [facility] Endocrine Disorders Status:Enrolled (Active) Start date:05/24/2023 Enrollment date:06/19/2025 Current support & services provided:Benefits Investigation Linked medications:Canagliflozin (Active), SITagliptin Phosphate (Active) Linked problems:CKD stage 3 due to type 2 diabetes mellitus (Active) Overview [facility] & [place] Medicaid Invokana 30/90 Days, $0 Januvia 30/90 Days, $0 Continued Care and Services Coordination
--- OUTSIDE RECORDS SUMMARY | 2025-07-06 05:13 | XMS_ITS | Encounter Summary ---
Author Organization [facility] Address [address] [place] [id number] Care Team Providers Care Air Pollution Auditor Name Role Phone Damaris Quinteros Primary Care Provider [phone] Encounter Details Date Type Department Care Team (Late st Contact Info) Description 04/30/[address] [facility] [address] [place] [address] Helena Feliz MD [address] [place] [address] Social History Tobacco Use Types Packs/Day Years [...] and he is needing refills sent to [facility]. Script is pending. Last office visit with [...] Description 12/11/2025 1:00 PM EDT Office Visit [facility] [address] [facility] [address] [place] [address] Helena Feliz MD [address] [facility] [address] [place], [place] [id number] 07/03/2026 1:45 PM EST Office Visit [facility] [address] [place] [address] [place] [address] Vitaliy Perez MD [address] [facility] [address] [place] [address] documented as of this encounter Visit Diagnoses Not on filedocumented in this encounter Care Teams Air Pollution Auditor Relationship Specialty Start Date End Date Damaris Quinteros PA [address] [place] [address] PCP - General Physician Animal Skinner 02/14/25 documented as of this encounter
--- OUTSIDE RECORDS SUMMARY | 2025-07-06 05:13 | XMS_ITS | Data Portability ---
Author Organization [facility] [employer] [facility] Address [address] [place] [address] [place] [address] Assessment No assessment recorded. Plan of Treatment Reminders Order Date Submit Date Provider Last Modified By Organization Details Last Modified Time Details Appointments None recorded. Lab HbA1c (hemoglobin A1c), blood [address], [address] [place], [address], 5 13:46:57 microalbumi n/creatinin e, mass ratio, urine [address], [address] [place], [address], 5 13:46:57 Referral None recorded. Procedures None recorded. Surgeries None recorded. Imaging None recorded. Medication Orders benzonatate 200 mg capsule 2024 025 [facility] #[id number], [address], [id number], 5 05:02:08 allopurinol 300 mg tablet 2024 025 [facility] #[id number], [address], [id number], 5 13:34:24 Kerendia 20 mg tablet 2024 025 [facility] #32637, [address] [facility] [address], [place], [id number], 13:40:37 Januvia 100 mg tablet 2024 025 [facility] #[id number], [address] [facility] [address], [place], [id number], 15:05:09 hydrochloro thiazide 25 mg tablet 2024 025 [facility] #[id number], 629 [facility] [address], [place], [id number], 14:19:54 Patient TargetsNo targets recorded. Patient Instructions Encounter Date Encounter Id Patient Instructions Last Modified By Organization Details Last Modified Time 01/24/2025 [id number] leg and ankle edema: care instructions [email or web address] Not available 01/24/2025 14:19:40 high blood pressure: care instructions [email or web address] Not available 01/24/2025 16:46:55 learning about high blood pressure [email or web address] Not available 01/24/2025 16:46:55 03/08/2025 [id number] high blood pressure: care instructions [email or web address] Not available 03/08/2025 16:31:46 learning about high blood pressure [email or web address] Not available 03/08/2025 16:31:46 04/12/2025 [id number] gout: care instructions Not available 04/12/2025 13:34:06 medicines to avoid with kidney disease: care instructions Not available 04/12/2025 13:39:46 06/14/2025 [id number] Peripheral Arterial Disease (PAD): Care Instructions Not available 06/14/2025 15:59:22 high cholesterol : care instructions Not available 06/14/2025 15:59:22 Reason for Referral None Reported. Results Created Date Observation Date Name Description Value Unit Range Abnormal Flag Note LastModifiedBy Organization Detail LastModifiedTime 12/28/1912/27/2024 micro album in/cr eatin ine, mass ratio , urine Microalbumin 150 mg/L Not Available [facility] [address] [facility], [place], [address], 12/27/2024 14:02:15 12/28/19 25 12/27/2024 micro album in/cr eatin ine, mass ratio , urine Creatinine 50 mg/dL Not Available [facility] [address] [place], [address], 12/27/2024 14:02:15 12/28/19 25 12/27/2024 micro album in/cr eatin ine, mass ratio , urine Ratio >300 mg/g Not Available [facility] [address] [facility], [place], [address], 12/27/2024 14:02:15 12/28/19 25 12/27/2024 HbA1c (hemo globi n A1c), blood HbA1c 8.4 Not Available [facility] [address] [place] [address], [address], 12/27/2024 14:02:09 01/04/20 25 01/07/2025 AEROB IC BACTE RIAL CULTU RE aerobic bacterial culture Final report abnormal Not Available [facility] ([facility]) [address] [place], [address], 01/07/2025 08:07:04 01/04/20 25 01/07/2025 AEROB IC BACTE RIAL CULTU RE result 1 Candid a paraps ilosis abnormal Light growt h Not Available [facility] ([facility]) [address] [place], [address], 01/07/2025 08:07:04 01/04/20 25 01/07/2025 AEROB IC BACTE RIAL CULTU RE result 2 Mixed skin riaz Moder ate growt h Not Available [facility] ([facility]) [address] [place], [address], 01/07/2025 08:07:04 01/11/20 25 01/10/2025 gluco se, finge rstic k, blood Blood Glucose: mg/dl 157 Not Available [facility] [address] [facility], [place], [address], 01/10/2025 15:32:32 04/05/20 25 04/05/2025 hospi robyn labs eGFR 44.8 Not Available Not Availa ble 06/14/2025 12:24:43 04/12/20 25 04/12/2025 micro album in/cr eatin ine, mass ratio , urine Microalbumin 150 mg/L Not Available [facility] [address] [place] [address], [address], 04/12/2025 13:17:49 04/12/20 25 04/12/2025 micro album in/cr eatin ine, mass ratio , urine Creatinine 50 mg/dL Not Available [facility] [address] [place] [address], [address], 04/12/2025 13:17:49 04/12/20 25 04/12/2025 micro album in/cr eatin ine, mass ratio , urine Ratio >300 mg/g Not Available [address], [address], 04/12/2025 13:17:49 04/12/20 25 04/12/2025 HbA1c (hemo globi n A1c), blood HbA1c 7.3 % Not Available [facility] [address] [place] [address], [address], 04/12/2025 13:14:27 01/01/20 25 12/28/2024 US, honey x, tiffanie s, lower extre mity No observ ation record ed. [facility] (Med Record) [address], [place], [address], 12/31/2024 14:53:28 07/02/20 25 07/02/2025 RF, angio gram, renal arter y, bilat eral No observ ation record ed. [email or web address], [place], [address], 07/02/2025 10:21:43 07/02/20 25 07/02/2025 CT, abdom en + pelvi s, w/o contr ast No observ ation record ed. [email or web address] [address], [place], [address], 07/02/2025 15:57:31 07/03/20 25 07/03/2025 CT, abdom en + pelvi s, w/o contr ast No observ ation record ed. [id number] [address], [place], [address], 07/04/2025 09:51:19 Result Notes None recorded. Problems Name Problem SNOMED Code Status Onset Date Resolution Date Notes Provider Name and Address Organization Details Recorded Time Edema of left lower limb 427442449 Active 2024 LIZBETH Camacho [address] [place] [address], [address], [employer] 11:52:09 Hyperglyc emia due to type 2 diabetes mellitus 810653006104 109 Active 2024 LIZBETH Camacho [address] [place] [address], [address], [employer] 14:35:50 Triggerin g of digit 692146054 Active 2024 LIZBETH Camacho [address] [place] [address], [address], [employer] 14:35:35 Ulcer of skin of lower extremity 890691762 Active 2024 LIZBETH Camacho [address] [place] [address], [address], [place] [employer] 15:55:57 Candidias is of skin 18323179 Completed 202404/12/2025 LIZBETH Camacho [address] [place] [address], [address], [place] [employer] 5 13:40:06 Essential hypertens ion 89401783 Active 2024 LIZBETH Camacho [address] [place] [address], [address] 8, [place] [employer] 5 15:12:27 Gouty arthritis of multiple sites 694281535 Active 2024 LIZBETH Camacho [address] [place] [address], [address] 8, [place] [employer] 11:31:33 Edema of lower extremity 340825109 Active 2024 LIZBETH Camacho [address] [place] [address], 37[address] 8, [place] [employer] 14:19:20 Gouty arthritis 46623988 Active 2024 LIZBETH Camacho [address] [place] [address], [address] 8, [place] [employer] 5 13:33:31 Chronic kidney disease stage 3B 338256257 Active 2024 LIZBETH Camacho [address] [place] [address], [address] 8, [place] [employer] 5 13:39:16 Chronic kidney disease stage 3 434464634 Active 2024 LIZBETH Camacho [address] [place] [address], 84863[address] 8, [employer] 5 13:39:38 Well controlle d type 2 diabetes mellitus 366313168 Active 2024 LIZBETH Camacho [address] [place] [address], 79[address] 8, [employer] 11:52:04 Periphera l vascular disease 757555623 Active 2024 LIZBETH Camacho [address] [place] [address], 06[address] 8, [employer] 11:52:17 Hyperlipi demia 73365346 Active 2024 LIZBETH Camacho [address] [place] [address], 57814[address] 8, [employer] 5 10:15:01 Acute cough Active 2024 LIZBETH Camacho [address] [place] [address], [address] 8, [employer] 14:29:30 Problem Notes None recorded. Procedures Surgical History Date Name Laterality Status Provider Name and Address Organization Details Recorded Time Unna boot - LE edema completed [employer] 01/03/2025 13:37:46 Unna boot - LE edema completed [employer] 12/27/2024 14:35:21 operation on testis completed [employer] 12/27/2024 13:55:57 Stent completed [employer] 12/27/2024 13:56:05 Imaging Results None recorded. Procedure Notes None recorded. Medical Equipment None Reported. Allergies Allergen ID Allergen Name Allergen Category Reaction Reaction Severity Criticality Documentation Date Start Date Code Code System Note Provider Name and Address Organization Details Recorded Time 23588 diltiazem medicatio n Not available Not available Not available 12/28/2024 3443 RxNorm Colleen Vice null, [employer] 17:28:41 56929 parathyro id hormone medicatio n Not available Not available Not available 12/28/2024 16699 22 RxNorm Colleen Vice null, [employer] 17:29:03 03994 amlodipin e medicatio n swelling Not available [facility] 06/14/20252017 81056 RxNorm Colleen Vice null, [employer] 5 10:29:05 09826 atorvasta tin calcium medicatio n hallucina tions Not available [facility] 06/14/20252021 68949 RxNorm Colleen Vice null, [employer] 5 10:29:11 66789 diltiazem Not available other Not available Not available 06/14/20252024 3443 RxNorm Not Available [email or web address] 5 04:57:13 67518 levothyro xine sodium medicatio n hallucina tions Not available [facility] 06/14/20252017 33114 RxNorm Only 75mcg Not Available [email or web address] 5 04:58:42 Medications [...] tablet TAKE 1 TABLET BY MOUTH DAILY 08/15 /2025 completed Not Available Not Available Not Available [...] Oxygen saturation Body temperature Systolic And Diastolic Systolic And Diastolic Provider Name and Address Organization Details Last Updated DateTime 5 162.56 cm 30 kg/m2 20366.9 5 g 72 /min 98 % 98.2 [degF] 160/98 mm[Hg] 150/88 mm[Hg] [employer] 5 14:03:52 Date Recorded Body height Body mass index (BMI) Body weight Heart rate Oxygen saturation Systolic And Diastolic Systolic And Diastolic Provider Name and Address Organization Details Last Updated DateTime 5 162.56 cm 27.9 kg/m2 73701.0 6 g 68 /min 98 % 182/105 mm[Hg] 150/94 mm[Hg] Taniya Aaron [address] [employer]. 5 15:02:21 Date Recorded Body height Body mass index (BMI) Body weight Oxygen saturation Heart rate Body temperature Systolic And Diastolic Systolic And Diastolic Provider Name and Address Organization Details Last Updated DateTime 5 162.56 cm 28.7 kg/m2 53369.9 3 g 97 % 72 /min 98.2 [degF] 148/88 mm[Hg] 122/86 mm[Hg] [employer] 5 15:04:04 Date Recorded Body height Body mass index (BMI) Body weight Oxygen saturation Heart rate Body temperature Systolic And Diastolic Provider Name and Address Organization Details Last Updated DateTime 5 162.56 cm 29.5 kg/m2 86962.4 5 g 98 % 72 /min 98 [degF] 136/84 mm[Hg] [employer] 5 13:09:29 Date Recorded Body height Body mass index (BMI) Body weight Heart rate Oxygen saturation Body temperature Systolic And Diastolic Provider Name and Address Organization Details Last Updated DateTime 5 162.56 cm 27.9 kg/m2 11403.8 4 g 82 /min 98 % 97.8 [degF] 128/80 mm[Hg] [employer] 5 10:27:16 Social History Question Answer Notes LastModified by Organizat ion Details LastModified Time Tobacco Smoking Status Never Smoker [employer] 12/27/2024 13:46:04 Do You Have An Advance Directive? No Information not available 12/27/2024 Is Your Home Air Conditioned? Yes Information not available 12/27/2024 Are You Blind Or Do You Have Difficulty Seeing? No Information not available 12/27/2024 What Is Your Level Of Caffeine Consumption? Occasional Information not available 12/27/2024 What Type Of Modern Languages Professor Do You Use? None Information not available [...] Or The Highest Degree You Have Received? [id number] Information not available 12/27/2024 How Many Days [...] Do You Have A Medical Power Of Lang Path Therapist? No Information not available 12/27/2024 What Was [...] anxious, or unable to sleep at night)? [id number] Information not available 12/27/2024 Do you have [...] room visit since last appointm ent. Y COPD N Depression N Dermatologic Disorders N [...] preservative free, adsorbed 7 completed Not Available [facility] 06/14/2025 10:06:14 Influenza, split virus, quadrivalent, PF 6 completed Not Available [facility] 06/14/2025 10:06:14 Influenza, split virus, quadrivalent, PF 7 completed Not Available [facility] 06/14/2025 10:06:14 Influenza, split virus, trivalent, PF 8 completed Not Available [facility] 06/14/2025 10:06:14 Hep A, adult 8 completed Not Available [facility] 06/14/2025 10:06:14 Influenza, high-dose, quadrivalent, PF 0 completed Not Available [facility] 06/14/2025 10:06:14 COVID-19 vaccine, vector-nr, rS-Ad26, PF, 0.5 mL 1 completed Not Available [facility] 06/14/2025 10:06:14 Influenza, high-dose, quadrivalent, PF 1 completed Not Available [facility] 06/14/2025 10:06:14 COVID-19, mRNA, LNP-S, PF, 100 mcg/0.5mL dose or 50 mcg/0.25mL dose 1 completed Not Available [facility] 06/14/2025 10:06:14 COVID-19, mRNA, LNP-S, PF, 100 mcg/0.5mL dose or 50 mcg/0.25mL dose 2 completed Not Available [facility] 06/14/2025 10:06:14 Influenza, adjuvanted, quadrivalent, PF 2 completed Not Available [facility] 06/14/2025 10:06:14 COVID-19, mRNA, LNP-S, bivalent, PF, 50 mcg/0.5 mL or 25mcg/0.25 mL dose 3 completed Not Available [facility] 06/14/2025 10:06:14 Influenza, adjuvanted, quadrivalent, PF 3 completed Not Available [facility] 06/14/2025 10:06:14 COVID-19, mRNA, LNP-S, PF, 50 mcg/0.5 mL 3 completed Not Available [facility] 06/14/2025 10:06:14 Influenza, high-dose, trivalent, PF 4 completed Not Available [facility] 06/14/2025 10:06:14 COVID-19, mRNA, LNP-S, PF, tatyana-sucrose, 30 mcg/0.3 mL 4 completed Not Available [facility] 06/14/2025 10:06:14 zoster recombinant 5 completed Not Available [facility] 06/14/2025 10:06:14 Pneumococcal conjugate PCV20, polysaccharide [id number] conjugate, adjuvant, PF 5 completed Not Available [facility] 06/14/2025 10:06:14 RSV, bivalent, protein subunit RSVpreF, diluent reconstituted, 0.5 mL, PF 5 completed Not Available [facility] 06/14/2025 10:06:14 Influenza, high-dose, trivalent, PF 5 completed Not Available [facility] 06/14/2025 10:06:14 COVID-19, mRNA, LNP-S, PF, tatyana-sucrose, 30 mcg/0.3 mL 5 completed Not Available [facility] 06/14/2025 10:06:14 Past Encounters Encounter ID Performer Location Encounter Start Date Encounter Closed Date Diagnosis/Indication Diagnosis SNOMED-CT Code Diagnosis ICD10 Code Diagnosis IMO Codes Diagnosis Note [id number] LIZBETH Camacho [address] [address] 12/27/2024 13:07:14 12/27/2024 14:42:37 Edema of left lower limb 120737283 R60.0 00840455 R/O DVTUnna boot to help with edemaDoxcy short for infectionP entoxifyll ine to improve blood flowMay need wound therapy Hyperglyce jovanny due to type 2 diabetes mellitus 5991437821 47381 E11.65 14748697 Increase Glipizide 10 mg ER daily for ease of taking meds Triggering of digit 2399 08293 M65.554 8129466 [id number] LIZBETH Camacho [address] [address] 01/03/2025 12:50:33 01/03/2025 14:26:59 Ulcer of skin of lower extremity 923825628 E11.622 L97.909 319797 Left lower extremityI mprovingUn na boot appliedWou nd culture taken today [id number] LIZBETH Camacho [address] [address] 01/10/2025 14:29:45 01/10/2025 15:20:10 Hyperglycemia due to type 2 diabetes mellitus 1591506543 48231 E11.65 70666105 Left foot drop 447750350 1 69289 M21.372 3693381243 Essential hypertension 33047865 I10 04385 Overweight in adulthood with body mass index of 25 or more but less than 30 748545868 Z68.29 951268 [id number] LIZBETH Camacho [address] [address] 01/24/2025 13:52:29 01/24/2025 14:29:21 Edema of lower extremity 678567095 R60.0 72483 Ulcer of s kin of lower extremity 196370678 E11.622 L97.909 078074 Essential hypertension 56796101 I10 40914 [id number] LIZBETH Camacho [address] [address] 02/08/2025 14:36:38 02/08/2025 15:14:35 Hyperglycemia due to type 2 diabetes mellitus 0658524591 62768 E11.65 89115674 Edema of l eft lower limb 175893225 R60.0 59758113 REsolved Ulcer of s kin of lower extremity 016452345 E11.622 L97.909 996754 improving greatly [id number] LIZBETH Camacho [address] [address] 03/08/2025 14:31:56 03/08/2025 15:16:20 Essential hypertension 77458645 I10 36920 Hyperglyce jovanny due to type 2 diabetes mellitus 6956805689 E11.65 88349927 Ulcer of s kin of lower extremity 474241812 E11.622 L97.909 662486 improving greatly [id number] LIZBETH Camacho [address] [address] 04/12/2025 13:01:18 04/12/2025 13:33:21 Hyperglycemia due to type 2 diabetes mellitus 7724581873 88884 E11.65 49333932 Gouty arthritis 07225796 M10.9 33065 Chronic ki dney disease stage 3 267343267 E11.22 N18.30 60759969 [id number] LIZBETH Camacho [address] [address] 06/14/2025 09:56:09 06/14/2025 10:52:23 Acute cough 5715327881 76931088 R05.6 4872224908 Peripheral vascular disease 281873755 I73.9 99363 Hyperlipidemia 01018296 E78.5 11447410 Well contr olled type 2 diabetes mellitus 658992691 E11.9 427489 Health Concerns Section Related Observation LastModified by Organization Detai ls LastModified Time None Recorded Concern Status LastModified by Organization Details LastModified Time None Recorded Advance Directives Directive N: Payers Insurance Date Sequence Insurance Name Policy Number Policy Hatfield Covered Member ID Hatfield Member ID Guarantor Name 06/11/2025 [place] ANGIENA [facility] Jonelle Kamara [id number] Jonelle Kamara 06/11/2025 1 [place] Jonelle Kamara [id number] Jonelle Kamara 06/19/2025 2 [facility] [place] (MEDICAID HMO) Jonelle Kamara [id number] Jonelle Kamara Notes Date Note Type Note Provider Name and Address Organization Details Recorded Time 01/24/2025 text/html ROS as noted in the HPI Patient presents to follow up on wound on left lower leg. It is slowly improving.His legs are swelling. DOes not have a fluid pill.Blood pressure a little elevated today. Denies headache, chest pain, vertigo, dyspnea. LIZBETH Camacho [address] [place] [address], [address], [employer] 01/24/2025 16:46:58 02/08/2025 text/html ROS as noted in the HPI Patient presents for followup.Left lower leg ulcer is nearly goneHe got LLE PFO - has started wearing it a little at a time at homeSwelling is goneHe has been out of [facility] - sees endocrinology in [facility] but missed his appointment due to illnessGot steroid injection in left knee a few weeks ago LIZBETH Camacho [address] [place], [address], [employer] 02/08/2025 16:27:37 03/08/2025 text/html ROS as noted in the HPI Patient presents for followup.Left lower leg ulcer is nearly goneHe got LLE PFO - has started wearing it a little at a time at homeSwelling is gone LIZBETH Camacho [address] [place], [address], [employer] 03/08/2025 16:36:22 04/12/2025 text/html ROS as noted in the HPI Patient presents for followup.States he is doing well.Still has a scabbed lesion on left anterior pabon but it is much much better. Swelling down. He has gotten a PFO and is able to walk with just a cane now.Diabetes well controlled. LIZBETH Camacho [address] [place] [address], [address], [employer] 06/04/2025 16:59:47 06/14/2025 text/html ROS as noted in the HPI Patient presents for followup. Recently had stents placed in legs. He is feeling a lot better. He has a heart cath next week. He has had a cough for a few weeks but is otherwise feeling ok. LIZBETH Camacho [address] [place], [address], [employer] 06/14/2025 15:59:49
--- OUTSIDE RECORDS SUMMARY | 2025-07-06 05:13 | XMS_ITS ---
Author Organization Unknown ENCOUNTERS Encounter Performer Location Date Diagnosis Diagnosis Status Emergency [facility] [address] [place] [address] [id number] Pre Admit [facility] [address] [place] [address] [id number] Inpatient [facility] [address] [facility] [address] [place] [address] [id number] AMA Outpatient [facility] [address] [facility] [address] [place] [address] [id number] Outpatient [facility] [address] [place] [address] [id number] Inpatient [facility] [address] [place] [address] [id number] ABRIL Emergency [facility] [address] [place] [address] [id number] Pre Admit [facility] [address] [place] [address] [id number] Emergency [facility] ([facility]) [facility] [address] [place] [address] [id number] ABRIL Pre Admit [facility] ([facility]) [facility] [address] [place] [address] [id number] Emergency [facility] [address] [facility] [address] [place] [address] [id number] ABRIL *Note: Encounters from your own facility or health system may be excluded. Allergies, Adverse Reactions, Alerts Allergen Type Severity Identification Date atorvastatin drug allergy 2 [id number] Medications Name Date Quantity Days Supplied GPI Number
--- OUTSIDE RECORDS SUMMARY | 2025-07-06 05:13 | XMS_ITS | Clinical Summary ---
Author Organization Healthcare Address [address] [place] [address] Care Team Providers Care Corporate Intern Name Role Phone Don Pierson MD Primary Care Provider [phone] Allergies Active Allergy Reactions Criticality Noted Date [...] A1C 11/22/2023 05/25/2023 UKY-Depression Screening 09/25/2024 09/26/2023 [id number] Vaccine ( season) 2025 05/20/2023, 03/11/2023, 02/10/2022, [...] topic Insurance MEDICARE [employer] Care Teams Corporate Intern Relationship Specialty Start Date End Date Don Pierson MD [address] [place] [address] PCP - General 12/05/20
--- OUTSIDE RECORDS SUMMARY | 2025-07-06 05:13 | XMS_ITS | Continuity of Care Document ---
Author Organization [place] - [employer] [facility] Address [address] [place] [address] Assessment No assessment recorded. Plan of Treatment Reminders Order Date Submit Date Provider Last Modified By Organization Details Last Modified Time Details Appointments None recorded. Lab HbA1c (hemoglobin A1c), blood [address], [address] [place], [address], 5 13:46:57 microalbumi n/creatinin e, mass ratio, urine [address], [facility] [place], [address], 5 13:46:57 Referral None recorded. Procedures None recorded. Surgeries None recorded. Imaging None recorded. Medication Orders allopurinol 300 mg tablet 2024 025 RUTH ANN [id number], [address], [phone], 5 13:34:24 Kerendia 20 mg tablet 2024 025 RUTH ANN [facility][id number], [address], [phone], 5 13:40:37 Patient TargetsNo targets recorded. Patient Instructions Encounter Date Encounter Id Patient Instructions Last Modified By Organization Details Last Modified Time 04/12/2025 [id number] gout: care instructions [email or web address] Not available 04/12/2025 13:34:06 medicines to avoid with kidney disease: care instructions [email or web address] Not available 04/12/2025 13:39:46 Reason for Referral None Reported. Results Created Date Observation Date Name Description Value Unit Range Abnormal Flag Note LastModifiedBy Organization Detail LastModifiedTime 04/05/2004/05/2025 hospi robyn labs eGFR 44.8 Not Available Not Availa ble 06/14/2025 12:24:43 04/12/20 25 04/12/2025 micro album in/cr eatin ine, mass ratio , urine Microalbumin 150 mg/L Not Available [address], [address], 04/12/2025 13:17:49 04/12/20 25 04/12/2025 micro album in/cr eatin ine, mass ratio , urine Creatinine 50 mg/dL Not Available [facility] [address] [place] [address], [address], 04/12/2025 13:17:49 04/12/20 25 04/12/2025 micro album in/cr eatin ine, mass ratio , urine Ratio >300 mg/g Not Available [address], [address], 04/12/2025 13:17:49 04/12/20 25 04/12/2025 HbA1c (hemo globi n A1c), blood HbA1c 7.3 % Not Available [address], [address], 04/12/2025 13:14:27 07/02/20 25 07/02/2025 RF, angio gram, renal arter y, bilat eral No observ ation record ed. [email or web address] [facility] [address], [place], [address], 07/02/2025 10:21:43 07/02/20 25 07/02/2025 CT, abdom en + pelvi s, w/o contr ast No observ ation record ed. [facility] [address], [place], [address], 07/02/2025 15:57:31 07/03/20 25 07/03/2025 CT, abdom en + pelvi s, w/o contr ast No observ ation record ed. [email or web address] [facility] [address], [place], [address], 07/04/2025 09:51:19 Result Notes None recorded. Problems Name Problem SNOMED Code Status Onset Date Resolution Date Notes Provider Name and Address Organization Details Recorded Time Edema of left lower limb 257794061 Active 2024 LIZBETH Camacho [address] [place] [address], [address], [employer] 11:52:09 Hyperglyc emia due to type 2 diabetes mellitus 554216683769 109 Active 2024 LIZBETH Camacho [address] [place] [address], [address] 8, [employer] 14:35:50 Triggerin g of digit 980571513 Active 2024 LIZBETH Camacho [address] [place] [address], [address] 8, [employer] 14:35:35 Ulcer of skin of lower extremity 600775384 Active 2024 LIZBETH Camacho [address] [place] [address], [address] 8, [employer] 15:55:57 Candidias is of skin 48916369 Completed 202404/12/2025 LIZBETH Camacho [address] [place] [address], [address] 8, [employer] 13:40:06 Essential hypertens ion 06510175 Active 2024 LIZBETH Camacho [address] [place] [address], [address] 8, [employer] 15:12:27 Gouty arthritis of multiple sites 370720671 Active 2024 LIZBETH Camacho [address] [place] [address], [address]27[address] 8, [employer] 11:31:33 Edema of lower extremity 560602956 Active 2024 LIZBETH Camacho [address] [place] [address], [address] 8, [employer] 14:19:20 Gouty arthritis 40578493 Active 2024 LIZBETH Camacho [address] [place] [address], 71142[address]427 8, [employer] 13:33:31 Chronic kidney disease stage 3B 928245807 Active 2024 LIZBETH Camacho [address] [place] [address], [address]34[address] 8, [employer] 13:39:16 Chronic kidney disease stage 3 158201595 Active 2024 LIZBETH Camacho [address] [place] [address], [address] 8, [employer] 13:39:38 Well controlle d type 2 diabetes mellitus 907564541 Active 2024 LIZBETH Camacho [address] [place] [address], [address] 8, [employer] 11:52:04 Periphera l vascular disease 439763344 Active 2024 LIZBETH Camacho [address] [place] [address], 600[address] 8, [employer] 5 11:52:17 Hyperlipi demia 96676194 Active 2024 LIZBETH Camacho [address] [place] [address], 666[address] 8, [employer] 10:15:01 Acute cough Active 2024 LIZBETH Camacho [address] [place], [address], [employer] 14:29:30 Problem Notes None recorded. Procedures Surgical History Date Name Laterality Status Provider Name and Address Organization Details Recorded Time 5 Unna boot - LE edema completed Colleen [employer] 01/03/2025 13:37:46 5 Unna boot - LE edema completed [employer] 12/27/2024 14:35:21 operation on testis completed [employer] 12/27/2024 13:55:57 Stent completed [employer] 12/27/2024 13:56:05 Imaging Results None recorded. Procedure Notes None recorded. Medical Equipment None Reported. Allergies Allergen ID Allergen Name Allergen Category Reaction Reaction Severity Criticality Documentation Date Start Date Code Code System Note Provider Name and Address Organization Details Recorded Time 31978 diltiazem medicatio n Not available Not available Not available 12/28/2024 3443 RxNorm Colleen Vice [employer] 17:28:41 84244 parathyro id hormone medicatio n Not available Not available Not available 12/28/2024 15939 22 RxNorm Colleen Vice null, [employer] 17:29:03 15701 amlodipin e medicatio n swelling Not available high 06/14/20252017 77040 RxNorm Colleen Vice null, [employer] 5 10:29:05 06029 atorvasta tin calcium medicatio n hallucina tions Not available high 06/14/20252021 17041 RxNorm Colleen Vice null, [employer] 5 10:29:11 84912 diltiazem Not available other Not available Not available 06/14/20252024 3443 RxNorm Not Available ruth ann - [employer] - prod 5 04:57:13 04970 levothyro xine sodium medicatio n hallucina tions Not available high 06/14/20252017 07936 RxNorm Only 75mcg Not Available ruth ann - [employer] - prod 5 [...] Organization Details Last Updated DateTime 162.56 cm 29.5 kg/m2 84840.4 5 g 98 % 72 /min 98 [degF] 136/84 mm[Hg] Colleen [employer]. 13:09:29 Social History Question Answer Notes LastModified by Organizat ion Details LastModified Time Tobacco Smoking Status Never Smoker Colleen Gonzalez [employer] 12/27/2024 13:46:04 Do You Have An Advance Directive? No Information not available 12/27/2024 Is Your Home Air Conditioned? Yes Information not available 12/27/2024 Are You Blind Or Do You Have Difficulty Seeing? No Information not available 12/27/2024 What Is Your Level Of Caffeine Consumption? Occasional Information not available 12/27/2024 What Type Of Screen Printer Do You Use? None Information not available [...] Or The Highest Degree You Have Received? [id number] Information not available 12/27/2024 How Many Days [...] Do You Have A Medical Power Of Bindery Assistant? No Information not available 12/27/2024 What Was [...] Status Question Answer Note LastModified by Organizat [employer] Details LastModified Time Do you use any [...] anxious, or unable to sleep at night)? [id number] Information not available 12/27/2024 Do you have [...] Artery Disease N Other N Gout N Blood Diseases N Kidney Stones N Hyperthyroidism N Blood Transfusion N Breast Cancer N Emergency room visit since last appointm ent. Y Lung Disease N COPD N Depression N Dermatologic Disorders N Hypothyroidism N Defects or Inherited Disease N Developmental [...] Condition N Organ Transplant N Dialysis N Schizophrenia N Fibromyalgia N Headaches N Kidney Disease N Allergies/Hayfever [...] preservative free, adsorbed 7 completed Not Available [facility] 06/14/2025 10:06:14 Influenza, split virus, quadrivalent, PF 6 completed Not Available [facility] 06/14/2025 10:06:14 Influenza, split virus, quadrivalent, PF 7 completed Not Available [facility] 06/14/2025 10:06:14 Influenza, split virus, trivalent, PF 8 completed Not Available [facility] 06/14/2025 10:06:14 Hep A, adult 8 completed Not Available [facility] 06/14/2025 10:06:14 Influenza, high-dose, quadrivalent, PF 0 completed Not Available [facility] 06/14/2025 10:06:14 COVID-19 vaccine, vector-nr, rS-Ad26, PF, 0.5 mL 1 completed Not Available [facility] 06/14/2025 10:06:14 Influenza, high-dose, quadrivalent, PF 1 completed Not Available [facility] 06/14/2025 10:06:14 COVID-19, mRNA, LNP-S, [...] 25mcg/0.25 mL dose 3 completed Not Available [facility] 06/14/2025 10:06:14 Influenza, adjuvanted, quadrivalent, PF 3 completed Not Available [facility] 06/14/2025 10:06:14 COVID-19, mRNA, LNP-S, PF, 50 mcg/0.5 mL 3 completed Not Available [facility] 06/14/2025 10:06:14 Influenza, high-dose, trivalent, PF 4 completed Not Available [facility] 06/14/2025 10:06:14 COVID-19, mRNA, LNP-S, PF, tatyana-sucrose, 30 mcg/0.3 mL 4 completed Not Available [facility] 06/14/2025 10:06:14 zoster recombinant 5 completed Not Available [facility] 06/14/2025 10:06:14 Pneumococcal conjugate PCV20, polysaccharide [id number] conjugate, adjuvant, PF 5 completed Not Available [facility] 06/14/2025 10:06:14 RSV, bivalent, protein subunit RSVpreF, diluent reconstituted, 0.5 mL, PF 5 completed Not Available [facility] 06/14/2025 10:06:14 Influenza, high-dose, trivalent, PF 5 completed Not Available [facility] 06/14/2025 10:06:14 COVID-19, mRNA, LNP-S, PF, tatyana-sucrose, 30 mcg/0.3 mL 5 completed Not Available [facility] 06/14/2025 10:06:14 Past Encounters Encounter ID Performer Location Encounter Start Date Encounter Closed Date Diagnosis/Indication Diagnosis SNOMED-CT Code Diagnosis ICD10 Code Diagnosis IMO Codes Diagnosis Note [id number] LIZBETH Camacho [facility] [address] [place] [address] 04/12/2025 13:01:18 04/12/2025 13:33:21 Hyperglycemia due to type 2 diabetes mellitus 0369554618 86272 E11.65 03509303 Gouty arthritis 11333694 M10.9 71025 Chronic ki dney disease stage 3 856071218 E11.22 N18.30 08388767 Health Concerns Section Related Observation LastModified by Organization Detai ls LastModified Time None Recorded Concern Status LastModified by Organization Details LastModified Time None Recorded Payers Encounter Date Sequence Insurance Name Policy Number Policy [place] Covered Member ID [place] Member ID Guarantor Name 04/12/2025 1 [place] Jonelle Asad [id number] Jonelle Asad 04/12/2025 2 [facility] (MEDICAID HMO) Jonelle Asad [id number] Jonelle Asad Notes Date Note Type Note [...] a cane now.Diabetes well controlled. LIZBETH Camacho [address] [place] [address], [address], [place] [facility] [employer] 06/04/2025 16:59:47
--- NOTE | 2025-07-06 05:14 | CT_ITS ---
PROCEDURE INFORMATION: Exam: CTA Abdomen and Pelvis With Contrast Exam date and time: 07/06/2025 6:18 AM Age: 69 years old Clinical indication: Other: Renal artery stent 07/03, abd pain, oliguria TECHNIQUE: Imaging protocol: Computed tomographic angiography of the abdomen and pelvis with contrast. Exam focused on the arteries. 3D rendering (Not supervised by radiologist): MIP and/or 3D reconstructed images were created by the technologist. Radiation optimization: All CT scans at this facility use at least one of these dose optimization techniques: automated exposure control; mA and/or kV adjustment per patient size (includes targeted exams where dose is matched to clinical indication); or iterative reconstruction. Contrast material: ISOVUE; Contrast volume: 70 ml; Contrast route: INTRAVENOUS (IV); COMPARISON: CT ANGIO ABDOMEN/FEMORAL 05/22/2025 12:37 PM FINDINGS: Coronary arteries: Extensive coronary calcium. Aorta: No aortic aneurysm. No aortic dissection. Celiac and mesenteric arteries: No occlusion or significant stenosis. Renal arteries: There is a patent stent in the proximal right renal as well as the left renal artery. There is an accessory left renal artery arising below the main renal artery. Right iliac arteries: No occlusion or significant stenosis. Left iliac arteries: No occlusion or significant stenosis. Liver: The liver is low in density. Gallbladder and biliary ducts: Unremarkable. No calcified stones. No ductal dilation. Pancreas: Unremarkable. No mass. No ductal dilation. Spleen: Multiple splenic granulomas. Adrenal glands: Unremarkable. No mass. Kidneys and ureters: Stable left perinephric hematoma is not significantly changed from prior study 07/04/2025. No active hemorrhage is identified. The hematoma extends along the left ileo psoas muscle into the mid pelvis. Bilateral renal cysts are unchanged. Stomach and bowel: The rectum is distended with stool. Appendix: No evidence of appendicitis. Intraperitoneal space: Unremarkable. No free air. No significant fluid collection. Lymph nodes: Unremarkable. No enlarged lymph nodes. Urinary bladder: Unremarkable. No mass. Reproductive: Unremarkable as visualized. Bones/joints: No acute fracture. Soft tissues: Unremarkable. IMPRESSION: 1. Stable left perinephric and pelvic hematoma not significantly changed from prior study 07/04/2025. 2. Extensive coronary calcium. 3. Diffuse hepatic steatosis. 4. Patent bilateral renal stents.
[2025-07-06] MEDS: LACTATED RINGERS 1000ML 1,000 ML 999 ML IV (05:32)
--- NOTE | 2025-07-06 05:50 | CT_ITS ---
PROCEDURE INFORMATION: Exam: CTA Chest With Contrast Exam date and time: 07/06/2025 6:18 AM Age: 69 years old Clinical indication: Other: Tachy borderline hypoxic, recent stenting TECHNIQUE: Imaging protocol: Computed tomographic angiography of the chest with contrast. Exam focused on the arteries. 3D rendering (Not supervised by radiologist): MIP and/or 3D reconstructed images were created by the technologist. Radiation optimization: All CT scans at this facility use at least one of these dose optimization techniques: automated exposure control; mA and/or kV adjustment per patient size (includes targeted exams where dose is matched to clinical indication); or iterative reconstruction. Contrast material: ISOVUE; Contrast volume: 70 ml; Contrast route: INTRAVENOUS (IV); COMPARISON: CT ANGIO CHEST 05/22/2025 12:31 PM FINDINGS: Pulmonary arteries: Normal. No pulmonary emboli. Aorta: Unremarkable. No aortic aneurysm. No aortic dissection. Lungs: Bibasilar atelectasis. Pleural spaces: Unremarkable. No pneumothorax. No pleural effusion. Heart: Unremarkable. No cardiomegaly. No pericardial effusion. Coronary arteries: Extensive coronary calcium. Lymph nodes: Multiple calcified mediastinal and hilar lymph nodes consistent with prior granulomatous disease. Bones/joints: Unremarkable. No acute fracture. Soft tissues: Unremarkable. IMPRESSION: 1. No evidence of pulmonary embolus or other acute process. 2. Bibasilar atelectasis more prominent on the left. 3. Extensive coronary calcium. 4. Multiple calcified mediastinal and hilar lymph nodes consistent with prior granulomatous disease.
--- NOTE | 2025-07-06 05:50 | ECG_ITS ---
APPROVED REPORT Exam: Resting ECG HR:129 bpm ECG Measurements Heart Rate 129 AXES SC 127 P 46 QRSd 102 QRS 16 QT 319 T 68 QTc 395 Conclusion SINUS TACHYCARDIA WITH OCCASIONAL SUPRAVENTRICULAR PREMATURE COMPLEXES POSSIBLE INFERIOR MYOCARDIAL INFARCTION , PROBABLY OLD [30 ms Q WAVE IN II/aVF] Artifact limits interpretation, no STEMI within the limitations of the study Electronically signed by : JUAN DRIVER, 07/06/2025 07:20:14
--- NOTE | 2025-07-06 05:50 | ED_ITS ---
Discharge Plan Disposition Patient Disposition: Admitted Prescriptions Prescriptions: No Action aspirin 81 mg tablet,delayed release (DR/EC) 81 mg PO DAILY Qty: 90 4RF pentoxifylline 400 mg tablet extended release 400 mg PO TID Patient Comments: TAKE 1 TABLET BY MOUTH TWICE DAILY allopurinol 300 mg tablet 300 mg PO DAILY Qty: 60 1RF glipizide 2.5 mg tablet extended release 24hr 7.5 mg PO DAILY Patient Comments: TAKE 3 TABLETS BY MOUTH 1 TIME DAILY Invokana 300 mg tablet 300 mg PO DAILY Patient Comments: TAKE 1 TABLET BY MOUTH DAILY Januvia 50 mg tablet 50 mg PO DAILY Patient Comments: TAKE 1 TABLET BY MOUTH DAILY simvastatin 20 mg tablet 20 mg PO HS metoprolol succinate 100 mg tablet extended release 24 hr 200 mg PO DAILY Patient Comments: TAKE 2 TABLETS BY MOUTH DAILY levothyroxine 75 mcg tablet 75 mcg PO DAILY Patient Comments: TAKE 1 TABLET BY MOUTH DAILY levothyroxine 50 mcg tablet 50 mcg PO DAILY pantoprazole [Protonix] 40 mg tablet,delayed release (DR/EC) 40 mg PO DAILY Qty: 30 0RF amlodipine 5 mg tablet 5 mg PO DAILY Qty: 30 0RF clonidine HCl 0.2 mg tablet 0.1 mg PO BID 30 Days Qty: 0 0RF Patient Comments: TAKE 1 TABLET BY MOUTH TWICE DAILY clopidogrel [Plavix] 75 mg Tablet 75 mg PO DAILY 30 Days Qty: 30 6RF Referrals Follow up/Referrals: Damaris Quinteros PA [Primary Care Provider, Medical] - See instructions Clinical Impressions Clinical Impression: Myocardial injury, Hematoma of pelvis, Perinephric hematoma, Tachycardia Print Language Print Language: Georgian Discharge ED Provider: Geovanny Albrecht General Adult HPI <Geovanny Albrecth MD - Last Filed: 07/06/25 07:05> General Chief complaint: PAIN Stated complaint: abd pain Time Seen by Provider: 07/06/25 05:13 Mode of Arrival: EMS Source of Information: Patient and EMS Description of Symptoms (Recalled from ER Triage Doc. by RN): Pt presents to ER via EMS with lower abdominal pain that started 2-3 days ago s/p placements of stents in kidneys. Pt states that he is able to pee but he does not get a lot of output. Also states that he hasn't had a BM since stent placement. Denies hematuria, n/v, or chest pain. History of Present Illness HPI narrative: 69-year-old male who had renal artery stenting at this facility 3 days ago presents to the ER for complaints of lower abdominal pain. Patient reports since the time of his stenting he has had reduced urine output and has not had a bowel movement. He denies nausea, vomiting, dysuria, hematuria, chest pain, difficulty breathing, headache, dizziness, numbness, tingling, or weakness. He does arrive to the ER tachycardic but states he feels fine. He is a poor historian and is not sure if he is taking any prescription pain pills. Review of records demonstrate he does not have any active prescriptions for narcotics. He denies fever, chills. He reports no other complaints or concerns. Related Data Home Medications ?Medication ?Instructions ?Recorded ?Confirmed canagliflozin 300 mg tablet 300 mg PO DAILY 03/10/24 1 09/02/24 (Invokana) Held on 07/04/25. Instructions: due to hypotension, until follow-up with Cardiology glipizide 2.5 mg tablet, extended 7.5 mg PO DAILY 02/2207/02/25 release 24 hr pentoxifylline 400 mg 400 mg PO TID 01/31/2507/02 tablet,extended release simvastatin 20 mg tablet 20 mg PO HS 05/22/25 5 sitagliptin phosphate 50 mg tablet 50 mg PO DAILY 04/2507/02/25 (Januvia) Held on 07/04/25. Instructions: due to hypotension, until follow-up with Cardiology levothyroxine 75 mcg tablet 75 mcg PO DAILY 05/23/25 1 09/02/24 metoprolol succinate 100 mg 200 mg PO DAILY 05/23/25 1 09/02/24 tablet,extended release 24 hr Held on 07/04/25. Instructions: due to hypotension, until follow-up with Cardiology levothyroxine 50 mcg tablet 50 mcg PO DAILY 05/25/25 1 09/02/24 Previous Rx's ?Medication ?Instructions ?Recorded allopurinol 300 mg tablet 300 mg PO DAILY #60 tabs aspirin 81 mg tablet,delayed 81 mg PO DAILY #90 tabs 0 11/02/24 release amlodipine 5 mg tablet 5 mg PO DAILY #30 tabs 05/28 Held on 07/04/25. Instructions: due to hypotension, until follow-up with Cardiology clonidine HCl 0.2 mg tablet 0.1 mg (1/2 x 0.2 mg) PO B ID SBP > 05/28/25 Held on 07/04/25. 160 30 days #0 tabs Instructions: due to hypotension, until follow-up with Cardiology pantoprazole 40 mg tablet,delayed 40 mg PO DAILY #30 t abs 05/28/25 release (Protonix) clopidogrel 75 mg tablet (Plavix) 75 mg PO DAILY 30 da ys #30 tabs 06/17/25 Allergies Allergy/AdvReac Type Severity Reaction Status Date / Time atorvastatin (From Lipitor) Allergy Mild Hallucinati Verified 06/12/25 13:17 ng PFS <Geovanny Albrecht MD - Last Filed: 07/06/25 07:05> [facility] Disclaimer: The information contained in this section may have been updated after the patient was seen, as this information can be updated by other users. Medical History (Updated 07/06/25 @ 07:53 by Oz Turner MD) Sinus tachycardia Pleural effusion, right Myocardial infarct Skin lesion of left leg Psychosis Diabetes Traumatic injury of foot Multiple thyroid nodules Impacted cerumen of right ear Hypothyroidism Repeated falls Pulmonary HTN HLD (hyperlipidemia) HTN (hypertension) Surgical History Stented coronary artery Social History Smoking Status: Never smoker alcohol intake: never counseling provided: none substance use type: denies use current occupational status: unemployed Travel in the last 8 weeks?: None household members: none housing: apartment current occupation: retired caffeine: No Other Medical History Have you received the Flu Vaccine for this season: No Have you received the Pneumonia Vaccine: No <Geovanny Albrecht MD - Last Filed: 07/06/25 07:05> ROS Obtained: Yes Systems reviewed as appropriate & no additional complaints except as documented per HPI Physical Exam <Geovanny Albrecht MD - Last Filed: 07/06/25 07:05> General General appearance: alert and in no apparent distress Head Head exam: atraumatic and normocephalic Eye Eye exam: Present PERRL and EOMI ENT ENT exam: Present mucous membranes moist Neck Neck exam: Present normal inspection and full ROM Chest Chest inspection: Present symmetric chest wall rise Respiratory Respiratory exam: Present normal lung sounds bilaterally; Absent respiratory distress, wheezes or stridor Cardiovascular Cardiovascular exam: Present normal rhythm and tachycardia Abdominal Exam Abdominal exam: Present soft, tenderness (Suprapubic area) and normal bowel sounds; Absent distention, guarding or rebound Extremities Exam Extremities exam: Present full ROM; Absent edema Neurological Exam Neurological exam: Present alert and oriented X3; Absent motor sensory deficit Psychiatric Psychiatric exam: Present normal affect and normal mood Skin Skin exam: Present warm and dry Medical Decision Making <Geovanny Albrecht MD - Last Filed: 07/06/25 07:05> Medical Records Medical records reviewed: Yes I reviewed the patient's medical records. Screening: Per USPSTF and CDC recommendations, given the prevalence of disease in our region, it is our hospital?s policy to screen for HIV and viral Hepatitis for all patients aged 18 and over and those with ongoing risk factors. MR Comment: Cardiology notes demonstrate patient had bilateral renal artery stenting followed by retroperitoneal hematoma and compression of the left kidney, he was thought to have some leaking from the renal artery after the stent placement that had already resolved, he remained hemodynamically stable subcapsular hematoma had increased in size and right pleural effusion had increased as well but he was not complaining of any flank pain. He was recommended to continue to be hospitalized until his subcapsular hematoma had stabilized and to monitor his renal function and anemia. Note reflects he was adamant he wanted to leave despite the worsening retroperitoneal hematoma and subcapsular hematoma ultimately patient decided to leave [place] and records do NOT reflect that he followed up with cardiology despite the recommendation to do so. Hospitalist discharge summary reflects a similar hospital course. His initial hemoglobin was 16 and baseline creatinine approximately 1.6, at the time that he left [facility] hemoglobin was 9.5 and creatinine 2.7. Patient has not yet had repeat labs since leaving [facility] Pt receiving controlled substance: No Vital Signs: 07/06/25 05:17 07/06/25 05:36 07/06/25 05:39 Temperature 98.3 F Temperature Source Oral Pulse Rate 131 H 129 H Pulse Rate [Left Radial] 131 H Respiratory Rate 19 25 H 24 Blood Pressure Blood Pressure [Right Arm] 176/100 H Blood Pressure Mean Blood Pressure Mean [Right Arm] 125 Blood Pressure Source [Right Arm] Automatic Cuff Blood Pressure Position [Right Arm] Sitting 02 Sat by Pulse Oximetry 100 98 93 L Oxygen Delivery Method Room Air Room Air Room Air 07/06/25 05:39 07/06/25 05:45 07/06/25 06:00 Temperature Temperature Source Pulse Rate 131 H 152 H Pulse Rate [Left Radial] Respiratory Rate 30 H 34 H Blood Pressure 177/95 H Blood Pressure [Right Arm] Blood Pressure Mean 122 Blood Pressure Mean [Right Arm] Blood Pressure Source [Right Arm] Blood Pressure Position [Right Arm] 02 Sat by Pulse Oximetry 100 98 Oxygen Delivery Method Room Air Room Air 07/06/25 06:01 07/06/25 06:01 07/06/25 06:09 Temperature Temperature Source Pulse Rate 145 H Pulse Rate [Left Radial] Respiratory Rate 32 H Blood Pressure 181/115 H 173/97 H Blood Pressure [Right Arm] Blood Pressure Mean 137 124 Blood Pressure Mean [Right Arm] Blood Pressure Source [Right Arm] Blood Pressure Position [Right Arm] 02 Sat by Pulse Oximetry 99 Oxygen Delivery Method Room Air 07/06/25 06:09 07/06/25 06:25 07/06/25 06:30 Temperature Temperature Source Pulse Rate 132 H 125 H Pulse Rate [Left Radial] Respiratory Rate 27 H 22 Blood Pressure 179/97 H Blood Pressure [Right Arm] Blood Pressure Mean 124 Blood Pressure Mean [Right Arm] Blood Pressure Source [Right Arm] Blood Pressure Position [Right Arm] 02 Sat by Pulse Oximetry 100 92 L Oxygen Delivery Method Room Air Room Air 07/06/25 06:30 07/06/25 06:45 07/06/25 07:00 Temperature Temperature Source Pulse Rate 119 H 108 H 116 H Pulse Rate [Left Radial] Respiratory Rate 27 H 26 H 26 H Blood Pressure 166/96 H Blood Pressure [Right Arm] Blood Pressure Mean Blood Pressure Mean [Right Arm] Blood Pressure Source [Right Arm] Blood Pressure Position [Right Arm] 02 Sat by Pulse Oximetry 100 100 100 Oxygen Delivery Method Room Air Room Air Room Air 07/06/25 07:30 Temperature Temperature Source Pulse Rate 119 H Pulse Rate [Left Radial] Respiratory Rate 23 Blood Pressure 156/89 H Blood Pressure [Right Arm] Blood Pressure Mean Blood Pressure Mean [Right Arm] Blood Pressure Source [Right Arm] Blood Pressure Position [Right Arm] 02 Sat by Pulse Oximetry 99 Oxygen Delivery Method Room Air Lab Data Lab Results 07/06/25 05:41: WBC 12.8 H, RBC 3.61 L, Hgb 10.9 L, Hct 33.4 L, MCV 92.5, MCH 30.2, MCHC 32.6, RDW 16.5, Plt Count 201 D, MPV 11.5 H, Neut % (Auto) 70.0, Lymph % (Auto) 19.7, [place] % (Auto) 7.4, Eos % (Auto) 1.6, Baso % (Auto) 0.4, N eut # (Auto) 8.9 H, Lymph # (Auto) 2.5, [place] # (Auto) 0.9, Eos # (Auto) 0.2, Baso # (Auto) 0.1, PT 11.1, INR 1.00, Sodium 147 H, Potassium 4.1, Chloride 112 H, Carbon Dioxide 18 L, Anion Gap 21.1 H, BUN 23 H D, Creatinine 1.80 H D, Estimated Creat Clear 42, Estimated GFR 37 L, Est GFR ( Amer) 45 L D, G lucose 150 H, Lactate 1.7, Calcium 9.4, Total Bilirubin 2.2 H, AST 35, ALT 20, Alkaline Phosphatase 83, Troponin I 0.16 H, Total Protein 6.8, Albumin 4.2, Globulin 2.6, Albumin/Globulin Ratio 1.6, Lipase 230, HCV Ab JAIRO w/Rflx PCR Qn Negative, HIV Ag/Ab Combo Qual Negative 07/06/25 06:02: Urine Color Yellow, Urine Appearance Clear, Urine pH 6.0, Ur Specific [place] 1.020, Urine Protein Trace, Urine Glucose (UA) 3+, Urine Ketones Trace, Urine Blood 2+ A, Urine Nitrate Negative, Urine Bilirubin Negative, Urine Urobilinogen 0.2, Ur Leukocyte Esterase Negative, Urine RBC Occasional, Urine WBC 3-5, Ur Squamous Epith Cells Occasional, Urine Bacteria None 07/06/25 05:41 07/06/25 05:41 Orders (Tests/Meds): ED MEDICATIONS Discontinued Medications Generic Name Dose Route Start Last Admin Trade Name Freq PRN Reason Stop Dose Admin Lactated Ringer's 1,000 mls @ 999 mls/hr 07/06/25 05:14 07/06/25 07:37 Lactated Ringer's 1000 Ml Bag IV 07/06/25 06:14 Infused .Q1H1M ONE Infusion Iopamidol 70 ml 07/06/25 06:17 07/06/25 06:18 Iopamidol-370 (76%);100ml Bottle IV 07/06/25 06:18 70 ml ONCE ONE Administration Sodium Chloride 10 ml 07/06/25 06:17 07/06/25 06:18 Sodium Chloride 0.9% 10ml Syr (Rad Only) IV 07/06/25 06:18 10 ml ONCE ONE Administration Sodium Chloride 50 ml 07/06/25 06:17 07/06/25 06:18 0.9 % Sodium Chloride 50 Ml Vial IV 07/06/25 06:18 50 ml ONCE ONE Administration ORDERS Category Date Time Status CT angio abdomen pelvis Stat Cat Scan 07/06/25 05:[address] angio chest PE protocol Stat Cat Scan 07/06/25 05:50 Completed CBC w/Auto Diff [Complete Blood Count Auto Diff] Stat Lab 07/06/25 05:41 Completed CMP [Comprehensive Metabolic Panel] Stat Lab 07/06/25 05:41 Completed HIV Combo Stat Lab 07/06/25 05:41 Completed Hepatitis C Ab Qual. W/ RFX Stat Lab 07/06/25 05:41 Completed Lactic Acid Stat Lab 07/06/25 05:41 Completed Lipase Stat Lab 07/06/25 05:41 Completed PT INR [Prothrombin Time INR] Stat Lab 07/06/25 05:41 Completed Trop I [Troponin I] Stat Lab 07/06/25 05:41 Completed Troponin I Q3H Lab 07/06/25 09:00 Ordered Troponin I Q3H Lab 07/06/25 12:00 Ordered Urinalysis and Microscopic Stat Lab 07/06/25 06:02 Completed Medical Decision Narrative: In summary, this 69-year-old male with comorbidities including recent bilateral renal artery stenosis, NSTEMI, type 2 diabetes, CKD, A-fib, CAD, hypertension, hyperlipidemia, pulmonary hypertension presents to the emergency department today with decreased urine output, no bowel movement, abdominal pain. On initial evaluation patient is tachycardic but otherwise hemodynamically stable, afebrile, GCS 15, mild to moderate suprapubic tenderness to palpation with no rebound or guarding, no peritonitic findings, no peripheral edema, remainder of exam unremarkable. Differential diagnosis includes but is not limited to constipation, DAYSI, kidney dysfunction, oliguria, anuria, urinary retention or obstruction, regarding the tachycardia I considered anemia, coagulopathy, pain/discomfort, PE, among others. I have increased suspicion for some of these more dangerous pathology since patient signed out from his hospital admission AMA 2 days ago. Based on these concerns, I ordered hematologic and serum labs, urinalysis, bladder scan showed approximately 500 mL, I also ordered CT angiography of the chest, abdomen, pelvis, cardiac workup. ECG personally interpreted demonstrates sinus tachycardia with occasional PAC, rate 129, normal axis, normal SC and QTc, artifact limits interpretation however within the limitations of this study I do not appreciate STEMI. Patient received IV fluids initially for treatment. With bladder scan volume 500 mL in and out cath was performed and we collected urinalysis from this. Labs personally reviewed demonstrate leukocytosis WBC 12.8 improved from prior, anemia hemoglobin 10.9 improved from the day that he left this facility AMA, normal platelets, PT/INR normal, CMP with new mild hyponatremia, normal potassium, BUN and creatinine improved from the day patient left AMA, creatinine down to 1.8 with previous baseline prior to his procedure being 1.6. Patient does have new hyperbilirubinemia with bilirubin 2.2, troponin 0.16, repeat troponin pending. Lipase normal no evidence of pancreatitis, UA with the presence of blood likely from catheterization but no evidence of infection. CTA PE personally turbid demonstrates no evidence of pulmonary embolism, see radiology read for full interpretation. CT abdomen pelvis appears to demonstrate stable hematoma, see radiology read for final interpretation. On reassessment patient reports he is feeling somewhat improved, his tachycardia is improving now down to the low 100s. Patient handed off to Dr. Turner and improving condition for continued management and disposition. <Oz Turner MD - Last Filed: 07/06/25 07:57> Vital Signs: 07/06/25 05:17 07/06/25 05:36 07/06/25 05:39 Temperature 98.3 F Temperature Source Oral Pulse Rate 131 H 129 H Pulse Rate [Left Radial] 131 H Respiratory Rate 19 25 H 24 Blood Pressure Blood Pressure [Right Arm] 176/100 H Blood Pressure Mean Blood Pressure Mean [Right Arm] 125 Blood Pressure Source [Right Arm] Automatic Cuff Blood Pressure Position [Right Arm] Sitting 02 Sat by Pulse Oximetry 100 98 93 L Oxygen Delivery Method Room Air Room Air Room Air 07/06/25 05:39 07/06/25 05:45 07/06/25 06:00 Temperature Temperature Source Pulse Rate 131 H 152 H Pulse Rate [Left Radial] Respiratory Rate 30 H 34 H Blood Pressure 177/95 H Blood Pressure [Right Arm] Blood Pressure Mean 122 Blood Pressure Mean [Right Arm] Blood Pressure Source [Right Arm] Blood Pressure Position [Right Arm] 02 Sat by Pulse Oximetry 100 98 Oxygen Delivery Method Room Air Room Air 07/06/25 06:01 07/06/25 06:01 07/06/25 06:09 Temperature Temperature Source Pulse Rate 145 H Pulse Rate [Left Radial] Respiratory Rate 32 H Blood Pressure 181/115 H 173/97 H Blood Pressure [Right Arm] Blood Pressure Mean 137 124 Blood Pressure Mean [Right Arm] Blood Pressure Source [Right Arm] Blood Pressure Position [Right Arm] 02 Sat by Pulse Oximetry 99 Oxygen Delivery Method Room Air 07/06/25 06:09 07/06/25 06:25 07/06/25 06:30 Temperature Temperature Source Pulse Rate 132 H 125 H Pulse Rate [Left Radial] Respiratory Rate 27 H 22 Blood Pressure 179/97 H Blood Pressure [Right Arm] Blood Pressure Mean 124 Blood Pressure Mean [Right Arm] Blood Pressure Source [Right Arm] Blood Pressure Position [Right Arm] 02 Sat by Pulse Oximetry 100 92 L Oxygen Delivery Method Room Air Room Air 07/06/25 06:30 07/06/25 06:45 07/06/25 07:00 Temperature Temperature Source Pulse Rate 119 H 108 H 116 H Pulse Rate [Left Radial] Respiratory Rate 27 H 26 H 26 H Blood Pressure 166/96 H Blood Pressure [Right Arm] Blood Pressure Mean Blood Pressure Mean [Right Arm] Blood Pressure Source [Right Arm] Blood Pressure Position [Right Arm] 02 Sat by Pulse Oximetry 100 100 100 Oxygen Delivery Method Room Air Room Air Room Air 07/06/25 07:30 Temperature Temperature Source Pulse Rate 119 H Pulse Rate [Left Radial] Respiratory Rate 23 Blood Pressure 156/89 H Blood Pressure [Right Arm] Blood Pressure Mean Blood Pressure Mean [Right Arm] Blood Pressure Source [Right Arm] Blood Pressure Position [Right Arm] 02 Sat by Pulse Oximetry 99 Oxygen Delivery Method Room Air Lab Data Lab results reviewed: Yes I reviewed the patient's lab results. Lab Results 07/06/25 05:41: WBC 12.8 H, RBC 3.61 L, Hgb 10.9 L, Hct 33.4 L, MCV 92.5, MCH 30.2, MCHC 32.6, RDW 16.5, Plt Count 201 D, MPV 11.5 H, Neut % (Auto) 70.0, Lymph % (Auto) 19.7, [place] % (Auto) 7.4, Eos % (Auto) 1.6, Baso % (Auto) 0.4, N eut # (Auto) 8.9 H, Lymph # (Auto) 2.5, [place] # (Auto) 0.9, Eos # (Auto) 0.2, Baso # (Auto) 0.1, PT 11.1, INR 1.00, Sodium 147 H, Potassium 4.1, Chloride 112 H, Carbon Dioxide 18 L, Anion Gap 21.1 H, BUN 23 H D, Creatinine 1.80 H D, Estimated Creat Clear 42, Estimated GFR 37 L, Est GFR ( Amer) 45 L D, G lucose 150 H, Lactate 1.7, Calcium 9.4, Total Bilirubin 2.2 H, AST 35, ALT 20, Alkaline Phosphatase 83, Troponin I 0.16 H, Total Protein 6.8, Albumin 4.2, Globulin 2.6, Albumin/Globulin Ratio 1.6, Lipase 230, HCV Ab JAIRO w/Rflx PCR Qn Negative, HIV Ag/Ab Combo Qual Negative 07/06/25 06:02: Urine Color Yellow, Urine Appearance Clear, Urine pH 6.0, Ur Specific [place] 1.020, Urine Protein Trace, Urine Glucose (UA) 3+, Urine Ketones Trace, Urine Blood 2+ A, Urine Nitrate Negative, Urine Bilirubin Negative, Urine Urobilinogen 0.2, Ur Leukocyte Esterase Negative, Urine RBC Occasional, Urine WBC 3-5, Ur Squamous Epith Cells Occasional, Urine Bacteria None Orders (Tests/Meds): ED MEDICATIONS Discontinued Medications Generic Name Dose Route Start Last Admin Trade Name Freq PRN Reason Stop Dose Admin Lactated Ringer's 1,000 mls @ 999 mls/hr 07/06/25 05:14 07/06/25 07:37 Lactated Ringer's 1000 Ml Bag IV 07/06/25 06:14 Infused .Q1H1M ONE Infusion Iopamidol 70 ml 07/06/25 06:17 07/06/25 06:18 Iopamidol-370 (76%);100ml Bottle IV 07/06/25 06:18 70 ml ONCE ONE Administration Sodium Chloride 10 ml 07/06/25 06:17 07/06/25 06:18 Sodium Chloride 0.9% 10ml Syr (Rad Only) IV 07/06/25 06:18 10 ml ONCE ONE Administration Sodium Chloride 50 ml 07/06/25 06:17 07/06/25 06:18 0.9 % Sodium Chloride 50 Ml Vial IV 07/06/25 06:18 50 ml ONCE ONE Administration ORDERS Category Date Time Status CT angio abdomen pelvis Stat Cat Scan 07/06/25 05:[address] angio chest PE protocol Stat Cat Scan 07/06/25 05:50 Completed CBC w/Auto Diff [Complete Blood Count Auto Diff] Stat Lab 07/06/25 05:41 Completed CMP [Comprehensive Metabolic Panel] Stat Lab 07/06/25 05:41 Completed HIV Combo Stat Lab 07/06/25 05:41 Completed Hepatitis C Ab Qual. W/ RFX Stat Lab 07/06/25 05:41 Completed Lactic Acid Stat Lab 07/06/25 05:41 Completed Lipase Stat Lab 07/06/25 05:41 Completed PT INR [Prothrombin Time INR] Stat Lab 07/06/25 05:41 Completed Trop I [Troponin I] Stat Lab 07/06/25 05:41 Completed Troponin I Q3H Lab 07/06/25 09:00 Ordered Troponin I Q3H Lab 07/06/25 12:00 Ordered Urinalysis and Microscopic Stat Lab 07/06/25 06:02 Completed Medical Decision Narrative: In summary, this 69-year-old male with comorbidities including recent bilateral renal artery stenosis, NSTEMI, type 2 diabetes, CKD, A-fib, CAD, hypertension, hyperlipidemia, pulmonary hypertension presents to the emergency department today with decreased urine output, no bowel movement, abdominal pain. On initial evaluation patient is tachycardic but otherwise hemodynamically stable, afebrile, GCS 15, mild to moderate suprapubic tenderness to palpation with no rebound or guarding, no peritonitic findings, no peripheral edema, remainder of exam unremarkable. Differential diagnosis includes but is not limited to constipation, DAYSI, kidney dysfunction, oliguria, anuria, urinary retention or obstruction, regarding the tachycardia I considered anemia, coagulopathy, pain/discomfort, PE, among others. I have increased suspicion for some of these more dangerous pathology since patient signed out from his hospital admission AMA 2 days ago. Based on these concerns, I ordered hematologic and serum labs, urinalysis, bladder scan showed approximately 500 mL, I also ordered CT angiography of the chest, abdomen, pelvis, cardiac workup. ECG personally interpreted demonstrates sinus tachycardia with occasional PAC, rate 129, normal axis, normal SC and QTc, artifact limits interpretation however within the limitations of this study I do not appreciate STEMI. Patient received IV fluids initially for treatment. With bladder scan volume 500 mL in and out cath was performed and we collected urinalysis from this. Labs personally reviewed demonstrate leukocytosis WBC 12.8 improved from prior, anemia hemoglobin 10.9 improved from the day that he left this facility AMA, normal platelets, PT/INR normal, CMP with new mild hyponatremia, normal potassium, BUN and creatinine improved from the day patient left AMA, creatinine down to 1.8 with previous baseline prior to his procedure being 1.6. Patient does have new hyperbilirubinemia with bilirubin 2.2, troponin 0.16, repeat troponin pending. Lipase normal no evidence of pancreatitis, UA with the presence of blood likely from catheterization but no evidence of infection. CTA PE personally turbid demonstrates no evidence of pulmonary embolism, see radiology read for full interpretation. CT abdomen pelvis appears to demonstrate stable hematoma, see radiology read for final interpretation. On reassessment patient reports he is feeling somewhat improved, his tachycardia is improving now down to the low 100s. Patient handed off to Dr. Turner and improving condition for continued management and disposition. This is Dr. Turner I took over from Dr. Albrecht at 7 AM. I reviewed patient's imaging and patient has stable left perinephric hematoma as well as pelvic hematoma. H&H is normal. Patient remains persistently tachycardic. Heart rate in the 120s. 1 L of IV fluids have been administered and patient is still tachycardic. No evidence of a pulmonary embolism. Initially the second EKG was performed looked like possible A-fib with RVR however after closer interpretation it does look to be sinus also patient was very regular on my assessment clinically. Will not treat this as A-fib RVR at the moment but rather sinus tachycardia. Patient has a persistently elevated troponin single troponin is elevated most likely myocardial injury could be an NSTEMI associated with this but will hold off on that definitive diagnosis until there is an obvious delta. Patient has no ischemic symptoms otherwise. No other abdominal pathology which was the primary reason he return to the emergency department. Given the fact that he has a myocardial injury persistent tachycardia hematomas and the need for anticoagulation patient needs to be admitted for observation and continued management of his tachycardia. Anemia seems to be stable. Critical Care <Geovanny Albrecht MD - Last Filed: 07/06/25 07:05> Critical Care Time Critical Care Time: No <Oz Turner MD - Last Filed: 07/06/25 07:57> Critical Care Time Critical Care Time: Yes Attestation: On 07/06/25, the high probability of a clinically significant, sudden or life threatening deterioration of the following system(s) required my full and direct attention, intervention and personal management. The time I documented below is in addition to time spent performing reported procedures but includes the following listed in this critical care notation. Total Time Total Critical Care Time: 35
[2025-07-06 05:53] LABS: Hematocrit 33.4 % (42.0-52.0); Hemoglobin 10.9 g/dL (14.1-18.0); Immature Granulocytes % 0.9 %; Mean Corpuscular HGB Conc 32.6 g/dL (31.8-35.4); Mean Corpuscular Hemoglobin 30.2 pg (27.0-31.2); Mean Corpuscular Volume 92.5 fl (80-94); Nucleated Red Blood Cells % 0.2 %; Platelet Count 201 K/mm3 (142-424); Red Blood Count 3.61 M/mm3 (4.60-6.20); Red Cell Distribution Width-SD 53.8 fL; White Blood Count 12.8 K/mm3 (4.8-10.8)
[2025-07-06 05:56] LABS: INR 1.00 (0.9-1.1); Prothrombin Time 11.1 seconds (10.1-12.5)
[2025-07-06 05:58] LABS: Albumin Level 4.2 g/dl (3.5-5.0); Chloride 112 mmol/L (98-107); Potassium 4.1 mmoL/L (3.5-5.1); Sodium 147 mmol/L (136-145)
[2025-07-06 06:01] LABS: Alanine Aminotransferase 20 U/L (12-78); Albumin/Globulin Ratio 1.6 (1.1-1.8); Alkaline Phosphatase 83 U/L (38-126); Anion Gap 21.1 mEq/L (5-15); Aspartate Amino Transferase 35 U/L (17-59); Bilirubin,Total 2.2 mg/dl (0.2-1.3); Blood Urea Nitrogen 23 mg/dl (9-20); Carbon Dioxide 18 mmol/L (22.0-30.0); Creatinine Clearance Estimated 42 mL/min (50-200); Creatinine,Serum 1.80 mg/dl (0.66-1.25); Estimated Glomerular Filt Rate 37 ml/min (>60); GFR (African American) 45 ML/MIN (>60); Globulin 2.6 g/dL (1.3-3.2); Lipase 230 U/L (23-300); Total Protein,Serum 6.8 g/dl (6.3-8.2)
[2025-07-06 06:02] LABS: Calcium 9.4 mg/dl (8.4-10.2); Glucose 150 mg/dl (74-100)
[2025-07-06 06:08] LABS: Microscopic, Urine URINE MICROSCOPIC (MICROSCOPIC)
[2025-07-06 06:10] LABS: Bilirubin,Urine Negative (Negative); Color,Urine YELLOW (Yellow); Glucose,Urine (UA) 3+ (Negative); Ketones,Urine TRACE (Negative); Leukocyte Esterase,Urine Negative (Negative); PH,Urine 6.0 (5.0-8.5); Protein,Urine TRACE (Negative); Specific Gravity, Urine 1.020 (1.005-1.030); Urobilinogen,Urine 0.2 EU/dl (0.2)
--- NOTE | 2025-07-06 06:12 | PC.NURSE ---
Addendum entered by Zoe Escobedo RN 07/06/25 06:13: straight cath performed to obtain urine specimen per MD order; sterile technique utilized per ER protocol Original Note: straight cath performed to obtain urine specimen; sterile technique utilized per ER protocol
[2025-07-06 06:15] LABS: Troponin I 0.16 ng/ml (0.00-0.034)
[2025-07-06] MEDS: IOPAMIDOL-370 (76%);100ML BOTTLE 70 ML IV (06:18)
[2025-07-06] MEDS: SODIUM CHLORIDE 0.9% 10ML SYR (RAD ONLY) 10 ML IV (06:18)
[2025-07-06] MEDS: 0.9 % SODIUM CHLORIDE 50 ML VIAL IV (06:18)
[2025-07-06 06:52] LABS: Hepatitis C Ab Qual. W/ RFX NEGATIVE (Negative)
--- NOTE | 2025-07-06 07:25 | ECG_ITS ---
APPROVED REPORT Exam: Resting ECG HR:123 bpm ECG Measurements Heart Rate 123 AXES QRSd 90 QRS 13 QT 330 T 71 QTc 403 Conclusion ATRIAL FIBRILLATION WITH RAPID VENTRICULAR RESPONSE MODERATE ST DEPRESSION [0.05+ mV ST DEPRESSION] No STEMI Electronically signed by : JUAN DRIVER, 07/07/2025 02:13:22
[2025-07-06 07:26] LABS: RBC,Urine Occasional #/hpf (0-3); Squamous Epithelial Cell,Urine Occasional #/hpf (0-5)
[2025-07-06] MEDS: METOPROLOL SUCCINATE XL 100MG TABLET 200 MG PO (08:37)
--- NOTE | 2025-07-06 08:51 | PC.NURSE ---
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
[2025-07-06 08:58] LABS: Troponin I 0.14 ng/ml (0.00-0.034)
--- NOTE | 2025-07-06 09:40 | PC.NURSE ---
Patient arrived to ICU via wheelchair.
--- NOTE | 2025-07-06 10:34 | HMH.PHAINT1 ---
Pharmacy Intervention Comments: MEDICATION RECONCILIATION COMPELTE USING EXTERNAL PHARMACY FILL HISTORY, RECENT HOSPITAL ADMISSION/DISCHARGE NOTE.
[2025-07-06] MEDS: AMLODIPINE 5MG TABLET 5 MG PO (10:51)
[2025-07-06] MEDS: ASPIRIN EC 81MG TABLET 81 MG PO (10:51)
[2025-07-06] MEDS: CLOPIDOGREL 75MG TAB 75 MG PO (10:51)
--- NOTE | 2025-07-06 11:10 | P.HPDS_ITS ---
General Admission date:: 07/06/25 Discharge date: 07/06/25 *Admission Date: 07/06/25 *Chief complaint: Abdominal pain *History of present illness: Mr. Kamara is a 69-year-old male with extensive peripheral artery disease and is undergone multiple stenting's with both left heart cath and peripheral stenting's in the past month. He was just admitted this past week after undergoing bilateral renal artery stenting for bilateral renal artery stenosis. Unfortunately sustained minor injury to left renal artery leading to retroperitoneal bleed with large hematoma and subcapsular hematoma of left kidney. He was being monitored during that admission for stability of his hemoglobin as it had dropped from 16-10 necessitating transfusion because of hypotension. During that stay he left AMA however while still having slow trickle down of his H&H. Many of his heart failure meds were held due to low normal blood pressures. He presents to the ER today however with complaint of lower abdominal pain. States he has not had a bowel movement since the stent was placed. Also found to be tachycardic in the ER. Labs showing generalized improvement with improvement in hemoglobin from recent discharge. Kidney func tion improving creatinine 1.8. Blood pressure improved. Due to his tachycardia and abdominal pain, medicine was consulted to evaluate and for further management. After arriving to the floor, states he feels like if he could have a bowel movement he would feel much better. He was started on his metoprolol and within 1-1/2 to 2 hours of taking his oral dose of metoprolol, heart rate improved to 90. Patient remained stable on room air. Afebrile. No chest pain. No nausea or vomiting. [facility] Disclaimer: The information contained in this section may have been updated after the patient was seen, as this information can be updated by other users. Medical History Sinus tachycardia Pleural effusion, right Myocardial infarct Skin lesion of left leg Psychosis Diabetes Traumatic injury of foot Multiple thyroid nodules Impacted cerumen of right ear Hypothyroidism Repeated falls Pulmonary HTN HLD (hyperlipidemia) HTN (hypertension) Surgical History Stented coronary artery Social History Smoking Status: Never smoker alcohol intake: never counseling provided: none substance use type: denies use current occupational status: unemployed Travel in the last 8 weeks?: None household members: none housing: apartment current occupation: retired caffeine: No Contact w/someone who lives/traveled outside [place] past 30 days?: No Exposure to someone with infectious disease in past 14 days?: No Do you have a fever (greater than 100.4 F or 38 C)?: No Have you tested positive for COVID-19?: No Exposed to someone with COVID-19 in past 14 days?: No Do you have a sore throat?: No Do you have a cough?: No Do you have any weakness?: No Are you experiencing any nausea/vomitting?: No Do you have any diarrhea?: No Are you experiencing any unusual bleeding?: No Do you have any muscle aches/pain?: No Do you have any abdominal pain?: No Are you experiencing loss of taste or smell?: No Other Medical History Have you received the Flu Vaccine for this season: Yes Have you received the Pneumonia Vaccine: Yes Review of Systems Review of Systems Review of systems (narrative): 14 point review of systems performed, pertinent positives and negatives as per HPI Exam Data for Last 24 hours Vital signs and Labs for Last 24 Hours: Temp Pulse Resp BP Pulse Ox O2 Del Method 98.2 F 128 H 20 175/107 H 99 Room Air 07/06/25 09:45 07/06/25 09:13 07/06/25 09:13 07/06/25 09:13 07/06/25 09:01 07/06/25 09:13 Laboratory Results - last 24 hr 07/06/25 05:41: WBC 12.8 H, RBC 3.61 L, Hgb 10.9 L, Hct 33.4 L, MCV 92.5, MCH 30.2, MCHC 32.6, RDW 16.5, Plt Count 201 D, MPV 11.5 H, Neut % (Auto) 70.0, Lymph % (Auto) 19.7, [place] % (Auto) 7.4, Eos % (Auto) 1.6, Baso % (Auto) 0.4, Neut # (Auto) 8.9 H, Lymph # (Auto) 2.5, [place] # (Auto) 0.9, Eos # (Auto) 0.2, Baso # (Auto) 0.1, PT 11.1, INR 1.00, Sodium 147 H, Potassium 4.1, Chloride 112 H, Carbon Dioxide 18 L, Anion Gap 21.1 H, BUN 23 H D, Creatinine 1.80 H D, Estimated Creat Clear 42, Estimated GFR 37 L, Est GFR ( Amer) 45 L D, Glucose 150 H, Lactate 1.7, Calcium 9.4, Total Bilirubin 2.2 H, AST 35, ALT 20, Alkaline Phosphatase 83, Troponin I 0.16 H, Total Protein 6.8, Albumin 4.2, Globulin 2.6, Albumin/Globulin Ratio 1.6, Lipase 230, HCV Ab JAIRO w/Rflx PCR Qn Negative, HIV Ag/Ab Combo Qual Negative 07/06/25 06:02: Urine Color Yellow, Urine Appearance Clear, Urine pH 6.0, Ur Specific [place] 1.020, Urine Protein Trace, Urine Glucose (UA) 3+, Urine Ketones Trace, Urine Blood 2+ A, Urine Nitrate Negative, Urine Bilirubin Negative, Urine Urobilinogen 0.2, Ur Leukocyte Esterase Negative, Urine RBC Occasional, Urine WBC 3-5, Ur Squamous Epith Cells Occasional, Urine Bacteria None 07/06/25 08:20: Troponin I 0.14 H I & O for Last 24 hours: Intake & Output 07/03/25 07/04/25 07/05/25 07/06/25 23:59 23:59 23:59 23:59 Intake Total 1120 / 1120 Output Total 750 / 750 Balance 370 / 370 Weight 78.471 kg Constitutional Constitutional: no acute distress, average body habitus, chronically ill appearing and cooperative *Routine HEENT Exam Head: Present normocephalic Eye: Present EOMI and PERRL ENT: Present mucous membranes moist *Routine Neck Exam Neck: Present supple; Absent lymphadenopathy *Routine Respiratory Exam Respiratory: Present CTA bilaterally *Routine Cardiovascular Exam Cardiovascular: Present tachycardia and irregularly irregular *Routine Abdominal Exam Abdominal: Present soft, normoactive bowel sounds and tenderness (Mild, lower abdomen, nonfocal) *Routine Rectal Exam Rectal:: deferred *Routine Genitalia Exam Genitalia:: deferred *Routine Extremities Exam Extremities: Absent cyanosis, clubbing or edema Comments: Venous stasis ulcers left lower extremity with scabbing *Routine Skin Exam Skin: Present pallor and warm; Absent rash *Routine Neurological Exam Neurological: Present alert, oriented X3 and moving all extremities; Absent altered mental status Meds Home Medications and Allergies Home Medications ?Medication ?Instructions ?Recorded ?Confirmed ?Type canagliflozin 300 mg tablet 300 mg PO DAILY 03/10/24 1 09/06/24 History (Invokana) Held on 07/06/25. Instructions: Until follow-up with cardiology glipizide 2.5 mg tablet, extended 7.5 mg PO DAILY 02/2207/06/25 History release 24 hr allopurinol 300 mg tablet 300 mg PO DAILY #60 tabs 07/06/25 Rx aspirin 81 mg tablet,delayed 81 mg PO DAILY #90 tabs 0 11/02/24 07/06/25 Rx release pentoxifylline 400 mg 400 mg PO TID 01/31/2507/06 History tablet,extended release simvastatin 20 mg tablet 20 mg PO HS 05/22/25 5 History sitagliptin phosphate 50 mg tablet 50 mg PO DAILY 04/2507/06/25 History (Januvia) metoprolol succinate 100 mg 200 mg PO DAILY 05/23/25 1 09/06/24 History tablet,extended release 24 hr amlodipine 5 mg tablet 5 mg PO DAILY #30 tabs 05/2807/06/25 Rx clonidine HCl 0.2 mg tablet 0.1 mg (1/2 x 0.2 mg) PO B ID SBP > 05/28/25 07/06/25 Rx 160 30 days #0 tabs pantoprazole 40 mg tablet,delayed 40 mg PO DAILY #30 t abs 05/28/25 07/06/25 Rx release (Protonix) clopidogrel 75 mg tablet (Plavix) 75 mg PO DAILY 30 da ys #30 tabs 06/17/25 07/06/25 Rx levothyroxine 75 mcg capsule 75 mcg PO DAILY #30 caps 07/06/25 Rx New Prescriptions to Start Prescriptions: levothyroxine Vitaliy Farias Allergies Allergy/AdvReac Type Severity Reaction Status Date / Time atorvastatin (From Lipitor) Allergy Mild Hallucinati Verified 06/12/25 13:17 Hospital Course Hospital Course Hospital Course: Jonelle Kamara is a 69-year-old male with a medical history significant for CAD, type 2 diabetes, hypertension, PAD who presented on 07/02 for elective renal artery stenosis stenting and angiogram. Procedure was complicated by retroperitoneal bleed on left side with development of anemia and subcapsular hematoma. He was admitted and monitored. Ultimately the patient left AMA even though his hemoglobin continued to drop and kidney function was continuing to worsen. On day of discharge of 07/04, his hemoglobin was 9.5, kidney function had worsened with creatinine to 2.7. His heart rate had gone up as well and his blood pressures were soft. Heart rate 90s to 110s. Recommended he stay for further monitoring. Patient refused to stay and left AMA. On arrival today, Hemoglobin improved at 10.6, creatinine improved to 1.8. Patient complaining mainly of not having had a bowel movement. Heart rate in the 120s to 140s. Initiated on bowel regimen and given 10 mL of magnesium citrate along with 1 fleets enema. Had 2 bowel movements and felt much better. P.o. challenge performed and able to eat without difficulty. Started on his home metoprolol with improvement in blood pressure and improvement in heart rate down to the 90s. In light of his overall clinical improvement from his last admission and improvement in heart rate with resumption of his home heart failure meds, patient deemed appropriate to discharge home with close follow-up with cardiology this coming week. Remained stable on room air. Overall doing well. Peritoneal hemorrhage Bilateral renal artery stenosis status post stenting Subcapsular hematoma of left kidney Acute blood loss anemia Hemorrhagic shock, responded to blood transfusion and aggressive fluid resuscitation DAYSI Hyperkalemia - Conditions overall improving. Retroperitoneal hematoma stable on repeat CT obtained today. Hemoglobin up appointment kidney function improving close to baseline of 1.6. Potassium within normal range. No indication for transfusion or further treatment. Resumed patient's home med for heart failure including amlodipine 5 mg daily, aspirin 81 mg daily, clonidine 0.1 mg for SBP greater than 160, Plavix 75 mg daily, Invokana 300 mg daily still on hold. Resume Januvia 50 mg daily. Resume metoprolol succinate 200 mg daily. Encouraged to follow-up with cardiology this week for further adjustment and treatment. #Severe PAD #History of CAD #Left lower extremity arterial insufficiency ulcers ?Recently admitted with stenting to severe PAD in his lower extremities. Successful reconstruction of bilateral iliacs and bilateral stenting of bilateral subclavian. Continue aspirin 81 mg, plavix 75mg daily, and pentoxifylline 400 mg 3 times a day. holding Xarelto Pill induced esophagitis; identified on recent admission with endoscopy. Continue pantoprazole 40 mg twice daily #Type 2 diabetes: Hemoglobin A1c 7.0% on 05/23. Resume home regimen of Januvia and glipizide #Hypertension: Holding blood pressure meds in the setting of hypotension. Will consider resuming tomorrow if blood pressure normalizes. #Hypothyroidism: Continue home levothyroxine 75 mcg. TSH 2.1 in April Results Data Completed and Pending Labs on day of discharge: Labs from last 24 hours 07/06/25 07/06/25 07/06/25 08:20 06:02 05:41 WBC 12.8 H RBC 3.61 L Hgb 10.9 L Hct 33.4 L MCV 92.5 MCH 30.2 MCHC 32.6 RDW 16.5 Plt Count 201 D MPV 11.5 H Neut % (Auto) 70.0 Lymph % (Auto) 19.7 [place] % (Auto) 7.4 Eos % (Auto) 1.6 Baso % (Auto) 0.4 Neut # (Auto) 8.9 H Lymph # (Auto) 2.5 [place] # (Auto) 0.9 Eos # (Auto) 0.2 Baso # (Auto) 0.1 PT 11.1 INR 1.00 Sodium 147 H Potassium 4.1 Chloride 112 H Carbon Dioxide 18 L Anion Gap 21.1 H BUN 23 H D Creatinine 1.80 H D Estimated Creat Clear 42 Estimated GFR 37 L Est GFR ( Amer) 45 L D Glucose 150 H Lactate 1.7 Calcium 9.4 Total Bilirubin 2.2 H AST 35 ALT 20 Alkaline Phosphatase 83 Troponin I 0.14 H 0.16 H Total Protein 6.8 Albumin 4.2 Globulin 2.6 Albumin/Globulin Ratio 1.6 Lipase 230 Urine Color Yellow Urine Appearance Clear Urine pH 6.0 Ur Specific [place] 1.020 Urine Protein Trace Urine Glucose (UA) 3+ Urine Ketones Trace Urine Blood 2+ A Urine Nitrate Negative Urine Bilirubin Negative Urine Urobilinogen 0.2 Ur Leukocyte Esterase Negative Urine RBC Occasional Urine WBC 3-5 Ur Squamous Epith Cells Occasional Urine Bacteria None HCV Ab JAIRO w/Rflx PCR Qn Negative HIV Ag/Ab Combo Qual Negative DS: Diagnosis Discharge Diagnosis (1) Tachycardia: Status: Acute Code(s): R00.0 - Tachycardia, unspecified (2) Perinephric hematoma: Status: Acute Code(s): S37.019A - Minor contusion of unspecified kidney, initial encounter (3) Myocardial injury: Status: Chronic Code(s): I5A - Non-ischemic myocardial injury (non-traumatic) (4) Acute blood loss anemia: Status: Acute Code(s): D62 - Acute posthemorrhagic anemia (5) Retroperitoneal bleed: Status: Acute Code(s): K68.3 - Retroperitoneal hematoma (6) DAYSI (acute kidney injury): Status: Resolved Code(s): N17.9 - Acute kidney failure, unspecified (7) Atrial fibrillation: Status: Chronic Code(s): I48.91 - Unspecified atrial fibrillation Qualifiers: Atrial fibrillation type: unspecified Qualified Code(s): I48.91 - Unspecified atrial fibrillation (8) CAD (coronary artery disease): Status: Chronic Code(s): I25.10 - Atherosclerotic heart disease of [place] coronary artery without angina pectoris Qualifiers: Coronary Disease-Associated Artery/Lesion type: [place] artery [place] vs. transplanted heart: [place] heart Associated angina: with unspecified angina Qualified Code(s): I25.119 - Atherosclerotic heart disease of [place] coronary artery with unspecified angina pectoris (9) HLD (hyperlipidemia): Status: Chronic Code(s): E78.5 - Hyperlipidemia, unspecified Qualifiers: Hyperlipidemia type: other hyperlipidemia Qualified Code(s): E78.4 - Other hyperlipidemia (10) HTN (hypertension): Status: Chronic Code(s): I10 - Essential (primary) hypertension Qualifiers: Hypertension type: essential hypertension Qualified Code(s): I10 - Essential (primary) hypertension Discharge Plan Disposition Patient Disposition: Home, Self-Care Condition: Fair Follow up Plan Follow up with: Damaris Quinteros PA [Primary Care Provider, Medical] - Enter time for follow up Referral Note: please call the office for your appointment on TuesdayJuly 08. the office is aware of your need for an appointment! thank you! Baldemar Davis MD [Staff Physician, Cardiology] - 1 week Referral Note: Please call Tuesday to schedule your 1 week follow up appointment with cardiology, thank you! the office is aware of your need for a follow up appointment ! Prescriptions/Medication Reconciliation: New levothyroxine 75 mcg capsule 75 mcg PO DAILY Qty: 30 0RF Rx Instructions: continue home med Continued aspirin 81 mg tablet,delayed release (DR/EC) 81 mg PO DAILY Qty: 90 4RF pentoxifylline 400 mg tablet extended release 400 mg PO TID Patient Comments: TAKE 1 TABLET BY MOUTH TWICE DAILY allopurinol 300 mg tablet 300 mg PO DAILY Qty: 60 1RF glipizide 2.5 mg tablet extended release 24hr 7.5 mg PO DAILY Patient Comments: TAKE 3 TABLETS BY MOUTH 1 TIME DAILY Januvia 50 mg tablet 50 mg PO DAILY Patient Comments: TAKE 1 TABLET BY MOUTH DAILY simvastatin 20 mg tablet 20 mg PO HS metoprolol succinate 100 mg tablet extended release 24 hr 200 mg PO DAILY Patient Comments: TAKE 2 TABLETS BY MOUTH DAILY pantoprazole [Protonix] 40 mg tablet,delayed release (DR/EC) 40 mg PO DAILY Qty: 30 0RF amlodipine 5 mg tablet 5 mg PO DAILY Qty: 30 0RF clonidine HCl 0.2 mg tablet 0.1 mg PO BID 30 Days Qty: 0 0RF Patient Comments: TAKE 1 TABLET BY MOUTH TWICE DAILY clopidogrel [Plavix] 75 mg Tablet 75 mg PO DAILY 30 Days Qty: 30 6RF Held Invokana 300 mg tablet 300 mg PO DAILY Hold Instructions: due to hypotension, until follow-up with Cardiology Patient Comments: TAKE 1 TABLET BY MOUTH DAILY Discontinued levothyroxine 50 mcg tablet 50 mcg PO DAILYDM Problem Reconciliation Problems Reviewed?: Yes Patient Discharge Instructions ACTIVITY: Continue current activity DIET: continue same diet Patient Instructions: Kidney Failure, Vitamin D Deficiency, Tachycardia, Hyperosmolar Hyperglycemic State, Chronic Kidney Disease, DI for Tachycardia Print Language: Ethiopian Providers Primary Care Provider: Damaris Quinteros Admit Provider: Vitaliy Farias Attending Provider: Vitaliy Farias
[2025-07-06] MEDS: MAGNESIUM CITRATE 296ML BOTTLE 296 ML PO (11:21)
[2025-07-06] MEDS: SODIUM PHOS/BIPHOSPHATE FLEET 133ML ENEMA 133 ML RC (11:21)
[2025-07-06] MEDS: LEVOTHYROXINE 50MCG (0.05MG) TAB 50 MCG PO (11:22)
--- NOTE | 2025-07-06 14:55 | PC.WOUNDNOTE ---
Left lower extremity
[2025-07-06] MEDS: PENTOXIFYLLINE 400MG TABLET 400 MG PO (15:20)
--- NOTE | 2025-07-06 16:39 | PC.NURSE ---
Patient discharged via wheelchair accompanied by Primary RN at this time.
--- NOTE | 2025-07-06 17:00 | PC.NURSE ---
Skin redness Patient had his grandson bring him a hot coffee from [employer]. Patient attempted to drink the coffee and spilled some on his chest and down his left side under his breast. Patient reported some tenderness with redness noted to area. No breakdown noted, blanchable redness. After cleaning him up he had continued redness with minimal pain. Will continue to monitor. MD aware.
--- NOTE | 2025-07-09 11:16 | SW/DCPLANNER ---
Phoned patient x2. Left message and with name and a call back number. Nitin ALVA [employer]
--- NOTE | 2025-07-12 11:47 | PC.NURSE ---
07/12/2025 pt stated he is not interested at this time.
== END 2025-07-06 17:09 | disposition home or self-care (01) ==
LOC: ER 07:52 → ICU 08:54
PROVIDERS: Admitting Provider Internal Medicine Adolescent Medicine; Emergency Provider Emergency Medicine; PCP Physician Assistant; Visit Provider Internal Medicine Adolescent Medicine
DX: S37.012A Minor contusion of left kidney, initial encounter (principal); R00.0 Tachycardia, unspecified; I5A Non-ischemic myocardial injury (non-traumatic); D62 Acute posthemorrhagic anemia; K68.3 Retroperitoneal hematoma; N17.9 Acute kidney failure, unspecified; I48.91 Unspecified atrial fibrillation; I25.119 Atherosclerotic heart disease of native coronary artery with unspecified angina pectoris; I10 Essential (primary) hypertension; R34 Anuria and oliguria; E78.5 Hyperlipidemia, unspecified; Z79.899 Other long term (current) drug therapy; T75.89XA Other specified effects of external causes, initial encounter; Y73.1 Therapeutic (nonsurgical) and rehabilitative gastroenterology and urology devices associated with adverse incidents
CPT/HCPCS: 51798; 71275; 74174; 80053; 81001; 83605; 83690; 84484; 85025; 85610; 86803; 87389; 93005; 99285; G0378; J7120; Q9967